=== PATIENT | female | born 1980 | race Caucasian/White ===

== ENCOUNTER 2017-12-22 11:40 | Emergency (ER) | payer MEDICARE, OTHER ==
[~2017-12-22] VITALS: Ht 157.5 cm; Wt 72.6 kg
[2017-12-22] MEDS ORDERED: ASPIRIN 81 MG CHEW (CHILDREN'S ASA) PO ONE (11:45)
[2017-12-22] MEDS ORDERED: NITROGLYCERIN 0.4 MG SL TABS BTL 25'S SL PRN (11:45)
[2017-12-22] MEDS ORDERED: morphine INJ 10 MG/ML 1ML (SYR OR VIAL) IVP STA (11:47)
[2017-12-22 11:52] LABS: BASOPHILS % (AUTO) 0 % (0-10); EOSINOPHILS # (AUTO) 0.1 10^3/uL (0.0-0.3); EOSINOPHILS % (AUTO) 1 % (0-10); HEMATOCRIT 42 % (35-52); HEMOGLOBIN 14.3 G/DL (11.5-16.0); LYMPHOCYTES # (AUTO) 3.5 X 10^3 (1.0-4.0); LYMPHOCYTES % (AUTO) 37 % (12-44); MEAN CORPUSCULAR HEMOGLOBIN 30 PG (25-34); MEAN CORPUSCULAR HGB CONC 34 G/DL (32-36); MEAN CORPUSCULAR VOLUME 87 FL (80-99); MEAN PLATELET VOLUME 11.1 FL (7.4-10.4); MONOCYTES # (AUTO) 0.6 X 10^3 (0.0-1.0); MONOCYTES % (AUTO) 6 % (0-12); NEUTROPHILS # (AUTO) 5.4 X 10^3 (1.8-7.8); NEUTROPHILS % (AUTO) 56 % (42-75); PLATELET COUNT 249 10^3/uL (130-400); RED BLOOD COUNT 4.85 10^6/uL (4.35-5.85); RED CELL DISTRIBUTION WIDTH 14.9 % (10.0-14.5); WHITE BLOOD COUNT 9.6 10^3/uL (4.3-11.0)
[2017-12-22] MEDS ORDERED: LORazepam INJ 2 MG/ML (ATIVAN) VIAL IVP ONE (12:00)
[2017-12-22 12:08] LABS: PROTHROMBIN TIME PATIENT 13.4 SEC (12.2-14.7)
[2017-12-22 12:09] LABS: ALANINE AMINOTRANSFERASE 11 U/L (0-55); ALKALINE PHOSPHATASE 91 U/L (40-136); AMYLASE 18 U/L (25-125); BILIRUBIN,TOTAL 0.9 MG/DL (0.1-1.0); BUN/CREATININE RATIO 11; CALCIUM 9.6 MG/DL (8.5-10.1); CARBON DIOXIDE 24 MMOL/L (21-32); CHLORIDE 104 MMOL/L (98-107); CREATININE SERUM 0.76 MG/DL (0.60-1.30); GFR ESTIMATED > 60; GLUCOSE 86 MG/DL (70-105); LIPASE 8 U/L (8-78); MAGNESIUM 2.1 MG/DL (1.8-2.4); POTASSIUM 3.8 MMOL/L (3.6-5.0); SODIUM 138 MMOL/L (135-145); TOTAL PROTEIN 6.9 GM/DL (6.4-8.2)
--- NOTE | 2017-12-22 12:09 | ED Chest Pain ---
General Stated Complaint: CP/UNRESPONSIVE Source: patient Exam Limitations: clinical condition (REAL RUANO) History of Present Illness Date Seen by Provider: Dec 22, 2017 Time Seen by Provider: 11:42 Initial Comments Patient presents to ED with left sided chest pain that began approximately 30 minutes prior to presentation. Patient describes the pain as sharp and radiates down her left arm and across to her right chest. 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 Patient reports that she experienced lightheadedness, tunnel vision, nausea, shortness of breath, and transient loss of consciousness en route to the ED. Patient reports that she has mild chest pain every morning which is normally relieved with Tylenol. Approximately one week ago patient reports that she had a similar episode of severe chest pain. She reported to [facility] at that time where it was determined that her pain was not cardiac in nature and she was subsequently released. 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 Seen at [facility] previously and told that it might be rib pain after evaluation. Patient and case makermanager cardiovascular that they were told everything else is normal. Apparently today had several episodes of nearly passing out with severe chest pain and she is not sure what is going on. 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 Associated Symptoms: shortness of breath, weakness (CAMILLA GARCIA MD) Allergies and Home Medications Allergies Coded Allergies: No Known Drug Allergies (Unverified , 12/22/17) Patient Home Medication List Home Medication List Reviewed: Yes (REAL RUANO) Home Medication List Reviewed: Yes (CAMILLA GARCIA MD) Review of Systems Constitutional: see HPI, chills, dizziness EENTM: Blurred Vision Respiratory: See HPI, Shortness of Air Cardiovascular: Chest Pain, Lightheadedness Gastrointestinal: Abdominal Pain; Denies Constipated; Diarrhea, Nausea; Denies Vomiting Psychiatric/Neurological: Anxiety, Depressed, Headache (REAL RUANO) Musculoskeletal: see HPI; No joint pain; muscle pain; No muscle stiffness Skin: No change in color, No rash (CAMILLA GARCIA MD) All Other Systems Reviewed Negative Unless Noted: Yes (CAMILLA GARCIA MD) Past Uaynout-Skxfqz-Entqga Hx Past Med/Social Hx: Reviewed Nursing Past Med/Soc Hx (CAMILLA GARCIA MD) Patient Social History Alcohol Use: Denies Use Recreational Drug Use: No Smoking Status: Current Everyday Smoker Type Used: Cigarettes (REAL RUANO) Past Medical History Surgeries: Yes Adenoidectomy, Gallbladder Gastrointestinal: Yes Gall Bladder Disease Anxiety, Depression (REAL RUANO) Family Medical History Reviewed Nursing Family Hx (CAMILLA GARCIA MD) Physical Exam Vital Signs Vital Signs - First Documented 12/22/17 11:40 Temp 96.4 Pulse 86 Resp 26 B/P (MAP) 115/70 (85) Pulse Ox 100 O2 Delivery Room Air (CAMILLA GARCIA MD) Vital Signs Capillary Refill : (REAL RUANO) Height, Weight, BMI Height: '" Weight: lbs. oz. kg; BMI Method: General Appearance: WD/WN, Anxious, Obese, Severe Distress HEENT: PERRL/EOMI, TMs Normal, Normal ENT Inspection, Pharynx Normal Neck: Normal Inspection, Non Tender Respiratory: Lungs Clear, Normal Breath Sounds, No Accessory Muscle Use, No Respiratory Distress Cardiovascular: Regular Rate, Rhythm, No Edema, No Gallop, No JVD, No Murmur, Normal Peripheral Pulses Gastrointestinal: Normal Bowel Sounds, No Organomegaly, No Pulsatile Mass, Non Tender, Soft Extremity: Normal Capillary Refill, Normal Inspection, Normal Range of Motion, Non Tender, No Calf Tenderness Neurologic/Psychiatric: Alert, Oriented x3, No Motor/Sensory Deficits, Normal Mood/Affect Skin: Normal Color, Warm/Dry Lymphatic: No Adenopathy (REAL RUANO) General Appearance: WD/WN, Anxious, Severe Distress Respiratory: Lungs Clear, Normal Breath Sounds Cardiovascular: Regular Rate, Rhythm, No Murmur Gastrointestinal: Non Tender, Soft Extremity: Normal Range of Motion, Non Tender Neurologic/Psychiatric: Alert, Oriented x3 Skin: Normal Color, Warm/Dry (CAMILLA GARCIA MD) Progress/Results/Core Measures Results/Orders Lab Results Laboratory Tests Test 12/22/17 11:40 12/22/17 14:38 Range/Units White Blood Count 9.6 4.3-11.0 10^3/uL Red Blood Count 4.85 4.35-5.85 10^6/uL Hemoglobin 14.3 11.5-16.0 G/DL Hematocrit 42 35-52 % Mean Corpuscular Volume 87 80-99 FL Mean Corpuscular Hemoglobin 30 25-34 PG Mean Corpuscular Hemoglobin Concent 34 32-36 G/DL Red Cell Distribution Width 14.9 H 10.0-14.5 % Platelet Count 249 130-400 10^3/uL Mean Platelet Volume 11.1 H 7.4-10.4 FL Neutrophils (%) (Auto) 56 42-75 % Lymphocytes (%) (Auto) 37 12-44 % Monocytes (%) (Auto) 6 0-12 % Eosinophils (%) (Auto) 1 0-10 % Basophils (%) (Auto) 0 0-10 % Neutrophils # (Auto) 5.4 1.8-7.8 X 10^3 Lymphocytes # (Auto) 3.5 1.0-4.0 X 10^3 Monocytes # (Auto) 0.6 0.0-1.0 X 10^3 Eosinophils # (Auto) 0.1 0.0-0.3 10^3/uL Basophils # (Auto) 0.0 0.0-0.1 10^3/uL Prothrombin Time 13.4 12.2-14.7 SEC INR Comment 1.0 0.8-1.4 Activated Partial Thromboplast Time 26 24-35 SEC D-Dimer <= 0.27 0.00-0.49 UG/ML Sodium Level 138 135-145 MMOL/L Potassium Level 3.8 3.6-5.0 MMOL/L Chloride Level 104 98-107 MMOL/L Carbon Dioxide Level 24 21-32 MMOL/L Anion Gap 10 5-14 MMOL/L Blood Urea Nitrogen 8 7-18 MG/DL Creatinine 0.76 0.60-1.30 MG/DL Estimat Glomerular Filtration Rate > 60 BUN/Creatinine Ratio 11 Glucose Level 86 70-105 MG/DL Calcium Level 9.6 8.5-10.1 MG/DL Corrected Calcium 9.6 8.5-10.1 MG/DL Magnesium Level 2.1 1.8-2.4 MG/DL Total Bilirubin 0.9 0.1-1.0 MG/DL Aspartate Amino Transf (AST/SGOT) 13 5-34 U/L Alanine Aminotransferase (ALT/SGPT) 11 0-55 U/L Alkaline Phosphatase 91 40-136 U/L Myoglobin 35.4 32.1 10.0-92.0 NG/ML Troponin I < 0.30 < 0.30 <0.30 NG/ML Total Protein 6.9 6.4-8.2 GM/DL Albumin 4.0 3.2-4.5 GM/DL Amylase Level 18 L 25-125 U/L Lipase 8 8-78 U/L (CAMILLA GARCIA MD) My Orders Orders - CAMILLA GARCIA MD Cbc With Automated Diff (12/22/17 11:43) Magnesium (12/22/17 11:43) Chest 1 View, Ap/Pa Only (12/22/17 11:43) Ekg Tracing (12/22/17 11:43) Cardiac Profile 1 (12/22/17 11:43) Comprehensive Metabolic Panel (12/22/17 11:43) Myoglobin Serum (12/22/17 11:43) Protime With Inr (12/22/17 11:43) Partial Thromboplastin Time (12/22/17 11:43) O2 (12/22/17 11:43) Monitor-Rhythm Ecg Trace Only (12/22/17 11:43) Lipid Panel (12/23/17 06:00) Aspirin Chewable Tablet (Baby Aspirin Ch (12/22/17 11:45) Nitroglycerin 0.4 Mg Btl 25's (Nitrostat (12/22/17 11:45) Saline Lock/Iv-Start (12/22/17 11:43) Lipase (12/22/17 11:43) Amylase (12/22/17 11:43) Fibrin Degradation Products (12/22/17 11:43) Morphine Injection (Morphine Injection (12/22/17 11:47) Lorazepam Injection (Ativan Injection) (12/22/17 12:00) Ct Angio Chest W (12/22/17 13:12) Saline Lock/Iv-Start (12/22/17 13:12) Ns Iv 1000 Ml (Sodium Chloride 0.9%) (12/22/17 13:12) Iohexol Injection (Omnipaque 350 Mg/Ml 1 (12/22/17 13:15) Ns (Ivpb) (Sodium Chloride 0.9%) (12/22/17 13:15) Troponin I (12/22/17 14:27) Myoglobin Serum (12/22/17 14:27) Ekg Tracing (12/22/17 14:27) (CAMILLA GARCIA MD) Medications Given in ED Current Medications Medications Dose Ordered Sig/Falguni Route Start Time Stop Time Status Last Admin Dose Admin Aspirin 324 mg ONCE ONCE PO 12/22/17 11:45 12/22/17 11:47 DC 12/22/17 11:58 324 MG Iohexol 125 ml ONCE ONCE IV 12/22/17 13:15 12/22/17 13:25 DC 12/22/17 14:05 125 ML Lorazepam 0.5 mg ONCE ONCE IVP 12/22/17 12:00 12/22/17 12:01 DC 12/22/17 12:03 0.5 MG Nitroglycerin 0.4 mg UD PRN SL 12/22/17 11:45 12/22/17 11:53 0.4 MG Sodium Chloride 250 ml ONCE ONCE IV 12/22/17 13:15 12/22/17 13:25 DC 12/22/17 14:06 80 ML Sodium Chloride 1,000 ml @ 0 mls/hr Q0M ONCE IV 12/22/17 13:12 12/22/17 13:13 DC 12/22/17 13:23 1,000 MLS/HR (CAMILLA GARCIA MD) Vital Signs/I&O 12/22/17 12/22/17 12/22/17 11:40 11:40 11:43 Temp 96.4 Pulse 86 Resp 26 B/P (MAP) 115/70 (85) Pulse Ox 100 100 O2 Delivery Room Air Room Air Room Air (CAMILLA GARCIA MD) Progress Progress Note : Time: 12:44 Progress Note Seen and evaluated. Patient reports cessation of pain. Labs, EKG, and chest CXR reviewed. Repeat cardiac enzymes at 1500, CT angiogram of chest, 1L NS. (REAL RUANO MED STUDENT) Progress Note : Progress Note And seen and evaluated the patient and agree with above except as indicated. I have directed the plan of care. Patient is here with near syncopal or syncopal episodes in route and severe chest pain. Described as above. Chest pain persists after arrival. Exam as above. IV, labs, EKG, chest x-ray, ASA 324 mg by mouth, nitroglycerin sublingual, morphine 2 mg IV ordered. Monitor patient. 1400: Repeat labs plan. We will get CT angiogram of the chest due to severity of condition and the near syncopal episodes to rule out PE. 1500: Patient is pain-free. Pending repeat labs. Monitor patient. 1600: CT angiogram negative. Repeat labs also negative. Repeat EKG unchanged. I did discuss the case with Dr. Sparks and he will see the patient in clinic for further evaluation and possible stress test as indicated. Copy of the chart will be sent to Dr. Sparks. All of this was discussed with the patient and family/case maker. Discharged home with return precautions. Patient verbalize understanding instructions and agreement with plan. (CAMILLA GARCIA MD) Initial ECG Impression Date: Dec 22, 2017 Initial ECG Impression Time: 11:44 Initial ECG Rate: 85 Initial ECG Rhythm: Normal Sinus Initial ECG Intervals: Normal Initial ECG Impression: Normal Comment Sinus rhythm with normal axis. No evidence of ST elevation [place]. No previous available for comparison. Interpreted by me. EKG : EKG Time: 14:33 Rate: 81 Rhythm: Normal Sinus ECG Impression: Normal Comment Sinus rhythm with artifact. No evidence of ST elevation [place]. Similar to previous done earlier today. Interpreted by me. (CAMILLA GARCIA MD) Diagnostic Imaging Diagonstic Imaging: Xray Plain Films/CT/US/NM/MRI: chest Comments [facility] [place], [place] NAME: PIERRE DUGAN [facility] REC#: [id number] PT STATUS: REG ER : 1980 PHYSICIAN: CAMILLA GARCIA MD ADMIT DATE: 12/22/17/ER Draft Date of Exam:12/22/17 CHEST 1 VIEW, AP/PA ONLY CLINICAL INDICATION: Patient with chest pain x2 weeks. EXAM: Portable chest x-ray upright view. COMPARISONS: None. FINDINGS: Lungs/pleura: Lungs are clear. There is no pneumothorax. There is no pleural effusion. Mediastinum: Unremarkable. Pulmonary vasculature: Unremarkable. Heart: Unremarkable. Bones/extrathoracic soft tissue: Surgical clips are seen overlying the right upper quadrant which could be related to cholecystectomy changes. Bone show no significant abnormality. IMPRESSION: There is no radiographic evidence of acute cardiopulmonary process. Dictated on workstation # [id number] Dict: 12/22/17 1234 Trans: 12/22/17 1235 [id number] Interpreted by: ELEUTERIO RAYMOND MD Electronically signed by: [employer] Imaging: CT Plain Films/CT/US/NM/MRI: chest Comments PHYSICIAN: CAMILLA GARCIA MD ADMIT DATE: 12/22/17/ER Draft Date of Exam:12/22/17 CT ANGIO CHEST W PROCEDURE: CT angiography of the chest with contrast. TECHNIQUE: Multiple contiguous axial images were obtained through the chest after uneventful bolus administration of intravenous contrast. Reconstructed CTA MIP acquisitions were also performed. INDICATION: Chest pain. COMPARISON: Chest x-ray from the same day. FINDINGS: The pulmonary arteries are diagnostic to the segmental level. No pulmonary embolus is seen. The heart is normal in size. There is no pericardial effusion. The aorta appears normal. No mediastinal adenopathy is seen. There is dependent atelectasis bilaterally. No focal mass is seen. No central endobronchial lesions are identified. There is no pleural effusion or pneumothorax. Calcified right hilar lymph nodes are noted. No acute osseous abnormality is seen. Imaged portions of the upper abdomen demonstrate no acute abnormality. Cholecystectomy clips are noted. There is mildly asymmetric soft tissue density in the left breast relative to the right. Consider nonemergent mammogram for further evaluation. IMPRESSION: 1. No pulmonary embolus. 2. Dependent atelectasis bilaterally. No acute pulmonary abnormality seen. 3. Mildly asymmetric density in the left breast relative to the right. Consider further evaluation with nonemergent mammogram. Dictated on workstation # [id number] Dict: 12/22/17 1423 Trans: 12/22/17 1432 [facility] [id number] Interpreted by: MARITZA DYER MD Electronically signed by: (CAMILLA GARCIA MD) Departure Impression Primary Impression: Chest pain Qualified Codes: R07.9 - Chest pain, unspecified Disposition: 01 HOME, SELF-CARE Condition: Improved Departure-Patient Inst. Decision time for Depature: 16:02 (CAMILLA GARCIA MD) Referrals: ESTHELA SPARKS MD Patient Instructions: Chest Pain (DC) Add. Discharge Instructions: You need to get mammogram for irregularity noted in the left breast compared to the right. Follow-up with Dr. Sparks within one week for recheck and further evaluation. Call his office in the morning. You may start taking Pepcid or the generic famotidine 20 mg once or twice a day as needed for stomach upset. Take this daily at least for the next 2 weeks and then as needed thereafter. Drink plenty of fluids. Eat a light diet. Return for worse pain, fever, vomiting, weakness, breathing problems or other concerns as needed. Copy Copies To 1: ESTHELA SPARKS MD, JOSHUA MED STUDENT Dec 22, 2017 12:09 CAMILLA GARCIA MD Dec 22, 2017 12:50
[2017-12-22 12:15] LABS: MYOGLOBIN SERUM 35.4 NG/ML (10.0-92.0)
--- NOTE | 2017-12-22 12:36 | Diagnostic Imaging Report ---
CLINICAL INDICATION: Patient with chest pain x2 weeks. EXAM: Portable chest x-ray upright view. COMPARISONS: None. FINDINGS: Lungs/pleura: Lungs are clear. There is no pneumothorax. There is no pleural effusion. Mediastinum: Unremarkable. Pulmonary vasculature: Unremarkable. Heart: Unremarkable. Bones/extrathoracic soft tissue: Surgical clips are seen overlying the right upper quadrant which could be related to cholecystectomy changes. Bone show no significant abnormality. IMPRESSION: There is no radiographic evidence of acute cardiopulmonary process. Dictated by: Dictated on workstation # [id number]
[2017-12-22] MEDS ORDERED: NS IV 1000 ML 1,000 ML IV ONE (13:12)
[2017-12-22] MEDS ORDERED: IOHEXOL 350 MG/ML 150 ML (OMNIPAQUE 350) VIAL IV ONE (13:15)
[2017-12-22] MEDS ORDERED: NS 250 ML (IVPB) BAG IV ONE (13:15)
--- NOTE | 2017-12-22 14:33 | Diagnostic Imaging Report ---
PROCEDURE: CT angiography of the chest with contrast. TECHNIQUE: Multiple contiguous axial images were obtained through the chest after uneventful bolus administration of intravenous contrast. Reconstructed CTA MIP acquisitions were also performed. INDICATION: Chest pain. COMPARISON: Chest x-ray from the same day. FINDINGS: The pulmonary arteries are diagnostic to the segmental level. No pulmonary embolus is seen. The heart is normal in size. There is no pericardial effusion. The aorta appears normal. No mediastinal adenopathy is seen. There is dependent atelectasis bilaterally. No focal mass is seen. No central endobronchial lesions are identified. There is no pleural effusion or pneumothorax. Calcified right hilar lymph nodes are noted. No acute osseous abnormality is seen. Imaged portions of the upper abdomen demonstrate no acute abnormality. Cholecystectomy clips are noted. There is mildly asymmetric soft tissue density in the left breast relative to the right. Consider nonemergent mammogram for further evaluation. IMPRESSION: 1. No pulmonary embolus. 2. Dependent atelectasis bilaterally. No acute pulmonary abnormality seen. 3. Mildly asymmetric density in the left breast relative to the right. Consider further evaluation with nonemergent mammogram. Dictated by: Dictated on workstation # [id number]
[2017-12-22 15:18] LABS: MYOGLOBIN SERUM 32.1 NG/ML (10.0-92.0)
[2017-12-22 16:12] VITALS: BP 115/96
== END 2017-12-22 16:12 | disposition home or self-care (01) ==
LOC: ER 11:42
DX: R07.89 Other chest pain (principal); F17.210 Nicotine dependence, cigarettes, uncomplicated; F41.9 Anxiety disorder, unspecified; F32.9 Major depressive disorder, single episode, unspecified; Z90.89 Acquired absence of other organs
CPT/HCPCS: 36415; 71045; 71275; 80053; 82150; 83690; 83735; 83874; 84484; 85025; 85379; 85610; 85730; 93005; 93041

== ENCOUNTER → 2018-01-27 | Outpatient (CLI) | payer MEDICARE ==
[~2018-01-27] MED LIST: ATOR10TA PO; DICL50TA6 PO; FLUO20CA42 PO; MIRT7.5T8 PO; RANI300T4 PO
== END ==
LOC: CARD 12:50
PROVIDERS: ATTEND Internal Medicine Cardiovascular Disease
DX: R07.89 Other chest pain (principal); E66.9 Obesity, unspecified; R55 Syncope and collapse; F32.9 Major depressive disorder, single episode, unspecified; I34.0 Nonrheumatic mitral (valve) insufficiency; Z72.0 Tobacco use
CPT/HCPCS: 93017; 93306

== ENCOUNTER 2018-02-03 08:08 | Day surgery (SDC) | payer MEDICARE ==
[~2018-02-03] VITALS: Ht 157.5 cm; Wt 72.6 kg
[2018-02-03] VITALS (8 sets, daily range): BP systolic 101–112; BP diastolic 55–74
[2018-02-03] MEDS ORDERED: NS IV 1000 ML 1,000 ML IV SCH ×2 (08:16→10:04)
[2018-02-03] MEDS ORDERED: LIDOCAINE 1% INJ 20 ML 20 ML VIAL ONE (08:35)
[2018-02-03] MEDS ORDERED: NS IV 1000 ML 1,000 ML ONE (08:35)
[2018-02-03] MEDS ORDERED: HEParin (CATH LAB) 2,000 ML IV ONE (08:35)
[2018-02-03] MEDS ORDERED: RANI300T4 PO (08:45)
[2018-02-03] MEDS ORDERED: MIRT7.5T8 PO (08:45)
[2018-02-03] MEDS ORDERED: FLUO20CA42 PO (08:45)
[2018-02-03] MEDS ORDERED: DICL50TA6 PO (08:46)
[2018-02-03 08:53] LABS: HEMOGLOBIN 13.8 G/DL (11.5-16.0); MEAN PLATELET VOLUME 11.5 FL (7.4-10.4); RED BLOOD COUNT 4.58 10^6/uL (4.35-5.85); RED CELL DISTRIBUTION WIDTH 15.2 % (10.0-14.5); WHITE BLOOD COUNT 10.1 10^3/uL (4.3-11.0)
--- NOTE | 2018-02-03 09:02 | Diagnostic Imaging Report ---
INDICATION: Coronary artery disease The heart size and configuration normal. The lungs are clear. No edema or pneumonia. No pleural fluid or pneumothorax. No change from previous exams most recently 12/22/2017. IMPRESSION: Stable normal frontal chest. Dictated by: Dictated on workstation # [id number]
[2018-02-03 09:10] LABS: INR 1.1 (0.8-1.4); PROTHROMBIN TIME PATIENT 13.7 SEC (12.2-14.7)
[2018-02-03 09:12] LABS: ALANINE AMINOTRANSFERASE 8 U/L (0-55); ALKALINE PHOSPHATASE 87 U/L (40-136); BILIRUBIN,TOTAL 1.1 MG/DL (0.1-1.0); BUN/CREATININE RATIO 10; CALCIUM 9.7 MG/DL (8.5-10.1); CARBON DIOXIDE 22 MMOL/L (21-32); CHLORIDE 105 MMOL/L (98-107); CHOLESTEROL 221 MG/DL (< 200); CREATININE SERUM 0.72 MG/DL (0.60-1.30); GFR ESTIMATED > 60; GLUCOSE 92 MG/DL (70-105); HDL CHOLESTEROL 31 MG/DL (40-60); POTASSIUM 4.2 MMOL/L (3.6-5.0); SODIUM 136 MMOL/L (135-145); TOTAL PROTEIN 7.2 GM/DL (6.4-8.2); TRIGLYCERIDES 105 MG/DL (<150); VLDL CHOLESTEROL 21 MG/DL (5-40)
[2018-02-03] MEDS ORDERED: MIDAZOLAM 5 MG/5 ML (VERSED) VIAL ONE (09:32)
[2018-02-03] MEDS ORDERED: VERAPAMIL 5 MG/2 ML (CALAN) VIAL IV ONE (09:32)
[2018-02-03] MEDS ORDERED: NITRO DRIP 25000 MCG/D5W 250 ML IV ONE (09:32)
[2018-02-03] MEDS ORDERED: HEParin 1000 UNIT/ML (10ML VIAL) FOR BOLUS ONE (09:32)
[2018-02-03] MEDS ORDERED: fentaNYL INJECTION 100 MCG/2 ML AMP ONE (09:33)
--- NOTE | 2018-02-03 09:35 | Cardiac Procedure Note-CS/ASA ---
Pre-Procedure Note Pre-Op Procedure Note H&P Reviewed The H&P was reviewed, patient examined and no changes noted. Date H&P Reviewed: Feb 03, 2018 Time H&P Reviewed: 09:35 Conscious Sedation Pre-Proced Time 09:35 ASA Score 3 For ASA 3 and 4: Consider anesthesia and medical clearance. Also, for patients with a history of failed moderate sedation consider anesthesia. Airway Lungs Heart ASA score ASA 1: a normal healthy patient ASA 2: a patient with a mild systemic disease (mid diabetes, controlled hypertension, obesity x ASA 3: a patient with a severe systemic disease that limits activity (angina , COPD, prior Myocardial infarction) ASA 4: a patient with an incapacitating disease that is a constant threat to life (CHF, renal failure) ASA 5: a moribund patient not expected to survive 24 hrs. (ruptured aneurysm) ASA 6: a declared brain patient whose organs are being harvested. For emergent operations, add the letter E after the classification Mallampati Classification Grade 3 Sedation Plan Analgesia, Amnesia, Plan communicated to team members, Discussed options with patient/fam, Discussed risks with patient/fam The patient is an appropriate candidate to undergo the planned procedure, sedation, and anesthesia. The patient immediately re-assessed prior to indication. ESTHELA COOK MD Feb 03, 2018 09:35
[2018-02-03] MEDS ORDERED: ATOR10TA PO (10:06)
--- NOTE | 2018-02-03 10:07 | Discharge Inst-Post CATH ---
Discharge Inst-CATH Post Cardiac Cath D/C Inst Follow Up/Plan Appointment with Dr. Sparks's office in 2-4 weeks CARDIAC CATH DISCHARGE INSTRUCTIONS *Hold Metformin for 48 hours post heart cath. ACTIVITY * Go Home directly and rest. * Limit activity of the leg (or wrist if it was used) for 7 days including aerobics, swimming, jogging, bicycling, etc. * Restrict stair-climbing for 7 days if possible, if not, climb up with your non -cath leg, then bring together on the same step. * Avoid lifting, pushing, pulling or excessive movement of the affected extremity for 7 days. * Customary sexual activity may be resumed after 2 days-use caution not to use a position that strains or causes pain to the affected extremity. * No driving for 24 hours. * NO SMOKING. * Avoid straining for bowel movements for 7 days. * Gentle walking on level ground is allowed. * Returning to work will depend on the type of procedure and the results. Your doctor will discuss this with you. CALL YOUR DOCTOR FOR ANY OF THE FOLLOWING: *If bleeding from the puncture site occurs- Apply gentle pressure to site with clean cloth and call your doctor or EMS. * If a knot or lump forms under the skin, increases in size, or causes pain. * If bruising appears to be worsening or moving further down your leg instead of disappearing. * Temperature above 101 F. CARE OF YOUR GROIN INCISION; * Bruising or purple discoloration of the skin near the puncture site is common. * You may shower only, no bathtub bathing for 5 days. Be careful to avoid slipping as your leg may feel stiff. * If a closure device was used on your femoral artery, please see the attached guide regarding care of the device and your leg. * Leave the dressing on, until removed by office staff. CARE OF YOUR WRIST INCISION; * Bruising or purple discoloration of the skin near the puncture site is common. * You may shower. * DO NOT submerge wrist. * Leave dressing on, until removed by office staff.. ESTHELA SPARKS MD Feb 03, 2018 10:07
--- NOTE | 2018-02-03 10:11 | Cardiac Cath Report ---
Cardiac Cath Report Physician (s)/Senior Producer (s) Physician ESTHELA COOK MD Pre-Procedure Diagnosis Pre-Procedure Diagnosis: Coronary artery disease Post-Procedure Note Procedure Start Date: Feb 03, 2018 Name of Procedure: Left heart catheterization Findings/Procedure Note PROCEDURE NOTE: 37 years old lady who has been having recurrent chest pain, she underwent an exercise EKG stress test, during exercise she had severe left-sided chest pain, was unable to walk then felt that she was going to pass out, we placed her on bed, she was having severe chest pain, EKG did not show acute abnormality. Continue to have chest pain for a while. I decided to proceed with cardiac catheterization possible PTCA After explaining the procedure to the patient, all pros and cons were explained , all questions were answered. The patient signed the consent and then she was placed on the cardiac catheterization laboratory. Groin was prepped SL fashion local anesthesia was used. Sheath placed in the right radial artery. Norris catheter was used to evaluate the right and left coronary system, left ventriculogram was done At the end of the procedure the sheath was removed. FINDINGS: Hemodynamics LV 117/27, end-diastolic pressure of 27 Aorta 115/81 mean of 85 ANATOMY: Left Main is free of obstructive disease Left Anterior Descending has mild disease nonobstructive disease Left Circumflex has mild disease nonobstructive disease Right Coronory Artery has mild disease no obstructive disease LV Gram is normal in size with normal contraction. Estimated ejection fraction 60 percent CONCLUSION: 1. Mild coronary artery disease nonobstructive disease 2. Normal left ventricular size and systolic estimated ejection fraction 60 percent. Slight 3. Elevated left ventricular end-diastolic pressure DISCUSSION AND RECOMMENDATION: Medical therapy is recommended no intervention is needed Anesthesia Type: Conscious Sedation Estimated blood loss (mL): 10 ml Contrast Amount: 30 ml Total Radiation Dose: 101 mGy Post-Procedure Diagnosis Post-operative diagnosis: Chest pain nonspecific etiology Coronary artery disease Hyperlipidemia Tobaccoism ESTHELA COOK MD Feb 03, 2018 10:10
== END 2018-02-03 13:05 | disposition home or self-care (01) ==
LOC: CATH 08:08 → 4TH 10:20 → CATH 13:05 → 4TH 13:54
PROVIDERS: ATTEND Internal Medicine Cardiovascular Disease
DX: R07.9 Chest pain, unspecified (principal); I25.10 Atherosclerotic heart disease of native coronary artery without angina pectoris; E78.5 Hyperlipidemia, unspecified; F17.210 Nicotine dependence, cigarettes, uncomplicated; F32.9 Major depressive disorder, single episode, unspecified; E66.9 Obesity, unspecified; Z68.29 Body mass index [BMI] 29.0-29.9, adult; F41.9 Anxiety disorder, unspecified; K21.9 Gastro-esophageal reflux disease without esophagitis; R55 Syncope and collapse
CPT/HCPCS: 36415; 71045; 80053; 80061; 84703; 85027; 85610; 85730; 87081; 93458

== ENCOUNTER → 2018-02-04 | Outpatient (CLI) | payer MEDICARE ==
--- NOTE | 2018-02-04 10:32 | Diagnostic Imaging Report ---
EXAM: Ultrasound of the left breast. INDICATION: Left breast pain. By history, the patient has pain in the left breast. The diagnostic mammogram performed earlier today failed to show any sign of an acute abnormality or of malignancy. On this exam, there is no discrete solid or cystic mass identified. There is no sign of an abscess either. IMPRESSION: 1. There is no abnormality to account for the patient's left breast pain. Clinical followup is recommended. 2. There is no sign of malignancy. ACR BI-RADS Category 1: Negative. Result letter will be mailed to the patient. Note: At least 10% of breast cancer is not imaged by mammography. Dictated by: Dictated on workstation # [id number]
--- NOTE | 2018-02-05 22:47 | Diagnostic Imaging Report ---
The current study was also evaluated with a Computer Aided Detection (CAD) system. 3-D tomosynthesis was also performed and reviewed. INDICATION: Abnormal CT exam This is the patient's baseline study. The CTA chest exam performed on 12/22/2017 noted mild asymmetric density in the left breast relative to the right. On this exam, there are scattered fibroglandular densities in both breasts which could obscure a lesion. There is no primary or secondary sign of malignancy identified, however. I suspect that the asymmetric density involving the left breast was related to fibroglandular tissue alone. Even so, I would recommend ultrasound of the left breast be performed for further study. There is a benign-appearing nodular density deep in the right breast near the chest wall. This is most likely intramammary lymph node. IMPRESSION: There is no evidence of malignancy. Ultrasound of the left breast is pending for further study. ACR BI-RADS Category 0: Incomplete. (Needs additional imaging evaluation). Result letter will be mailed to the patient. Note: At least 10% of breast cancer is not imaged by mammography. Dictated by: Dictated on workstation # [id number]
== END ==
LOC: RAD 08:27
PROVIDERS: ATTEND Internal Medicine Cardiovascular Disease
DX: R92.8 Other abnormal and inconclusive findings on diagnostic imaging of breast (principal)
CPT/HCPCS: 76642; 77066

== ENCOUNTER → 2018-03-29 | Outpatient (CLI) | payer MEDICARE ==
--- NOTE | 2018-03-29 14:16 | Diagnostic Imaging Report ---
PROCEDURE: MRI left upper extremity without contrast. TECHNIQUE: Multiplanar, multisequence non contrast-enhanced MRI of the left upper extremity was accomplished. INDICATION: Left shoulder injury in 1999. Left shoulder pain. COMPARISON: None. FINDINGS: No acute fractures seen in the left shoulder. Alignment appears normal. No joint effusion is seen. There is minimal fraying at the undersurface of the supraspinatus near the footplate. No high-grade partial-thickness or full-thickness tears are seen in the left rotator cuff. There is no muscular atrophy. The long head of the biceps tendon appears normal in course and signal. The glenoid labrum is suboptimally evaluated in the absence of contrast. No large paralabral cysts are seen. The spinoglenoid and suprascapular notches appear clear. The acromion has a flat undersurface without significant downsloping or hooking. The coracoclavicular and coracoacromial ligaments are intact. No soft tissue fluid collections are seen. There is no axillary lymphadenopathy. IMPRESSION: 1. Minimal fraying at the undersurface of the distal left supraspinatus tendon. No high-grade partial-thickness or full-thickness rotator cuff tear seen. Dictated by: Dictated on workstation # [id number]
== END ==
LOC: RAD 11:08
PROVIDERS: ATTEND Orthopaedic Surgery
DX: M75.112 Incomplete rotator cuff tear or rupture of left shoulder, not specified as traumatic (principal)
CPT/HCPCS: 73221

== ENCOUNTER 2018-05-05 09:52 | Outpatient (CLI) | payer MEDICARE ==
[~2018-05-05] VITALS: Ht 157.5 cm; Wt 78.0 kg
[2018-05-05 10:23] VITALS: BP 112/73
[2018-05-05] MEDS ORDERED: ATOR10TA66 PO (14:45)
[2018-05-05] MEDS ORDERED: FLUO10CA19 PO (14:45)
== END 2018-05-05 10:25 | disposition home or self-care (01) ==
LOC: PREOP 09:52
PROVIDERS: ATTEND Orthopaedic Surgery
DX: Z01.818 Encounter for other preprocedural examination (principal)
CPT/HCPCS: 87081

== ENCOUNTER 2018-08-01 13:02 | Emergency (ER) | payer MEDICARE ==
[~2018-08-01] VITALS: Ht 157.5 cm; Wt 72.6 kg
[~2018-08-01 13:02] MED LIST changes: +ATOR10TA66 PO; +FLUO10CA19 PO; +HYDR-3875 PO
[2018-08-01 14:17] LABS: HEMOGLOBIN 13.8 G/DL (11.5-16.0); MEAN PLATELET VOLUME 10.5 FL (7.4-10.4); RED CELL DISTRIBUTION WIDTH 15.3 % (10.0-14.5)
[2018-08-01 14:28] LABS: BUN/CREATININE RATIO 14; CALCIUM 9.3 MG/DL (8.5-10.1); CARBON DIOXIDE 22 MMOL/L (21-32); CHLORIDE 100 MMOL/L (98-107); CREATININE SERUM 0.81 MG/DL (0.60-1.30); GFR ESTIMATED > 60; GLUCOSE 79 MG/DL (70-105); POTASSIUM 5.1 MMOL/L (3.6-5.0); SODIUM 135 MMOL/L (135-145)
--- NOTE | 2018-08-01 14:41 | ED General ---
General Chief Complaint: Cough/Cold/Flu Symptoms Stated Complaint: PT LOST VOICE - SENT FROM Source of Information: Patient, Family History of Present Illness Date Seen by Provider: Aug 01, 2018 Time Seen by Provider: 13:40 Initial Comments 37-year-old female presents with pharyngitis. Patient reports that about 5 days ago she had a sore throat, she is then lost her voice. Still having difficulty getting her voice back. No reports of fevers, chills at this time. No nausea vomiting difficulty swallowing or eating. No reports of cough or any other systemic complaints at this time Allergies and Home Medications Allergies Coded Allergies: No Known Drug Allergies (Unverified , 12/22/17) Home Medications Atorvastatin Calcium 10 Mg Tablet, 10 MG PO HS, (Reported) Diclofenac Sodium 50 Mg Tablet.dr, 50 MG PO BID PRN for CHEST PAIN, (Reported) Fluoxetine HCl 10 Mg Capsule, 10 MG PO DAILY, (Reported) Hydrocodone/Acetaminophen 1 Each Tablet, 1 EACH PO Q4H Prescribed by: EDDIE ALONZO on 05/12/18 0954 Mirtazapine 7.5 Mg Tablet, 7.5 MG PO HS, (Reported) Ranitidine HCl 300 Mg Tablet, 300 MG PO HS, (Reported) Patient Home Medication List Home Medication List Reviewed: Yes Review of Systems Review of Systems Constitutional: No chills, No fever EENTM: see HPI, throat swelling Respiratory: No cough, No short of breath, No stridor, No wheezing Cardiovascular: no symptoms reported Gastrointestinal: no symptoms reported Genitourinary: no symptoms reported Musculoskeletal: no symptoms reported Skin: no symptoms reported Past Gwtzaqi-Zzhxum-Szxshg Hx Past Med/Social Hx: Reviewed Nursing Past Med/Soc Hx Patient Social History Type Used: Cigarettes Recent Foreign Travel: No (N) Contact w/Someone Who Travel: No (N) Recent Hopitalizations: No Immunizations Up To Date Date of Pneumonia Vaccine: Feb 01, 2018 Date of Influenza Vaccine: Feb 01, 2018 Seasonal Allergies Seasonal Allergies: No Past Medical History Surgeries: Yes Gallbladder Respiratory: No Cardiac: No Neurological: Yes Concussion Reproductive Disorders: No Sexually Transmitted Disease: No Genitourinary: No Gastrointestinal: No Gall Bladder Disease Musculoskeletal: Yes Arthritis, Fractures Endocrine: No HEENT: No Cancer: No Psychosocial: Yes Anxiety, Depression Integumentary: No Blood Disorders: No Physical Exam Vital Signs Capillary Refill : Height, Weight, BMI Height: 5'2.00" Weight: 166lbs. 8.0oz. 75.965058lw; 30.5 BMI Method:Stated General Appearance: No Apparent Distress, WD/WN Eyes: Bilateral Eye Normal Inspection HEENT: PERRL/EOMI, Pharynx Normal; No Tonsillar Exudate, No Tonsillar Enlargement Neck: Full Range of Motion, Non Tender, Supple Respiratory: Chest Non Tender, Lungs Clear, Normal Breath Sounds, No Accessory Muscle Use, No Respiratory Distress Cardiovascular: Regular Rate, Rhythm, Normal Peripheral Pulses Gastrointestinal: Non Tender, Soft Back: No CVA Tenderness Extremity: Normal Capillary Refill Neurologic/Psychiatric: Alert, Oriented x3 Skin: Normal Color, Warm/Dry Progress/Results/Core Measures Suspected Sepsis SIRS Temperature: Pulse: Respiratory Rate: Laboratory Tests 08/01/18 13:50: White Blood Count 8.0 Blood Pressure / Mean: Laboratory Tests 08/01/18 13:50: Creatinine 0.81, Platelet Count 234 Results/Orders Lab Results Laboratory Tests Test 08/01/18 13:50 Range/Units White Blood Count 8.0 4.3-11.0 10^3/uL Red Blood Count 4.71 4.35-5.85 10^6/uL Hemoglobin 13.8 11.5-16.0 G/DL Hematocrit 43 35-52 % Mean Corpuscular Volume 91 80-99 FL Mean Corpuscular Hemoglobin 29 25-34 PG Mean Corpuscular Hemoglobin Concent 32 32-36 G/DL Red Cell Distribution Width 15.3 H 10.0-14.5 % Platelet Count 234 130-400 10^3/uL Mean Platelet Volume 10.5 H 7.4-10.4 FL Sodium Level 135 135-145 MMOL/L Potassium Level 5.1 H 3.6-5.0 MMOL/L Chloride Level 100 98-107 MMOL/L Carbon Dioxide Level 22 21-32 MMOL/L Anion Gap 13 5-14 MMOL/L Blood Urea Nitrogen 11 7-18 MG/DL Creatinine 0.81 0.60-1.30 MG/DL Estimat Glomerular Filtration Rate > 60 BUN/Creatinine Ratio 14 Glucose Level 79 70-105 MG/DL Calcium Level 9.3 8.5-10.1 MG/DL Group A Streptococcus Screen NEGATIVE NEGATIVE Micro Results Microbiology 08/01/18 Influenza Types A,B Antigen (CORAL) - Final, Complete My Orders Orders - SAMINA RODRÍGUEZ DO Basic Metabolic Panel (08/01/18 13:43) Cbc No Diff (08/01/18 13:43) Rapid Strep A Screen (08/01/18 13:43) Influenza A And B Antigens (08/01/18 13:43) Lidocaine 2% Viscous 15 Ml (Xylocaine Vi (08/01/18 14:45) Antacid Suspension (Mylanta Suspension (08/01/18 14:45) Vital Signs/I&O Capillary Refill : Progress Note : Progress Note Reviewed and negative workup with patient. Discussed with her at this time, looks like a viral pharyngitis. That if by mid week she has not started to regain her voice she should follow-up with her primary care physician for recheck of symptoms and further workup. Patient will be discharged home in stable condition Departure Impression Primary Impression: Laryngitis, acute Disposition: 01 HOME, SELF-CARE Condition: Stable Departure-Patient Inst. Referrals: SELF,LITO SHAH (PCP/Family) Primary Care Physician Patient Instructions: Laryngitis (DC) Add. Discharge Instructions: If symptoms are not starting to improve or resolve by midweek please follow-up with your primary care physician or ENT for further evaluation. Salt water gargles, lemon drops or similar to help keep mouth moist. All discharge instructions reviewed with patient and/or family. Voiced understanding. SAMINA RODRÍGUEZ DO Aug 01, 2018 14:41
[2018-08-01] MEDS ORDERED: ANTACID SUSP 30 ML UDC (MYLANTA) PO ONE (14:45)
[2018-08-01] MEDS ORDERED: LIDOCAINE 2% VISCOUS 15 ML UDC PO ONE (14:45)
[2018-08-01 14:51] VITALS: BP 110/75
== END 2018-08-01 14:53 | disposition home or self-care (01) ==
LOC: EDUNIT# 13:02 → ER FS 13:04
DX: J04.0 Acute laryngitis (principal); F41.9 Anxiety disorder, unspecified; F32.9 Major depressive disorder, single episode, unspecified; Z98.890 Other specified postprocedural states; Z87.448 Personal history of other diseases of urinary system
CPT/HCPCS: 36415; 80048; 85027; 87430; 87804

== ENCOUNTER 2019-11-05 20:00 | Emergency (ER) | payer MEDICARE ==
[~2019-11-05] VITALS: Ht 157.4 cm; Wt 78.5 kg
[~2019-11-05 20:00] MED LIST changes: -FLUO10CA19 PO; +FLUO10CA30 PO
--- OUTSIDE RECORDS SUMMARY | 2019-11-05 20:08 | XMS REPORT ---
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 Name Role Phone LITO HINES Unavailable PROBLEMS Type Condition ICD9-CM Code BPH45-IE Code Onset Dates Condition S tatus SNOMED Code Problem PTSD (post-traumatic stress disorder) F43.10 Active 72453459 Problem Tobacco abuse Z72.0 Active 897187 05 Problem Mixed hyperlipidemia E78.2 07 Apr, 2018 Active 588093130 Problem GERD (gastroesophageal reflux disease) K21.9 Active 850128759 Problem Hyperlipidemia E78.5 Active 67782 004 Problem Major depression F32.9 Active 370 933425 ALLERGIES No Known Allergies ENCOUNTERS Encounter Location Date Diagnosis [address] [place] [address] Mar, Abscess and cellulitis L03.9 0 [facility] [address] [place] [id number] Dec, Dental caries, unspecified K02.9 [facility] [address] [place] [id number] Dec, Dental examination Z01.20 and Caries K02.9 [facility] [address] [place] [id number] Nov, OUTREACH [facility] [id number] [place] [id number] Oct, Dental examination Z01.20 OUTREACH [facility] [id number] [place] [address] Oct, Dental examination Z01.20 and Caries K02 .9 [address] [place] [address] Oct, PTSD (post-traumatic stress disorder) F43.10 and Major depression F32.[address] [place] [address] Aug, Abscess of right breast N61. [address] [place] [address] Aug, Other injury of unspecified body region, initial encounter T14.8XXA ; Local infection of the skin and subcutaneous tissue, unspecified L08.9 and Abscess L02.[address] [place] [address] Jul, Acute viral tracheitis J04.1 0 [facility] [address] [place] [address] Jul, Laryngitis J04.[address] [place] [address] Jul, Major depression F32.9 ; ALLY D (gastroesophageal reflux disease) K21.9 ; PTSD (post-traumatic stress disorder) F43.10 ; Tobacco abuse Z72.0 and Hyperlipidemia E78.[address] [place] [address] Jul, [facility] [id number] [place] [address] May, [facility] [address] [address] May, [facility] [address] [address] Apr, [facility] [address] [address] Dec, IMMUNIZATIONS No Known Immunizations SOCIAL HISTORY Never Assessed REASON FOR VISIT laryngitis PLAN OF CARE Activity Details Follow Up prn Reason: VITAL SIGNS Height 5'2" in 2018-08-03 Weight 177 lbs 2018-08-03 BMI 32.37 kg/m2 2018-08-03 Blood pressure systolic 130 mmHg 2018-08-03 Blood pressure diastolic 72 mmHg 2018-08-03 MEDICATIONS Medication Instructions Dosage Frequency Start Date End Date Duration S tatus Fluoxetine HCl 20 MG Orally Once a day 1 capsule 24h 30 day(s) Active Mirtazapine 7.5 MG Orally Once a day 1 tablets at bedtime 24h 30 day(s) Active Zantac 300 MG Orally Once a day 1 tablet 24h 30 day( s) Active Lipitor 10 MG Orally Once a day 1 tablet 24h 30 day( s) Active Medrol 4 MG Orally daily as directed 24h Jul, 6 days Active Zithromax Z-Aroldo 250 MG Orally Once a day 2 tablets on the first day, then 1 tablet daily for 4 days 24h Jul, 5 day(s) Acti ve RESULTS No Results PROCEDURES Procedure Date Ordered Result Body Site [facility] VISIT ESTABLISHED PATIENT August 03, 2018 INSTRUCTIONS MEDICATIONS ADMINISTERED No Known Medications MEDICAL (GENERAL) HISTORY Type Description Date Medical History Major depression Medical History GERD (gastroesophageal reflux disease) Medical History PTSD (post-traumatic stress disorder) Medical History Tobacco abuse Medical History Hyperlipidemia Surgical History shoulder arthroscopy Surgical History cholecystectomy Surgical History left shoulder surg 2018
--- OUTSIDE RECORDS SUMMARY | 2019-11-05 20:08 | XMS REPORT | Continuity of Care Document ---
Author Organization Unknown Address Unknown Phone Unavailable Allergies Active Description Code Type Severity Reaction Onset Reported/Identified Relationship to Patient Clinical Status Yes No Known Drug Allergies [id number] Drug Allergy Unknown N/A 12/22/2017 Medications There is no data. Problems Date Dx Coded Attending Type Code Diagnosis Diagnosed By 12/22/2017 Ot F17.210 NI COTINE DEPENDENCE, CIGARETTES, UNCOMPL 12/22/2017 Ot F32.9 SHELBIE R DEPRESSIVE DISORDER, SINGLE EPISOD 12/22/2017 Ot F41.9 ANXI ETY DISORDER, UNSPECIFIED 12/22/2017 Ot R07.89 OTH ER CHEST PAIN 12/22/2017 Ot Z90.89 ACQ UIRED ABSENCE OF OTHER ORGANS 01/25/2018 ESTHELA COOK MD Ot R07. 89 OTHER CHEST PAIN 01/28/2018 ESTHELA COOK MD Ot R92. 8 OTH ABN AND INCONCLUSIVE FINDINGS ON DX 02/01/2018 ESTHELA COOK MD Ot E66. 9 OBESITY, UNSPECIFIED 02/01/2018 ESTHELA COOK MD Ot F32. 9 MAJOR DEPRESSIVE DISORDER, SINGLE EPISOD 02/01/2018 ESTHELA COOK MD Ot I34. 0 NONRHEUMATIC MITRAL (VALVE) INSUFFICIENC 02/01/2018 ESTHELA COOK MD Ot R07. 89 OTHER CHEST PAIN 02/01/2018 ESTHELA COOK MD Ot R55 SYNCOPE AND COLLAPSE 02/01/2018 ESTHELA COOK MD Ot Z72. 0 TOBACCO USE 02/03/2018 ESTHELA COOK MD Ot E66. 9 OBESITY, UNSPECIFIED 02/03/2018 ESTHELA COOK MD Ot E78. 5 HYPERLIPIDEMIA, UNSPECIFIED 02/03/2018 ESTHELA COOK MD Ot F17.210 NICOTINE DEPENDENCE, CIGARETTES, UNCOMPL 02/03/2018 ESTHELA COOK MD Ot F32. 9 MAJOR DEPRESSIVE DISORDER, SINGLE EPISOD 02/03/2018 ESTHELA COOK MD Ot F41. 9 ANXIETY DISORDER, UNSPECIFIED 02/03/2018 ESTHELA COOK MD Ot I25. 10 ATHSCL HEART DISEASE OF [place] CORONARY 02/03/2018 ESTHELA COOK MD Ot K21. 9 GASTRO-ESOPHAGEAL REFLUX DISEASE WITHOUT 02/03/2018 ESTHELA COOK MD Ot R07. 9 CHEST PAIN, UNSPECIFIED 02/03/2018 ESTHELA COOK MD Ot R55 SYNCOPE AND COLLAPSE 02/03/2018 ESTHELA COOK MD Ot Z68. 29 BODY MASS INDEX (BMI) 29.0-29.9, ADULT 02/05/2018 ESTHELA COOK MD Ot E66. 9 OBESITY, UNSPECIFIED 02/05/2018 ESTHELA COOK MD Ot E78. 5 HYPERLIPIDEMIA, UNSPECIFIED 02/05/2018 ESTHELA COOK MD Ot F17.210 NICOTINE DEPENDENCE, CIGARETTES, UNCOMPL 02/05/2018 ESTHELA COOK MD Ot F32. 9 MAJOR DEPRESSIVE DISORDER, SINGLE EPISOD 02/05/2018 ESTHELA COOK MD Ot F41. 9 ANXIETY DISORDER, UNSPECIFIED 02/05/2018 ESTHELA COOK MD Ot I25. 10 ATHSCL HEART DISEASE OF [place] CORONARY 02/05/2018 ESTHELA COOK MD Ot K21. 9 GASTRO-ESOPHAGEAL REFLUX DISEASE WITHOUT 02/05/2018 ESTHELA COOK MD Ot R07. 9 CHEST PAIN, UNSPECIFIED 02/05/2018 ESTHELA COOK MD Ot R55 SYNCOPE AND COLLAPSE 02/05/2018 ESTHELA COOK MD Ot Z68. 29 BODY MASS INDEX (BMI) 29.0-29.9, ADULT 02/06/2018 ESTHELA COOK MD Ot R92. 8 OTH ABN AND INCONCLUSIVE FINDINGS ON DX 02/09/2018 ESTHELA COOK MD Ot E66. 9 OBESITY, UNSPECIFIED 02/09/2018 ESTHELA COOK MD Ot E78. 5 HYPERLIPIDEMIA, UNSPECIFIED 02/09/2018 ESTHELA COOK MD Ot F17.210 NICOTINE DEPENDENCE, CIGARETTES, UNCOMPL 02/09/2018 ESTHELA COOK MD Ot F32. 9 MAJOR DEPRESSIVE DISORDER, SINGLE EPISOD 02/09/2018 ESTHELA COOK MD Ot F41. 9 ANXIETY DISORDER, UNSPECIFIED 02/09/2018 ESTHELA COOK MD Ot I25. 10 ATHSCL HEART DISEASE OF [place] CORONARY 02/09/2018 ESTHELA COOK MD Ot K21. 9 GASTRO-ESOPHAGEAL REFLUX DISEASE WITHOUT 02/09/2018 ESTHELA COOK MD Ot R07. 9 CHEST PAIN, UNSPECIFIED 02/09/2018 ESTHELA COOK MD Ot R55 SYNCOPE AND COLLAPSE 02/09/2018 ESTHELA COOK MD Ot Z68. 29 BODY MASS INDEX (BMI) 29.0-29.9, ADULT 02/10/2018 ESTHELA COOK MD Ot R92. 8 OTH ABN AND INCONCLUSIVE FINDINGS ON DX 02/17/2018 ESTHELA COOK MD Ot E66. 9 OBESITY, UNSPECIFIED 02/17/2018 ESTHELA COOK MD Ot F32. 9 MAJOR DEPRESSIVE DISORDER, SINGLE EPISOD 02/17/2018 ESTHELA COOK MD Ot I34. 0 NONRHEUMATIC MITRAL (VALVE) INSUFFICIENC 02/17/2018 ESTHELA COOK MD Ot R07. 89 OTHER CHEST PAIN 02/17/2018 ESTHELA COOK MD Ot R55 SYNCOPE AND COLLAPSE 02/17/2018 ESTHELA COOK MD Ot Z72. 0 TOBACCO USE 02/24/2018 ESTHELA COOK MD Ot R92. 8 OTH ABN AND INCONCLUSIVE FINDINGS ON DX 03/26/2018 ESTHELA COOK MD Ot E66. 9 OBESITY, UNSPECIFIED 03/26/2018 ESTHELA COOK MD Ot F32. 9 MAJOR DEPRESSIVE DISORDER, SINGLE EPISOD 03/26/2018 ESTHELA COOK MD Ot I34. 0 NONRHEUMATIC MITRAL (VALVE) INSUFFICIENC 03/26/2018 ESTHELA COOK MD Ot R07. 89 OTHER CHEST PAIN 03/26/2018 ESTHELA COOK MD Ot R55 SYNCOPE AND COLLAPSE 03/26/2018 ESTHELA COOK MD Ot Z72. 0 TOBACCO USE 03/26/2018 ESTHELA COOK MD Ot R92. 8 OTH ABN AND INCONCLUSIVE FINDINGS ON DX 03/30/2018 SUMANTH NICHOLSON MD Ot M75.112 INCOMPLETE ROTATR-CUFF TEAR/RUPTR OF L S 04/22/2018 SUMANTH NICHOLSON MD Ot M75.112 INCOMPLETE ROTATR-CUFF TEAR/RUPTR OF L S 05/05/2018 ESTHELA COOK MD Ot E66. 9 OBESITY, UNSPECIFIED 05/05/2018 ESTHELA COOK MD Ot F32. 9 MAJOR DEPRESSIVE DISORDER, SINGLE EPISOD 05/05/2018 ESTHELA COOK MD Ot I34. 0 NONRHEUMATIC MITRAL (VALVE) INSUFFICIENC 05/05/2018 ESTHELA COOK MD Ot R07. 89 OTHER CHEST PAIN 05/05/2018 ESTHELA COOK MD Ot R55 SYNCOPE AND COLLAPSE 05/05/2018 ESTHELA COOK MD Ot Z72. 0 TOBACCO USE 05/05/2018 ESTHELA COOK MD Ot R92. 8 OTH ABN AND INCONCLUSIVE FINDINGS ON DX 05/05/2018 SUMANTH NICHOLSON MD, Ot M75.112 INCOMPLETE ROTATR-CUFF TEAR/RUPTR OF L S 05/05/2018 SUMANTH NICHOLSON MD Ot Z01.818 ENCOUNTER FOR OTHER PREPROCEDURAL EXAMIN 05/06/2018 SUMANTH NICHOLSON MD, Ot Z01.818 ENCOUNTER FOR OTHER PREPROCEDURAL EXAMIN 05/12/2018 SUMANTH NICHOLSON MD, Ot E78.5 HYPERLIPIDEMIA, UNSPECIFIED 05/12/2018 SUMANTH NICHOLSON MD, Ot F17.210 NICOTINE DEPENDENCE, CIGARETTES, UNCOMPL 05/12/2018 SUMANTH NICHOLSON MD, Ot F32.9 MAJOR DEPRESSIVE DISORDER, SINGLE EPISOD 05/12/2018 SUMANTH NICHOLSON MD, Ot F41.9 ANXIETY DISORDER, UNSPECIFIED 05/12/2018 SUMANTH NICHOLSON MD Ot I25.10 ATHSCL HEART DISEASE OF [place] CORONARY 05/12/2018 SUMATNH NICHOLSON MD Ot K21.9 GASTRO-ESOPHAGEAL REFLUX DISEASE WITHOUT 05/12/2018 SUMANTH NICHOLSON MD, Ot S43.432A SUPERIOR GLENOID LABRUM LESION OF LEFT S 05/12/2018 SUMANTH NICHOLSON MD, Ot 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 05/17/2018 SUMANTH NICHOLSON MD, Ot E78.5 HYPERLIPIDEMIA, UNSPECIFIED 05/17/2018 SUMANTH NICHOLSON MD Ot F17.210 NICOTINE DEPENDENCE, CIGARETTES, UNCOMPL 05/17/2018 ZAFUTA MD, SUMANTH P Ot F32.9 MAJOR DEPRESSIVE DISORDER, SINGLE EPISOD 05/17/2018 SUMANTH NICHOLSON MD, Ot F41.9 ANXIETY DISORDER, UNSPECIFIED 05/17/2018 SUMANTH NICHOLSON MD, Ot I25.10 ATHSCL HEART DISEASE OF [place] CORONARY 05/17/2018 SUMANTH NICHOLSON MD, Ot K21.9 GASTRO-ESOPHAGEAL REFLUX DISEASE WITHOUT 05/17/2018 SUMANTH NICHOLSON MD Ot S43.432A SUPERIOR GLENOID LABRUM LESION OF LEFT S 05/17/2018 SUMANTH NICHOLSON MD Ot 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 9 OBESITY, UNSPECIFIED 08/01/2018 ESTHELA COOK MD Ot F32. 9 MAJOR DEPRESSIVE DISORDER, SINGLE EPISOD 08/01/2018 ESTHELA COOK MD Ot I34. 0 NONRHEUMATIC MITRAL (VALVE) INSUFFICIENC 08/01/2018 ESTHELA COOK MD Ot R07. 89 OTHER CHEST PAIN 08/01/2018 ESTHELA COOK MD Ot R55 SYNCOPE AND COLLAPSE 08/01/2018 ESTHELA COOK MD Ot Z72. 0 TOBACCO USE 08/01/2018 ESTHELA COOK MD Ot R92. 8 OTH ABN AND INCONCLUSIVE FINDINGS ON DX 08/01/2018 SUMANTH NICHOLSON MD Ot M75.112 INCOMPLETE ROTATR-CUFF TEAR/RUPTR OF L S 08/03/2018 RODRÍGUEZ DO, SAMINA L Ot F32.9 MAJOR DEPRESSIVE DISORDER, SINGLE EPISOD 08/03/2018 RODRÍGUEZ DO, SAMINA L Ot F41.9 ANXIETY DISORDER, UNSPECIFIED 08/03/2018 SAMINA RODRÍGUEZ DO Ot J02.9 ACUTE PHARYNGITIS, UNSPECIFIED 08/03/2018 SAMINA RODRÍGUEZ DO Ot J04.0 ACUTE LARYNGITIS 08/03/2018 SAMINA RODRÍGUEZ DO Ot Z87.4 48 PERSONAL HISTORY OF OTHER DISEASES OF UR 08/03/2018 SAMINA RODRÍGUEZ DO Ot Z98.8 90 OTHER SPECIFIED POSTPROCEDURAL STATES Procedures There is no data. Results Test Result Range Urine beta human chorionic gonadotropin (hCG) measurement - 02/03/18 08:27 Urine beta human chorionic gonadotropin (hCG) measurem ent NEGATIVE NEGATIVE Automated blood complete blood count (he mogram) panel - 02/03/18 08:30 Blood leukocytes automated count (number/volume) 10.1 10*3/uL 4.3-11.0 Blood erythrocytes automated count (number/volume) 4.58 10*6/uL 4.35-5.85 Venous blood hemoglobin measurement (mass/volume) 13.8 g/dL 11.5-16.0 Blood hematocrit (volume fraction) 40 % 35-52 Automated erythrocyte mean corpuscular volume 87 [ foz_us] 80-99 Automated erythrocyte mean corpuscular h emoglobin (mass per erythrocyte) 30 pg 25-34 Automated erythrocyte mean corpuscular h emoglobin concentration measurement (mass/volume) 35 g/dL 32-36 Automated erythrocyte distribution width ratio 15. 2 % 10.0- 14.5 Automated blood platelet count (count/volume) 231 10*3/uL 130-400 Automated blood platelet mean volume measurement 11.5 [foz_us] 7.4-10.4 PT panel in platelet poor plasma by coag ulation assay - 02/03/18 08:30 Prothrombin time (PT) in platelet poor plasma by coagu lation assay 13.7 s 12.2-14.7 INR in platelet poor plasma or blood by coagulation as say 1.1 0.8-1.4 Activated partial thromboplastin time (a PTT) in platelet poor plasma bycoagulation assay - 02/03/18 08:30 Activated partial thromboplastin time (a PTT) in platelet poor plasma bycoagulation assay 28 s 24-35 Comprehensive metabolic panel - 02/03/18 08:30 Serum or plasma sodium measurement (moles/volume) 136 mmol/L 135-145 Serum or plasma potassium measurement (moles/volume) 4.2 mmol/L 3.6-5.0 Serum or plasma chloride measurement (moles/volume) 105 mmol/L 98-107 Carbon dioxide 22 mmol/L 21-32 Serum or plasma anion gap determination (moles/volume) 9 mmol/L 5-14 Serum or plasma urea nitrogen measurement (mass/volume ) 7 mg/dL 7-18 Serum or plasma creatinine measurement (mass/volume) 0.72 mg/dL 0.60-1.30 Serum or plasma urea nitrogen/creatinine mass ratio 10 NRG Serum or plasma creatinine measurement w ith calculation of estimated glomerular filtration rate > NRG Serum or plasma glucose measurement (mass/volume) 92 mg/dL 70-105 Serum or plasma calcium measurement (mass/volume) 9.7 mg/dL 8.5-10.1 Serum or plasma total bilirubin measurement (mass/volu me) 1.1 mg/dL 0.1-1.0 Serum or plasma alkaline phosphatase kayla surement (enzymatic activity/volume) 87 U/L 40-136 Serum or plasma aspartate aminotransfera se measurement (enzymatic activity/volume) 13 U/L 5-34 Serum or plasma alanine aminotransferase measurement (enzymatic activity/volume) 8 U/L 0-55 Serum or plasma protein measurement (mass/volume) 7.2 g/dL 6.4-8.2 Serum or plasma albumin measurement (mass/volume) 4.0 g/dL 3.2-4.5 CALCIUM CORRECTED 9.7 mg/dL 8.5-10.1 Lipid 1996 panel - 02/03/18 08:30 Serum or plasma triglyceride measurement (mass/volume) 105 mg/dL <150 Serum or plasma cholesterol measurement (mass/volume) 221 mg/dL < 200 Serum or plasma cholesterol in HDL measurement (mass/v olume) 31 mg/dL 40-60 Cholesterol in LDL [mass/volume] in serum or plasma by direct assay 185 mg/dL 1-129 Serum or plasma cholesterol in VLDL measurement (mass/ volume) 21 mg/dL 5-40 Methicillin resistant Staphylococcus aur eus (MRSA) screening culture - 02/03/18 08:30 Methicillin resistant Staphylococcus aureus (MRSA) scr eening culture NEG NRG Methicillin resistant Staphylococcus aur eus (MRSA) screening culture - 05/05/18 10:18 Methicillin resistant Staphylococcus aureus (MRSA) scr eening culture NEG NRG Urine beta human chorionic gonadotropin (hCG) measurement - 05/12/18 06:15 Urine beta human chorionic gonadotropin (hCG) measurem ent NEGATIVE NEGATIVE Automated blood complete blood count (he mogram) panel - 08/01/18 13:50 Blood leukocytes automated count (number/volume) 8.0 10*3/uL 4.3-11.0 Blood erythrocytes automated count (number/volume) 4.71 10*6/uL 4.35-5.85 Venous blood hemoglobin measurement (mass/volume) 13.8 g/dL 11.5-16.0 Blood hematocrit (volume fraction) 43 % 35-52 Automated erythrocyte mean corpuscular volume 91 [ foz_us] 80-99 Automated erythrocyte mean corpuscular h emoglobin (mass per erythrocyte) 29 pg 25-34 Automated erythrocyte mean corpuscular h emoglobin concentration measurement (mass/volume) 32 g/dL 32-36 Automated erythrocyte distribution width ratio 15. 3 % 10.0- 14.5 Automated blood platelet count (count/volume) 234 10*3/uL 130-400 Automated blood platelet mean volume measurement 10.5 [foz_us] 7.4-10.4 Streptococcus pyogenes antigen detection - 08/01/18 13:50 Streptococcus pyogenes antigen detection NEGATIVE NEGATIVE Influenza virus A and B antigen detectio n - 08/01/18 13:50 FLU RESULT NEGATIVE FOR INFLUENZA A AND B ANTIGENS BY IA [facility] Whole blood basic metabolic panel - 07/10 08/27 13:50 Serum or plasma sodium measurement (moles/volume) 135 mmol/L 135-145 Serum or plasma potassium measurement (moles/volume) 5.1 mmol/L 3.6-5.0 Serum or plasma chloride measurement (moles/volume) 100 mmol/L 98-107 Carbon dioxide 22 mmol/L 21-32 Serum or plasma anion gap determination (moles/volume) 13 mmol/L 5-14 Serum or plasma urea nitrogen measurement (mass/volume ) 11 mg/dL 7-18 Serum or plasma creatinine measurement (mass/volume) 0.81 mg/dL 0.60-1.30 Serum or plasma urea nitrogen/creatinine mass ratio 14 NRG Serum or plasma creatinine measurement w ith calculation of estimated glomerular filtration rate > NRG Serum or plasma glucose measurement (mass/volume) 79 mg/dL 70-105 Serum or plasma calcium measurement (mass/volume) 9.3 mg/dL 8.5-10.1 Bacterial throat culture - 08/01/18 13:5 0 Bacterial throat culture NBS NRG CULTURE, ANAEROBIC AND AEROBIC - 9 00:00 CULTURE, ANAEROBIC BACTERIA W/GRAM STAIN SEE NOTE NRG CULTURE, AEROBIC BACTERIA SEE NOTE NRG LIPID PANEL - 07/07/19 10:12 CHOLESTEROL, TOTAL 203 mg/dL <200 HDL CHOLESTEROL 33 mg/dL > OR = 50 TRIGLYCERIDES 118 mg/dL <150 LDL-CHOLESTEROL 146 mg/dL (calc) NRG CHOL/HDLC RATIO 6.2 (calc) <5.0 NON HDL CHOLESTEROL 170 mg/dL (calc) <13 0 CMP - 07/07/19 10:12 GLUCOSE 82 mg/dL 65-99 UREA NITROGEN (BUN) 10 mg/dL 7-25 CREATININE 0.73 mg/dL 0.50-1.10 eGFR NON-AFR. [place] 103 mL/min/1.73m2 > OR = 60 eGFR 119 mL/min/1.73m2 > OR = 60 BUN/CREATININE RATIO NOT APPLICABLE (calc) 6-22 SODIUM 137 mmol/L 135-146 POTASSIUM 4.5 mmol/L 3.5-5.3 CHLORIDE 103 mmol/L 98-110 CARBON DIOXIDE 21 mmol/L 20-32 CALCIUM 9.3 mg/dL 8.6-10.2 PROTEIN, TOTAL 6.9 g/dL 6.1-8.1 ALBUMIN 4.1 g/dL 3.6-5.1 GLOBULIN 2.8 g/dL (calc) 1.9-3.7 ALBUMIN/GLOBULIN RATIO 1.5 (calc) 1.0-2. 5 BILIRUBIN, TOTAL 0.7 mg/dL 0.2-1.2 ALKALINE PHOSPHATASE 101 U/L 31-125 AST 13 U/L 10-30 ALT 10 U/L 6-29 SPECIMEN INTEGRITY COMPROMISED - 0 10:12 SPECIMEN INTEGRITY COMPROMISED NRG Encounters ACCT No. Visit Date/Time Discharge Status Pt. Type Provider Facility Loc./Unit Complaint [id number] 12/29/2018 08:00:00 12/29/2018 23:59: 59 CLS Outpatient [facility] [address] [id number] 07/07/2019 09:15:00 Document Registration [id number] 03/17/2019 11:40:00 Document Registration [id number] 08/01/2018 13:04:00 14:53:00 DIS Emergency SAMINA RODRÍGUEZ DO [facility] ER FS PT LOST VOICE - SENT FR OM UC [id number] 05/12/2018 06:02:00 019 11:55:00 DIS Outpatient SUMANTH NICHOLSON MD [facility] SDC LEFT SHOULDER LABRAL T EAR [id number] 05/05/2018 09:52:00 018 10:25:00 DIS Outpatient SUMANTH NICHOLSON MD [facility] PREOP LEFT SHOULDER LABRAL T EAR [id number] 03/25/2018 09:57:00 018 23:59:59 CLS Outpatient SUMANTH NICHOLSON MD [facility] RAD ROTATOR CUFF TEAR PTL LT [id number] 02/04/2018 08:27:00 018 23:59:59 CLS Outpatient ESTHELA COOK MD [facility] RAD DX MAMMO [id number] 02/03/2018 08:08:00 018 13:05:00 DIS Outpatient ESTHELA COOK MD [facility] CATH ABN STRESS TEST [id number] 01/27/2018 12:50:00 23:59:59 CLS Outpatient ESTHELA COOK MD [facility] CARD ANTERIOR CHEST WALL NITIN N,SYNCOPE [id number] 01/05/2018 15:37:00 018 23:59:59 CLS Preadmit ESTHELA COOK MD [facility] RAD ABNORMAL CT SCAN [id number] 01/05/2018 15:05:00 018 23:59:59 CLS Preadmit ESTHELA COOK MD [facility] CARD ANTERIOR CHEST WALL NITIN N,SYNCOPE [id number] 11/05/2019 20:04:[address] Emergency SKY KIM DO [facility] ER FS NUSEA/VOMITTING [id number] 12/22/2017 11:42:00 Document Registration
--- OUTSIDE RECORDS SUMMARY | 2019-11-05 20:08 | XMS REPORT ---
Author Author Evelin BAZAN [facility] Address [address] [place] [address] Care Team Providers Care Window Repairer Name Role Phone MARY BAZAN Unavailable PROBLEMS Type Condition ICD9-CM Code NIP44-MR Code Onset Dates Condition S tatus SNOMED Code Problem PTSD (post-traumatic stress disorder) F43.10 Active 22003202 Problem Tobacco abuse Z72.0 Active 047279 05 Problem Mixed hyperlipidemia E78.2 Apr, Active 317270571 Problem GERD (gastroesophageal reflux disease) K21.9 Active 720179468 Problem Hyperlipidemia E78.5 Active 56011 004 Problem Major depression F32.9 Active [id number] ALLERGIES No Known Allergies ENCOUNTERS Encounter Location Date Diagnosis [facility] [address] [place] [phone] Dec, 19 Dental caries, unspecified K02.9 [facility] [address] [place] [phone] Dec, 19 Dental examination Z01.20 and Caries K02.9 [facility] [address] [place] [phone] Nov, 19 OUTREACH [facility] [id number] [place], [place] [id number] Oct, Dental examination Z01.20 OUTREACH [facility] [address] [id number] [place] [address] Oct, Dental examination Z01.20 and Caries K02 .[address] [address] Oct, PTSD (post-traumatic stress disorder) F4 3.10 and Major depression F32.[address] [address] Aug, [facility] [address] [address] Aug, Abscess of right breast N61.[address] [address] Aug, Other injury of unspecified body region, initial encounter T14.8XXA ; Local infection of the skin and subcutaneous tissue, unspecified L08.9 and Abscess L02.[address] [address] Jul, Acute viral tracheitis J04.10 [facility] [address] [facility] [place] [address] Jul, Laryngitis J04.[address] [address] Jul, Major depression F32.9 ; GERD (gastroeso phageal reflux disease) K21.9 ; PTSD (post-traumatic stress disorder) F43.10 ; Tobacco abuse Z72.0 and Hyperlipidemia E78.[address] [address] Jul, [facility] [address] [facility] [id number] [address] [place] [phone] May, [facility] [address] [facility] [id number] [address] [place] [phone] May, [facility] [address] [facility] [id number] [address] [place] [phone] Apr, [facility] [address] [facility] [id number] [address] [place] [phone] Dec, IMMUNIZATIONS No Known Immunizations SOCIAL HISTORY Never Assessed REASON FOR VISIT fever, sore throat, lost voice, Pt presents with cough x2 days loss of voice/ pt stated she had fever but did not state how high/ pt is refusing to talk stating she cant/ sore throat x1 day PLAN OF CARE Activity Details Follow Up if not improving or with pcp for regular fu Reason: VITAL SIGNS Height 5'2" in 2018-07-30 Weight 177 lbs 2018-07-30 Temperature 98.0 degrees Fahrenheit 2018-07-30 Heart Rate 94 bpm 2018-07-30 Oximetry 98 % 2018-07-30 BMI 32.37 kg/m2 2018-07-30 Blood pressure systolic 138 mmHg 2018-07-30 Blood pressure diastolic 76 mmHg 2018-07-30 MEDICATIONS Medication Instructions Dosage Frequency Start Date [...] 1 tablet 24h 30 day( s) Active RESULTS No Results PROCEDURES Procedure Date Ordered Result Body Site [facility] VISIT ESTABLISHED PATIENT July 30, 2018 INSTRUCTIONS MEDICATIONS ADMINISTERED No Known Medications MEDICAL (GENERAL) HISTORY Type Description Date Medical History Major depression Medical History GERD (gastroesophageal reflux disease) Medical History PTSD (post-traumatic stress disorder) Medical History Tobacco abuse Medical History Hyperlipidemia Surgical History shoulder arthroscopy Surgical History cholecystectomy Surgical History left shoulder surg 2018
[2019-11-05 20:40] LABS: BACTERIA,URINE FEW /HPF; BILIRUBIN,URINE NEGATIVE (NEGATIVE); CLARITY,URINE CLOUDY; COLOR,URINE YELLOW; GLUCOSE, URINE (UA) NEGATIVE (NEGATIVE); KETONES,URINE NEGATIVE (NEGATIVE); LEUKOCYTE ESTERASE ,URINE NEGATIVE (NEGATIVE); NITRITE,URINE NEGATIVE (NEGATIVE); PROTEIN,URINE NEGATIVE (NEGATIVE); SQUAMOUS EPITHELIAL CELL,UR 25-50 /HPF
--- NOTE | 2019-11-05 20:40 | ED Abdominal Pain ---
General Chief Complaint: Abdominal/GI Problems Stated Complaint: NUSEA/VOMITTING Source of Information: Patient Exam Limitations: No Limitations History of Present Illness Date Seen by Provider: Nov 05, 2019 Time Seen by Provider: 20:20 Initial Comments The patient is a pleasant 38-year-old female who presents for evaluation of a cough, posttussive emesis, subjective fevers and chills, and general malaise of the last 1-2 days. No one at home is having similar symptoms. She is alert and oriented 4, calm, and appears to be in no distress. She does cough frequently during the exam. She denies any known sick contacts. Of note she was registered as abdominal pain complaint however she is denying any abdominal pain. Timing/Duration: 1-2 Days Severity/Quality: Moderate Radiation: No Radiation Associated Symptoms: Denies Symptoms Allergies and Home Medications Allergies Coded Allergies: No Known Drug Allergies (Unverified , 12/22/17) Home Medications Atorvastatin Calcium 10 Mg Tablet, 10 MG PO HS, (Reported) Diclofenac Sodium 50 Mg Tablet.dr, 50 MG PO BID PRN for CHEST PAIN, (Reported) Fluoxetine HCl 10 Mg Capsule, 10 MG PO DAILY, (Reported) Hydrocodone/Acetaminophen 1 Each Tablet, 1 EACH PO Q4H Prescribed by: EDDIE ALONZO on 05/12/18 0954 Mirtazapine 7.5 Mg Tablet, 7.5 MG PO HS, (Reported) Ranitidine HCl 300 Mg Tablet, 300 MG PO HS, (Reported) Patient Home Medication List Home Medication List Reviewed: Yes Review of Systems Review of Systems Constitutional: chills, fever EENTM: No Symptoms Reported Respiratory: Cough Gastrointestinal: Nausea, Vomiting Genitourinary: No Symptoms Reported Musculoskeletal: no symptoms reported Skin: no symptoms reported Psychiatric/Neurological: No Symptoms Reported Endocrine: No Symptoms Reported Hematologic/Lymphatic: No Symptoms Reported All Other Systems Reviewed Negative Unless Noted: Yes Past Bvdabst-Tmrhbp-Txxzpi Hx Past Med/Social Hx: Reviewed Nursing Past Med/Soc Hx Patient Social History Type Used: Cigarettes 2nd Hand Smoke Exposure: No Recent Foreign Travel: No Contact w/Someone Who Travel: No Recent Hopitalizations: No Physical Abuse: No Sexual Abuse: No Mistreated: No Fear: No Immunizations Up To Date Date of Pneumonia Vaccine: Feb 01, 2018 Date of Influenza Vaccine: Feb 01, 2018 Seasonal Allergies Seasonal Allergies: No Past Medical History Surgeries: Yes Gallbladder Respiratory: No Cardiac: No Neurological: Yes Concussion Reproductive Disorders: No Sexually Transmitted Disease: No Genitourinary: No Gastrointestinal: No Gall Bladder Disease Musculoskeletal: Yes Arthritis, Fractures Endocrine: No HEENT: No Cancer: No Psychosocial: Yes Anxiety, Depression Integumentary: No Blood Disorders: No Physical Exam Vital Signs Vital Signs - First Documented 11/05/19 20:18 Temp 37.5 Pulse 103 Resp 18 B/P (MAP) 126/79 (95) Pulse Ox 96 O2 Delivery Room Air Capillary Refill : Height/Weight/BMI Height: 5'2.00" Weight: 160lbs. 8.0oz. 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 tested, no motor/sensory deficits, alert, normal mood/affect, oriented x 3 Skin: normal color, warm/dry Progress/Results/Core Measures Results/Orders Lab Results Laboratory Tests Test 11/05/19 20:16 11/05/19 20:26 Range/Units Urine Color YELLOW Urine Clarity CLOUDY Urine pH 7.0 5-9 Urine Specific Roll[place] 1.010 L 1.016-1.022 Urine Protein NEGATIVE NEGATIVE Urine Glucose (UA) NEGATIVE NEGATIVE Urine Ketones NEGATIVE NEGATIVE Urine Nitrite NEGATIVE NEGATIVE Urine Bilirubin NEGATIVE NEGATIVE Urine Urobilinogen 4.0 < = 1.0 MG/DL Urine Leukocyte Esterase NEGATIVE NEGATIVE Urine RBC (Auto) 1+ H NEGATIVE Urine RBC 2-5 H /HPF Urine WBC 5-10 H /HPF Urine Squamous Epithelial Cells 25-50 H /HPF Urine Crystals NONE /LPF Urine Bacteria FEW H /HPF Urine Casts NONE /LPF Urine Mucus NEGATIVE /LPF Urine Culture Indicated YES White Blood Count 12.6 H 4.3-11.0 10^3/uL Red Blood Count 4.96 4.35-5.85 10^6/uL Hemoglobin 14.5 11.5-16.0 G/DL Hematocrit 44 35-52 % Mean Corpuscular Volume 88 80-99 FL Mean Corpuscular Hemoglobin 29 25-34 PG Mean Corpuscular Hemoglobin Concent 33 32-36 G/DL Red Cell Distribution Width 14.6 H 10.0-14.5 % Platelet Count 246 130-400 10^3/uL Mean Platelet Volume 10.9 H 7.4-10.4 FL Neutrophils (%) (Auto) 74 42-75 % Lymphocytes (%) (Auto) 18 12-44 % Monocytes (%) (Auto) 6 0-12 % Eosinophils (%) (Auto) 1 0-10 % Basophils (%) (Auto) 1 0-10 % Neutrophils # (Auto) 9.3 H 1.8-7.8 X 10^3 Lymphocytes # (Auto) 2.3 1.0-4.0 X 10^3 Monocytes # (Auto) 0.8 0.0-1.0 X 10^3 Eosinophils # (Auto) 0.1 0.0-0.3 10^3/uL Basophils # (Auto) 0.1 0.0-0.1 10^3/uL Sodium Level 136 135-145 MMOL/L Potassium Level 4.0 3.6-5.0 MMOL/L Chloride Level 99 98-107 MMOL/L Carbon Dioxide Level 22 21-32 MMOL/L Anion Gap 15 H 5-14 MMOL/L Blood Urea Nitrogen 8 7-18 MG/DL Creatinine 0.75 0.60-1.30 MG/DL Estimat Glomerular Filtration Rate > 60 BUN/Creatinine Ratio 11 Glucose Level 99 70-105 MG/DL Calcium Level 9.6 8.5-10.1 MG/DL Corrected Calcium 9.6 8.5-10.1 MG/DL Total Bilirubin 1.0 0.1-1.0 MG/DL Aspartate Amino Transf (AST/SGOT) 16 5-34 U/L Alanine Aminotransferase (ALT/SGPT) 10 0-55 U/L Alkaline Phosphatase 117 40-136 U/L Total Protein 7.2 6.4-8.2 GM/DL Albumin 4.0 3.2-4.5 GM/DL Amylase Level 12 L 25-125 U/L Lipase 12 8-78 U/L My Orders Orders - JULIO SWANSON DO Comprehensive Metabolic Panel (11/05/19 20:07) Lipase (11/05/19 20:07) Amylase (11/05/19 20:07) Ua Culture If Indicated (11/05/19 20:07) Ed Iv/Invasive Line Start (11/05/19 20:07) Cbc With Automated Diff (11/05/19 20:07) Urine Bedside (11/05/19 20:07) Chest 1 View Ap/Pa Only (11/05/19 20:32) Coronavirus Sars-Cov-2 So 2018 (11/05/19 20:32) Blood Culture (11/05/19 20:33) Urine Culture (11/05/19 20:16) Vital Signs/I&O 11/05/19 20:18 Temp 37.5 Pulse 103 Resp 18 B/P (MAP) 126/79 (95) Pulse Ox 96 O2 Delivery Room Air Progress Progress Note : Progress Note @2100 - patient updated on lab and imaging results which are acutely unremarkable. The patient has been tested for the coronavirus and understands that she needs to stay home and away from others until she is no longer having any symptoms and also has a results of her tests. Advised the patient to return to the emergency Department immediately for new or worsening symptoms. Departure Impression Primary Impression: Post-tussive emesis Additional Impressions: Acute upper respiratory infection Tobacco abuse Disposition: 01 HOME, SELF-CARE Condition: Stable Departure-Patient Inst. Decision time for Depature: 21:02 Referrals: LITO HINES MD (PCP/Family) Primary Care Physician Patient Instructions: Cough, Runny Nose, and the Common Cold (DC), Viral Syndrome (DC), Quitting Smoking Add. Discharge Instructions: Take the prescribed medicine as directed. He was tested for the coronavirus today and it may take a few days free results to come back. Please stay home and away from other people until you're no longer having symptoms and they know the results of your tests. Return to the emergency department for difficulty breathing, new or worsening symptoms. Scripts Albuterol Sulfate (VENTOLIN HFA) 1 Puff Puff 1 PUFF INH Q4H PRN for DYSPNEA for 7 Days, #1 INHALER 1 PUFF = 90 MCG Prov: JULIO SWANSON DO 11/05/19 Prednisone (Prednisone) 20 Mg Tab 40 MG PO DAILY for 4 Days, #8 TAB 0 Refills Prov: JULIO SWANSON DO 11/05/19 Azithromycin (Azithromycin) 250 Mg Tablet 250 MG PO UD, #6 TAB TAKE 2 TABLETS ON DAY ONE THEN TAKE 1 TABLET DAILY FOR FOUR MORE DAYS Prov: JULIO SWANSON DO 11/05/19 JULIO SWANSON DO Nov 05, 2019 20:40
[2019-11-05 20:42] LABS: BASOPHILS # (AUTO) 0.1 10^3/uL (0.0-0.1); BASOPHILS % (AUTO) 1 % (0-10); EOSINOPHILS # (AUTO) 0.1 10^3/uL (0.0-0.3); EOSINOPHILS % (AUTO) 1 % (0-10); HEMATOCRIT 44 % (35-52); HEMOGLOBIN 14.5 G/DL (11.5-16.0); LYMPHOCYTES # (AUTO) 2.3 X 10^3 (1.0-4.0); LYMPHOCYTES % (AUTO) 18 % (12-44); MEAN CORPUSCULAR HEMOGLOBIN 29 PG (25-34); MEAN CORPUSCULAR HGB CONC 33 G/DL (32-36); MEAN CORPUSCULAR VOLUME 88 FL (80-99); MEAN PLATELET VOLUME 10.9 FL (7.4-10.4); MONOCYTES # (AUTO) 0.8 X 10^3 (0.0-1.0); MONOCYTES % (AUTO) 6 % (0-12); NEUTROPHILS # (AUTO) 9.3 X 10^3 (1.8-7.8); NEUTROPHILS % (AUTO) 74 % (42-75); PLATELET COUNT 246 10^3/uL (130-400); RED CELL DISTRIBUTION WIDTH 14.6 % (10.0-14.5); WHITE BLOOD COUNT 12.6 10^3/uL (4.3-11.0)
[2019-11-05 20:54] LABS: CARBON DIOXIDE 22 MMOL/L (21-32); CHLORIDE 99 MMOL/L (98-107); SODIUM 136 MMOL/L (135-145)
[2019-11-05 20:55] LABS: ALANINE AMINOTRANSFERASE 10 U/L (0-55); ALKALINE PHOSPHATASE 117 U/L (40-136); AMYLASE 12 U/L (25-125); BUN/CREATININE RATIO 11; CALCIUM 9.6 MG/DL (8.5-10.1); CREATININE SERUM 0.75 MG/DL (0.60-1.30); GFR ESTIMATED > 60; GLUCOSE 99 MG/DL (70-105); LIPASE 12 U/L (8-78); TOTAL PROTEIN 7.2 GM/DL (6.4-8.2)
--- NOTE | 2019-11-05 20:57 | Diagnostic Imaging Report ---
INDICATION: Nausea and vomiting starting earlier today. Cough starting yesterday.. TECHNIQUE: Single view chest 8:42 PM. CORRELATION STUDY: 02/03/2018 FINDINGS: The heart size, mediastinal configuration and pulmonary vascularity are within normal limits. The lungs are clear with no consolidating infiltrate. There is no significant effusion or pneumothorax. Slight asymmetrically elevated right diaphragm. IMPRESSION: 1. Generally stable, negative appearing portable chest. Dictated by: Dictated on workstation # [id number]
[2019-11-05] MEDS ORDERED: PRD20T PO (21:05)
[2019-11-05] MEDS ORDERED: RT-ALBUINH INH (21:05)
[2019-11-05] MEDS ORDERED: AZIT250T12 PO (21:05)
[2019-11-05 21:15] VITALS: BP 126/79
== END 2019-11-05 21:15 | disposition home or self-care (01) ==
LOC: EDUNIT# 20:00 → ER FS 20:04
DX: R11.10 Vomiting, unspecified (principal); J06.9 Acute upper respiratory infection, unspecified; F41.9 Anxiety disorder, unspecified; F32.9 Major depressive disorder, single episode, unspecified; F17.210 Nicotine dependence, cigarettes, uncomplicated; Z87.820 Personal history of traumatic brain injury; Z20.828 Contact with and (suspected) exposure to other viral communicable diseases
CPT/HCPCS: 36415; 71045; 80053; 81000; 82150; 83690; 84703; 85025; 87040; 87088; 99284; U0002; 87635

== ENCOUNTER 2020-02-22 18:28 | Emergency (ER) | payer MEDICARE ==
[~2020-02-22] VITALS: Ht 157.5 cm; Wt 72.5 kg
[~2020-02-22 18:28] MED LIST changes: +AZIT250T12 PO; +PRD20T PO; +RT-ALBUINH INH
--- NOTE | 2020-02-22 18:32 | ED Chest Pain ---
General Chief Complaint: Chest Pain Stated Complaint: CHEST PAIN History of Present Illness Date Seen by Provider: Feb 22, 2020 Time Seen by Provider: 18:31 Initial Comments 39-year-old female presents with left-sided chest pain. She reports she has pain in her left chest wall and in her left shoulder with some tingling. Patient reports that it started while she was helping a friend move. The pain gets worse with palpation of her last chest wall or with movement and resistance of her left arm. Patient is had a prior heart catheterization on February 03, 2018 that showed no occlusive disease. patient reports she had one episode of vomiting. No diaphoresis. Patient still has tenderness especially to her chest wall. She has no shortness of breath. No reports of cough, fever, chills, radiation of pain to her back or into her neck. Pts family or friends are reporting that she supposedly syncoped and " coded 4 times" no other information available at this time. Allergies and Home Medications Allergies Coded Allergies: No Known Drug Allergies (Unverified , 12/22/17) Home Medications Albuterol Sulfate 1 Puff Puff, 1 PUFF INH Q4H PRN for DYSPNEA 1 PUFF = 90 MCG Prescribed by: JULIO SWANSON on 11/05/192104 Atorvastatin Calcium 10 Mg Tablet, 10 MG PO HS, (Reported) Azithromycin 250 Mg Tablet, 250 MG PO UD TAKE 2 TABLETS ON DAY ONE THEN TAKE 1 TABLET DAILY FOR FOUR MORE DAYS Prescribed by: JULIO SWANSON on 11/05/192104 Diclofenac Sodium 50 Mg Tablet.dr, 50 MG PO BID PRN for CHEST PAIN, (Reported) Fluoxetine HCl 10 Mg Capsule, 10 MG PO DAILY, (Reported) Hydrocodone/Acetaminophen 1 Each Tablet, 1 EACH PO Q4H Prescribed by: EDDIE ALONZO on 05/12/18 0954 Mirtazapine 7.5 Mg Tablet, 7.5 MG PO HS, (Reported) Prednisone 20 Mg Tab, 40 MG PO DAILY Prescribed by: JULIO SWANSON on 11/05/192104 Ranitidine HCl 300 Mg Tablet, 300 MG PO HS, (Reported) Patient Home Medication List Home Medication List Reviewed: Yes Review of Systems Review of Systems Constitutional: No chills, No fever Respiratory: Denies Cough, Denies Shortness of Air Cardiovascular: Chest Pain; Denies Irregular Heart Rate, Denies Lightheadedness, Denies Palpitations, Denies Syncope Gastrointestinal: Denies Abdominal Pain, Denies Nausea, Denies Vomiting Musculoskeletal: no symptoms reported Skin: no symptoms reported Psychiatric/Neurological: No Symptoms Reported Past Pvsywtb-Otpeqq-Mdmgdp Hx Past Med/Social Hx: Reviewed Nursing Past Med/Soc Hx Patient Social History Type Used: Cigarettes 2nd Hand Smoke Exposure: No Recent Hopitalizations: No Immunizations Up To Date Date of Pneumonia Vaccine: Feb 01, 2018 Date of Influenza Vaccine: Feb 01, 2018 Seasonal Allergies Seasonal Allergies: No Past Medical History Surgeries: Yes Gallbladder Respiratory: No Cardiac: No Neurological: Yes Concussion Reproductive Disorders: No Sexually Transmitted Disease: No Genitourinary: No Gastrointestinal: No Gall Bladder Disease Musculoskeletal: Yes Arthritis, Fractures Endocrine: No HEENT: No Cancer: No Psychosocial: Yes Anxiety, Depression Integumentary: No Blood Disorders: No Physical Exam Vital Signs Vital Signs - First Documented 02/22/20 18:31 Temp 36.9 Pulse 81 Resp 20 Pulse Ox 99 O2 Delivery Room Air Capillary Refill : Height, Weight, BMI Height: 5'2.00" Weight: 160lbs. 8.0oz. 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 Norm as Tested Skin: Normal Color, Warm/Dry Progress/Results/Core Measures Results/Orders Lab Results Laboratory Tests Test 02/22/20 18:33 02/22/20 20:30 02/22/20 20:35 Range/Units White Blood Count 11.5 H 4.3-11.0 10^3/uL Red Blood Count 4.66 4.35-5.85 10^6/uL Hemoglobin 13.7 11.5-16.0 G/DL Hematocrit 40 35-52 % Mean Corpuscular Volume 86 80-99 FL Mean Corpuscular Hemoglobin 29 25-34 PG Mean Corpuscular Hemoglobin Concent 34 32-36 G/DL Red Cell Distribution Width 14.7 H 10.0-14.5 % Platelet Count 257 130-400 10^3/uL Mean Platelet Volume 10.6 H 7.4-10.4 FL Immature Granulocyte % (Auto) 0 % Neutrophils (%) (Auto) 62 42-75 % Lymphocytes (%) (Auto) 31 12-44 % Monocytes (%) (Auto) 6 0-12 % Eosinophils (%) (Auto) 1 0-10 % Basophils (%) (Auto) 0 0-10 % Neutrophils # (Auto) 7.1 1.8-7.8 X 10^3 Lymphocytes # (Auto) 3.6 1.0-4.0 X 10^3 Monocytes # (Auto) 0.7 0.0-1.0 X 10^3 Eosinophils # (Auto) 0.1 0.0-0.3 10^3/uL Basophils # (Auto) 0.0 0.0-0.1 10^3/uL Immature Granulocyte # (Auto) 0.0 0.0-0.1 10^3/uL Prothrombin Time 13.1 12.2-14.7 SEC INR Comment 1.0 0.8-1.4 Activated Partial Thromboplast Time 27 24-35 SEC D-Dimer 0.32 0.00-0.49 UG/ML Sodium Level 136 135-145 MMOL/L Potassium Level 3.7 3.6-5.0 MMOL/L Chloride Level 104 98-107 MMOL/L Carbon Dioxide Level 21 21-32 MMOL/L Anion Gap 11 5-14 MMOL/L Blood Urea Nitrogen 10 7-18 MG/DL Creatinine 0.64 0.60-1.30 MG/DL Estimat Glomerular Filtration Rate > 60 BUN/Creatinine Ratio 16 Glucose Level 97 70-105 MG/DL Calcium Level 9.6 8.5-10.1 MG/DL Corrected Calcium 9.6 8.5-10.1 MG/DL Magnesium Level 1.9 1.6-2.4 MG/DL Total Bilirubin 0.5 0.1-1.0 MG/DL Aspartate Amino Transf (AST/SGOT) 17 5-34 U/L Alanine Aminotransferase (ALT/SGPT) 11 0-55 U/L Alkaline Phosphatase 90 40-136 U/L Myoglobin 34.0 10.0-92.0 NG/ML Troponin I < 0.30 < 0.30 <0.30 NG/ML Pro-B-Type Natriuretic Peptide 30.7 <75.0 PG/ML Total Protein 7.0 6.4-8.2 GM/DL Albumin 4.0 3.2-4.5 GM/DL Urine Color RED H Urine Clarity TURBID Urine pH 5.0 5-9 Urine Specific Parker <=1.030 1.016-1.022 Urine Protein 3+ H NEGATIVE Urine Glucose (UA) NEGATIVE NEGATIVE Urine Ketones 1+ H NEGATIVE Urine Nitrite POSITIVE H NEGATIVE Urine Bilirubin NEGATIVE NEGATIVE Urine Urobilinogen 2.0 < = 1.0 MG/DL Urine Leukocyte Esterase 2+ H NEGATIVE Urine RBC (Auto) 3+ H NEGATIVE Urine RBC TNTC H /HPF Urine WBC 5-10 H /HPF Urine Squamous Epithelial Cells 0-2 /HPF Urine Crystals NONE /LPF Urine Bacteria TRACE /HPF Urine Casts NONE /LPF Urine Mucus NEGATIVE /LPF Urine Culture Indicated YES Urine Opiates Screen POSITIVE H NEGATIVE Urine Oxycodone Screen NEGATIVE NEGATIVE Urine Methadone Screen NEGATIVE NEGATIVE Urine Propoxyphene Screen NEGATIVE NEGATIVE Urine Barbiturates Screen NEGATIVE NEGATIVE Ur Tricyclic Antidepressants Screen NEGATIVE NEGATIVE Urine Phencyclidine Screen NEGATIVE NEGATIVE Urine Amphetamines Screen NEGATIVE NEGATIVE Urine Methamphetamines Screen NEGATIVE NEGATIVE Urine Benzodiazepines Screen NEGATIVE NEGATIVE Urine Cocaine Screen NEGATIVE NEGATIVE Urine Cannabinoids Screen NEGATIVE NEGATIVE My Orders Orders - RODRÍGUEZ,SAMINA L DO Cbc With Automated Diff (02/22/20 18:32) Magnesium (02/22/20 18:32) Chest 1 View Ap/Pa Only (02/22/20 18:32) Ekg Tracing (02/22/20 18:32) Comprehensive Metabolic Panel (02/22/20 18:32) Myoglobin Serum (02/22/20 18:32) Protime With Inr (02/22/20 18:32) Partial Thromboplastin Time (02/22/20 18:32) Monitor-Rhythm Ecg Trace Only (02/22/20 18:32) Lipid Panel (02/23/20 06:00) Fibrin Degradation Products (02/22/20 18:32) Troponin I Fs (02/22/20 18:32) Probnp Fs (02/22/20 18:32) Ketorolac Injection (Toradol Injection) (02/22/20 18:39) Drug Screen Stat (Urine) (02/22/20 20:07) Ua Culture If Indicated (02/22/20 20:07) Lactated Ringers (Lr 1000 Ml Iv Solution (02/22/20 20:22) Troponin I Fs (02/22/20 20:22) Ekg Tracing (02/22/20 20:22) Urine Culture (02/22/20 20:35) Vital Signs/I&O 02/22/20 02/22/20 18:31 18:39 Temp 36.9 Pulse 81 Resp 20 B/P (MAP) Pulse Ox 99 O2 Delivery Room Air Room Air Progress Progress Note : Time: 21:22 Progress Note Patient had no further symptoms while here in the ER. Patient with negative EKG 2, negative troponin 2. Normal d-dimer, normal chest x-ray, normal labs outside of a very minimal elevation in WBC., no findings on physical exam. Her pain in her chest wall improved following the Toradol I suspect patient may have a viral illness. She also has a chest wall strain. Patient was offered admission for observation and further evaluation and declined. Patient was offered a COVID swab and declined. Patient is stable will be discharged home Initial ECG Impression Date: Feb 22, 2020 Initial ECG Impression Time: 18:29 Initial ECG Rate: 78 Initial ECG Rhythm: Normal Sinus Initial ECG Intervals: Normal Comment nsr, no acute changes, questionable left atrial enlargement Departure Impression Primary Impression: Viral syndrome Additional Impressions: Syncope Qualified Codes: R55 - Syncope and collapse Muscle strain of anterior chest wall Disposition: 01 HOME, SELF-CARE Condition: Stable Departure-Patient Inst. Referrals: SELF,LITO SHAH (PCP/Family) Primary Care Physician Patient Instructions: Syncope (Fainting) (DC), Viral Syndrome (DC), Muscle Strain (DC) Add. Discharge Instructions: Tylenol ibuprofen as needed Drink plenty of fluids, get plenty of rest Follow-up with your primary care provider in the next 2-4 days for continuation of care and recheck of today symptoms Return to the ER as needed All discharge instructions reviewed with patient and/or family. Voiced unders tanding. SAMINA RODRÍGUEZ DO Feb 22, 2020 18:31
[2020-02-22] MEDS ORDERED: KETOROLAC 30 MG/ML VIAL IVP STA (18:39)
[2020-02-22 18:42] LABS: BASOPHILS % (AUTO) 0 % (0-10); EOSINOPHILS % (AUTO) 1 % (0-10); HEMATOCRIT 40 % (35-52); HEMOGLOBIN 13.7 G/DL (11.5-16.0); LYMPHOCYTES % (AUTO) 31 % (12-44); MEAN CORPUSCULAR HEMOGLOBIN 29 PG (25-34); MEAN CORPUSCULAR HGB CONC 34 G/DL (32-36); MEAN CORPUSCULAR VOLUME 86 FL (80-99); MEAN PLATELET VOLUME 10.6 FL (7.4-10.4); MONOCYTES % (AUTO) 6 % (0-12); NEUTROPHILS % (AUTO) 62 % (42-75); PLATELET COUNT 257 10^3/uL (130-400); WHITE BLOOD COUNT 11.5 10^3/uL (4.3-11.0)
[2020-02-22 18:43] LABS: EOSINOPHILS # (AUTO) 0.1 10^3/uL (0.0-0.3); LYMPHOCYTES # (AUTO) 3.6 X 10^3 (1.0-4.0); MONOCYTES # (AUTO) 0.7 X 10^3 (0.0-1.0); NEUTROPHILS # (AUTO) 7.1 X 10^3 (1.8-7.8)
[2020-02-22 18:57] LABS: PROTHROMBIN TIME PATIENT 13.1 SEC (12.2-14.7)
[2020-02-22 19:05] LABS: POTASSIUM 3.7 MMOL/L (3.6-5.0); SODIUM 136 MMOL/L (135-145)
[2020-02-22 19:06] LABS: ALANINE AMINOTRANSFERASE 11 U/L (0-55); ALKALINE PHOSPHATASE 90 U/L (40-136); BILIRUBIN,TOTAL 0.5 MG/DL (0.1-1.0); BUN/CREATININE RATIO 16; CALCIUM 9.6 MG/DL (8.5-10.1); CARBON DIOXIDE 21 MMOL/L (21-32); CHLORIDE 104 MMOL/L (98-107); CREATININE SERUM 0.64 MG/DL (0.60-1.30); GFR ESTIMATED > 60; GLUCOSE 97 MG/DL (70-105); MAGNESIUM 1.9 MG/DL (1.6-2.4)
[2020-02-22] MEDS ORDERED: LACTATED RINGERS 1,000 ML IV STA (20:22)
--- NOTE | 2020-02-22 20:50 | Diagnostic Imaging Report ---
Indication: Chest pain. COMPARISON: 11/05/2019 FINDINGS: Single view the chest demonstrates clear lungs bilaterally. The heart is normal. There is no pneumothorax. Osseous structures are normal. IMPRESSION: Negative chest. Dictated by: Dictated on workstation # [id number]
[2020-02-22 21:03] LABS: AMPHETAMINE SCREEN, URINE NEGATIVE (NEGATIVE); BARBITURATE SCREEN URINE NEGATIVE (NEGATIVE); BENZODIAZEPINES SCREEN URINE NEGATIVE (NEGATIVE); CANNABINOID SCREEN, URINE NEGATIVE (NEGATIVE); COCAINE SCREEN URINE NEGATIVE (NEGATIVE); METHADONE STAT NEGATIVE (NEGATIVE); METHAMPHETAMINE SCREEN URINE S NEGATIVE (NEGATIVE); OPIATE SCREEN URINE POSITIVE (NEGATIVE); OXYCODONE STAT NEGATIVE (NEGATIVE); PROPOXYPHENE STAT NEGATIVE (NEGATIVE); TRICYCLIC ANTIDEPRESSANTS SCRE NEGATIVE (NEGATIVE)
[2020-02-22 21:04] LABS: BILIRUBIN,URINE NEGATIVE (NEGATIVE); CLARITY,URINE TURBID; COLOR,URINE RED; GLUCOSE, URINE (UA) NEGATIVE (NEGATIVE); KETONES,URINE 1+ (NEGATIVE); LEUKOCYTE ESTERASE ,URINE 2+ (NEGATIVE); NITRITE,URINE POSITIVE (NEGATIVE); PROTEIN,URINE 3+ (NEGATIVE)
[2020-02-22 21:05] LABS: BACTERIA,URINE TRACE /HPF; RBC,URINE TNTC /HPF; SQUAMOUS EPITHELIAL CELL,UR 0-2 /HPF
[2020-02-22 22:07] VITALS: BP 111/63
== END 2020-02-22 22:07 | disposition home or self-care (01) ==
LOC: EDUNIT# 18:28 → ER FS 18:30
DX: S29.011A Strain of muscle and tendon of front wall of thorax, initial encounter (principal); B34.9 Viral infection, unspecified; R55 Syncope and collapse; F41.9 Anxiety disorder, unspecified; F32.9 Major depressive disorder, single episode, unspecified; Z87.820 Personal history of traumatic brain injury; Z79.52 Long term (current) use of systemic steroids; X58.XXXA Exposure to other specified factors, initial encounter
CPT/HCPCS: 36415; 71045; 80053; 80306; 81000; 83735; 83874; 83880; 84484; 85025; 85379; 85610; 85730; 87088; 93005; 93041

== ENCOUNTER 2020-02-27 15:59 | Emergency (ER) | payer MEDICARE ==
--- NOTE | 2020-02-27 16:09 | ED General ---
General Stated Complaint: CHEST PAIN Source of Information: Patient, EMS, EMS Notes Reviewed, Old Records, RN/MD, RN Notes Reviewed History of Present Illness Date Seen by Provider: Feb 27, 2020 Time Seen by Provider: 16:00 Initial Comments Patient is a 39-year-old female presents to the emerge department for reported COMPLICATIONS patient has nonspecific complaints. Patient states that she was sitting on the couch her heart started palpitating. Called EMS. On patient does not appear to acute findings. We'll do medical screening exam treatment is needed. Timing/Duration: 1/2 Hour Associated Systoms: Denies Symptoms Allergies and Home Medications Allergies Coded Allergies: No Known Drug Allergies (Unverified , 12/22/17) Home Medications Albuterol Sulfate 1 Puff Puff, 1 PUFF INH Q4H PRN for DYSPNEA 1 PUFF = 90 MCG Prescribed by: JULIO SWANSON on 11/05/192104 Atorvastatin Calcium 10 Mg Tablet, 10 MG PO HS, (Reported) Azithromycin 250 Mg Tablet, 250 MG PO UD TAKE 2 TABLETS ON DAY ONE THEN TAKE 1 TABLET DAILY FOR FOUR MORE DAYS Prescribed by: JULIO SWANSON on 11/05/192104 Diclofenac Sodium 50 Mg Tablet.dr, 50 MG PO BID PRN for CHEST PAIN, (Reported) Fluoxetine HCl 10 Mg Capsule, 10 MG PO DAILY, (Reported) Hydrocodone/Acetaminophen 1 Each Tablet, 1 EACH PO Q4H Prescribed by: EDDIE ALONZO on 05/12/18 09 Mirtazapine 7.5 Mg Tablet, 7.5 MG PO HS, (Reported) Prednisone 20 Mg Tab, 40 MG PO DAILY Prescribed by: JULIO SWANSON on 11/05/192104 Ranitidine HCl 300 Mg Tablet, 300 MG PO HS, (Reported) Patient Home Medication List Home Medication List Reviewed: Yes Review of Systems Review of Systems Constitutional: No no symptoms reported, No see HPI, No chills, No diaphoresis, No dizziness, No fever, No malaise, No weakness, No weight gain, No weight loss, No other EENTM: No see HPI, No no symptoms reported, No ear discharge, No hearing loss, No ear pain, No blurred vision, No double vision, No eye pain, No tearing, No vision loss, No dental problems, No hoarseness, No mouth pain, No mouth swelling, No epistaxis, No nose congestion, No nose pain, No throat pain, No throat swelling, No other Respiratory: No no symptoms reported, No see HPI, No cough, No dyspnea on exertion, No hemoptysis, No orthopnea, No phlegm, No short of breath, No stridor, No wheezing, No other Cardiovascular: No no symptoms reported; see HPI; No chest pain, No edema, No Hx of Intervention; palpitations; No syncope, No vascular heart diseas, No other Gastrointestinal: No RUQ, No LUQ, No RLQ, No LLQ, No no symptoms reported, No see HPI, No abdominal pain, No constipation, No diarrhea, No dysphagia, No hematemesis, No heartburn, No jaundice, No loss of appetite, No melena, No nausea, No vomiting, No other Genitourinary: No no symptoms reported, No see HPI, No decreased output, No discharge, No dysuria, No frequency, No hematuria, No hesitancy, No incontinence, No nocturia, No pain, No other Musculoskeletal: No no symptoms reported, No see HPI, No back pain, No gout, No joint pain, No joint swelling, No muscle pain, No muscle stiffness, No muscle cramps, No muscle twitching, No muscle weakness, No neck pain, No other Skin: No no symptoms reported, No see HPI, No change in color, No change in hair/nails, No dryness, No hx of skin cancer, No lesions, No lumps, No pruritus, No rash, No other Psychiatric/Neurological: Denies No Symptoms Reported, Denies See HPI, Denies Anxiety, Denies Depressed, Denies Emotional Problems, Denies Headache, Denies Numbness, Denies Paresthesia, Denies Pre-Existing Deficit, Denies Seizure, Denies Tingling, Denies Tremors, Denies Weakness, Denies Other All Other Systems Reviewed Negative Unless Noted: Yes Past Tfqvcqd-Lhniat-Wyusqh Hx Patient Social History Type Used: Cigarettes 2nd Hand Smoke Exposure: No Recent Foreign Travel: No Contact w/Someone Who Travel: No Recent Hopitalizations: No Immunizations Up To Date Date of Pneumonia Vaccine: Feb 01, 2018 Date of Influenza Vaccine: Feb 01, 2018 Seasonal Allergies Seasonal Allergies: No Past Medical History Surgeries: Yes Gallbladder Respiratory: No Cardiac: Yes (heart cath) Neurological: Yes Concussion Reproductive Disorders: No Sexually Transmitted Disease: No Genitourinary: No Gastrointestinal: No Gall Bladder Disease Musculoskeletal: Yes Arthritis, Fractures Endocrine: No HEENT: No Cancer: No Psychosocial: Yes Anxiety, Depression Integumentary: No Blood Disorders: No Physical Exam Vital Signs Vital Signs - First Documented 02/27/20 16:02 Temp 36.3 Pulse 79 Resp 20 B/P (MAP) 122/73 (89) Pulse Ox 98 O2 Delivery Room Air Capillary Refill : Height, Weight, BMI Height: 5'2.00" Weight: 160lbs. 8.0oz. 72.255714kb; 29.00 BMI Method:Stated General Appearance: No Apparent Distress, WD/WN Respiratory: Chest Non Tender, Lungs Clear, Normal Breath Sounds, No Accessory Muscle Use, No Respiratory Distress Cardiovascular: Regular Rate, Rhythm, No Edema, No Gallop, No JVD, No Murmur, Normal Peripheral Pulses Gastrointestinal: Normal Bowel Sounds, No Organomegaly, No Pulsatile Mass, Non Tender, Soft Extremity: Normal Capillary Refill, Normal Inspection, Normal Range of Motion, Non Tender, No Calf Tenderness, No Pedal Edema Neurologic/Psychiatric: Alert, Oriented x3, No Motor/Sensory Deficits, Normal Mood/Affect Skin: Normal Color, Warm/Dry Progress/Results/Core Measures Suspected Sepsis SIRS Temperature: Pulse: Respiratory Rate: Laboratory Tests 02/27/20 16:10: White Blood Count 12.9H Blood Pressure / Mean: Laboratory Tests 02/27/20 16:10: Creatinine 0.88, INR Comment 1.0, Platelet Count 257, Total Bilirubin 0.3 Results/Orders Lab Results Laboratory Tests Test 02/27/20 16:10 02/27/20 16:20 Range/Units White Blood Count 12.9 H 4.3-11.0 10^3/uL Red Blood Count 4.90 4.35-5.85 10^6/uL Hemoglobin 14.2 11.5-16.0 G/DL Hematocrit 43 35-52 % Mean Corpuscular Volume 88 80-99 FL Mean Corpuscular Hemoglobin 29 25-34 PG Mean Corpuscular Hemoglobin Concent 33 32-36 G/DL Red Cell Distribution Width 14.6 H 10.0-14.5 % Platelet Count 257 130-400 10^3/uL Mean Platelet Volume 11.0 H 7.4-10.4 FL Immature Granulocyte % (Auto) 1 % Neutrophils (%) (Auto) 62 42-75 % Lymphocytes (%) (Auto) 32 12-44 % Monocytes (%) (Auto) 5 0-12 % Eosinophils (%) (Auto) 1 0-10 % Basophils (%) (Auto) 0 0-10 % Neutrophils # (Auto) 7.9 H 1.8-7.8 X 10^3 Lymphocytes # (Auto) 4.1 H 1.0-4.0 X 10^3 Monocytes # (Auto) 0.7 0.0-1.0 X 10^3 Eosinophils # (Auto) 0.1 0.0-0.3 10^3/uL Basophils # (Auto) 0.1 0.0-0.1 10^3/uL Immature Granulocyte # (Auto) 0.1 0.0-0.1 10^3/uL Prothrombin Time 13.0 12.2-14.7 SEC INR Comment 1.0 0.8-1.4 Sodium Level 139 135-145 MMOL/L Potassium Level 3.9 3.6-5.0 MMOL/L Chloride Level 104 98-107 MMOL/L Carbon Dioxide Level 22 21-32 MMOL/L Anion Gap 13 5-14 MMOL/L Blood Urea Nitrogen 17 7-18 MG/DL Creatinine 0.88 0.60-1.30 MG/DL Estimat Glomerular Filtration Rate > 60 BUN/Creatinine Ratio 19 Glucose Level 131 H 70-105 MG/DL Calcium Level 9.3 8.5-10.1 MG/DL Corrected Calcium 9.3 8.5-10.1 MG/DL Total Bilirubin 0.3 0.1-1.0 MG/DL Aspartate Amino Transf (AST/SGOT) 15 5-34 U/L Alkaline Phosphatase 85 40-136 U/L Troponin I < 0.30 <0.30 NG/ML Total Protein 6.9 6.4-8.2 GM/DL Albumin 4.0 3.2-4.5 GM/DL Urine Color YELLOW Urine Clarity CLEAR Urine pH 6.5 5-9 Urine Specific [place] <=1.005 1.016-1.022 Urine Protein NEGATIVE NEGATIVE Urine Glucose (UA) NEGATIVE NEGATIVE Urine Ketones NEGATIVE NEGATIVE Urine Nitrite NEGATIVE NEGATIVE Urine Bilirubin NEGATIVE NEGATIVE Urine Urobilinogen 0.2 < = 1.0 MG/DL Urine Leukocyte Esterase NEGATIVE NEGATIVE Urine RBC (Auto) TRACE-I NEGATIVE Urine RBC NONE /HPF Urine WBC NONE /HPF Urine Squamous Epithelial Cells 2-5 /HPF Urine Crystals NONE /LPF Urine Bacteria NEGATIVE /HPF Urine Casts NONE /LPF Urine Mucus NEGATIVE /LPF Urine Culture Indicated NO Urine Opiates Screen NEGATIVE NEGATIVE Urine Oxycodone Screen NEGATIVE NEGATIVE Urine Methadone Screen NEGATIVE NEGATIVE Urine Propoxyphene Screen NEGATIVE NEGATIVE Urine Barbiturates Screen NEGATIVE NEGATIVE Ur Tricyclic Antidepressants Screen NEGATIVE NEGATIVE Urine Phencyclidine Screen NEGATIVE NEGATIVE Urine Amphetamines Screen NEGATIVE NEGATIVE Urine Methamphetamines Screen NEGATIVE NEGATIVE Urine Benzodiazepines Screen NEGATIVE NEGATIVE Urine Cocaine Screen NEGATIVE NEGATIVE Urine Cannabinoids Screen NEGATIVE NEGATIVE My Orders Orders - CHRISTA HERNANDEZ MD Ekg Tracing (02/27/20 16:05) Chest 1 View Ap/Pa Only (02/27/20 16:05) Cbc With Automated Diff (02/27/20 16:05) Comprehensive Metabolic Panel (02/27/20 16:05) Drug Screen Stat (Urine) (02/27/20 16:05) Urinalysis (02/27/20 16:05) Troponin I Fs (02/27/20 16:05) Probnp Fs (02/27/20 16:05) Protime With Inr (02/27/20 16:05) Ed Iv/Invasive Line Start (02/27/20 16:16) Vital Signs/I&O 02/27/20 16:02 Temp 36.3 Pulse 79 Resp 20 B/P (MAP) 122/73 (89) Pulse Ox 98 O2 Delivery Room Air Capillary Refill : Progress Note : Time: 16:55 Progress Note Negative evaluation in the emergency department. Patient is to continue all home medications follow-up with PCP in 2-3 days patient has had 0 symptoms in the emergency department. ECG Initial ECG Impression Date: Feb 27, 2020 Initial ECG Impression Time: 16:04 Initial ECG Rate: 76 Initial ECG Rhythm: Normal Sinus Initial ECG Impression: Normal Departure Impression Primary Impression: Palpitations Additional Impression: Encounter for medical screening examination Disposition: 01 HOME, SELF-CARE Condition: Stable Departure-Patient Inst. Decision time for Depature: 16:56 Referrals: SELFLITO MD (PCP/Family) Primary Care Physician Patient Instructions: Palpitations (DC) CHRISTA HERNANDEZ MD Feb 27, 2020 16:09
[2020-02-27 16:27] LABS: HEMATOCRIT 43 % (35-52); HEMOGLOBIN 14.2 G/DL (11.5-16.0); LYMPHOCYTES % (AUTO) 32 % (12-44); MEAN CORPUSCULAR HEMOGLOBIN 29 PG (25-34); MEAN CORPUSCULAR HGB CONC 33 G/DL (32-36); MEAN CORPUSCULAR VOLUME 88 FL (80-99); NEUTROPHILS % (AUTO) 62 % (42-75); PLATELET COUNT 257 10^3/uL (130-400); WHITE BLOOD COUNT 12.9 10^3/uL (4.3-11.0)
[2020-02-27 16:28] LABS: BASOPHILS # (AUTO) 0.1 10^3/uL (0.0-0.1); BASOPHILS % (AUTO) 0 % (0-10); EOSINOPHILS # (AUTO) 0.1 10^3/uL (0.0-0.3); EOSINOPHILS % (AUTO) 1 % (0-10); LYMPHOCYTES # (AUTO) 4.1 X 10^3 (1.0-4.0); MONOCYTES # (AUTO) 0.7 X 10^3 (0.0-1.0); MONOCYTES % (AUTO) 5 % (0-12); NEUTROPHILS # (AUTO) 7.9 X 10^3 (1.8-7.8)
[2020-02-27 16:32] LABS: BACTERIA,URINE NEGATIVE /HPF; BILIRUBIN,URINE NEGATIVE (NEGATIVE); CLARITY,URINE CLEAR; COLOR,URINE YELLOW; GLUCOSE, URINE (UA) NEGATIVE (NEGATIVE); KETONES,URINE NEGATIVE (NEGATIVE); LEUKOCYTE ESTERASE ,URINE NEGATIVE (NEGATIVE); NITRITE,URINE NEGATIVE (NEGATIVE); PH,URINE 6.5 (5-9); PROTEIN,URINE NEGATIVE (NEGATIVE)
[2020-02-27 16:36] LABS: AMPHETAMINE SCREEN, URINE NEGATIVE (NEGATIVE); BARBITURATE SCREEN URINE NEGATIVE (NEGATIVE); BENZODIAZEPINES SCREEN URINE NEGATIVE (NEGATIVE); CANNABINOID SCREEN, URINE NEGATIVE (NEGATIVE); COCAINE SCREEN URINE NEGATIVE (NEGATIVE); METHADONE STAT NEGATIVE (NEGATIVE); METHAMPHETAMINE SCREEN URINE S NEGATIVE (NEGATIVE); OPIATE SCREEN URINE NEGATIVE (NEGATIVE); OXYCODONE STAT NEGATIVE (NEGATIVE); PROPOXYPHENE STAT NEGATIVE (NEGATIVE); TRICYCLIC ANTIDEPRESSANTS SCRE NEGATIVE (NEGATIVE)
--- NOTE | 2020-02-27 16:39 | Diagnostic Imaging Report ---
INDICATION: Heart palpitations. COMPARISON: Comparison made with prior examination from 02/22/2020. FINDINGS: The heart size, mediastinal configuration, and pulmonary vascularity are within normal limits. There is no pleural effusion, pneumothorax, or pneumonia. The osseous structures are unremarkable. IMPRESSION: No acute cardiopulmonary abnormality. Dictated by: Dictated on workstation # [id number]
[2020-02-27 16:51] LABS: BUN/CREATININE RATIO 19; CARBON DIOXIDE 22 MMOL/L (21-32); CHLORIDE 104 MMOL/L (98-107); CREATININE SERUM 0.88 MG/DL (0.60-1.30); GFR ESTIMATED > 60; POTASSIUM 3.9 MMOL/L (3.6-5.0); SODIUM 139 MMOL/L (135-145)
[2020-02-27 16:52] LABS: ALKALINE PHOSPHATASE 85 U/L (40-136); BILIRUBIN,TOTAL 0.3 MG/DL (0.1-1.0); CALCIUM 9.3 MG/DL (8.5-10.1); GLUCOSE 131 MG/DL (70-105); TOTAL PROTEIN 6.9 GM/DL (6.4-8.2)
[2020-02-27 16:58] VITALS: BP 121/70
[2020-02-27 17:00] LABS: ALANINE AMINOTRANSFERASE 10 U/L (0-55)
[2020-02-28] MEDS ORDERED: FLUO20CA42 PO (09:22)
[2020-02-28] MEDS ORDERED: TRAM50TA3 PO (09:22)
[2020-02-28] MEDS ORDERED: ACET-2267 PO (09:22)
[2020-02-28] MEDS ORDERED: ROSU20TA32 PO (09:22)
[2020-02-28] MEDS ORDERED: FLUO10CA29 PO (09:22)
[2020-02-28] MEDS ORDERED: PRAZ2CAP2 PO (09:22)
== END 2020-02-27 17:02 | disposition home or self-care (01) ==
LOC: EDUNIT# 15:59 → ER FS 16:00
DX: R00.2 Palpitations (principal); F32.9 Major depressive disorder, single episode, unspecified; Z87.820 Personal history of traumatic brain injury; Z95.9 Presence of cardiac and vascular implant and graft, unspecified; Z79.52 Long term (current) use of systemic steroids
CPT/HCPCS: 36415; 71045; 80053; 80306; 81000; 83880; 84484; 85025; 85610; 93005

== ENCOUNTER 2020-02-27 18:23 | Observation (INO) | payer MEDICARE ==
[~2020-02-27] VITALS: Ht 157 cm; Wt 78.5 kg
[~2020-02-27 18:23] MED LIST changes: -FLUO10CA30 PO; +FLUO10CA31 PO
[2020-02-27] MEDS ORDERED: RT-ALBUTEROL/IPRATROPIUM 3 ML (DUONEB) VIAL INH ONE (18:30)
[2020-02-27] MEDS ORDERED: LORazepam INJ 2 MG/ML (ATIVAN) VIAL IVP PRN ×2 (18:30→22:15)
[2020-02-27] MEDS ORDERED: ASPIRIN 81 MG CHEW (CHILDREN'S ASA) PO ONE (18:30)
[2020-02-27] MEDS ORDERED: KETOROLAC 30 MG/ML VIAL IVP ONE (18:30)
--- NOTE | 2020-02-27 18:41 | ED Chest Pain ---
General Stated Complaint: DIZZINESS,SYNCOPE Source: patient Exam Limitations: no limitations History of Present Illness Date Seen by Provider: Feb 27, 2020 Time Seen by Provider: 18:37 Initial Comments To ER with dizziness and sharp left-sided chest pain worse with deep breathing and movement. No cough. She did develop shortness of breath on the way here. No fevers no chills no cough. She was seen in the emergency room in [place] on Thursday of last week with reports that she passed out and "my family had to bring the back 4 times". She was subsequently evaluated in the emergency room for Ernesto. She states she also has followed up with her family doctor who "only gave me a shot in my butt". Timing/Duration: 1-2 days Severity/Quality: moderate Activities at Onset: none ASA po MIXING TANK OPERATOR: No NTG SL MIXING TANK OPERATOR: No Allergies and Home Medications Allergies Coded Allergies: No Known Drug Allergies (Unverified , 12/22/17) Home Medications Albuterol Sulfate 1 Puff Puff, 1 PUFF INH Q4H PRN for DYSPNEA 1 PUFF = 90 MCG Prescribed by: JULIO SWANSON on 11/05/192104 Atorvastatin Calcium 10 Mg Tablet, 10 MG PO HS, (Reported) Azithromycin 250 Mg Tablet, 250 MG PO UD TAKE 2 TABLETS ON DAY ONE THEN TAKE 1 TABLET DAILY FOR FOUR MORE DAYS Prescribed by: JULIO SWANSON on 11/05/192104 Diclofenac Sodium 50 Mg Tablet.dr, 50 MG PO BID PRN for CHEST PAIN, (Reported) Fluoxetine HCl 10 Mg Capsule, 10 MG PO DAILY, (Reported) Hydrocodone/Acetaminophen 1 Each Tablet, 1 EACH PO Q4H Prescribed by: EDDIE ALONZO on 05/12/18 0954 Mirtazapine 7.5 Mg Tablet, 7.5 MG PO HS, (Reported) Prednisone 20 Mg Tab, 40 MG PO DAILY Prescribed by: JULIO SWANSON on 11/05/192104 Ranitidine HCl 300 Mg Tablet, 300 MG PO HS, (Reported) Patient Home Medication List Home Medication List Reviewed: Yes Review of Systems Review of Systems Constitutional: see HPI EENTM: No Symptoms Reported Respiratory: See HPI Cardiovascular: See HPI, Chest Pain Gastrointestinal: See HPI Genitourinary: No Symptoms Reported Musculoskeletal: no symptoms reported Skin: no symptoms reported Psychiatric/Neurological: No Symptoms Reported Endocrine: No Symptoms Reported Hematologic/Lymphatic: No Symptoms Reported Past Gvmmubk-Lbjvyf-Lxflkp Hx Patient Social History Type Used: Cigarettes 2nd Hand Smoke Exposure: No Recent Foreign Travel: No Contact w/Someone Who Travel: No Recent Hopitalizations: No Immunizations Up To Date Date of Pneumonia Vaccine: Feb 01, 2018 Date of Influenza Vaccine: Feb 01, 2018 Seasonal Allergies Seasonal Allergies: No Past Medical History Surgeries: Yes Gallbladder Respiratory: No Cardiac: Yes (heart cath) Neurological: Yes Concussion Reproductive Disorders: No Sexually Transmitted Disease: No Genitourinary: No Gastrointestinal: No Gall Bladder Disease Musculoskeletal: Yes Arthritis, Fractures Endocrine: No HEENT: No Cancer: No Psychosocial: Yes Anxiety, Depression Integumentary: No Blood Disorders: No Physical Exam Vital Signs Vital Signs - First Documented 02/27/20 18:30 Temp 36.6 Pulse 80 Resp 20 B/P (MAP) 130/85 (100) Pulse Ox 100 O2 Delivery Room Air Capillary Refill : Height, Weight, BMI Height: 5'2.00" Weight: 160lbs. 8.0oz. 72.016729id; 29.00 BMI Method:Stated General Appearance: No Apparent Distress, WD/WN, Other (ambulates very slowly into room 5, speaks very softly, she does have some expiratory wheezing on the left side. She does smoke about 15 cigarettes per day.) Neck: Full Range of Motion, Normal Inspection Respiratory: No Accessory Muscle Use, No Respiratory Distress Cardiovascular: Regular Rate, Rhythm, Normal Peripheral Pulses, Other (sinus rhythm normal intervals rate of 79 without ectopy) Gastrointestinal: Non Tender, Soft Neurologic/Psychiatric: Alert, Oriented x3 Skin: Normal Color, Warm/Dry Progress/Results/Core Measures Results/Orders Lab Results Laboratory Tests Test 02/27/20 18:36 Range/Units White Blood Count 12.8 H 4.3-11.0 10^3/uL Red Blood Count 5.06 3.80-5.11 10^6/uL Hemoglobin 14.7 11.5-16.0 g/dL Hematocrit 45 35-52 % Mean Corpuscular Volume 89 80-99 fL Mean Corpuscular Hemoglobin 29 25-34 pg Mean Corpuscular Hemoglobin Concent 33 32-36 g/dL Red Cell Distribution Width 14.6 H 10.0-14.5 % Platelet Count 267 130-400 10^3/uL Mean Platelet Volume 10.8 9.0-12.2 fL Immature Granulocyte % (Auto) 0 % Neutrophils (%) (Auto) 63 42-75 % Lymphocytes (%) (Auto) 30 12-44 % Monocytes (%) (Auto) 6 0-12 % Eosinophils (%) (Auto) 1 0-10 % Basophils (%) (Auto) 0 0-10 % Neutrophils # (Auto) 8.0 H 1.8-7.8 10^3/uL Lymphocytes # (Auto) 3.9 1.0-4.0 10^3/uL Monocytes # (Auto) 0.7 0.0-1.0 10^3/uL Eosinophils # (Auto) 0.1 0.0-0.3 10^3/uL Basophils # (Auto) 0.0 0.0-0.1 10^3/uL Immature Granulocyte # (Auto) 0.0 0.0-0.1 10^3/uL Prothrombin Time 13.3 12.2-14.7 SEC INR Comment 1.0 0.8-1.4 Activated Partial Thromboplast Time 29 24-35 SEC D-Dimer < 0.27 0.00-0.49 UG/ML Sodium Level 137 135-145 MMOL/L Potassium Level 4.0 3.6-5.0 MMOL/L Chloride Level 103 98-107 MMOL/L Carbon Dioxide Level 24 21-32 MMOL/L Anion Gap 10 5-14 MMOL/L Blood Urea Nitrogen 16 7-18 MG/DL Creatinine 0.82 0.60-1.30 MG/DL Estimat Glomerular Filtration Rate > 60 BUN/Creatinine Ratio 20 Glucose Level 98 70-105 MG/DL Calcium Level 9.2 8.5-10.1 MG/DL Corrected Calcium 9.0 8.5-10.1 MG/DL Magnesium Level 2.0 1.6-2.4 MG/DL Total Bilirubin 0.5 0.1-1.0 MG/DL Aspartate Amino Transf (AST/SGOT) 12 5-34 U/L Alanine Aminotransferase (ALT/SGPT) 11 0-55 U/L Alkaline Phosphatase 86 40-136 U/L Myoglobin 18.2 10.0-92.0 NG/ML Troponin I < 0.028 <0.028 NG/ML B-Type Natriuretic Peptide < 10.0 <100.0 PG/ML Total Protein 7.4 6.4-8.2 GM/DL Albumin 4.3 3.2-4.5 GM/DL Serum Test, Qualitative NEGATIVE NEGATIVE My Orders Orders - FEMI ELLIS APRN Cbc With Automated Diff (02/27/20 18:30) Magnesium (02/27/20 18:30) Chest 1 View, Ap/Pa Only (02/27/20 18:30) Ekg Tracing (02/27/20 18:30) Comprehensive Metabolic Panel (02/27/20 18:30) Myoglobin Serum (02/27/20 18:30) Protime With Inr (02/27/20 18:30) Partial Thromboplastin Time (02/27/20 18:30) O2 (02/27/20 18:30) Monitor-Rhythm Ecg Trace Only (02/27/20 18:30) Lipid Panel (02/28/20 06:00) Ed Iv/Invasive Line Start (02/27/20 18:30) BNP (02/27/20 18:30) Troponin I (02/27/20 18:30) Aspirin Chewable Tablet (Baby Aspirin Ch (02/27/20 18:30) Albuterol/Ipra Inhalation Soln (Duoneb I (02/27/20 18:30) Ketorolac Injection (Toradol Injection) (02/27/20 18:30) Svn Small Volume Nebulizer (02/27/20 18:30) Lorazepam Injection (Ativan Injection) (02/27/20 18:30) Fibrin Degradation Products (02/27/20 18:41) Albuterol Inhaler (Ventolin Hfa) (02/27/20 22:00) Albuterol Inhaler (Ventolin Hfa) (02/27/20 18:44) Hcg,Qualitative Serum (02/27/20 18:55) Ct Head Wo (02/27/20 19:17) Medications Given in ED Current Medications Medications Dose Ordered Sig/Falguni Route Start Time Stop Time Status Last Admin Dose Admin Aspirin 324 mg ONCE ONCE PO 02/27/20 18:30 02/27/20 18:36 DC 02/27/20 18:47 324 MG Ketorolac Tromethamine 15 mg ONCE ONCE IVP 02/27/20 18:30 02/27/20 18:36 DC 02/27/20 18:46 15 MG Lorazepam 0.5 mg ONCE PRN IVP 02/27/20 18:30 02/27/20 18:46 0.5 MG Vital Signs/I&O 02/27/20 18:30 Temp 36.6 Pulse 80 Resp 20 B/P (MAP) 130/85 (100) Pulse Ox 100 O2 Delivery Room Air Departure Communication (Admissions) In reviewing her records she did have a cardiac catheterization here 2 years ago showing mild coronary artery disease non-obstructive in nature and normal ejection fraction. 2006-spoke with Dr. Tony, he would recommend admission observation, plan for implantable loop recorder tomorrow Impression Primary Impression: Palpitations Additional Impressions: Pleuritic chest pain Syncope Disposition: HOME, SELF-CARE Condition: Stable Departure-Patient Inst. Decision time for Depature: 19:28 Referrals: TRAY TONY MD FACP FAC CCDS ESTHELA COOK MD SELFLITO MD (PCP/Family) Primary Care Physician Patient Instructions: Palpitations (DC), Syncope (Fainting) (DC), Tilt Table Test Add. Discharge Instructions: 1. Call a railroad firer/fireman of your choosing either Dr. Tony or Dr. Sharp tomorrow to make an appointment to be seen as soon as they can see you, preferably this week. Return to ER for any concerns. FEMI ELLIS STREETCAR OPERATOR Feb 27, 2020 18:40
[2020-02-27] MEDS ORDERED: RT-ALBUTEROL INHALER HFA (VENTOLIN HFA) 18 GM IH ONE (18:44)
[2020-02-27 18:46] LABS: BASOPHILS % (AUTO) 0 % (0-10); EOSINOPHILS # (AUTO) 0.1 10^3/uL (0.0-0.3); EOSINOPHILS % (AUTO) 1 % (0-10); HEMATOCRIT 45 % (35-52); HEMOGLOBIN 14.7 g/dL (11.5-16.0); LYMPHOCYTES # (AUTO) 3.9 10^3/uL (1.0-4.0); LYMPHOCYTES % (AUTO) 30 % (12-44); MEAN CORPUSCULAR HEMOGLOBIN 29 pg (25-34); MEAN CORPUSCULAR HGB CONC 33 g/dL (32-36); MEAN CORPUSCULAR VOLUME 89 fL (80-99); MEAN PLATELET VOLUME 10.8 fL (9.0-12.2); MONOCYTES # (AUTO) 0.7 10^3/uL (0.0-1.0); MONOCYTES % (AUTO) 6 % (0-12); NEUTROPHILS % (AUTO) 63 % (42-75); PLATELET COUNT 267 10^3/uL (130-400); WHITE BLOOD COUNT 12.8 10^3/uL (4.3-11.0)
[2020-02-27 19:01] LABS: ALBUMIN 4.3 GM/DL (3.2-4.5); CHLORIDE 103 MMOL/L (98-107); SODIUM 137 MMOL/L (135-145)
[2020-02-27 19:02] LABS: CALCIUM 9.2 MG/DL (8.5-10.1); PROTHROMBIN TIME PATIENT 13.3 SEC (12.2-14.7)
[2020-02-27 19:03] LABS: GLUCOSE 98 MG/DL (70-105); TOTAL PROTEIN 7.4 GM/DL (6.4-8.2)
[2020-02-27 19:04] LABS: CARBON DIOXIDE 24 MMOL/L (21-32)
[2020-02-27 19:05] LABS: BILIRUBIN,TOTAL 0.5 MG/DL (0.1-1.0)
[2020-02-27 19:07] LABS: ALKALINE PHOSPHATASE 86 U/L (40-136); CREATININE SERUM 0.82 MG/DL (0.60-1.30); GFR ESTIMATED > 60
[2020-02-27 19:08] LABS: BUN/CREATININE RATIO 20
[2020-02-27 19:10] LABS: ALANINE AMINOTRANSFERASE 11 U/L (0-55)
--- NOTE | 2020-02-27 19:23 | Diagnostic Imaging Report ---
INDICATION: Chest pain Portable chest 7:05 PM Heart size and pulmonary vascularity are normal. Lungs are clear. There are no effusions or pneumothoraces. IMPRESSION: Negative chest Dictated by: Dictated on workstation # [id number]
--- NOTE | 2020-02-27 19:44 | Diagnostic Imaging Report ---
PROCEDURE: CT head without contrast. TECHNIQUE: Multiple contiguous axial images were obtained through the brain without the use of intravenous contrast. Auto Exposure Controls were utilized during the CT exam to meet ALARA standards for radiation dose reduction. INDICATION: Syncope The ventricles are normal in size, shape and position. There are no masses or hemorrhages. There are no extra-axial fluid collections. IMPRESSION: Negative CT head Dictated by: Dictated on workstation # [id number]
--- NOTE | 2020-02-27 21:05 | NUR ---
PIERRE DUGAN admitted to room 410-1, with an admitting diagnosis of syncope, and palpatations on 02/27/20 from [facility] ER via wheelchair, accompanied by staff.PIERRE DUGAN introduced to surroundings, call light, bed controls, phone, TV, temperature control, lights, meal times, smoking policy, visitor policy, side rail policy, bathrooms and showers. Patient Rights given to patient in the handbook. PIERRE DUGAN verbalizes understanding that [facility] is not responsible for the loss or damage to any personal effects or valuables that are kept in the patients posession during their hospitalization. PIERRE DUGAN verbalizes understanding of Interdisciplinary Patient Education.
[2020-02-27] MEDS ORDERED: RT-ALBUTEROL INHALER HFA (VENTOLIN HFA) 18 GM IH SCH (22:00)
[2020-02-27] MEDS ORDERED: KETOROLAC 15 MG/ML VIAL IVP PRN (22:15)
[2020-02-27] MEDS ORDERED: CATHETER FLUSH 10 ML SYR IV PRN (22:15)
[2020-02-27] MEDS ORDERED: ONDANSETRON 4 MG/2 ML (SDV) Z0FRAN IVP PRN (22:15)
[2020-02-28] VITALS: BP 103/67
[2020-02-28 03:25] VITALS: BP 101/55
[2020-02-28 05:09] LABS: BASOPHILS % (AUTO) 0 % (0-10); EOSINOPHILS # (AUTO) 0.1 10^3/uL (0.0-0.3); EOSINOPHILS % (AUTO) 1 % (0-10); HEMATOCRIT 41 % (35-52); HEMOGLOBIN 13.3 g/dL (11.5-16.0); LYMPHOCYTES % (AUTO) 34 % (12-44); MEAN CORPUSCULAR HEMOGLOBIN 29 pg (25-34); MEAN CORPUSCULAR HGB CONC 33 g/dL (32-36); MEAN CORPUSCULAR VOLUME 89 fL (80-99); MONOCYTES # (AUTO) 0.8 10^3/uL (0.0-1.0); MONOCYTES % (AUTO) 7 % (0-12); NEUTROPHILS # (AUTO) 6.6 10^3/uL (1.8-7.8); NEUTROPHILS % (AUTO) 57 % (42-75); PLATELET COUNT 248 10^3/uL (130-400); WHITE BLOOD COUNT 11.6 10^3/uL (4.3-11.0)
[2020-02-28 05:25] LABS: CHLORIDE 107 MMOL/L (98-107); POTASSIUM 3.9 MMOL/L (3.6-5.0); SODIUM 139 MMOL/L (135-145)
[2020-02-28 05:26] LABS: ALBUMIN 3.6 GM/DL (3.2-4.5)
[2020-02-28 05:27] LABS: CALCIUM 9.3 MG/DL (8.5-10.1); TRIGLYCERIDES 134 MG/DL (<150); VLDL CHOLESTEROL 27 MG/DL (5-40)
[2020-02-28 05:28] LABS: GLUCOSE 100 MG/DL (70-105); TOTAL PROTEIN 6.1 GM/DL (6.4-8.2)
[2020-02-28 05:29] LABS: CARBON DIOXIDE 22 MMOL/L (21-32)
[2020-02-28 05:30] LABS: BILIRUBIN,TOTAL 0.5 MG/DL (0.1-1.0)
[2020-02-28 05:32] LABS: ALKALINE PHOSPHATASE 75 U/L (40-136); CREATININE SERUM 0.71 MG/DL (0.60-1.30); GFR ESTIMATED > 60
[2020-02-28 05:33] LABS: BUN/CREATININE RATIO 25; CHOLESTEROL 133 MG/DL (< 200)
[2020-02-28 05:34] LABS: HDL CHOLESTEROL 28 MG/DL (40-60)
[2020-02-28 05:35] LABS: ALANINE AMINOTRANSFERASE 10 U/L (0-55)
[2020-02-28] MEDS ORDERED: CATHETER FLUSH 10 ML SYR IV SCH (06:00)
[2020-02-28 08:00] VITALS: BP 104/68
--- NOTE | 2020-02-28 08:03 | Consultation-Cardiology ---
HPI-Cardiology Cardiology Consultation: Date of Consultation 02/28/20 Date of Admission 02-27-2020 Attending Physician Janet Wright DO Admitting Physician Brandon Osorio MD Consulting Physician Primary Telephone Station Repairer: Jan Batres MD HPI: Chief Complaint: Syncope Ms. Dugan is a 39 year old female admitted to 410 from the ED with syncopal episode. She reports she was sitting on the couch at her mothers house yesterday when she began to feel her heart racing. She reports a feeling of a sharp, stabbing pain to her left side. She states her vision began to go black and she passed out. She does not know how long she was out for. No reported loss of bowel or bladder control. She states she came to and her significant other was giving her mouth to mouth breathing. She states she had a similiar episode the week prior while helping a friend. She denies any n/v/d. She denies any fever or chills. She denies any LE swelling. She does report left sided chest pain with deep breathing and reproducible with palpation at the time of this exam, Reporting it is a sharp, stabbing pain. Review of Systems-Cardiology Review of Systems Constitutional: No chills, No fever Eyes: As described under HPI Ears/Nose/Throat: No epistaxis, No recent hearing loss Respiratory: As described under HPI Gastrointestinal: No constipation, No diarrhea, No nausea, No vomiting Genitourinary: No dysuria, No hematuria Musculoskeletal: As describe under HPI Skin: No rash on exposed areas, No ulcerations on exposed areas Psychiatric/Neurological: As described under HPI, anxiety, depression; No focal weakness Hematologic: No bleeding abnormalities QDO-Qpqbac-Reptjd Hx Patient Social History Alcohol Use: Denies Use Recreational Drug Use: No Smoking Status: Current Everyday Smoker Type Used: Cigarettes 2nd Hand Smoke Exposure: No Recent Foreign Travel: No Recent Infectious Disease Expo: No Hospitalization with Isolation: Denies Immunizations Up To Date Tetanus Booster (TDap): Unknown Date of Pneumonia Vaccine: Feb 01, 2018 Date of Influenza Vaccine: Feb 26, 2019 Past Medical History PMH As described under Assessment. Family Medical History Family Medical History: She reports her father has CAD with h/o first heart attack in his 50's. Allergies and Home Medications Allergies Coded Allergies: No Known Drug Allergies (Unverified , 12/22/17) Home Medications Acetaminophen 500 Mg Tablet, 1,000 MG PO Q6H PRN for PAIN-MILD (1-4), (Reported) Fluoxetine HCl 10 Mg Capsule, 10 MG PO DAILY, (Reported) TAKES 10MG + 20MG TO EQUAL 30MG DAILY Fluoxetine HCl 20 Mg Capsule, 20 MG PO DAILY, (Reported) TAKES 10MG + 20MG TO EQUAL 30MG DAILY Prazosin HCl 2 Mg Capsule, 2 MG PO HS, (Reported) Rosuvastatin Calcium 20 Mg Tablet, 20 MG PO HS, (Reported) Tramadol HCl 50 Mg Tablet, 50 MG PO Q8H PRN for PAIN-MODERATE (5-7), (Reported) Physical Exam-Cardiology Physical Exam Vital Signs/I&O 02/28/20 02/28/20 02/28/20 02/28/20 01:00 03:25 06:36 08:00 Temp 36.4 Pulse 66 55 73 Resp 20 B/P (MAP) 101/55 (70) Pulse Ox 96 95 O2 Delivery Room Air Room Air 02/28/20 02/28/20 02/28/20 08:00 12:13 12:26 Temp 36.4 36.6 Pulse 68 67 65 Resp 20 20 B/P (MAP) 104/68 (80) 112/73 (86) Pulse Ox 95 97 O2 Delivery Room Air Room Air Capillary Refill : Less Than 3 Seconds Constitutional: AAO x 3, well-developed, well-nourished HEENT: PERRL, hearing is well preserved Neck: No carotid bruit; carotid pulses are 2 + bilaterally Respiratory: No accessory muscle use, No respiratory distress; chest expansion is symmetric, chest is bilaterally symmetric, lungs clear to auscultation, other (prolonged expiratory phase) Cardiovascular: regular rate-rhythm; No JVD, No S1 and S2 Gastrointestinal: No tender; soft, round, audible bowel sounds Extremities: no lower extremity edema bilateral Neurologic/Psychiatric: grossly intact (moves all extremities) Skin: No rash on exposed areas, No ulcerations on exposed areas Data Review Labs Laboratory Tests 02/27/20 18:36: White Blood Count 12.8H, Red Blood Count 5.06, Hemoglobin 14.7, Hematocrit 45, Mean Corpuscular Volume 89, Mean Corpuscular Hemoglobin 29, Mean Corpuscular Hemoglobin Concent 33, Red Cell Distribution Width 14.6H, Platelet Count 267, Mean Platelet Volume 10.8, Immature Granulocyte % (Auto) 0, Neutrophils (%) (Auto) 63, Lymphocytes (%) (Auto) 30, Monocytes (%) (Auto) 6, Eosinophils (%) (Auto) 1, Basophils (%) (Auto) 0, Neutrophils # (Auto) 8.0H, Lymphocytes # (Auto) 3.9, Monocytes # (Auto) 0.7, Eosinophils # (Auto) 0.1, Basophils # (Auto) 0.0, Immature Granulocyte # (Auto) 0.0, Prothrombin Time 13.3, INR Comment 1.0, Activated Partial Thromboplast Time 29, D-Dimer < 0.27, Sodium Level 137, Potassium Level 4.0, Chloride Level 103, Carbon Dioxide Level 24, Anion Gap 10, Blood Urea Nitrogen 16, Creatinine 0.82, Estimat Glomerular Filtration Rate > 60, BUN/Creatinine Ratio 20, Glucose Level 98, Calcium Level 9.2, Corrected Calcium 9.0, Magnesium Level 2.0, Total Bilirubin 0.5, Aspartate Amino Transf (AST/SGOT) 12, Alanine Aminotransferase (ALT/SGPT) 11, Alkaline Phosphatase 86, Myoglobin 18.2, Troponin I < 0.028, B-Type Natriuretic Peptide < 10.0, Total Protein 7.4, Albumin 4.3, Serum Test, Qualitative NEGATIVE 02/28/20 04:30: White Blood Count 11.6H, Red Blood Count 4.56, Hemoglobin 13.3, Hematocrit 41, Mean Corpuscular Volume 89, Mean Corpuscular Hemoglobin 29, Mean Corpuscular Hemoglobin Concent 33, Red Cell Distribution Width 14.7H, Platelet Count 248, Mean Platelet Volume 11.0, Immature Granulocyte % (Auto) 0, Neutrophils (%) (Auto) 57, Lymphocytes (%) (Auto) 34, Monocytes (%) (Auto) 7, Eosinophils (%) (Auto) 1, Basophils (%) (Auto) 0, Neutrophils # (Auto) 6.6, Lymphocytes # (Auto) 4.0, Monocytes # (Auto) 0.8, Eosinophils # (Auto) 0.1, Basophils # (Auto) 0.0, Immature Granulocyte # (Auto) 0.0, Sodium Level 139, Potassium Level 3.9, Chloride Level 107, Carbon Dioxide Level 22, Anion Gap 10, Blood Urea Nitrogen 18, Creatinine 0.71, Estimat Glomerular Filtration Rate > 60, BUN/Creatinine Ratio 25, Glucose Level 100, Calcium Level 9.3, Corrected Calcium 9.6, Total Bilirubin 0.5, Aspartate Amino Transf (AST/SGOT) 12, Alanine Aminotransferase (ALT/SGPT) 10, Alkaline Phosphatase 75, Total Protein 6.1L, Albumin 3.6, Triglycerides Level 134, Cholesterol Level 133, LDL Cholesterol Direct 96, VLDL Cholesterol 27, HDL Cholesterol 28L [id number] PT STATUS: ADM Portia : 1980 PHYSICIAN: FEMI ELLIS APRN ADMIT DATE: 02/27/20/4TH Signed Date of Exam:02/27/20 CT HEAD WO PROCEDURE: CT head without contrast. TECHNIQUE: Multiple contiguous axial images were obtained through the brain without the use of intravenous contrast. Auto Exposure Controls were utilized during the CT exam to meet ALARA standards for radiation dose reduction. INDICATION: Syncope The ventricles are normal in size, shape and position. There are no masses or hemorrhages. There are no extra-axial fluid collections. IMPRESSION: Negative CT head Dictated by: Dictated on workstation # [id number] Dict: 02/27/201941 Trans: 02/27/202042 KIMBERLY [id number] Interpreted by: CAMILLA MENDOZA MD Electronically signed by: CAMILLA MENDOZA MD 02/27/202042 NAME: PIERRE DUGAN [facility] REC#: [id number] PT STATUS: REG ER : 1980 PHYSICIAN: FEMI ELLIS APRN ADMIT DATE: 02/27/20/ER Signed Date of Exam:02/27/20 CHEST 1 VIEW, AP/PA ONLY INDICATION: Chest pain Portable chest 7:05 PM Heart size and pulmonary vascularity are normal. Lungs are clear. There are no effusions or pneumothoraces. IMPRESSION: Negative chest Dictated by: Dictated on workstation # [id number] Dict: 02/27/201913 Trans: 02/27/201929 KIMBERLY [id number] Interpreted by: CAMILLA MENDOZA MD Electronically signed by: CAMILLA MENDOZA MD 02/27/201929 A/P-Cardiology Assessment/Admission Diagnosis Syncope or undetermined etiology Chest pain of undetermined etiology - reproducible with palpation and deep breathing Cardiac catheterization done on February 03, [address] Sparks showing mild coronary artery disease nonobstructive disease H/O syncope with pain has been managed by Dr. Sparks History of injury to the left shoulder with h/o surgery History of depression, anxiety. Managed by primary care physician Tobaccoism, discussed smoking cessation. Gastroesophageal reflux disease History of cholecystectomy and appendectomy Discussion and Recomendations Syncope of undetermined etiology - advise ILR implant to eval for b radyarrhythmia - discussed procedure, risks, benefits. She is agreeable Chest discomfort by description and previous cardiac w/u appears to be musculoskeletal in nature Continue home medications Advise smoking cessation We would like to thank medical services for this consult Further recs will be based on her hospital course Clinical Quality Measures AMI/AHF: ASA po Prior to arrival: No DVT/VTE Risk/Contraindication: Risk Factor Score Per Nursin RFS Level Per Nursing on Admit: 4+=Very High JEANNIE FRANCO Feb 28, 2020 08:03
[2020-02-28] MEDS ORDERED: PRAZ2CAP2 PO (09:22)
[2020-02-28] MEDS ORDERED: FLUO20CA42 PO (09:22)
[2020-02-28] MEDS ORDERED: TRAM50TA3 PO (09:22)
[2020-02-28] MEDS ORDERED: ROSU20TA32 PO (09:22)
[2020-02-28] MEDS ORDERED: ACET-2267 PO (09:22)
[2020-02-28] MEDS ORDERED: FLUO10CA29 PO (09:22)
[2020-02-28] MEDS ORDERED: LIDOCAINE 1% INJ 20 ML 20 ML VIAL ONE (09:24)
--- NOTE | 2020-02-28 09:36 | NUR ---
SPOKE WITH THE PT AND WENT THRU THE EXT MED HISTORY TO COMPLETE THE MED REC AFTER I NAMED THE MEDICATIONS USING THE EXT MED HISTORY THE PT WAS ABLE TO TELL ME WHEN/HOW SHE TAKES EACH MEDICATION ON 02-24-2020 PT PICKED UP DICLOFENAC GEL HOWEVER PT WAS NOT USING PRIOR TO HER BEING ADMITTED ACCORDING TO THE PT SHE TAKES FLUOXETINE 10MG AND 20MG (TO EQUAL 30MG) AT THE SAME TIME ONCE DAILY OTC MEDS: TYLENOL
--- NOTE | 2020-02-28 11:45 | History & Physical-Hospitalist ---
ZIGGY TIWARI MED STUDENT 02/28/20 1145: History of Present Illness HPI/Chief Complaint CC: syncope, chest pain HPI: Evelin Rea is a 39 YO female smoker who presented to the [facility] ER yesterday for sharp left CP, dizziness, and SOB after a syncopal episode. Pt was talking to her [id number] when suddenly her vision went out and she passed out. She is unsure how long she was unconscious. Workup in the ER was unremarkable, including negative troponin, normal BNP, negative CT head, and negative CXR. Pt was admitted to observation for loop recorder placement by cardiology. Pt has had episodes like this in the past and went to [place] ER last week for syncopal episode but was discharged home. Prior records show that pt was seen by Dr. Sparks for chest pain and syncope in January 2018 and heart cath then showed mild nonobstructive CAD. Today, pt complains of the same left- sided chest pain as yesterday with some radiation to LUE, but notes some improvement. Pain worsens with deep inspiration. Only concern is that she wants something to eat, but pt is NPO until after loop recorder placement. Source: patient, RN/MD, old records Exam Limitations: no limitations Date Seen 02/28/20 Time Seen by a Provider: 07:50 Attending Physician Janet Dodge DO PCP Devon,Brandon SHAH Referring Physician Date of Admission Feb 27, 2020 at 20:05 Home Medications & Allergies Home Medications Reviewed patient Home Medication Reconciliation performed by pharmacy medication reconciliations research laboratory technician and/or nursing. Patients Allergies have been reviewed. Allergies Allergies Coded Allergies No Known Drug Allergies (Unverified12/22/17) Past Egoibub-Qsxeji-Pwkmit Hx Patient Social History Alcohol Use: Denies Use Recreational Drug Use: No Smoking Status: Current Everyday Smoker (3/4 ppd) Type Used: Cigarettes 2nd Hand Smoke Exposure: No Recent Foreign Travel: No Contact w/other who traveled: No Recent Hopitalizations: No Recent Infectious Disease Expo: No Immunizations Up To Date Tetanus Booster (TDap): Unknown Date of Pneumonia Vaccine: Feb 01, 2018 Date of Influenza Vaccine: Feb 26, 2019 Seasonal Allergies Seasonal Allergies: No Past Medical History Surgeries: Gallbladder Neurological: Concussion : No Reproductive: No Sexually Transmitted Disease: No Gastrointestinal: Gall Bladder Disease Musculoskeletal: Arthritis, Fractures Psychosocial: Anxiety, Depression History of Blood Disorders: No Review of Systems Constitutional: No chills, No fever EENTM: No hearing loss, No ear pain Respiratory: No cough; short of breath Cardiovascular: chest pain; No edema Gastrointestinal: No abdominal pain, No vomiting Genitourinary: No frequency, No hematuria Musculoskeletal: No back pain; other (LUE pain) Skin: No change in color, No change in hair/nails Psychiatric/Neurological: Denies Anxiety, Denies Depressed All Other Systems Reviewed Negative Unless Noted: Yes Physical Exam Physical Exam Vital Signs Vital Signs - First Documented 02/27/20 18:30 Temp 36.6 Pulse 80 Resp 20 B/P (MAP) 130/85 (100) Pulse Ox 100 O2 Delivery Room Air Capillary Refill : Less Than 3 Seconds Height, Weight, BMI Height: 5'2.00" Weight: 160lbs. 8.0oz. [id number]; 31.84 BMI Method:Stated General Appearance: No Apparent Distress, WD/WN Eyes: Bilateral Eye Normal Inspection, Bilateral Eye EOMI HEENT: PERRL/EOMI, Normal ENT Inspection Neck: Normal Inspection, Supple Respiratory: Chest Non Tender, Lungs Clear, Normal Breath Sounds, No Accessory Muscle Use, No Respiratory Distress Cardiovascular: Regular Rate, Rhythm, No Edema Gastrointestinal: Non Tender, Soft Back: Normal Inspection Extremity: Normal Inspection, Normal Range of Motion, No Pedal Edema Neurologic/Psychiatric: Alert, No Motor/Sensory Deficits, Normal Mood/Affect Skin: Normal Color, Warm/Dry Lymphatic: No Adenopathy Results Results/Procedures Labs Laboratory Tests 02/27/20 18:36 02/28/20 04:30 Patient resulted labs reviewed. Imaging: Reviewed Imaging Report Assessment/Plan Admission Diagnosis syncope, chest pain Admission Status: Observation Assessment and Plan Assessment: syncope chest pain hx GERD 3/4 ppd smoker non-obstructive CAD per heart cath in 2018 Plan: Consult Dr. Tony NPO until loop recorder placement Toradol for pain control Monitor labs Lovenox for DVT prophylaxis Clinical Quality Measures AMI/AHF: ASA po Prior to arrival: No DVT/VTE Risk/Contraindication: Risk Factor Score Per Nursin RFS Level Per Nursing on Admit: 4+=Very High JANET DODGE DO 02/28/20 1236: History of Present Illness HPI/Chief Complaint CC: Syncope HPI: This is a 39yoWF with a history of recent recurrent syncope suspicious for some sort of arrhythmia. Labs were normal, UDS negative, no evidence of source of syncope so she will have a loop recorder and cardiology consultation today. Pt may very well require a pacemaker. Source: patient, RN/MD Exam Limitations: no limitations Date Seen 02/28/20 Time Seen by a Provider: 09:00 Past Hlolziv-Miqehx-Yekzxl Hx Past Med/Social Hx: Reviewed Nursing Past Med/Soc Hx, Reviewed and Corrections made Patient Social History Marrital Status: single Employed/Student: unemployed, retired Alcohol Use: Denies Use Smoking Status: Never a Smoker (3/4 ppd) Review of Systems Constitutional: malaise, weakness Physical Exam Physical Exam General Appearance: No Apparent Distress Eyes: Right Eye Normal Inspection, Right Eye PERRL HEENT: PERRL/EOMI, TMs Normal, Normal ENT Inspection, Pharynx Normal, Moist Mucous Membranes Neck: Full Range of Motion, Normal Inspection, Non Tender Respiratory: Chest Non Tender, Lungs Clear, Normal Breath Sounds, No Accessory Muscle Use, No Respiratory Distress Cardiovascular: Regular Rate, Rhythm, No Edema, No Gallop, No JVD, No Murmur, Normal Peripheral Pulses Gastrointestinal: Normal Bowel Sounds, No Organomegaly, No Pulsatile Mass, Non Tender, Soft Back: Normal Inspection, No CVA Tenderness, No Vertebral Tenderness Extremity: Normal Capillary Refill, Normal Inspection, Normal Range of Motion, Non Tender, No Calf Tenderness, No Pedal Edema Neurologic/Psychiatric: Alert, Oriented x3, No Motor/Sensory Deficits, Normal Mood/Affect Skin: Normal Color, Warm/Dry Lymphatic: No Adenopathy Assessment/Plan Admission Diagnosis Assessment: Syncope Smoker Plan: Cardiology consult Admission Status: Observation Supervisory-Addendum Brief Verification & Attestation Participated in pt care: history, MDM, physical Personally performed: exam, history, MDM, supervision of care Care discussed with: Medical Student Procedures: n/a Results interpretation: Verified all documentation Verification and Attestation of Medical Student E/M Service A medical student performed and documented this service in my presence. I reviewed and verified all information documented by the medical student and made modifications to such information, when appropriate. I personally performed the physical exam and medical decision making. Janet Dodge, Feb 29, 2020,06:13 ZIGGY TIWARI MED STUDENT Feb 28, 2020 11:45 JANET DODGE DO Feb 28, 2020 12:36
[2020-02-28 12:13] VITALS: BP 112/73
--- NOTE | 2020-02-28 12:40 | Consultation-Cardiology ---
HPI-Cardiology Cardiology Consultation: Date of Consultation 02/28/20 Time Seen by a Provider: 11:30 Date of Admission Attending Physician Janet Wright DO Admitting Physician Brandon Osorio MD Consulting Physician TRAY WORLEY MD, MA, FACP, FACC, FSCAI, CCDS HPI: Chief Complaint: CC: Passing out HPI Ms. Rea is a 39 year old female admitted to [facility] from the ED with syncopal episode. She reports she was sitting on the couch at her mothers house yesterday when she began to feel her heart racing. She reports a feeling of a sharp, stabbing pain to her left side. She states her vision began to go black and she passed out. She does not know how long she was out for. No reported loss of bowel or bladder control. She states she came to and her significant other was giving her mouth to mouth breathing. She states she had a similar episode the week prior while helping a friend. She states she went to the [facility] ER at that time. Nothing was found and she was sent home. She denies any n/v/d. She denies any fever or chills. She denies any LE swelling. She does report left-sided chest pain with deep breathing and reproducible with palpation at the time of this exa. Reporting it is a sharp, stabbing pain. Review of Systems-Cardiology Review of Systems Constitutional: No chills, No fever Eyes: As described under HPI Ears/Nose/Throat: No epistaxis, No recent hearing loss Respiratory: As described under HPI Gastrointestinal: No constipation, No diarrhea, No nausea, No vomiting Genitourinary: No dysuria, No hematuria Musculoskeletal: As describe under HPI Skin: No rash on exposed areas, No ulcerations on exposed areas Psychiatric/Neurological: As described under HPI, anxiety, depression; No focal weakness Hematologic: No bleeding abnormalities All Other Systems Reviewed Negative Unless Noted: Yes JAP-[id number] Hx Patient Social History Alcohol Use: Denies Use Recreational Drug Use: No Smoking Status: Current Everyday Smoker (3/4 ppd) Type Used: Cigarettes 2nd Hand Smoke Exposure: No Recent Foreign Travel: No Recent Infectious Disease Expo: No Hospitalization with Isolation: Denies Immunizations Up To Date Tetanus Booster (TDap): Unknown Date of Pneumonia Vaccine: Feb 01, 2018 Date of Influenza Vaccine: Feb 26, 2019 Past Medical History PMH As described under Assessment. Family Medical History Family Medical History: She reports her father has CAD with h/o first heart attack in his 50's. Allergies and Home Medications Allergies Coded Allergies: No Known Drug Allergies (Unverified , 12/22/17) Home Medications Acetaminophen 500 Mg Tablet, 1,000 MG PO Q6H PRN for PAIN-MILD (1-4), (Reported) Fluoxetine HCl 10 Mg Capsule, 10 MG PO DAILY, (Reported) TAKES 10MG + 20MG TO EQUAL 30MG DAILY Fluoxetine HCl 20 Mg Capsule, 20 MG PO DAILY, (Reported) TAKES 10MG + 20MG TO EQUAL 30MG DAILY Prazosin HCl 2 Mg Capsule, 2 MG PO HS, (Reported) Rosuvastatin Calcium 20 Mg Tablet, 20 MG PO HS, (Reported) Tramadol HCl 50 Mg Tablet, 50 MG PO Q8H PRN for PAIN-MODERATE (5-7), (Reported) Patient Home Medication List Home Medication List Reviewed: Yes Physical Exam-Cardiology Physical Exam Vital Signs/I&O 02/28/20 02/28/20 02/28/20 02/28/20 01:00 03:25 06:36 08:00 Temp 36.4 Pulse 66 55 73 Resp 20 B/P (MAP) 101/55 (70) Pulse Ox 96 95 O2 Delivery Room Air Room Air 02/28/20 02/28/20 02/28/20 08:00 12:13 12:26 Temp 36.4 36.6 Pulse 68 67 65 Resp 20 20 B/P (MAP) 104/68 (80) 112/73 (86) Pulse Ox 95 97 O2 Delivery Room Air Room Air Capillary Refill : Less Than 3 Seconds Constitutional: AAO x 3, well-developed, well-nourished HEENT: PERRL, hearing is well preserved Neck: No carotid bruit; carotid pulses are 2 + bilaterally Respiratory: No accessory muscle use, No respiratory distress; chest expansion is symmetric, chest is bilaterally symmetric, lungs clear to auscultation, other (prolonged expiratory phase) Cardiovascular: regular rate-rhythm; No JVD, No S1 and S2 Gastrointestinal: No tender; soft, round, audible bowel sounds Extremities: no lower extremity edema bilateral Neurologic/Psychiatric: grossly intact (moves all extremities) Skin: No rash on exposed areas, No ulcerations on exposed areas Data Review Labs Laboratory Tests 02/27/20 18:36: White Blood Count 12.8H, Red Blood Count 5.06, Hemoglobin 14.7, Hematocrit 45, Mean Corpuscular Volume 89, Mean Corpuscular Hemoglobin 29, Mean Corpuscular Hemoglobin Concent 33, Red Cell Distribution Width 14.6H, Platelet Count 267, Mean Platelet Volume 10.8, Immature Granulocyte % (Auto) 0, Neutrophils (%) (Auto) 63, Lymphocytes (%) (Auto) 30, Monocytes (%) (Auto) 6, Eosinophils (%) (Auto) 1, Basophils (%) (Auto) 0, Neutrophils # (Auto) 8.0H, Lymphocytes # (Auto) 3.9, Monocytes # (Auto) 0.7, Eosinophils # (Auto) 0.1, Basophils # (Auto) 0.0, Immature Granulocyte # (Auto) 0.0, Prothrombin Time 13.3, INR Comment 1.0, Activated Partial Thromboplast Time 29, D-Dimer < 0.27, Sodium Level 137, Potassium Level 4.0, Chloride Level 103, Carbon Dioxide Level 24, Anion Gap 10, Blood Urea Nitrogen 16, Creatinine 0.82, Estimat Glomerular Filtration Rate > 60, BUN/Creatinine Ratio 20, Glucose Level 98, Calcium Level 9.2, Corrected Calcium 9.0, Magnesium Level 2.0, Total Bilirubin 0.5, Aspartate Amino Transf (AST/SGOT) 12, Alanine Aminotransferase (ALT/SGPT) 11, Alkaline Phosphatase 86, Myoglobin 18.2, Troponin I < 0.028, B-Type Natriuretic Peptide < 10.0, Total Protein 7.4, Albumin 4.3, Serum Test, Qualitative NEGATIVE 02/28/20 04:30: White Blood Count 11.6H, Red Blood Count 4.56, Hemoglobin 13.3, Hematocrit 41, Mean Corpuscular Volume 89, Mean Corpuscular Hemoglobin 29, Mean Corpuscular Hemoglobin Concent 33, Red Cell Distribution Width 14.7H, Platelet Count 248, Mean Platelet Volume 11.0, Immature Granulocyte % (Auto) 0, Neutrophils (%) (Auto) 57, Lymphocytes (%) (Auto) 34, Monocytes (%) (Auto) 7, Eosinophils (%) (Auto) 1, Basophils (%) (Auto) 0, Neutrophils # (Auto) 6.6, Lymphocytes # (Auto) 4.0, Monocytes # (Auto) 0.8, Eosinophils # (Auto) 0.1, Basophils # (Auto) 0.0, Immature Granulocyte # (Auto) 0.0, Sodium Level 139, Potassium Level 3.9, Chloride Level 107, Carbon Dioxide Level 22, Anion Gap 10, Blood Urea Nitrogen 18, Creatinine 0.71, Estimat Glomerular Filtration Rate > 60, BUN/Creatinine Ratio 25, Glucose Level 100, Calcium Level 9.3, Corrected Calcium 9.6, Total Bilirubin 0.5, Aspartate Amino Transf (AST/SGOT) 12, Alanine Aminotransferase (ALT/SGPT) 10, Alkaline Phosphatase 75, Total Protein 6.1L, Albumin 3.6, Triglycerides Level 134, Cholesterol Level 133, LDL Cholesterol Direct 96, VLDL Cholesterol 27, HDL Cholesterol 28L Laboratory Tests 02/27/20 18:36 02/28/20 04:30 A/P-Cardiology Assessment/Admission Diagnosis Syncope of undetermined etiology Chest pain of undetermined etiology - probably musculoskeletal (reproducible with palpation). No evidence of acute coronary syndrome Cardiac catheterization done on February 03, [address] Sparks showing mild coronary artery disease nonobstructive disease H/o syncope with pain has been managed by Dr. Sparks History of injury to the left shoulder with h/o surgery History of depression, anxiety. Managed by primary care physician Tobaccosuzi, discussed smoking cessation. Gastroesophageal reflux disease History of cholecystectomy and appendectomy Discussion and Recomendations We advise ILR implant to eval for arrhythmia - discussed procedure, risks, benefits. She provides informed consent We advised her not to drive or operate machinery or put herself in any situation where syncope may cause injury to self or others. 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
--- NOTE | 2020-02-28 12:48 | NUR ---
patient off floor at this time for cardiac procedure
--- NOTE | 2020-02-28 14:13 | NUR ---
attempted to called Dr Sparks clinic X4 times to schedule follow up for Thursday per Dr Tony. no answer at this time. patient was instructed to contact heart clinic on her way home or tomorrow morning to schedule and appointment for Thursday
--- NOTE | 2020-02-28 14:36 | OPERATIVE REPORT ---
DATE OF SERVICE: 02/28/2020 PREOPERATIVE DIAGNOSIS: Syncope. POSTOPERATIVE DIAGNOSIS: Syncope. PROCEDURE: Implantable loop recorder implantation. INDICATIONS: The patient is a 39-year-old lady who has had episodes of passing out. Implantable loop recorder implantation was carried out after having been obtained an informed consent. DESCRIPTION OF PROCEDURE: [facility] The left prepectoral area was prepared and draped in the usual sterile fashion. Lidocaine 1% was used for local anesthesia. The tools provided with Medtronic LINQ device were used to make a pocket anterior to the fourth intercostal space into which the Medtronic Reveal LINQ device was placed and the skin edges were closed with Dermabond and Steri-Strips. She tolerated the procedure well. The serial number of the device is [id number]. Job ID: [id number] DocumentID: [id number] Dictated Date: 02/28/2020 12:58:25 Rug Frame Mounter Date: 02/28/2020 14:35:39 Dictated By: TRAY WORLEY MD, MA, FACP, FACC,
[2020-02-28 14:37] VITALS: BP 112/73
[2020-02-28] MEDS ORDERED: ENOXAPARIN 40 MG/0.4 ML (LOVENOX) SYR SC SCH (22:30)
--- NOTE | 2020-02-29 06:18 | Discharge Summary ---
Diagnosis/Chief Complaint Date of Admission Feb 27, 2020 at 20:05 Date of Discharge Feb 28, 2020 at 14:37 Discharge Diagnosis Syncope Discharge Summary Discharge Physical Examination Allergies: Coded Allergies: No Known Drug Allergies (Unverified , 12/22/17) Vitals & I&Os Vital Signs Date Time Temp Pulse Resp B/P (MAP) Pulse Ox O2 Delivery O2 Flow Rate FiO2 02/28/20 14:37 36.6 65 20 112/73 97 Room Air General Appearance: Alert, Oriented X3, Cooperative Respiratory: Clear to Auscultation Cardiovascular: Regular Rate Hospital Course Was the Problem List Reviewed?: Yes See H&P and Cardiology consultation for details. Loop recorder placed and patient was DC. Labs (last 24 hrs) Laboratory Tests 02/27/20 18:36: White Blood Count 12.8H, Red Blood Count 5.06, Hemoglobin 14.7, Hematocrit 45, Mean Corpuscular Volume 89, Mean Corpuscular Hemoglobin 29, Mean Corpuscular Hemoglobin Concent 33, Red Cell Distribution Width 14.6H, Platelet Count 267, Mean Platelet Volume 10.8, Immature Granulocyte % (Auto) 0, Neutrophils (%) (Auto) 63, Lymphocytes (%) (Auto) 30, Monocytes (%) (Auto) 6, Eosinophils (%) (Auto) 1, Basophils (%) (Auto) 0, Neutrophils # (Auto) 8.0H, Lymphocytes # (Auto) 3.9, Monocytes # (Auto) 0.7, Eosinophils # (Auto) 0.1, Basophils # (Auto) 0.0, Immature Granulocyte # (Auto) 0.0, Prothrombin Time 13.3, INR Comment 1.0, Activated Partial Thromboplast Time 29, D-Dimer < 0.27, Sodium Level 137, Potassium Level 4.0, Chloride Level 103, Carbon Dioxide Level 24, Anion Gap 10, Blood Urea Nitrogen 16, Creatinine 0.82, Estimat Glomerular Filtration Rate > 60, BUN/Creatinine Ratio 20, Glucose Level 98, Calcium Level 9.2, Corrected Calcium 9.0, Magnesium Level 2.0, Total Bilirubin 0.5, Aspartate Amino Transf (AST/SGOT) 12, Alanine Aminotransferase (ALT/SGPT) 11, Alkaline Phosphatase 86, Myoglobin 18.2, Troponin I < 0.028, B-Type Natriuretic Peptide < 10.0, Total Protein 7.4, Albumin 4.3, Serum Test, Qualitative NEGATIVE 02/28/20 04:30: White Blood Count 11.6H, Red Blood Count 4.56, Hemoglobin 13.3, Hematocrit 41, Mean Corpuscular Volume 89, Mean Corpuscular Hemoglobin 29, Mean Corpuscular Hemoglobin Concent 33, Red Cell Distribution Width 14.7H, Platelet Count 248, Mean Platelet Volume 11.0, Immature Granulocyte % (Auto) 0, Neutrophils (%) (Auto) 57, Lymphocytes (%) (Auto) 34, Monocytes (%) (Auto) 7, Eosinophils (%) (Auto) 1, Basophils (%) (Auto) 0, Neutrophils # (Auto) 6.6, Lymphocytes # (Auto) 4.0, Monocytes # (Auto) 0.8, Eosinophils # (Auto) 0.1, Basophils # (Auto) 0.0, Immature Granulocyte # (Auto) 0.0, Sodium Level 139, Potassium Level 3.9, Chloride Level 107, Carbon Dioxide Level 22, Anion Gap 10, Blood Urea Nitrogen 18, Creatinine 0.71, Estimat Glomerular Filtration Rate > 60, BUN/Creatinine Ratio 25, Glucose Level 100, Calcium Level 9.3, Corrected Calcium 9.6, Total Bilirubin 0.5, Aspartate Amino Transf (AST/SGOT) 12, Alanine Aminotransferase (ALT/SGPT) 10, Alkaline Phosphatase 75, Total Protein 6.1L, Albumin 3.6, Triglycerides Level 134, Cholesterol Level 133, LDL Cholesterol Direct 96, VLDL Cholesterol 27, HDL Cholesterol 28L Pending Labs Laboratory Tests 02/27/20 18:36: White Blood Count 12.8, Red Blood Count 5.06, Hemoglobin 14.7, Hematocrit 45, Mean Corpuscular Volume 89, Mean Corpuscular Hemoglobin 29, Mean Corpuscular Hemoglobin Concent 33, Red Cell Distribution Width 14.6, Platelet Count 267, Mean Platelet Volume 10.8, Immature Granulocyte % (Auto) 0, Neutrophils (%) (Auto) 63, Lymphocytes (%) (Auto) 30, Monocytes (%) (Auto) 6, Eosinophils (%) (Auto) 1, Basophils (%) (Auto) 0, Neutrophils # (Auto) 8.0, Lymphocytes # (Auto) 3.9, Monocytes # (Auto) 0.7, Eosinophils # (Auto) 0.1, Basophils # (Auto) 0.0, Immature Granulocyte # (Auto) 0.0, Prothrombin Time 13.3, INR Comment 1.0, Acti vated Partial Thromboplast Time 29, D-Dimer < 0.27, Sodium Level 137, Potassium Level 4.0, Chloride Level 103, Carbon Dioxide Level 24, Anion Gap 10, Blood Urea Nitrogen 16, Creatinine 0.82, Estimat Glomerular Filtration Rate > 60, BUN/Creatinine Ratio 20, Glucose Level 98, Calcium Level 9.2, Corrected Calcium 9.0, Magnesium Level 2.0, Total Bilirubin 0.5, Aspartate Amino Transf (AST/SGOT) 12, Alanine Aminotransferase (ALT/SGPT) 11, Alkaline Phosphatase 86, Myoglobin 18.2, Troponin I < 0.028, B-Type Natriuretic Peptide < 10.0, Total Protein 7.4, Albumin 4.3, Serum Test, Qualitative NEGATIVE 02/28/20 04:30: White Blood Count 11.6, Red Blood Count 4.56, Hemoglobin 13.3, Hematocrit 41, Mean Corpuscular Volume 89, Mean Corpuscular Hemoglobin 29, Mean Corpuscular Hemoglobin Concent 33, Red Cell Distribution Width 14.7, Platelet Count 248, Mean Platelet Volume 11.0, Immature Granulocyte % (Auto) 0, Neutrophils (%) (Auto) 57, Lymphocytes (%) (Auto) 34, Monocytes (%) (Auto) 7, Eosinophils (%) (Auto) 1, Basophils (%) (Auto) 0, Neutrophils # (Auto) 6.6, Lymphocytes # (Auto) 4.0, Monocytes # (Auto) 0.8, Eosinophils # (Auto) 0.1, Basophils # (Auto) 0.0, Immature Granulocyte # (Auto) 0.0, Sodium Level 139, Potassium Level 3.9, Chloride Level 107, Carbon Dioxide Level 22, Anion Gap 10, Blood Urea Nitrogen 18, Creatinine 0.71, Estimat Glomerular Filtration Rate > 60, BUN/Creatinine Ratio 25, Glucose Level 100, Calcium Level 9.3, Corrected Calcium 9.6, Total Bilirubin 0.5, Aspartate Amino Transf (AST/SGOT) 12, Alanine Aminotransferase (ALT/SGPT) 10, Alkaline Phosphatase 75, Total Protein 6.1, Albumin 3.6, Triglycerides Level 134, Cholesterol Level 133, LDL Cholesterol Direct 96, VLDL Cholesterol 27, HDL Cholesterol 28 Discharge Home Medications: Active Scripts Active Reported Tylenol Extra Strength (Acetaminophen) 500 Mg Tablet 1,000 Mg PO Q6H PRN Rosuvastatin Calcium 20 Mg Tablet 20 Mg PO HS Prozac (Fluoxetine HCl) 20 Mg Capsule 20 Mg PO DAILY TAKES 10MG + 20MG TO EQUAL 30MG DAILY Prozac (Fluoxetine HCl) 10 Mg Capsule 10 Mg PO DAILY TAKES 10MG + 20MG TO EQUAL 30MG DAILY Prazosin HCl 2 Mg Capsule 2 Mg PO HS Tramadol HCl 50 Mg Tablet 50 Mg PO Q8H PRN Instructions to patient/family Please see electronic discharge instructions given to patient. Clinical Quality Measures AMI/AHF: ASA po Prior to arrival: No DVT/VTE Risk/Contraindication: Risk Factor Score Per Nursin RFS Level Per Nursing on Admit: 4+=Very High YULI DODGE DO Feb 29, 2020 06:18
== END 2020-02-28 14:09 | disposition home or self-care (01) ==
LOC: EDUNIT# 18:23 → ER 18:26 → UNDOADMOB 20:05 → 4TH 20:05 → UNDODISOB 02-28 14:37
PROVIDERS: ADMIT Internal Medicine; ATTEND Internal Medicine
DX: R55 Syncope and collapse (principal); F41.9 Anxiety disorder, unspecified; F32.9 Major depressive disorder, single episode, unspecified; M19.90 Unspecified osteoarthritis, unspecified site; K21.9 Gastro-esophageal reflux disease without esophagitis; I25.10 Atherosclerotic heart disease of native coronary artery without angina pectoris; R07.81 Pleurodynia; R00.2 Palpitations; R06.02 Shortness of breath; F17.210 Nicotine dependence, cigarettes, uncomplicated; Z90.49 Acquired absence of other specified parts of digestive tract; Z79.51 Long term (current) use of inhaled steroids
CPT/HCPCS: 33285; 36415; 70450; 71045 ×2; 80053 ×2; 80061; 80306; 81000; 83735; 83874; 83880 ×2; 84484 ×2; 84703 ×2; 85025 ×2; 85379; 85610; 85730; 87081; 93005; 93041; 93306; 96374; 96375; 99284 ×2; C1764; G0378

== ENCOUNTER → 2020-03-07 | Outpatient (CLI) | payer MEDICARE ==
[2020-03-07] VITALS (33 sets, daily range): BP systolic 90–137; BP diastolic 59–100
[~2020-03-07] VITALS: Ht 157 cm; Wt 78.0 kg
[~2020-03-07] MED LIST changes: +ACET-2267 PO; +ATROPINE INJECTION 1 MG/10 ML SYR (ABBOTT) INJ PRN; +ATROPINE INJECTION 1 MG/10 ML SYR (ABBOTT) ONE; +FLUO10CA29 PO; +NS IV 1000 ML 1,000 ML IV ONE; +NS IV 1000 ML 1,000 ML ONE; +PRAZ2CAP2 PO; +ROSU20TA32 PO; +TRAM50TA3 PO
--- NOTE | 2020-03-07 15:04 | Cardiology Tilt Table Test ---
Cardiology-Tilt Table Test Tilt Table Test Date 03/07/20 Baseline Vitals Vital Signs Date Time Temp Pulse Resp B/P (MAP) Pulse Ox O2 Delivery O2 Flow Rate FiO2 03/07/20 13:31 36.4 75 18 93/78 (83) 98 Room Air Vital Signs VS - Last 72 Hours, by Label 03/07/20 03/07/20 03/07/20 03/07/20 13:31 13:38 13:39 13:40 Temp 36.4 Pulse 75 90 87 92 Resp 18 18 18 18 B/P (MAP) 93/78 (83) 116/80 (92) 102/78 (86) 107/83 (91) Pulse Ox 98 98 98 98 O2 Delivery Room Air Room Air Room Air Room Air 03/07/20 03/07/20 03/07/20 03/07/20 13:41 13:42 13:43 13:44 Pulse 94 90 89 93 Resp 18 18 18 18 B/P (MAP) 112/80 (91) 99/78 (85) 117/83 (94) 117/84 (95) Pulse Ox 98 98 98 98 O2 Delivery Room Air Room Air Room Air Room Air 03/07/20 03/07/20 03/07/20 03/07/20 13:45 13:46 13:47 13:48 Pulse 107 97 100 92 Resp 18 18 18 18 B/P (MAP) 137/84 (101) 137/93 (108) 137/93 (108) 125/93 (104) Pulse Ox 98 98 98 98 O2 Delivery Room Air Room Air Room Air Room Air 03/07/20 03/07/20 03/07/20 03/07/20 13:49 13:50 13:51 13:52 Pulse 85 94 90 92 Resp 18 18 18 18 B/P (MAP) 125/93 (104) 120/85 (97) 116/80 (92) 118/85 (96) Pulse Ox 98 98 98 98 O2 Delivery Room Air Room Air Room Air Room Air 03/07/20 03/07/20 03/07/20 03/07/20 13:53 13:54 13:55 13:56 Pulse 113 128 120 122 Resp 18 18 18 18 B/P (MAP) 108/79 (89) 115/100 (105) 114/78 (90) 112/74 (87) Pulse Ox 98 98 98 98 O2 Delivery Room Air Room Air Room Air Room Air 03/07/20 03/07/20 03/07/20 03/07/20 13:57 13:58 13:59 14:00 Pulse 117 114 106 112 Resp 18 18 18 18 B/P (MAP) 112/74 (87) 99/74 (82) 102/79 (87) 99/80 (86) Pulse Ox 98 98 98 98 O2 Delivery Room Air Room Air Room Air Room Air 03/07/20 03/07/20 03/07/20 03/07/20 14:01 14:02 14:03 14:04 Pulse 108 112 105 86 Resp 18 18 18 18 B/P (MAP) 99/80 (86) 102/76 (85) 90/74 (79) 103/85 (91) Pulse Ox 98 98 98 98 O2 Delivery Room Air Room Air Room Air Room Air 03/07/20 03/07/20 03/07/20 03/07/20 14:05 14:06 14:07 14:09 Pulse 107 110 101 74 Resp 18 18 18 18 B/P (MAP) 92/59 (70) 92/59 (70) 98/75 (83) 119/77 (91) Pulse Ox 98 98 98 98 O2 Delivery Room Air Room Air Room Air Room Air 03/07/20 14:13 Pulse 76 Resp 18 B/P (MAP) 115/68 (84) Pulse Ox 98 O2 Delivery Room Air Patient was tilted to 75 degrees for [10] minutes, then returned to supine position, given [1] sublingual nitroglycerin tablets, then tilted again to 75 degrees for [15] minutes. During test, patient was: symptomatic (with dizziness and lightheadedness persisting throughout the test.) In Conclusion;: Negative Tilt Table Test Patient did not have a syncopal event, but was noted to be hypotensive with SBP 90 with dizziness and lightheadedness. Patient was instructed to continue to stay well hydrated. Recommended YOEL [place]. She is s/p loop implantation last week and will continue to monitor. KILEY CARTER Mar 07, 2020 15:04
== END ==
LOC: CARD 13:00
PROVIDERS: ATTEND Internal Medicine Cardiovascular Disease
DX: R55 Syncope and collapse (principal); R07.89 Other chest pain; Z72.0 Tobacco use
CPT/HCPCS: 93660

== ENCOUNTER 2020-10-08 18:11 | Emergency (ER) | payer MEDICARE ==
[~2020-10-08] VITALS: Ht 157.4 cm; Wt 78.0 kg
[~2020-10-08 18:11] MED LIST changes: -ATROPINE INJECTION 1 MG/10 ML SYR (ABBOTT) INJ PRN; -ATROPINE INJECTION 1 MG/10 ML SYR (ABBOTT) ONE; -NS IV 1000 ML 1,000 ML IV ONE; -NS IV 1000 ML 1,000 ML ONE
--- NOTE | 2020-10-08 19:01 | Diagnostic Imaging Report ---
PROCEDURE: CT maxillofacial without contrast. TECHNIQUE: Multiple contiguous axial images were obtained through the facial bones without the use of intravenous contrast. Auto Exposure Controls were utilized during the CT exam to meet ALARA standards for radiation dose reduction. INDICATION: Trauma to nose with pain. FINDINGS: There is a minimally displaced nasal bone fracture. This is displaced to the right. The frontal, ethmoid and sphenoid sinuses are clear. There is moderate opacification of the right maxillary sinus. There is a mucous retention cyst or polyp in the left maxillary sinus. The zygomatic arches are intact. The mandibular condyles are well-aligned. The lamina papyracea and orbital floors are intact. IMPRESSION: Mildly comminuted minimally displaced fracture of the nasal bone to the right. Moderate mucosal thickening of the right maxillary sinus as well as a mucous retention cyst and/or polyp in the left maxillary sinus. No other displaced facial fractures. Dictated by: Dictated on workstation # [id number]
[2020-10-08] MEDS ORDERED: RX-ONDANSETRON 4 MG ODT (ZOFRAN) PPK #4 PO PRN (19:30)
[2020-10-08] MEDS ORDERED: ACHD5005 PO (19:32)
--- NOTE | 2020-10-08 19:34 | ED EENT ---
History of Present Illness General Chief Complaint: Nasal Problems Stated Complaint: NOSE INJ Nursing Triage Note: Patient presents to the ED with c/o of nasal swelling, bleeding, and pain. She states she was letting her dog out of the crate when it headbutted her in her nose. Since then she has had epistaxis, pain, and swelling to her nose. Source: patient History of Present Illness Date Seen by Provider: October 08, 2020 Time Seen by Provider: 18:21 Initial Comments 39-year-old female presenting with facial pain and bloody nose. 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 She had immediate pain and swelling as well as bloody nose. She denied any loss of consciousness. They came immediately to the emergency department and she has not taken anything for pain. She has increased pain with palpation and movement of her nose and face. She has had prior fracture to her nose. Timing/Duration: abrupt Severity: severe Location: nose Prearrival Treatment: no prearrival treatment Modifying Factors: Worse With Activity Associated Symptoms: No change in hearing, No cough, No drooling, No ear drainage; facial pain/swelling; No fever, No malaise; nasal congestion/drainage; No poor fluid intake, No poor solids intake, No sinus infection, No sore throat, No tooth pain, No voice change Allergies and Home Medications Allergies Coded Allergies: No Known Drug Allergies (Unverified , 12/22/17) Home Medications Acetaminophen 500 Mg Tablet, 1,000 MG PO Q6H PRN for PAIN-MILD (1-4), (Reported) Fluoxetine HCl 10 Mg Capsule, 10 MG PO DAILY, (Reported) TAKES 10MG + 20MG TO EQUAL 30MG DAILY Fluoxetine HCl 20 Mg Capsule, 20 MG PO DAILY, (Reported) TAKES 10MG + 20MG TO EQUAL 30MG DAILY Hydrocodone/Acetaminophen 1 Each Tablet, 1 TAB PO Q6H PRN for PAIN-SEVERE (8-10) Prescribed by: ALISHA CORDOVA on 10/08/201932 Prazosin HCl 2 Mg Capsule, 2 MG PO HS, (Reported) Rosuvastatin Calcium 20 Mg Tablet, 20 MG PO HS, (Reported) Tramadol HCl 50 Mg Tablet, 50 MG PO Q8H PRN for PAIN-MODERATE (5-7), (Reported) Patient Home Medication List Home Medication List Reviewed: Yes Review of Systems Review of Systems Constitutional: No chills, No fever Eyes: No Symptoms Reported Ears: No Symptoms Reported Nose: see HPI, congestion, epistaxis, pain, bloody discharge, previous injury Mouth: no symptoms reported Throat: no symptoms reported Respiratory: no symptoms reported Cardiovascular: no symptoms reported Gastrointestinal: no symptoms reported Skin: other (swelling and tenderness to nose) Neurological: No Symptoms Reported Past Whntbii-Hlmuwj-Mtkpav Hx Past Med/Social Hx: Reviewed Nursing Past Med/Soc Hx Patient Social History Alcohol Use: Denies Use Smoking Status: Current Everyday Smoker Type Used: Cigarettes 2nd Hand Smoke Exposure: No Recent Infectious Disease Expo: No Recent Hopitalizations: No Immunizations Up To Date Tetanus Booster (TDap): Unknown Date of Pneumonia Vaccine: Feb 01, 2018 Date of Influenza Vaccine: Feb 26, 2019 Seasonal Allergies Seasonal Allergies: No Past Medical History Surgeries: Yes Gallbladder Respiratory: No Cardiac: Yes (heart cath) Neurological: Yes Concussion Reproductive Disorders: No Sexually Transmitted Disease: No Genitourinary: No Gastrointestinal: No Gall Bladder Disease Musculoskeletal: Yes Arthritis, Fractures Endocrine: No HEENT: No Cancer: No Psychosocial: Yes Anxiety, Depression Integumentary: No Blood Disorders: No Physical Exam Vital Signs Vital Signs - First Documented 10/08/20 18:15 Temp 36.1 Pulse 88 Resp 18 B/P (MAP) 135/83 (100) Pulse Ox 96 O2 Delivery Room Air Height, Weight, BMI Height: 5'2.00" Weight: 160lbs. 8.0oz. 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, no motor/sensory deficits, alert, oriented x 3 Skin: warm/dry Progress/Results/Core Measures Results/Orders My Orders Orders - ALISHA CORDOVA MD Ice: Apply To Affected Area (10/08/20 18:36) Ct Maxillofacial Wo (10/08/20 18:36) Rx-Hydrocodone/Apap 5-325 Mg (Rx-Vicodin (10/08/20 19:30) Rx-Ondansetron Po (Rx-Zofran Po) (10/08/20 19:30) Vital Signs/I&O 10/08/20 10/08/20 18:15 19:41 Temp 36.1 36.1 Pulse 88 88 Resp 18 18 B/P (MAP) 135/83 (100) 135/83 (100) Pulse Ox 96 96 O2 Delivery Room Air Blood Pressure Mean: 100 Progress Progress Note : Progress Note CT scan of the maxillofacial area was ordered while patient was waiting to be seen. The CT scan does demonstrate displaced fracture of the nasal bones. Patient reports previous fracture in this area. Counseled on treatment, follow- up and return precautions. Diagnostic Imaging Diagonstic Imaging: CT Plain Films/CT/US/NM/MRI: facial bones Comments [facility], [place] NAME: PIERRE DUGAN [facility] REC#: [id number] PT STATUS: REG ER : 1980 PHYSICIAN: ALISHA CORDOVA MD ADMIT DATE: 10/08/20/ER FS Signed Date of Exam:10/08/20 CT MAXILLOFACIAL WO PROCEDURE: CT maxillofacial without contrast. TECHNIQUE: Multiple contiguous axial images were obtained through the facial bones without the use of intravenous contrast. Auto Exposure Controls were utilized during the CT exam to meet ALARA standards for radiation dose reduction. INDICATION: Trauma to nose with pain. FINDINGS: There is a minimally displaced nasal bone fracture. This is displaced to the right. The frontal, ethmoid and sphenoid sinuses are clear. There is moderate opacification of the right maxillary sinus. There is a mucous retention cyst or polyp in the left maxillary sinus. The zygomatic arches are intact. The mandibular condyles are well-aligned. The lamina papyracea and orbital floors are intact. IMPRESSION: Mildly comminuted minimally displaced fracture of the nasal bone to the right. Moderate mucosal thickening of the right maxillary sinus as well as a mucous retention cyst and/or polyp in the left maxillary sinus. No other displaced facial fractures. Dictated by: Dictated on workstation # [id number] Dict: 10/08/20 1855 Trans: 10/08/20 [address] [facility] [id number] Interpreted by: YONATHAN LEVY MD Electronically signed by: YONATHAN LEVY MD 10/08/201934 Reviewed: Reviewed by Me Departure Impression Primary Impression: Closed fracture nasal bone Qualified Codes: S02.2XXA - Fracture of nasal bones, initial encounter for closed fracture Additional Impression: Contusion of nose, initial encounter Disposition: HOME, SELF-CARE Condition: Stable Departure-Patient Inst. Decision time for Depature: 19:33 Referrals: SUMANTH BUNN MD, ANNA K APRN (PCP) Primary Care Physician Patient Instructions: Minor Contusion ED, Facial Fracture (DC), Nose Fracture (DC) Add. Discharge Instructions: Keep your head elevated 30-45 degrees at all times for the next few days to help limit swelling and bleeding. Ice 20-30 minutes every few hours to help with pain and swelling. Use the pain medicine for severe pain and check with clinic for continued pain medicine if needed. Consider taking a laxative such as Miralax if you have to take the narcotic pain medicine regularly as it can cause constipation Follow up with clinic or see ENT specialist Dr. Bunn once swelling has gone down if you continue to have pain or want to discuss surgery options for slight shift of the nasal bone fractures All discharge instructions reviewed with patient and/or family. Voiced understanding. Scripts Hydrocodone/Acetaminophen (Hydrocodone-Acetamin 5-325 mg) 1 Each Tablet 1 TAB PO Q6H PRN for PAIN-SEVERE (8-10) for 3 Days, #12 TAB 0 Refills Prov: ALISHA CORDOVA MD 10/08/20 ALISHA CORDOVA MD October 08, 2020 19:34
[2020-10-08 19:41] VITALS: BP 135/83
== END 2020-10-08 19:42 | disposition home or self-care (01) ==
LOC: EDUNIT# 18:11 → ER FS 18:12
DX: S02.2XXA Fracture of nasal bones, initial encounter for closed fracture (principal); F41.9 Anxiety disorder, unspecified; F32.9 Major depressive disorder, single episode, unspecified; F17.210 Nicotine dependence, cigarettes, uncomplicated; Z79.899 Other long term (current) drug therapy; W54.1XXA Struck by dog, initial encounter
CPT/HCPCS: 70486

== ENCOUNTER 2020-10-18 09:10 | Outpatient (CLI) | payer MEDICARE ==
[~2020-10-18] VITALS: Ht 157.5 cm; Wt 72.7 kg
[~2020-10-18 09:10] MED LIST changes: +ACHD5005 PO
[2020-10-19] MEDS ORDERED: ACHD5005 PO ×2 (11:43)
== END 2020-10-18 10:21 | disposition home or self-care (01) ==
LOC: PREOP 09:10
PROVIDERS: ATTEND Otolaryngology Otolaryngology/Facial Plastic Surgery
DX: Z01.818 Encounter for other preprocedural examination (principal)

== ENCOUNTER 2020-10-19 07:09 | Day surgery (SDC) | payer MEDICARE ==
[~2020-10-19] VITALS: Ht 157.5 cm; Wt 72.7 kg
[2020-10-19] VITALS (10 sets, daily range): BP systolic 90–118; BP diastolic 52–83
[2020-10-19] MEDS ORDERED: LACTATED RINGERS 1,000 ML IV PRN (07:30)
[2020-10-19 07:54] LABS: BASOPHILS # (AUTO) 0.1 10^3/uL (0.0-0.1); BASOPHILS % (AUTO) 1 % (0-10); EOSINOPHILS # (AUTO) 0.2 10^3/uL (0.0-0.3); EOSINOPHILS % (AUTO) 2 % (0-10); HEMATOCRIT 46 % (35-52); HEMOGLOBIN 15.1 g/dL (11.5-16.0); LYMPHOCYTES # (AUTO) 3.7 10^3/uL (1.0-4.0); LYMPHOCYTES % (AUTO) 27 % (12-44); MEAN CORPUSCULAR HEMOGLOBIN 30 pg (25-34); MEAN CORPUSCULAR HGB CONC 33 g/dL (32-36); MEAN CORPUSCULAR VOLUME 90 fL (80-99); MEAN PLATELET VOLUME 11.3 fL (9.0-12.2); MONOCYTES # (AUTO) 0.9 10^3/uL (0.0-1.0); MONOCYTES % (AUTO) 7 % (0-12); NEUTROPHILS # (AUTO) 8.6 10^3/uL (1.8-7.8); NEUTROPHILS % (AUTO) 64 % (42-75); PLATELET COUNT 233 10^3/uL (130-400); WHITE BLOOD COUNT 13.6 10^3/uL (4.3-11.0)
[2020-10-19 08:07] LABS: BUN/CREATININE RATIO 15; CALCIUM 9.5 MG/DL (8.5-10.1); CARBON DIOXIDE 24 MMOL/L (21-32); CHLORIDE 104 MMOL/L (98-107); CREATININE SERUM 0.74 MG/DL (0.60-1.30); GFR ESTIMATED > 60; GLUCOSE 97 MG/DL (70-105); SODIUM 138 MMOL/L (135-145)
--- NOTE | 2020-10-19 08:17 | Progress Note-Pre Operative ---
Pre-Operative Progress Note H&P Reviewed The H&P was reviewed, patient examined and no changes noted. Date Seen by Provider: Oct 19, 2020 Time Seen by Provider: 08:30 Date H&P Reviewed: Oct 19, 2020 Time H&P Reviewed: 08:30 Pre-Operative Diagnosis: Dispalced Nasal Fracture SUMANTH SILVA MD Oct 19, 2020 08:17
[2020-10-19] MEDS ORDERED: proPOfol 200 MG/20 ML (DIPRIVAN) VIAL IV ONE (09:08)
[2020-10-19] MEDS ORDERED: ONDANSETRON 4 MG/2 ML (SDV) Z0FRAN ONE (09:08)
[2020-10-19] MEDS ORDERED: LIDOCAINE PF 2% 5 ML (XYLOCAINE) VIAL ONE (09:08)
[2020-10-19] MEDS ORDERED: MIDAZOLAM 2 MG/2 ML (VERSED) VIAL ONE (09:12)
[2020-10-19] MEDS ORDERED: fentaNYL INJ 100 MCG/2 ML AMP ONE (09:12)
[2020-10-19] MEDS ORDERED: LIDOCAINE/EPI 1%-1:100,000 (XYLOCAINE) 20ML ONE (09:15)
[2020-10-19] MEDS ORDERED: MUPIROCIN 2% OINT 22 GM (BACTROBAN) TUBE ONE (09:15)
[2020-10-19] MEDS ORDERED: COCAINE HCL 4% 2 ML SYR ONE (09:15)
[2020-10-19] MEDS ORDERED: PHENYLEPHRINE 0.5% NASAL SPR (NEO-SYNEPHRINE) REG ONE (09:15)
[2020-10-19] MEDS ORDERED: SEVOFLURANE (ULTANE) 15 ML INHAL SOLN ONE ×2 (09:16)
--- NOTE | 2020-10-19 10:11 | Progress Note-Post Operative ---
Post-Operative Progess Note Surgeon (s)/Assistant Inventory Manager (s) Surgeon SUMANTH SILVA MD Assistant Inventory Manager n/a Pre-Operative Diagnosis FRACTURED NASAL BONE Post-Operative Diagnosis same Post-Op Procedure Note Date of Procedure: Oct 19, 2020 Name of Procedure Performed: Closed Reduction of Nasal Fracture Description & Findings Description and Findings: n/a Anesthesia Type gen lma Estimated Blood Loss minimal Packing none. Specimen(s) collected/removed none SUMANTH SILVA MD Oct 19, 2020 10:11
[2020-10-19] MEDS ORDERED: ACETAMINOPHEN 325 MG TABLET PO PRN (10:15)
[2020-10-19] MEDS ORDERED: HYDROcodone/APAP 5 MG/325 MG (LORTAB) TAB PO PRN (10:15)
--- NOTE | 2020-10-19 10:35 | Anesthesia-General Post-Op ---
General Patient Condition Mental Status/LOC: Same as Preop Cardiovascular: Satisfactory Nausea/Vomiting: Absent Respiratory: Satisfactory Pain: Controlled Complications: Absent Post Op Complications Complications None Follow Up Care/Instructions Patient Instructions None needed. Anesthesia/Patient Condition Patient Condition Patient is doing well, no complaints, stable vital signs, no apparent adverse anesthesia problems. No complications reported per nursing. TAVARES LACEY CRNA Oct 19, 2020 10:35
[2020-10-19] MEDS ORDERED: fentaNYL INJ 100 MCG/2 ML AMP IVP ONE (10:45)
[2020-10-19] MEDS ORDERED: ONDANSETRON 4 MG/2 ML (SDV) Z0FRAN IVP PRN (10:45)
[2020-10-19] MEDS ORDERED: ACHD5005 PO ×2 (11:43)
== END 2020-10-19 13:00 | disposition home or self-care (01) ==
LOC: SDC 07:09
PROVIDERS: ATTEND Otolaryngology Otolaryngology/Facial Plastic Surgery
DX: S02.2XXA Fracture of nasal bones, initial encounter for closed fracture (principal); Z79.899 Other long term (current) drug therapy; Z86.79 Personal history of other diseases of the circulatory system; W54.1XXA Struck by dog, initial encounter
CPT/HCPCS: 36415; 80048; 84703; 85025; 87081

== ENCOUNTER 2020-11-18 20:58 | Emergency (ER) | payer MEDICARE ==
[~2020-11-18] VITALS: Ht 157.5 cm; Wt 72.6 kg
[2020-11-18] MEDS ORDERED: morphine INJ 10 MG/ML 1ML (SYR OR VIAL) IVP STA (21:08)
[2020-11-18] MEDS ORDERED: ONDANSETRON 4 MG/2 ML (SDV) Z0FRAN IVP ONE (21:15)
[2020-11-18] MEDS ORDERED: HOLD METFORMIN - RECEIVED CONTRAST 20 ML VIAL IV SCH (21:15)
[2020-11-18] MEDS ORDERED: IOHEXOL 350 MG/ML 100 ML (OMNIPAQUE 350) VIAL IV ONE (21:15)
[2020-11-18] MEDS ORDERED: NS 100 ML (IVPB) BAG IV ONE (21:15)
--- NOTE | 2020-11-18 21:15 | ED Fall/Injury ---
General Chief Complaint: Trauma-Non Activation Stated Complaint: FALL Nursing Triage Note: PT TO ROOM [facility] WITH C/O FALLING OFF THE TAILGATE OF A SMALL PICKUP TRUCK. PT REPORTS PAIN TO HER LEFT SIDE OF BODY. Source: patient History of Present Illness Date Seen by Provider: Nov 18, 2020 Time Seen by Provider: 21:05 Initial Comments Patient is a 39-year-old female who presents via local EMS complaining of left- sided neck chest and back pain after falling off the tailgate of a small pickup truck. Patient landed directly on her back. She is unsure if she hit her head. She denies headache loss of consciousness. She did not attempt to stand or bear weight secondary to pain. Pain is rated moderate to severe worse with palpation and movement. EMS gave 50 mcg of fentanyl during route. She denies midline neck or back pain. She is not on anticoagulation therapy. She denies extremity weakness or loss of sensation. No other acute symptoms or complaints. Occurred: just prior to arrival Severity: moderate, severe Injuries/Pain Location: other Context: other Loss of Consciousness: dazed Modifying Factors: Improves With Other Allergies and Home Medications Allergies Coded Allergies: No Known Drug Allergies (Unverified , 12/22/17) Home Medications Fluoxetine HCl 10 Mg Capsule, 10 MG PO DAILY, (Reported) TAKES 10MG + 20MG TO EQUAL 30MG DAILY Fluoxetine HCl 20 Mg Capsule, 20 MG PO DAILY, (Reported) TAKES 10MG + 20MG TO EQUAL 30MG DAILY Hydrocodone Bit/Acetaminophen 1 Tab Tab, 1-2 TAB PO Q4-6HR PRN for PAIN-MODERATE (5-7) Prescribed by: TONY JAVIER on 10/19/20 1143 Rosuvastatin Calcium 20 Mg Tablet, 20 MG PO HS, (Reported) Patient Home Medication List Home Medication List Reviewed: Yes Review of Systems Review of Systems Constitutional: see HPI Eyes: See HPI Ears, Nose, Mouth, Throat: see HPI Respiratory: cough Cardiovascular: see HPI Musculoskeletal: see HPI Skin: see HPI Psychiatric/Neurological: See HPI All Other Systems Reviewed Negative Unless Noted: Yes Past Azblaex-Xnzaxm-Niibxy Hx Patient Social History Tobacco Use?: Yes Immunizations Up To Date Tetanus Booster (TDap): Unknown Seasonal Allergies Seasonal Allergies: Yes Past Medical History Surgeries: Yes (loop recorder) Gallbladder Respiratory: No Currently Using CPAP: No Currently Using BIPAP: No Cardiac: Yes (heart cath) Syncope Neurological: Yes Concussion Reproductive Disorders: No Sexually Transmitted Disease: No Genitourinary: No Gastrointestinal: No Gall Bladder Disease Musculoskeletal: Yes Arthritis, Fractures Endocrine: No HEENT: No Cancer: No Psychosocial: Yes Anxiety, Depression Integumentary: No Blood Disorders: No Physical Exam Vital Signs Vital Signs - First Documented 11/18/20 21:02 Temp 36.8 Pulse 77 Resp 17 B/P (MAP) 129/78 (95) O2 Delivery Room Air Capillary Refill : Less Than 3 Seconds Height, Weight, BMI Height: 5'2.00" Weight: 160lbs. 8.0oz. 72.592920jv; 29.00 BMI Method:Stated General Appearance: WD/WN, moderate distress HEENT: PERRL/EOMI, normal ENT inspection, pharynx normal, other (Soft cervical collar in place) Neck: supple, other Cardiovascular: normal peripheral pulses, regular rate, rhythm Respiratory: chest non-tender, lungs clear, normal breath sounds Gastrointestinal: normal bowel sounds, non tender, soft Back: no vertebral tenderness, decreased range of motion, other (Diffuse left- sided upper thoracic midthoracic and low back pain/tenderness. 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 nml as tested, no motor/sensory deficits, alert, oriented x 3 Lymphatic: no adenopathy Progress/Results/Core Measures Results/Orders My Orders Orders - FABY TRUJILLO DO Morphine Injection (Morphine Injection (11/18/20 21:08) Ondansetron Injection (Zofran Injectio (11/18/20 21:15) Ct Chest/Abdomen/Pelvis W (11/18/20 21:08) Ct Head/Cervical Spine Wo (11/18/20 21:08) Iohexol Injection (Omnipaque 350 Mg/Ml 1 (11/18/20 21:15) Received Contrast (Hold Metformin- Contr (11/18/20 21:15) Ns (Ivpb) (Sodium Chloride 0.9% Ivpb Bag (11/18/20 21:15) Medications Given in ED Current Medications Medications Dose Ordered Sig/Falguni Route Start Time Stop Time Status Last Admin Dose Admin Iohexol 100 ml ONCE ONCE IV 11/18/20 21:15 11/18/20 21:16 DC 11/18/20 21:34 100 ML Ondansetron HCl 4 mg ONCE ONCE IVP 11/18/20 21:15 11/18/20 21:16 DC 11/18/20 21:21 4 MG Sodium Chloride 100 ml ONCE ONCE IV 11/18/20 21:15 11/18/20 21:16 DC 11/18/20 21:34 100 ML Vital Signs/I&O 11/18/20 11/18/20 21:02 21:21 Temp 36.8 36.8 Pulse 77 Resp 17 B/P (MAP) 129/78 (95) O2 Delivery Room Air Blood Pressure Mean: 95 Departure Communication (Admissions) CT head/cervical spine/chest/abdomen/pelvis: No acute injuries present. Pain addressed and improved with treatment. Recommendations are for supportive PCP follow-up as needed. Return precautions reviewed. Impression Primary Impression: Acute cervical sprain Additional Impressions: Thoracic back sprain Lumbar back sprain Disposition: HOME, SELF-CARE Condition: Stable Departure-Patient Inst. Decision time for Depature: 22:32 Referrals: MIRANDA VALE APRN (PCP/Family) Primary Care Physician Patient Instructions: Blunt Chest Trauma (DC), Neck Sprain (DC) Add. Discharge Instructions: Please go home and rest. Take ibuprofen for pain and Flexeril as needed for additional relief. Follow-up with your PCP in 2 to 3 days for reevaluation. Return to the ED if new or worsening symptoms. All discharge instructions reviewed with patient and/or family. Voiced understanding. Scripts Cyclobenzaprine HCl (Cyclobenzaprine HCl) 10 Mg Tablet 10 MG PO TID, #30 TAB Prov: FABY TRUJILLO DO 11/18/20 FABY TRUJILLO DO Nov 18, 2020 21:15
--- NOTE | 2020-11-18 22:13 | Diagnostic Imaging Report ---
CLINICAL INDICATION: Patient status post trauma. EXAM: Axial Head CT without IV contrast with sagittal and coronal reformations. Axial CT scan of the cervical spine with sagittal and coronal reformations. Auto Exposure Controls were utilized during the CT exam to meet ALARA standards for radiation dose reduction. COMPARISON: CT scan of the head without contrast dated 02/27/2020. CT scan of the maxillofacial structures without contrast dated 10/08/2020. FINDINGS: Head CT: There is no evidence of acute cerebral infarct, intracranial hemorrhage or gross mass effect. The brain parenchymal volume appears appropriate for patient's age. There is normal sanon-white matter distinction. There is no significant midline shift or herniation. There is no evidence of hydrocephalus. The basal cisterns are unremarkable. Stable bony deformity involving the nasal bone with bilateral nasal bone fractures. There is resolution of the swelling in the nasal bone region and soft tissue air. Skull, extracranial soft tissue and orbits are unremarkable. There is moderate mucosal thickening in the left maxillary sinus with mucus retention cyst seen. There is mild mucosal thickening involving the right maxillary sinus and ethmoid sinus. Temporal bones show no significant abnormality. CT cervical spine: There is no acute cervical spine fracture or dislocation. The vertebral body heights and intervertebral disk heights are maintained. There is no significant central spinal canal or neural foramen narrowing. There is no significant neck soft tissue abnormality. Visualized upper lung henson are clear. IMPRESSION: 1: There is no evidence of acute intracranial process. 2: There is no acute skull fracture. Again noted are bilateral nasal bone fractures which is seen on the prior maxillofacial CT scan. 3: There is no acute cervical spine fracture or dislocation. Dictated by: Dictated on workstation # [id number]
[2020-11-18] MEDS ORDERED: CYCL10TA9 PO (22:33)
--- NOTE | 2020-11-18 22:36 | Diagnostic Imaging Report ---
CLINICAL INDICATION: Patient fell out of the back of a truck and has left-sided pain. EXAM: CT angiogram of the chest, abdomen and pelvis performed with 100 mL of Omnipaque 350 IV contrast. Sagittal and coronal reformatted MIP images were created. Auto Exposure Controls were utilized during the CT exam to meet ALARA standards for radiation dose reduction. COMPARISON: CT angiogram of the chest with contrast dated 12/22/2017. FINDINGS: There is no pneumothorax. There is mild atelectasis involving the posterior aspects of both lungs. Otherwise, lungs are clear. There is no pleural effusion. There is a 4 mm low-density nodule involving the right thyroid lobe. There is no mediastinal fluid collection or lymphadenopathy. There is no axillary lymphadenopathy. Pulmonary arteries are patent, as visualized. Thoracic aorta is non-aneurysmal and there is no dissection seen, as visualized. The gallbladder is surgically resected. The liver, spleen and pancreas are unremarkable. There is stable nonspecific thickening of the left adrenal gland. Right adrenal gland is unremarkable. Both kidneys are unremarkable. No hydronephrosis or mass. The appendix is surgically absent. There is no intra-abdominal free air or free fluid. The uterus and adnexal regions show no significant abnormality. Likely cyst involving the right ovary measuring 2 cm. There is no intestinal obstruction. The abdominal aorta and common iliac arteries are patent with no dissection or aneurysm. The bladder is fluid-filled and grossly unremarkable. The extra-thoracic and extra-abdominal soft tissues are unremarkable. There is no thoracic or lumbar spine fracture or dislocation. There is no rib fracture. There is no sternal fracture. There is no pelvic or hip fracture. IMPRESSION: 1: There is no evidence of acute thoracic, abdominal or pelvic process or traumatic finding. There is no solid organ or viscus injury. There is no pneumothorax. There is no vascular injury. 2: There is no thoracic or lumbar spine fracture. There is no fracture of the pelvis or hips. There is no sternal or rib fracture. 3: There is a 4 mm low-density nodule involving the right thyroid lobe. Nonemergent thyroid ultrasound would better evaluate. Dictated by: Dictated on workstation # [id number]
[2020-11-18] MEDS ORDERED: CYCLOBENZAPRINE 10 MG (FLEXERIL) TAB PO SCH (22:45)
[2020-11-18 22:47] VITALS: BP 118/63
== END 2020-11-18 22:47 | disposition home or self-care (01) ==
LOC: EDUNIT# 20:58 → ER FS 21:03
DX: S13.4XXA Sprain of ligaments of cervical spine, initial encounter (principal); S23.3XXA Sprain of ligaments of thoracic spine, initial encounter; S33.5XXA Sprain of ligaments of lumbar spine, initial encounter; F41.9 Anxiety disorder, unspecified; F32.9 Major depressive disorder, single episode, unspecified; Z87.820 Personal history of traumatic brain injury; Z79.899 Other long term (current) drug therapy; V59.9XXA Occupant (driver) (passenger) of pick-up truck or van injured in unspecified traffic accident, initial encounter
CPT/HCPCS: 70450; 71260; 72125; 74177; 96374; 96375

== ENCOUNTER 2020-12-04 09:48 | Emergency (ER) | payer MEDICARE ==
[~2020-12-04] VITALS: Ht 157 cm; Wt 75.0 kg
[~2020-12-04 09:48] MED LIST changes: +CYCL10TA9 PO
--- NOTE | 2020-12-04 09:54 | ED General ---
General Stated Complaint: CHEST PAIN History of Present Illness Date Seen by Provider: Dec 04, 2020 Time Seen by Provider: 09:53 Initial Comments Patient presenting to the emergency department for evaluation of a syncopal episode and now having chest pain. Patient reportedly was mowing her lawn for approximately 2 hours that she says she was outside since 630 this morning primarily weed eating. Reportedly an neighbor saw her as she was weeding and said that she passed out. She was passed out for a short period of time, there may have been a small amount of shaking activity but there was no tongue biting bowel or bladder incontinence and no postictal state. She says she felt very hot and sweaty before the passing out episode. She said she woke up and felt tightness and pressure on the left side of her chest with no radiation. She says that she feels nauseated and was diaphoretic while she was mowing but no vomiting. She says she feels slightly short of breath. She says she has depression and also a nonspecific cardiac disease where her heart rate goes fast but she is unsure what it is and what medication she takes for it. She denies any coronary artery disease. She admits that she does smoke cigarettes. She is in no acute distress with normal vital signs. Allergies and Home Medications Allergies Coded Allergies: No Known Drug Allergies (Unverified , 12/22/17) Home Medications Cyclobenzaprine HCl 10 Mg Tablet, 10 MG PO TID Prescribed by: FABY TRUJILLO on 11/18/203 Fluoxetine HCl 10 Mg Capsule, 10 MG PO DAILY, (Reported) TAKES 10MG + 20MG TO EQUAL 30MG DAILY Fluoxetine HCl 20 Mg Capsule, 20 MG PO DAILY, (Reported) TAKES 10MG + 20MG TO EQUAL 30MG DAILY Hydrocodone Bit/Acetaminophen 1 Tab Tab, 1-2 TAB PO Q4-6HR PRN for PAIN-MODERATE (5-7) Prescribed by: TONY JAVIER on 10/19/20 1143 Rosuvastatin Calcium 20 Mg Tablet, 20 MG PO HS, (Reported) Patient Home Medication List Home Medication List Reviewed: Yes Review of Systems Review of Systems Constitutional: diaphoresis EENTM: no symptoms reported Respiratory: short of breath Cardiovascular: chest pain Gastrointestinal: nausea Genitourinary: no symptoms reported Musculoskeletal: no symptoms reported Skin: no symptoms reported Psychiatric/Neurological: Other (syncope) Past Vlbdotk-Tkomft-Eggcjj Hx Immunizations Up To Date Tetanus Booster (TDap): Unknown Seasonal Allergies Seasonal Allergies: Yes Past Medical History Surgeries: Yes (loop recorder) Gallbladder Respiratory: No Currently Using CPAP: No Currently Using BIPAP: No Cardiac: Yes (heart cath) Syncope Neurological: Yes Concussion Reproductive Disorders: No Sexually Transmitted Disease: No Genitourinary: No Gastrointestinal: No Gall Bladder Disease Musculoskeletal: Yes Arthritis, Fractures Endocrine: No HEENT: No Cancer: No Psychosocial: Yes Anxiety, Depression Integumentary: No Blood Disorders: No Physical Exam Vital Signs Vital Signs - First Documented 12/04/20 09:50 Temp 36.4 Pulse 98 Resp 20 B/P (MAP) 110/75 (87) Pulse Ox 97 O2 Delivery Room Air Capillary Refill : Height, Weight, BMI Height: 5'2.00" Weight: 160lbs. 8.0oz. [id number]; 29.00 BMI Method:Stated General Appearance: No Apparent Distress, WD/WN HEENT: PERRL/EOMI Neck: Supple Respiratory: Lungs Clear, No Respiratory Distress Cardiovascular: Regular Rate, Rhythm, No Edema, No Murmur Gastrointestinal: Non Tender, Soft Back: Normal Inspection Extremity: Normal Capillary Refill Neurologic/Psychiatric: Alert, Oriented x3 Skin: Warm/Dry Progress/Results/Core Measures Suspected Sepsis SIRS Temperature: Pulse: Respiratory Rate: Laboratory Tests 12/04/20 10:00: White Blood Count 9.5 Blood Pressure / Mean: Laboratory Tests 12/04/20 10:00: Creatinine 0.68, Platelet Count 240, Total Bilirubin 0.6 Results/Orders Lab Results Laboratory Tests Test 12/04/20 10:00 12/04/20 11:25 12/04/20 11:59 Range/Units White Blood Count 9.5 4.3-11.0 10^3/uL Red Blood Count 4.96 4.35-5.85 10^6/uL Hemoglobin 14.8 11.5-16.0 G/DL Hematocrit 43 35-52 % Mean Corpuscular Volume 87 80-99 FL Mean Corpuscular Hemoglobin 30 25-34 PG Mean Corpuscular Hemoglobin Concent 34 32-36 G/DL Red Cell Distribution Width 14.5 10.0-14.5 % Platelet Count 240 130-400 10^3/uL Mean Platelet Volume 10.7 H 7.4-10.4 FL Immature Granulocyte % (Auto) 1 % Neutrophils (%) (Auto) 57 42-75 % Lymphocytes (%) (Auto) 34 12-44 % Monocytes (%) (Auto) 7 0-12 % Eosinophils (%) (Auto) 1 0-10 % Basophils (%) (Auto) 1 0-10 % Neutrophils # (Auto) 5.5 1.8-7.8 X 10^3 Lymphocytes # (Auto) 3.2 1.0-4.0 X 10^3 Monocytes # (Auto) 0.6 0.0-1.0 X 10^3 Eosinophils # (Auto) 0.1 0.0-0.3 10^3/uL Basophils # (Auto) 0.1 0.0-0.1 10^3/uL Immature Granulocyte # (Auto) 0.1 0.0-0.1 10^3/uL Sodium Level 136 135-145 MMOL/L Potassium Level 4.0 3.6-5.0 MMOL/L Chloride Level 103 98-107 MMOL/L Carbon Dioxide Level 19 L 21-32 MMOL/L Anion Gap 14 5-14 MMOL/L Blood Urea Nitrogen 10 7-18 MG/DL Creatinine 0.68 0.60-1.30 MG/DL Estimat Glomerular Filtration Rate 95 BUN/Creatinine Ratio 15 Glucose Level 102 70-105 MG/DL Calcium Level 9.6 8.5-10.1 MG/DL Corrected Calcium 9.5 8.5-10.1 MG/DL Total Bilirubin 0.6 0.1-1.0 MG/DL Aspartate Amino Transf (AST/SGOT) 13 5-34 U/L Alanine Aminotransferase (ALT/SGPT) 6 0-55 U/L Alkaline Phosphatase 90 40-136 U/L Troponin I < 0.30 < 0.30 <0.30 NG/ML Pro-B-Type Natriuretic Peptide 27.4 <75.0 PG/ML Total Protein 7.1 6.4-8.2 GM/DL Albumin 4.1 3.2-4.5 GM/DL Lipase 16 8-78 U/L Serum Alcohol < 10 <10 MG/DL Urine Color DARK YELLOW Urine Clarity CLOUDY H Urine pH 6.0 5-9 Urine Specific [place] 1.025 H 1.016-1.022 Urine Protein NEGATIVE NEGATIVE Urine Glucose (UA) NEGATIVE NEGATIVE Urine Ketones NEGATIVE NEGATIVE Urine Nitrite NEGATIVE NEGATIVE Urine Bilirubin NEGATIVE NEGATIVE Urine Urobilinogen 2.0 < = 1.0 MG/DL Urine Leukocyte Esterase NEGATIVE NEGATIVE Urine RBC (Auto) TRACE H NEGATIVE Urine RBC 2-5 H /HPF Urine WBC 0-2 /HPF Urine Squamous Epithelial Cells 10-25 H /HPF Urine Crystals NONE /LPF Urine Bacteria MODERATE H /HPF Urine Casts NONE /LPF Urine Mucus LARGE H /LPF Urine Culture Indicated NO Urine Opiates Screen NEGATIVE NEGATIVE Urine Oxycodone Screen NEGATIVE NEGATIVE Urine Methadone Screen NEGATIVE NEGATIVE Urine Propoxyphene Screen NEGATIVE NEGATIVE Urine Barbiturates Screen NEGATIVE NEGATIVE Ur Tricyclic Antidepressants Screen NEGATIVE NEGATIVE Urine Phencyclidine Screen NEGATIVE NEGATIVE Urine Amphetamines Screen NEGATIVE NEGATIVE Urine Methamphetamines Screen NEGATIVE NEGATIVE Urine Benzodiazepines Screen NEGATIVE NEGATIVE Urine Cocaine Screen NEGATIVE NEGATIVE Urine Cannabinoids Screen NEGATIVE NEGATIVE My Orders Orders - KAMILA WARD DO Iv/Invasive Line Insertion .IV start (12/04/20 10:00) Ct Head Wo (12/04/20 10:00) Cbc With Automated Diff (12/04/20 10:00) Comprehensive Metabolic Panel (12/04/20 10:00) Drug Screen Stat (Urine) (12/04/20 10:00) Alcohol (12/04/20 10:00) Ekg Tracing (12/04/20 10:00) Chest 1 View Ap/Pa Only (12/04/20 10:00) Ua Culture If Indicated (12/04/20 10:00) Troponin I Fs (12/04/20 10:00) Probnp Fs (12/04/20 10:00) Lipase (12/04/20 10:00) Aspirin Chewable Tablet (Baby Aspirin Ch (12/04/20 10:00) Ns Iv 1000 Ml (Sodium Chloride 0.9%) (12/04/20 10:00) Ondansetron Injection (Zofran Injectio (12/04/20 10:00) Fentanyl Inj (Sublimaze Injection) (12/04/20 10:00) Ns Iv 1000 Ml (Sodium Chloride 0.9%) (12/04/20 11:15) Troponin I Fs (12/04/20 11:59) Medications Given in ED Current Medications Medications Dose Ordered Sig/Falguni Route Start Time Stop Time Status Last Admin Dose Admin Aspirin 324 mg ONCE ONCE PO 12/04/20 10:00 12/04/20 10:02 DC 12/04/20 10:12 324 MG Fentanyl Citrate 50 mcg ONCE ONCE IVP 12/04/20 10:00 12/04/20 10:02 DC 12/04/20 10:11 50 MCG Ondansetron HCl 4 mg ONCE ONCE IVP 12/04/20 10:00 12/04/20 10:02 DC 12/04/20 10:11 4 MG Vital Signs/I&O 12/04/20 12/04/20 12/04/20 09:50 09:50 12:59 Temp 36.4 36.4 Pulse 98 76 Resp 20 16 B/P (MAP) 110/75 (87) 112/70 Pulse Ox 97 99 O2 Delivery Room Air Room Air Room Air Capillary Refill : Progress Note : Progress Note Patient with a syncopal episode and chest pain. Her EKG is normal here and she has a benign exam. I will check labs imaging treat with IV fluids Zofran fentanyl aspirin and reassess. Patient's work-up came back negative except for mildly decreased blood CO2. not witnessed the episode but reportedly her friend thinks that she may have been having some shaking activity and that there is a family history of seizures. I told them that certainly seizure is a possibility but having first onset seizure is less likely in your 40s than in your teens and 20s. I told him I cannot confirm or deny a seizure based off the capabilities in this emergency department and that she would require further testing at an outside facility as there is no neurologist at [place] and that she would have to be transferred to [facility] for further testing or she could follow-up with her primary care provider and get further referral for outpatient MRI and EEG at that time. reports no postictal state when he saw her and there was no incontinence or tongue biting. There is no signs of arrhythmia on prolonged observation here and her chest pain went away completely. Patient has a heart score equal to 3 based off exertional chest pain and risk factors. Her repeat troponin is negative her heart score puts her at low risk for adverse coronary event. Using shared decision making decision was made for her to go home and to take an aspirin daily not exert herself and follow-up with her primary care provider later this week or early next week and she could come back to emergency department anytime with new or worsening pain neurologic changes or other general concerns. Patient and aware and agreeable with plan and verbalized understanding of the above instructions. Departure Impression Primary Impression: Chest pain on exertion Additional Impressions: Syncope Blood CO2 decreased Disposition: 01 HOME, SELF-CARE Condition: Stable Departure-Patient Inst. Referrals: MIRANDA VALE APRN (PCP/Family) Primary Care Physician Patient Instructions: Syncope (Fainting) (DC) Add. Discharge Instructions: Drink plenty of fluids, follow with PCP later this week or early next week. Thank you! KAMILA WARD DO Dec 04, 2020 09:53
[2020-12-04] MEDS ORDERED: fentaNYL INJ 100 MCG/2 ML AMP IVP ONE (10:00)
[2020-12-04] MEDS ORDERED: ONDANSETRON 4 MG/2 ML (SDV) Z0FRAN IVP ONE (10:00)
[2020-12-04] MEDS ORDERED: NS IV 1000 ML 1,000 ML IV SCH ×2 (10:00→11:15)
[2020-12-04] MEDS ORDERED: ASPIRIN 81 MG CHEW (CHILDREN'S ASA) PO ONE (10:00)
[2020-12-04 10:14] LABS: HEMOGLOBIN 14.8 G/DL (11.5-16.0); MEAN CORPUSCULAR HEMOGLOBIN 30 PG (25-34); WHITE BLOOD COUNT 9.5 10^3/uL (4.3-11.0)
[2020-12-04 10:15] LABS: BASOPHILS % (AUTO) 1 % (0-10); EOSINOPHILS % (AUTO) 1 % (0-10); HEMATOCRIT 43 % (35-52); LYMPHOCYTES % (AUTO) 34 % (12-44); MEAN CORPUSCULAR HGB CONC 34 G/DL (32-36); MEAN CORPUSCULAR VOLUME 87 FL (80-99); MEAN PLATELET VOLUME 10.7 FL (7.4-10.4); MONOCYTES % (AUTO) 7 % (0-12); PLATELET COUNT 240 10^3/uL (130-400)
[2020-12-04 10:16] LABS: BASOPHILS # (AUTO) 0.1 10^3/uL (0.0-0.1); EOSINOPHILS # (AUTO) 0.1 10^3/uL (0.0-0.3); LYMPHOCYTES # (AUTO) 3.2 X 10^3 (1.0-4.0); MONOCYTES # (AUTO) 0.6 X 10^3 (0.0-1.0); NEUTROPHILS # (AUTO) 5.5 X 10^3 (1.8-7.8); NEUTROPHILS % (AUTO) 57 % (42-75)
--- NOTE | 2020-12-04 10:42 | Diagnostic Imaging Report ---
EXAMINATION: Portable AP chest at 1003 AM INDICATION: Syncope The heart size is within normal limits and stable when compared to 02/27/2020. The lungs remain clear. There is still no sign of failure, pneumonia or pleural effusion. The mediastinum is not widened. The osseous structures are intact. In the interval since the prior exam, a loop recorder device has been inserted over the left thorax. The device overlies the left hilum. IMPRESSION: 1. There is no evidence for an acute cardiopulmonary abnormality. 2. There has been interval insertion of a loop recorder device on the left. Dictated by: Dictated on workstation # [id number]
--- NOTE | 2020-12-04 10:44 | Diagnostic Imaging Report ---
EXAMINATION: CT head without contrast. TECHNIQUE: Multiple contiguous axial images were obtained through the brain without the use of intravenous contrast. All CT scans use one or more of the following dose optimizing techniques: automated exposure control, MA and/or KvP adjustment based on patient size and exam type or iterative reconstruction. HISTORY: Syncopal episode while doing yard work. Hit head. COMPARISON: 02/27/2020. 11/18/2020. FINDINGS: No large acute territorial ischemia, mass, or hemorrhage. No midline shift or mass effect. The ventricles, cortical sulci, and basilar cisterns are patent and unremarkable. The orbits are normal. Paranasal sinuses are normal. Mastoid air cells are clear. No soft tissue abnormality is seen. No osseus lesions or fractures are seen. IMPRESSION: 1. No large acute territorial ischemia, mass, or hemorrhage. Dictated by: Dictated on workstation # [id number]
[2020-12-04 10:45] LABS: ALANINE AMINOTRANSFERASE 6 U/L (0-55); ALBUMIN 4.1 GM/DL (3.2-4.5); ALKALINE PHOSPHATASE 90 U/L (40-136); BILIRUBIN,TOTAL 0.6 MG/DL (0.1-1.0); BUN/CREATININE RATIO 15; CALCIUM 9.6 MG/DL (8.5-10.1); CARBON DIOXIDE 19 MMOL/L (21-32); CHLORIDE 103 MMOL/L (98-107); CREATININE SERUM 0.68 MG/DL (0.60-1.30); GFR ESTIMATED 95; GLUCOSE 102 MG/DL (70-105); LIPASE 16 U/L (8-78); SODIUM 136 MMOL/L (135-145); TOTAL PROTEIN 7.1 GM/DL (6.4-8.2)
[2020-12-04 11:44] LABS: AMPHETAMINE SCREEN, URINE NEGATIVE (NEGATIVE); BARBITURATE SCREEN URINE NEGATIVE (NEGATIVE); BENZODIAZEPINES SCREEN URINE NEGATIVE (NEGATIVE); BILIRUBIN,URINE NEGATIVE (NEGATIVE); CANNABINOID SCREEN, URINE NEGATIVE (NEGATIVE); CLARITY,URINE CLOUDY; COCAINE SCREEN URINE NEGATIVE (NEGATIVE); COLOR,URINE DARK YELLOW; GLUCOSE, URINE (UA) NEGATIVE (NEGATIVE); KETONES,URINE NEGATIVE (NEGATIVE); LEUKOCYTE ESTERASE ,URINE NEGATIVE (NEGATIVE); METHADONE STAT NEGATIVE (NEGATIVE); METHAMPHETAMINE SCREEN URINE S NEGATIVE (NEGATIVE); NITRITE,URINE NEGATIVE (NEGATIVE); OPIATE SCREEN URINE NEGATIVE (NEGATIVE); OXYCODONE STAT NEGATIVE (NEGATIVE); PROPOXYPHENE STAT NEGATIVE (NEGATIVE); PROTEIN,URINE NEGATIVE (NEGATIVE); TRICYCLIC ANTIDEPRESSANTS SCRE NEGATIVE (NEGATIVE)
[2020-12-04 11:45] LABS: BACTERIA,URINE MODERATE /HPF; WBC,URINE 0-2 /HPF
[2020-12-04 12:59] VITALS: BP 112/70
== END 2020-12-04 13:19 | disposition home or self-care (01) ==
LOC: EDUNIT# 09:48 → ER FS 09:50
DX: R07.89 Other chest pain (principal); R55 Syncope and collapse; R79.81 Abnormal blood-gas level; F41.9 Anxiety disorder, unspecified; F32.9 Major depressive disorder, single episode, unspecified; Z87.820 Personal history of traumatic brain injury; Z79.899 Other long term (current) drug therapy
CPT/HCPCS: 36415; 70450; 71045; 80053; 80306; 81000; 83690; 83880; 84484; 85025; 93005; 96374; 96375; 99284; G0480; 80320

== ENCOUNTER 2020-12-05 10:34 | Emergency (ER) | payer MEDICARE ==
[~2020-12-05] VITALS: Ht 157.4 cm; Wt 70.0 kg
[2020-12-05 10:53] LABS: BASOPHILS # (AUTO) 0.1 10^3/uL (0.0-0.1); BASOPHILS % (AUTO) 1 % (0-10); EOSINOPHILS # (AUTO) 0.1 10^3/uL (0.0-0.3); EOSINOPHILS % (AUTO) 2 % (0-10); HEMATOCRIT 46 % (35-52); LYMPHOCYTES # (AUTO) 2.7 10^3/uL (1.0-4.0); LYMPHOCYTES % (AUTO) 31 % (12-44); MEAN CORPUSCULAR HEMOGLOBIN 30 pg (25-34); MEAN CORPUSCULAR HGB CONC 33 g/dL (32-36); MEAN CORPUSCULAR VOLUME 91 fL (80-99); MEAN PLATELET VOLUME 10.9 fL (9.0-12.2); MONOCYTES # (AUTO) 0.6 10^3/uL (0.0-1.0); MONOCYTES % (AUTO) 6 % (0-12); NEUTROPHILS # (AUTO) 5.3 10^3/uL (1.8-7.8); NEUTROPHILS % (AUTO) 60 % (42-75); PLATELET COUNT 245 10^3/uL (130-400); WHITE BLOOD COUNT 8.8 10^3/uL (4.3-11.0)
[2020-12-05 11:03] LABS: PROTHROMBIN TIME PATIENT 13.1 SEC (12.2-14.7)
[2020-12-05 11:04] LABS: CALCIUM 9.4 MG/DL (8.5-10.1)
[2020-12-05 11:07] LABS: BILIRUBIN,TOTAL 0.4 MG/DL (0.1-1.0)
[2020-12-05 11:08] LABS: CREATININE SERUM 0.77 MG/DL (0.60-1.30)
[2020-12-05 11:11] LABS: MAGNESIUM 1.8 MG/DL (1.6-2.4)
--- NOTE | 2020-12-05 11:38 | Diagnostic Imaging Report ---
CLINICAL INDICATION: Patient with chest pain and pressure and right rib pain. EXAM: Portable chest x-ray upright view. COMPARISONS: Chest x-ray dated 12/04/2020. FINDINGS: Lungs/pleura: Lungs are clear. There is no pneumothorax. There is no pleural effusion. Mediastinum: Unremarkable. Pulmonary vasculature: Unremarkable. Heart: Heart size is within normal limits. Suspected loop recorder is again seen overlying left chest. Bones/extrathoracic soft tissue: Unremarkable. IMPRESSION: Stable chest x-ray exam with no radiographic evidence of acute cardiopulmonary process. Dictated by: Dictated on workstation # [id number]
--- NOTE | 2020-12-05 11:48 | ED Chest Pain ---
General Chief Complaint: Chest Wall Stated Complaint: FAINTING;NAUSEA;CHEST PAIN Nursing Triage Note: Pt ambulatory into ER with reproducable chest pressure/rib pain. Pt rates pain at a 8/10. pt states that she had a period of unresponsiveness yesterday and went to [facility] ER and they did nothing per patient. Source: patient, old records Exam Limitations: no limitations History of Present Illness Date Seen by Provider: Dec 05, 2020 Time Seen by Provider: 10:46 Initial Comments This 40-year-old woman presents to the emergency room with complaints of pleuritic type chest pain, myalgias, and nausea. She was seen in the emergency room in [place] yesterday after having a syncopal episode yesterday morning. She reports weed eating after mowing early in the morning. She recalls waking up on the ground. A neighbor bystander reported that she had collapsed and had some subtle tremors. Patient has lapse of memory of this event. Her fianc reports she has had about 4 such events over the past 6 to 7 months. The 2 that he has witnessed involved what appeared to be apneic episodes. He reports the patient "quit breathing" for 1 to 3 minutes until he breathed in her mouth to stimulate her respirations again. No cyanosis was reported. No tremors were reported by patient or significant other today. However, it was documented as being reported yesterday and review of the ER physicians note. Patient does report urinary incontinence during yesterday morning's episode. She denies any drug or alcohol use. She denies symptoms of infectious illness such as fever, cough, diarrhea, etc. Patient has had a fairly significant cardiac work-up in the past including a tilt table test in February of last year showing borderline hypotension but no syncope, cardiac cath in 2017 showing mild nonobstructive disease, and placement of a loop recorder this year. She denies any traumatic injury with these episodes. CT of the head yesterday was negative. Allergies and Home Medications Allergies Coded Allergies: No Known Drug Allergies (Unverified , 12/22/17) Home Medications Cyclobenzaprine HCl 10 Mg Tablet, 10 MG PO TID Prescribed by: FABY TRUJILLO on 11/18/20 3758 Fluoxetine HCl 10 Mg Capsule, 10 MG PO DAILY, (Reported) TAKES 10MG + 20MG TO EQUAL 30MG DAILY Fluoxetine HCl 20 Mg Capsule, 20 MG PO DAILY, (Reported) TAKES 10MG + 20MG TO EQUAL 30MG DAILY Hydrocodone Bit/Acetaminophen 1 Tab Tab, 1-2 TAB PO Q4-6HR PRN for PAIN-MODERATE (5-7) Prescribed by: CLAUDINE KEIM on 10/19/20 1143 Rosuvastatin Calcium 20 Mg Tablet, 20 MG PO HS, (Reported) Patient Home Medication List Home Medication List Reviewed: Yes Review of Systems Review of Systems Constitutional: see HPI EENTM: No Symptoms Reported Respiratory: No Symptoms Reported Cardiovascular: See HPI Gastrointestinal: No Symptoms Reported Genitourinary: See HPI Musculoskeletal: see HPI Skin: no symptoms reported Psychiatric/Neurological: See HPI Endocrine: No Symptoms Reported Hematologic/Lymphatic: No Symptoms Reported Past Imwjnuy-Udxupj-Hfdtme Hx Patient Social History Tobacco Use?: Yes Tobacco type used: Cigarettes Smoking Status: Current Everyday Smoker Use of E-Cig and/or Vaping dev: No Substance use?: No Alcohol Use?: No Pt feels they are or have been: No Immunizations Up To Date Tetanus Booster (TDap): Unknown Influenza Vaccine Up-to-Date: No; Not Current Second COVID19 Vaccination Pankaj: July COVID19 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: [employer] Seasonal Allergies Seasonal Allergies: Yes Past Medical History Surgeries: Yes (loop recorder) Gallbladder Respiratory: No Currently Using CPAP: No Currently Using BIPAP: No Cardiac: Yes (heart cath) Syncope Neurological: Yes Concussion Reproductive Disorders: No Sexually Transmitted Disease: No Genitourinary: No Gastrointestinal: No Gall Bladder Disease Musculoskeletal: Yes Arthritis, Fractures Endocrine: No HEENT: No Cancer: No Psychosocial: Yes Anxiety, Depression Integumentary: No Blood Disorders: No Physical Exam Vital Signs Vital Signs - First Documented 12/05/20 10:40 Temp 36.9 Pulse 89 Resp 19 B/P (MAP) 117/81 (93) Pulse Ox 96 O2 Delivery Room Air Capillary Refill : Less Than 3 Seconds Height, Weight, BMI Height: 5'2.00" Weight: 160lbs. 8.0oz. 72.334684kr; 28.00 BMI Method:Stated General Appearance: No Apparent Distress, WD/WN HEENT: PERRL/EOMI, Normal ENT Inspection, Pharynx Normal Neck: Normal Inspection Respiratory: Lungs Clear, Normal Breath Sounds, No Accessory Muscle Use Cardiovascular: Regular Rate, Rhythm, No Edema, No Murmur, Normal Peripheral Pulses Gastrointestinal: Normal Bowel Sounds, Non Tender Extremity: Normal Inspection, No Pedal Edema Neurologic/Psychiatric: Alert, Oriented x3, No Motor/Sensory Deficits, Normal Mood/Affect, chemists II-XII Norm as Tested Skin: Normal Color, Warm/Dry Progress/Results/Core Measures Results/Orders Lab Results Laboratory Tests Test 12/05/20 10:45 12/05/20 11:49 Range/Units White Blood Count 8.8 4.3-11.0 10^3/uL Red Blood Count 5.02 3.80-5.11 10^6/uL Hemoglobin 15.0 11.5-16.0 g/dL Hematocrit 46 35-52 % Mean Corpuscular Volume 91 80-99 fL Mean Corpuscular Hemoglobin 30 25-34 pg Mean Corpuscular Hemoglobin Concent 33 32-36 g/dL Red Cell Distribution Width 14.6 H 10.0-14.5 % Platelet Count 245 130-400 10^3/uL Mean Platelet Volume 10.9 9.0-12.2 fL Immature Granulocyte % (Auto) 0 % Neutrophils (%) (Auto) 60 42-75 % Lymphocytes (%) (Auto) 31 12-44 % Monocytes (%) (Auto) 6 0-12 % Eosinophils (%) (Auto) 2 0-10 % Basophils (%) (Auto) 1 0-10 % Neutrophils # (Auto) 5.3 1.8-7.8 10^3/uL Lymphocytes # (Auto) 2.7 1.0-4.0 10^3/uL Monocytes # (Auto) 0.6 0.0-1.0 10^3/uL Eosinophils # (Auto) 0.1 0.0-0.3 10^3/uL Basophils # (Auto) 0.1 0.0-0.1 10^3/uL Immature Granulocyte # (Auto) 0.0 0.0-0.1 10^3/uL Prothrombin Time 13.1 12.2-14.7 SEC INR Comment 1.0 0.8-1.4 Activated Partial Thromboplast Time 27 24-35 SEC D-Dimer 0.48 0.00-0.49 UG/ML Sodium Level 139 135-145 MMOL/L Potassium Level 4.0 3.6-5.0 MMOL/L Chloride Level 105 98-107 MMOL/L Carbon Dioxide Level 21 21-32 MMOL/L Anion Gap 13 5-14 MMOL/L Blood Urea Nitrogen 7 7-18 MG/DL Creatinine 0.77 0.60-1.30 MG/DL Estimat Glomerular Filtration Rate 82 BUN/Creatinine Ratio 9 Glucose Level 143 H 70-105 MG/DL Calcium Level 9.4 8.5-10.1 MG/DL Corrected Calcium 9.4 8.5-10.1 MG/DL Magnesium Level 1.8 1.6-2.4 MG/DL Total Bilirubin 0.4 0.1-1.0 MG/DL Aspartate Amino Transf (AST/SGOT) 13 5-34 U/L Alanine Aminotransferase (ALT/SGPT) 10 0-55 U/L Alkaline Phosphatase 79 40-136 U/L Total Creatine Kinase 55 29-168 U/L Myoglobin 35.3 10.0-92.0 NG/ML Troponin I < 0.028 <0.028 NG/ML Total Protein 7.0 6.4-8.2 GM/DL Albumin 4.0 3.2-4.5 GM/DL Serum Test, Qualitative NEGATIVE NEGATIVE Influenza Type A (RT-PCR) Not Detected Not Detecte Influenza Type B (RT-PCR) Not Detected Not Detecte SARS-CoV-2 RNA (RT-PCR) Not Detected Not Detecte My Orders Orders - REAL ARMENDARIZ MD Cbc With Automated Diff (12/05/20 10:46) Magnesium (12/05/20 10:46) Chest 1 View, Ap/Pa Only (12/05/20 10:46) Ekg Tracing (12/05/20 10:46) Comprehensive Metabolic Panel (12/05/20 10:46) Myoglobin Serum (12/05/20 10:46) Protime With Inr (12/05/20 10:46) Partial Thromboplastin Time (12/05/20 10:46) O2 (12/05/20 10:46) Monitor-Rhythm Ecg Trace Only (12/05/20 10:46) Ed Iv/Invasive Line Start (12/05/20 10:46) Troponin I (12/05/20 10:46) Creatine Kinase (12/05/20 11:45) Covid 19 Inhouse Test (12/05/20 11:45) Influenza A And B By Pcr (12/05/20 11:45) Fibrin Degradation Products (12/05/20 11:48) Hcg,Qualitative Serum (12/05/20 11:48) Vital Signs/I&O 12/05/20 12/05/20 10:40 14:56 Temp 36.9 Pulse 89 79 Resp 19 16 B/P (MAP) 117/81 (93) 99/73 Pulse Ox 96 97 O2 Delivery Room Air Room Air Blood Pressure Mean: 93 Progress Progress Note : Progress Note Work-up was unremarkable. Loop recorder showed no adverse events around the time of her incident. With the extensive cardiac work-ups she has received, cardiac etiology seems rather unlikely. Neurologic etiology due to seizure or partial seizure has not been ruled out. Patient was advised to keep her appointment at [facility] and seek referral to neurology and EEG services. I discussed the case with Dr. Suarez. Since her appointment is coming up on Thursday, we elected to not start any antiseizure medication at this time. See discharge instructions for further discussion. COVID-19 test was negative. Initial ECG Impression Date: Dec 05, 2020 Initial ECG Impression Time: 10:41 Initial ECG Rate: 91 Initial ECG Rhythm: Normal Sinus Initial ECG Intervals: Normal Initial ECG Impression: Normal Comment Normal sinus rhythm with no ST elevation or depression. No abnormal intervals or axis deviation. Diagnostic Imaging Diagonstic Imaging: Xray Plain Films/CT/US/NM/MRI: chest Comments NAME: PIERRE DUGAN [facility] REC#: [id number] PT STATUS: DEP ER : 1980 PHYSICIAN: REAL ARMENDARIZ MD ADMIT DATE: 12/05/20/ER Signed Date of Exam:12/05/20 CHEST 1 VIEW, AP/PA ONLY CLINICAL INDICATION: Patient with chest pain and pressure and right rib pain. EXAM: Portable chest x-ray upright view. COMPARISONS: Chest x-ray dated 12/04/2020. FINDINGS: Lungs/pleura: Lungs are clear. There is no pneumothorax. There is no pleural effusion. Mediastinum: Unremarkable. Pulmonary vasculature: Unremarkable. Heart: Heart size is within normal limits. Suspected loop recorder is again seen overlying left chest. Bones/extrathoracic soft tissue: Unremarkable. IMPRESSION: Stable chest x-ray exam with no radiographic evidence of acute cardiopulmonary process. Dictated by: Dictated on workstation # [id number] Dict: 12/05/20 1133 Trans: 12/05/20 1710 [id number] Interpreted by: ELEUTERIO RAYMOND MD Electronically signed by: ELEUTERIO RAYMOND MD 12/05/20 1710 Departure Impression Primary Impression: Syncope Qualified Codes: R55 - Syncope and collapse Additional Impression: Seizure-like activity Disposition: 01 HOME, SELF-CARE Condition: Improved Departure-Patient Inst. Decision time for Depature: 14:35 Referrals: MIRANDA VALE APRN (PCP) Primary Care Physician [facility] (Family) Primary Care Physician Patient Instructions: Seizures, Adult (DC) Add. Discharge Instructions: Based on your cardiac work-up in the ER and prior studies, it would appear that these episodes are not likely caused by a heart condition. It is possible these episodes are caused by a neurologic condition such as seizures. Please do not drive, operate any machinery, swim, use heights such as ladders, or do anything else that could present a danger to you or someone else if you have another syncopal episode or seizure-like activity. 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 You already have an appointment scheduled with [facility]. Please keep that appointment. Drink plenty of clear liquids to stay well-hydrated. Call with questions or concerns. Return to the ER if you have worsening symptoms or develop new symptoms. All discharge instructions reviewed with patient and/or family. Voiced understanding. Copy Copies To 1: ESTHELA COOK MD Copies To 2: JEOVANNY SUAREZ JOSHUA T MD Dec 05, 2020 11:48
[2020-12-05 14:56] VITALS: BP 99/73
== END 2020-12-05 14:56 | disposition home or self-care (01) ==
LOC: EDUNIT# 10:34 → ER 10:37
DX: R55 Syncope and collapse (principal); R25.8 Other abnormal involuntary movements; R07.9 Chest pain, unspecified; F41.9 Anxiety disorder, unspecified; F32.9 Major depressive disorder, single episode, unspecified; F17.210 Nicotine dependence, cigarettes, uncomplicated; Z79.899 Other long term (current) drug therapy; Z20.822 Contact with and (suspected) exposure to COVID-19
CPT/HCPCS: 36415; 71045; 80053; 82550; 83735; 83874; 84484; 84703; 85025; 85379; 85610; 85730; 87636; 93005; 93041

== ENCOUNTER 2020-12-22 16:07 | Emergency (ER) | payer MEDICARE ==
--- NOTE | 2020-12-22 16:31 | ED Neurological Problem ---
General Chief Complaint: Neurological Problems Stated Complaint: SEIZURE Source: patient, family, EMS Exam Limitations: no limitations History of Present Illness Date Seen by Provider: Dec 22, 2020 Time Seen by Provider: 16:10 Initial Comments 40-year-old female with multiple syncopal and presyncopal episodes that potentially have seizure-like activity for the past month or so has been seen in our emergency department multiple times recently coming in via EMS from home due to concerns for seizure-like activity. Reportedly twice today she had 2 episodes of tonic-clonic activity and loss of tone that lasted a couple minutes. The patient states she was able to hear people talk to her during these moments, but she was unable to talk. Afterwards she was able to talk and converse normally. EMS reports they arrived shortly after and she was not postictal at that time. They report her glucose was 106 and vitals were normal. She states she was laying down on the couch one time and the other time her fianc caught her. She states she did not hit her head, does not have any headache, neck pain, chest pain, shortness of breath, abdominal pain, nausea, vomiting, diarrhea, fever, chills, cough, weakness, numbness, vision changes, or any other concerns. She states she has been on a seizure medication that she takes at nighttime, and she has not missed any doses with the last dose being last night. She has an appointment in the beginning of January with a neurologist at , but so far has not seen a specialist. She feels normal at this time. Allergies and Home Medications Allergies Coded Allergies: No Known Drug Allergies (Unverified , 12/22/17) Home Medications Cyclobenzaprine HCl 10 Mg Tablet, 10 MG PO TID Prescribed by: FABY TRUJILLO on 11/18/20 2233 Fluoxetine HCl 10 Mg Capsule, 10 MG PO DAILY, (Reported) TAKES 10MG + 20MG TO EQUAL 30MG DAILY Fluoxetine HCl 20 Mg Capsule, 20 MG PO DAILY, (Reported) TAKES 10MG + 20MG TO EQUAL 30MG DAILY Hydrocodone Bit/Acetaminophen 1 Tab Tab, 1-2 TAB PO Q4-6HR PRN for PAIN-MODERATE (5-7) Prescribed by: TONY JAVIER on 10/19/20 1143 Rosuvastatin Calcium 20 Mg Tablet, 20 MG PO HS, (Reported) Patient Home Medication List Home Medication List Reviewed: Yes Review of Systems Review of Systems Constitutional: No fever Eyes: Denies Blurred Vision Ears, Nose, Mouth, Throat: denies ear pain Respiratory: No cough, No short of breath Cardiovascular: No chest pain Gastrointestinal: No abdominal pain, No diarrhea, No nausea, No vomiting Genitourinary: No dysuria : No LMP: Nov 30, 2020 Musculoskeletal: No back pain Skin: No rash Psychiatric/Neurological: Denies Anxiety, Denies Depressed Endocrine: No Symptoms Reported Hematologic/Lymphatic: No Symptoms Reported All Other Systems Reviewed Negative Unless Noted: Yes Past Tuvwgqo-Podnvr-Quhjpu Hx Patient Social History Tobacco Use?: Yes Substance use?: No Alcohol Use?: No Immunizations Up To Date Tetanus Booster (TDap): Unknown Seasonal Allergies Seasonal Allergies: Yes Past Medical History Surgeries: Yes (loop recorder) Gallbladder Respiratory: No Currently Using CPAP: No Currently Using BIPAP: No Cardiac: Yes (heart cath) Syncope Neurological: Yes Concussion Reproductive Disorders: No Sexually Transmitted Disease: No Genitourinary: No Gastrointestinal: No Gall Bladder Disease Musculoskeletal: Yes Arthritis, Fractures Endocrine: No HEENT: No Cancer: No Psychosocial: Yes Anxiety, Depression Integumentary: No Blood Disorders: No Physical Exam Vital Signs Vital Signs - First Documented 12/22/20 16:07 Temp 37.0 Pulse 80 Resp 16 B/P (MAP) 103/74 (84) Pulse Ox 97 O2 Delivery Room Air Capillary Refill : Height, Weight, BMI Height: 5'2.00" Weight: 160lbs. 8.0oz. 72.372550gk; 28.00 BMI Method:Stated General Appearance: WD/WN, no apparent distress HEENT: PERRL/EOMI, normal ENT inspection, TMs normal, pharynx normal Neck: non-tender, full range of motion, supple, normal inspection Respiratory: chest non-tender, lungs clear, normal breath sounds, no respiratory distress, no accessory muscle use Cardiovascular: regular rate, rhythm, no edema Gastrointestinal: normal bowel sounds, non tender, soft; No distended, No guarding, No rebound Back: normal inspection, no CVA tenderness, no vertebral tenderness Extremities: normal range of motion, non-tender, normal inspection, no pedal edema, no calf tenderness Neurologic/Psychiatric: fashion marketer II-XII nml as tested, no motor/sensory deficits, alert, normal mood/affect, oriented x 3 Crainal Nerves: normal hearing, normal speech, PERRL; No facial asymmetry Coordination/Gait: normal finger to nose, normal gait Motor/Sensory: no motor deficit, no sensory deficit, no pronator drift Skin: normal color, warm/dry Lymphatic: no adenopathy Progress/Results/Core Measures Results/Orders My Orders Orders - NADINE CURRAN MD Lorazepam Tablet (Ativan Tablet) (12/22/20 17:07) Vital Signs/I&O 12/22/20 16:07 Temp 37.0 Pulse 80 Resp 16 B/P (MAP) 103/74 (84) Pulse Ox 97 O2 Delivery Room Air Progress Progress Note : Progress Note 40-year-old female with above history coming in due to seizure-like activity that happened twice today. ABCs were intact and vitals were stable on presentation. Physical exam with no focal neurological deficits, she is alert and oriented x3, and otherwise well-appearing. EMS reports her glucose was 106. I have reviewed multiple of her recent emergency department visits and they typically work for syncope, chest pain, or seizure-like activity. She has had 2 - CT heads within the past month. Numerous EKGs without any obvious abnormalities. She has a loop recorder which has not shown any abnormalities during these events. Cardiac work-ups have been unremarkable. I clarified the story with her fianc. He states she was standing up in the kitchen when she started shaking in all extremities. He states he was helping to hold her up and it lasted 2 minutes. Afterwards she came to and was talking. He states there is no postictal episode. Letter episodes with daughter were similar. I have a suspicion that this is nonepileptic in nature, however it is impossible to tell without EEG. Daughter reinforces that the patient seems to be under a lot of stress right now. She is however stable, and at her neurological baseline. She will be given an oral Ativan 1 mg which if there are epileptic seizures, this should help with breakthrough in the meantime while she is engaging her PCP to discuss medication changes. I also discussed and reinforced that she does need a neurologist and they are agreeable to this. The patient is ambulatory, and I believe she is stable for discharge. She was sent home with strict return precautions. Departure Impression Primary Impression: Convulsions Qualified Codes: R56.9 - Unspecified convulsions Disposition: 01 HOME, SELF-CARE Condition: Stable Departure-Patient Inst. Decision time for Depature: 17:10 Referrals: MIRANDA VALE APRN (PCP) Primary Care Physician [facility] (Family) Primary Care Physician Patient Instructions: Seizures, Adult (DC) Add. Discharge Instructions: You were seen in the emergency department for seizure-like activity. Please continue to not drive, swim, go to high places, or do anything that would be dangerous if you were to have a seizure. Please follow-up with the neurologist as soon as possible. If you have any concerns then please come back to the emergency department. Please call your PCP on Thursday as well to see if they can change the medications given they currently are ineffective. All discharge instructions reviewed with patient and/or family. Voiced un derstanding. NADINE CURRAN MD Dec 22, 2020 16:31
[2020-12-22] MEDS ORDERED: LORazepam 0.5 MG (ATIVAN) TABLET PO STA (17:07)
[2020-12-22 17:19] VITALS: BP 95/67
== END 2020-12-22 17:16 | disposition home or self-care (01) ==
LOC: EDUNIT# 16:07 → ER FS 16:08
DX: R56.9 Unspecified convulsions (principal); F41.9 Anxiety disorder, unspecified; F32.9 Major depressive disorder, single episode, unspecified; Z87.820 Personal history of traumatic brain injury; Z79.899 Other long term (current) drug therapy
CPT/HCPCS: 99283

== ENCOUNTER 2020-12-24 15:03 | Emergency (ER) | payer MEDICARE ==
[~2020-12-24] VITALS: Ht 157.4 cm; Wt 70.0 kg
[2020-12-24 16:29] VITALS: BP_SYST 111; BP_SYST 115; BP_SYST 99; BP_DIAS 66; BP_DIAS 68
--- NOTE | 2020-12-24 16:47 | ED Neurological Problem ---
General Chief Complaint: Neurological Problems Stated Complaint: SEIZURES Nursing Triage Note: PATIENT PRESENTS TO THE ED WITH C/O SEIZURES. PATIENT AMBULATED TO ROOM INDEPENDENTLY AND IS ALERT AND ORIENTED X4. HER REPORTS THAT SHE HAD A SEIZURE ABOUT 1AM THAT LASTED A COUPLE OF MINUTES WHERE SHE WAS SHAKING AND JERKING. PATIENT REPORTS THAT SHE HAD ANOTHER EPISODE WITH SEIZURE ACTIVTY PRIOR TO COMING IN TO THE ED. WHEN ASKED HER HOW LONG IT LASTED SHE STATED, "I DON'T KNOW YOU WOULD HAVE TO ASK MY DAUGHTER". THE PATIENT DOES STATE THAT SHE CAN STILL HEAR DURING THESE EPISODES BUT IS UNABLE TO RESPOND. HER REPORTS SHE WAS SEEN 2 DAYS AGO IN THIS EMERGENCY DEPARTMENT AND WHEN SHE WAS DISMISSED HE TOOK HER TO THE EMERGENCY DEPARTMENT IN [place]. Source: patient, old records Exam Limitations: no limitations History of Present Illness Date Seen by Provider: Dec 24, 2020 Time Seen by Provider: 16:00 Initial Comments This 40-year-old woman presents to the emergency room accompanied by her with complaints of near syncopal episodes and/or seizure-like activity. She has had numerous episodes of this nature over the last several months and has undergone much work-up including an observation admission. She was noted to have a tilt table test in February with a systolic blood pressure of 90 but no syncope. Heart cath in January 2018 was negative. She has had numerous CT scans of the head. She was last seen in this ER 2 days ago. There was a thorough review of her record at that time as documented by Dr. Hines. After leaving the emergency department in [place], her took her to [facility] in [place]. They report a work-up was performed including blood work and CT of the head. Reportedly that work-up was negative and she was discharged. Patient reports having an episode this morning in which she collapsed to the floor and was unable to respond to her family. She was awake and able to hear during the episode. also reports an episode in bed last night around 0100 in which he woke to her having convulsing motions for a minute or 2. Patient states she does not recall this episode. She has an appointment pending with a neurologist in about a month. She is stable, alert and oriented, and ambulatory at this time. She does have an implanted loop recorder and reports that no arrhythmias have been identified on the loop recorder to date. Allergies and Home Medications Allergies Coded Allergies: No Known Drug Allergies (Unverified , 12/22/17) Home Medications Cyclobenzaprine HCl 10 Mg Tablet, 10 MG PO TID Prescribed by: FABY TRUJILLO on 11/18/20 2233 Fluoxetine HCl 10 Mg Capsule, 10 MG PO DAILY, (Reported) TAKES 10MG + 20MG TO EQUAL 30MG DAILY Fluoxetine HCl 20 Mg Capsule, 20 MG PO DAILY, (Reported) TAKES 10MG + 20MG TO EQUAL 30MG DAILY Hydrocodone Bit/Acetaminophen 1 Tab Tab, 1-2 TAB PO Q4-6HR PRN for PAIN-MODERATE (5-7) Prescribed by: CLAUDINE KEIM on 10/19/20 1143 Rosuvastatin Calcium 20 Mg Tablet, 20 MG PO HS, (Reported) Patient Home Medication List Home Medication List Reviewed: Yes Review of Systems Review of Systems Constitutional: no symptoms reported Eyes: No Symptoms Reported Ears, Nose, Mouth, Throat: no symptoms reported Respiratory: no symptoms reported Cardiovascular: see HPI Gastrointestinal: see HPI Skin: no symptoms reported Psychiatric/Neurological: See HPI Endocrine: No Symptoms Reported Hematologic/Lymphatic: No Symptoms Reported Past Aptbiik-Kwndwj-Wzagbh Hx Patient Social History Tobacco Use?: Yes Tobacco type used: Cigarettes Smoking Status: Current Everyday Smoker Use of E-Cig and/or Vaping dev: No Substance use?: No Alcohol Use?: No Pt feels they are or have been: No Immunizations Up To Date Tetanus Booster (TDap): Unknown First/Initial COVID19 Vaccinat: JUNE 2020 Second COVID19 Vaccination Pankaj: JULY 2020 COVID19 [address]ine [address] 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 Seasonal Allergies Seasonal Allergies: Yes Past Medical History Surgeries: Yes (loop recorder) Gallbladder Respiratory: No Currently Using CPAP: No Currently Using BIPAP: No Cardiac: Yes (heart cath) Syncope Neurological: Yes (Seizure-like activity) Concussion Reproductive Disorders: No Sexually Transmitted Disease: No Genitourinary: No Gastrointestinal: Yes Gall Bladder Disease Musculoskeletal: Yes Arthritis, Fractures Endocrine: No HEENT: No Cancer: No Psychosocial: Yes Anxiety, Depression Integumentary: No Blood Disorders: No Physical Exam Vital Signs Vital Signs - First Documented 12/24/20 15:11 Temp 36.8 Pulse 79 Resp 16 B/P (MAP) 104/78 (87) Pulse Ox 98 O2 Delivery Room Air Capillary Refill : Less Than 3 Seconds Height, Weight, BMI Height: 5'2.00" Weight: 160lbs. 8.0oz. 72.988111mo; 28.00 BMI Method:Stated General Appearance: WD/WN, no apparent distress HEENT: PERRL/EOMI, normal ENT inspection Neck: normal inspection Respiratory: lungs clear, normal breath sounds, no respiratory distress Cardiovascular: regular rate, rhythm, no edema, no murmur Gastrointestinal: normal bowel sounds, non tender, soft Extremities: non-tender, no pedal edema Neurologic/Psychiatric: host/hostess ground II-XII nml as tested, alert, normal mood/affect, oriented x 3, motor weakness (Inconsistent demonstration of weakness and strength of the left lower extremity. At times she exhibits significant force but then abruptly releases the force, especially with dorsiflexion. At other times she appears to seem weak. Exam is not consistent.); No sensory deficit Crainal Nerves: normal hearing, normal speech, PERRL Coordination/Gait: normal finger to nose, normal gait Motor/Sensory: no sensory deficit Skin: normal color, warm/dry Progress/Results/Core Measures Results/Orders Lab Results Laboratory Tests Test 12/24/20 16:47 Range/Units White Blood Count 10.9 4.3-11.0 10^3/uL Red Blood Count 4.95 4.35-5.85 10^6/uL Hemoglobin 14.8 11.5-16.0 G/DL Hematocrit 44 35-52 % Mean Corpuscular Volume 90 80-99 FL Mean Corpuscular Hemoglobin 30 25-34 PG Mean Corpuscular Hemoglobin Concent 33 32-36 G/DL Red Cell Distribution Width 15.0 H 10.0-14.5 % Platelet Count 238 130-400 10^3/uL Mean Platelet Volume 10.7 H 7.4-10.4 FL Immature Granulocyte % (Auto) 0 % Neutrophils (%) (Auto) 62 42-75 % Lymphocytes (%) (Auto) 32 12-44 % Monocytes (%) (Auto) 5 0-12 % Eosinophils (%) (Auto) 1 0-10 % Basophils (%) (Auto) 0 0-10 % Neutrophils # (Auto) 6.7 1.8-7.8 X 10^3 Lymphocytes # (Auto) 3.4 1.0-4.0 X 10^3 Monocytes # (Auto) 0.6 0.0-1.0 X 10^3 Eosinophils # (Auto) 0.1 0.0-0.3 10^3/uL Basophils # (Auto) 0.0 0.0-0.1 10^3/uL Immature Granulocyte # (Auto) 0.0 0.0-0.1 10^3/uL Sodium Level 139 135-145 MMOL/L Potassium Level 4.4 3.6-5.0 MMOL/L Chloride Level 108 H 98-107 MMOL/L Carbon Dioxide Level 21 21-32 MMOL/L Anion Gap 10 5-14 MMOL/L Blood Urea Nitrogen 11 7-18 MG/DL Creatinine 0.77 0.60-1.30 MG/DL Estimat Glomerular Filtration Rate 82 BUN/Creatinine Ratio 14 Glucose Level 90 70-105 MG/DL Calcium Level 9.3 8.5-10.1 MG/DL My Orders Orders - REAL ARMENDARIZ MD Orthostatic Vital Signs (Adult (12/24/20 16:21) Lactated Ringers (Lr 1000 Ml Iv Solution (12/24/20 16:49) Basic Metabolic Panel (12/24/20 16:54) Cbc With Automated Diff (12/24/20 16:54) Ed Iv/Invasive Line Start (12/24/20 16:54) Lactated Ringers (Lr 1000 Ml Iv Solution (12/24/20 17:00) Medications Given in ED Current Medications Medications Dose Ordered Sig/Falguni Route Start Time Stop Time Status Last Admin Dose Admin Lactated Ringer's 1,000 ml @ 0 mls/hr Q0M ONCE IV 12/24/20 17:00 12/24/20 17:01 DC 12/24/20 16:56 0 MLS/HR Vital Signs/I&O 12/24/20 12/24/20 12/24/20 15:11 16:29 18:24 Temp 36.8 36.8 Pulse 79 71 73 78 94 Resp 16 16 B/P (MAP) 104/78 (87) 115/66 (82) 114/78 (87) 111/66 (81) 99/68 (78) Pulse Ox 98 100 O2 Delivery Room Air Room Air Blood Pressure Mean: 87 Progress Progress Note : Progress Note A review of the prior work-ups revealed no major abnormalities. Orthostatic blood pressures revealed a modest drop in pressure and a modest increase in heart rate. A liter of IV fluid was infused with improvement in standing blood pressure. Patient has an appointment with her primary care provider tomorrow. I have suggested 3 things to discuss with the primary care provider including obtaining an outpatient MRI of the brain, obtaining carotid ultrasound studies, but he had considering increasing Topamax to twice daily dosing. These recommendations were discussed with Dr. Rojas who is in agreement with continued outpatient work-up. Results of the studies would be useful in her consultation with the neurologist. See discharge instructions for further discussion. Departure Impression Primary Impression: Seizure-like activity Disposition: 01 HOME, SELF-CARE Condition: Stable Departure-Patient Inst. Referrals: MIRANDA VALE APRN (PCP) Primary Care Physician [facility] (Family) Primary Care Physician Patient Instructions: Seizures, Adult ED, Syncope (Fainting) (DC) Add. Discharge Instructions: Continue to drink plenty of clear liquids to stay well-hydrated. Follow-up with your primary care provider tomorrow as previously directed. Discuss potential for other outpatient studies that may help you in your work-up and assist the neurologist in your evaluation. Such studies may include carotid ultrasound and MRI of the brain if your primary care provider deems these appropriate. Avoid any activity that could pose increased risk should you have another episode. Such activities might include swimming, riding vehicles such as bicycles or motorcycles, driving, use of heights such as stepstools or ladders, etc. Also discuss increasing your Topamax dosing at your appointment. Call with questions or concerns. Return to the emergency room if you have worsening symptoms. All discharge instructions reviewed with patient and/or family. Voiced understanding. Copy Copies To 1: MONICA ROJAS MD, JOSHUA T MD Dec 24, 2020 16:47
[2020-12-24] MEDS ORDERED: LACTATED RINGERS 1,000 ML IV ONE ×2 (16:49→17:00)
[2020-12-24 17:16] LABS: BASOPHILS % (AUTO) 0 % (0-10); EOSINOPHILS % (AUTO) 1 % (0-10); HEMATOCRIT 44 % (35-52); HEMOGLOBIN 14.8 G/DL (11.5-16.0); MEAN CORPUSCULAR HEMOGLOBIN 30 PG (25-34); MEAN CORPUSCULAR HGB CONC 33 G/DL (32-36); MEAN CORPUSCULAR VOLUME 90 FL (80-99); MEAN PLATELET VOLUME 10.7 FL (7.4-10.4); MONOCYTES % (AUTO) 5 % (0-12); NEUTROPHILS % (AUTO) 62 % (42-75); PLATELET COUNT 238 10^3/uL (130-400); WHITE BLOOD COUNT 10.9 10^3/uL (4.3-11.0)
[2020-12-24 17:17] LABS: EOSINOPHILS # (AUTO) 0.1 10^3/uL (0.0-0.3); LYMPHOCYTES # (AUTO) 3.4 X 10^3 (1.0-4.0); LYMPHOCYTES % (AUTO) 32 % (12-44); MONOCYTES # (AUTO) 0.6 X 10^3 (0.0-1.0); NEUTROPHILS # (AUTO) 6.7 X 10^3 (1.8-7.8)
[2020-12-24 17:21] LABS: POTASSIUM 4.4 MMOL/L (3.6-5.0)
[2020-12-24 17:22] LABS: CALCIUM 9.3 MG/DL (8.5-10.1); CREATININE SERUM 0.77 MG/DL (0.60-1.30)
[2020-12-24 18:24] VITALS: BP 114/78
== END 2020-12-24 18:18 | disposition home or self-care (01) ==
LOC: EDUNIT# 15:03 → ER FS 15:04
DX: R29.818 Other symptoms and signs involving the nervous system (principal); F41.9 Anxiety disorder, unspecified; F32.9 Major depressive disorder, single episode, unspecified; F17.210 Nicotine dependence, cigarettes, uncomplicated; Z87.820 Personal history of traumatic brain injury; Z79.899 Other long term (current) drug therapy
CPT/HCPCS: 36415; 80048; 85025

== ENCOUNTER 2021-01-06 15:14 | Emergency (ER) | payer MEDICARE ==
[~2021-01-06] VITALS: Ht 157 cm; Wt 72.0 kg
[2021-01-06] MEDS ORDERED: NS IV 1000 ML 1,000 ML IV STA (15:29)
[2021-01-06] MEDS ORDERED: KETOROLAC 30 MG/ML VIAL IVP STA (15:29)
--- NOTE | 2021-01-06 15:35 | ED General ---
General Chief Complaint: Neurological Problems Stated Complaint: SEIZURE Nursing Triage Note: PT ARRIVED BY EMS FOR 'SEIZURE ACTIVITY". PT REPORTEDLY HAD A SEIZURE BUT WAS ABLE TO HEAR EVERYTHING GOING ON DURING THE SEIZURE. SHE WOULD NOT WAKE UP FOR THE EMS CREW ON SCENE BUT WOKE UP IMMEDIATELY WITH A STERNAL RUB. Source of Information: Patient, EMS, Old Records History of Present Illness Date Seen by Provider: Jan 06, 2021 Time Seen by Provider: 15:16 Initial Comments 40 yo female presenting by EMS from home after having reported seizure activity. Patient reports she was getting out of the shower and then does not know what happened. She knows she fell to the ground and was hitting her head against the floor and was having a seizure. She states she could hear what was going on around her. She was not waking up for EMS initially but then did respond immediately after a sternal rub. She complains of headache and tingling in hands and feet. She states the tingling in her feet is chronic but her hands was new. She did not lose control of her bowels or bladder. She just came off of her menstrual cycle. She denies fever, chills, nausea, vomiting, diarrhea, increase in cough, shortness of breath, vision change, light sensitivity. She was seen for similar episodes on several recent occasions in the ED. She reports she is to see Neurology about her seizures on January 21. Location Injury Occurred: home Timing/Duration: Resolved Prior to Arrival Associated Systoms: No Chest Pain, No Cough, No Diaphoresis, No Fever/Chills; Headaches (since hitting on floor); No Loss of Appetite, No Malaise, No Nausea/Vomiting, No Rash; Seizure; No Shortness of Air, No Syncope, No Weakness Allergies and Home Medications Allergies Coded Allergies: No Known Drug Allergies (Unverified , 12/22/17) Home Medications Cyclobenzaprine HCl 10 Mg Tablet, 10 MG PO TID Prescribed by: FABY TRUJILLO on 11/18/20 5119 Fluoxetine HCl 10 Mg Capsule, 10 MG PO DAILY, (Reported) TAKES 10MG + 20MG TO EQUAL 30MG DAILY Fluoxetine HCl 20 Mg Capsule, 20 MG PO DAILY, (Reported) TAKES 10MG + 20MG TO EQUAL 30MG DAILY Hydrocodone Bit/Acetaminophen 1 Tab Tab, 1-2 TAB PO Q4-6HR PRN for PAIN-MODERATE (5-7) Prescribed by: TONY JAVIER on 10/19/20 1143 Rosuvastatin Calcium 20 Mg Tablet, 20 MG PO HS, (Reported) Patient Home Medication List Home Medication List Reviewed: Yes Review of Systems Review of Systems Constitutional: see HPI EENTM: see HPI Respiratory: see HPI Cardiovascular: no symptoms reported Gastrointestinal: see HPI Genitourinary: No dysuria, No frequency : No Musculoskeletal: neck pain (back of head and neck pain since hitting them on floor repeatedly) Skin: No change in color, No rash Psychiatric/Neurological: See HPI Past Shxryus-Xtvuso-Kkmkdo Hx Patient Social History Tobacco Use?: Yes Tobacco type used: Cigarettes Smoking Status: Current Everyday Smoker Use of E-Cig and/or Vaping dev: No Substance use?: No Alcohol Use?: No Pt feels they are or have been: No Immunizations Up To Date Tetanus Booster (TDap): Unknown Seasonal Allergies Seasonal Allergies: Yes Past Medical History Surgeries: Yes (loop recorder) Gallbladder Respiratory: No Currently Using CPAP: No Currently Using BIPAP: No Cardiac: Yes (heart cath) Syncope Neurological: Yes (Seizure-like activity) Concussion Reproductive Disorders: No Sexually Transmitted Disease: No Genitourinary: No Gastrointestinal: Yes Gall Bladder Disease Musculoskeletal: Yes Arthritis, Fractures Endocrine: No HEENT: No Cancer: No Psychosocial: Yes Anxiety, Depression Integumentary: No Blood Disorders: No Physical Exam Vital Signs Vital Signs - First Documented 01/06/21 15:15 Temp 36.7 Pulse 75 Resp 18 B/P (MAP) 104/68 (80) Pulse Ox 96 O2 Delivery Room Air Capillary Refill : Less Than 3 Seconds Height, Weight, BMI Height: 5'2.00" Weight: 160lbs. 8.0oz. [id number]; 29.00 BMI Method:Stated General Appearance: No Apparent Distress HEENT: PERRL/EOMI, TMs Normal, Normal ENT Inspection (widespread poor dentition), Pharynx Normal (no bite higuera on tongue and no laceration or bleeding) Neck: Full Range of Motion, Normal Inspection, Supple, Tender Lateral Respiratory: Chest Non Tender, Lungs Clear, Normal Breath Sounds Cardiovascular: Regular Rate, Rhythm, Normal Peripheral Pulses Gastrointestinal: Normal Bowel Sounds, No Pulsatile Mass, Non Tender, Soft Rectal: Deferred Back: Normal Inspection, No CVA Tenderness, No Vertebral Tenderness Extremity: Normal Capillary Refill, Normal Inspection, No Pedal Edema Neurologic/Psychiatric: Alert, 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, 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 Norm as Tested, De pressed Affect, Other (reports tingling in hands and feet but sensation intact to light touch bilaterally) Skin: Normal Color, Warm/Dry Progress/Results/Core Measures Suspected Sepsis SIRS Temperature: Pulse: 75 Respiratory Rate: 18 Laboratory Tests 01/06/21 15:30: White Blood Count 11.6H Blood Pressure 104 /68 Mean: 80 Laboratory Tests 01/06/21 15:30: Creatinine 0.73, Platelet Count 209, Total Bilirubin 0.4 Results/Orders Lab Results Laboratory Tests Test 01/06/21 15:30 01/06/21 15:33 Range/Units White Blood Count 11.6 H 4.3-11.0 10^3/uL Red Blood Count 4.25 3.80-5.11 10^6/uL Hemoglobin 12.7 11.5-16.0 g/dL Hematocrit 40 35-52 % Mean Corpuscular Volume 93 80-99 fL Mean Corpuscular Hemoglobin 30 25-34 pg Mean Corpuscular Hemoglobin Concent 32 32-36 g/dL Red Cell Distribution Width 14.6 H 10.0-14.5 % Platelet Count 209 130-400 10^3/uL Mean Platelet Volume 10.8 9.0-12.2 fL Immature Granulocyte % (Auto) 0 % Neutrophils (%) (Auto) 66 42-75 % Lymphocytes (%) (Auto) 27 12-44 % Monocytes (%) (Auto) 6 0-12 % Eosinophils (%) (Auto) 1 0-10 % Basophils (%) (Auto) 0 0-10 % Neutrophils # (Auto) 7.6 1.8-7.8 X 10^3 Lymphocytes # (Auto) 3.2 1.0-4.0 X 10^3 Monocytes # (Auto) 0.7 0.0-1.0 X 10^3 Eosinophils # (Auto) 0.1 0.0-0.3 10^3/uL Basophils # (Auto) 0.0 0.0-0.1 10^3/uL Immature Granulocyte # (Auto) 0.0 0.0-0.1 10^3/uL Sodium Level 140 135-145 MMOL/L Potassium Level 3.8 3.6-5.0 MMOL/L Chloride Level 109 H 98-107 MMOL/L Carbon Dioxide Level 24 21-32 MMOL/L Anion Gap 7 5-14 MMOL/L Blood Urea Nitrogen 10 7-18 MG/DL Creatinine 0.73 0.60-1.30 MG/DL Estimat Glomerular Filtration Rate 87 BUN/Creatinine Ratio 14 Glucose Level 83 70-105 MG/DL Calcium Level 8.5 8.5-10.1 MG/DL Corrected Calcium 8.9 8.5-10.1 MG/DL Total Bilirubin 0.4 0.1-1.0 MG/DL Aspartate Amino Transf (AST/SGOT) 12 5-34 U/L Alanine Aminotransferase (ALT/SGPT) 5 0-55 U/L Alkaline Phosphatase 83 40-136 U/L Total Protein 5.9 L 6.4-8.2 GM/DL Albumin 3.5 3.2-4.5 GM/DL Serum Alcohol < 10 <10 MG/DL Urine Color YELLOW Urine Clarity CLEAR Urine pH 6.0 5-9 Urine Specific Only <=1.005 1.016-1.022 Urine Protein NEGATIVE NEGATIVE Urine Glucose (UA) NEGATIVE NEGATIVE Urine Ketones NEGATIVE NEGATIVE Urine Nitrite NEGATIVE NEGATIVE Urine Bilirubin NEGATIVE NEGATIVE Urine Urobilinogen 0.2 < = 1.0 MG/DL Urine Leukocyte Esterase NEGATIVE NEGATIVE Urine RBC (Auto) TRACE-I NEGATIVE Urine RBC NONE /HPF Urine WBC NONE /HPF Urine Squamous Epithelial Cells 5-10 /HPF Urine Crystals PRESENT H /LPF Urine Calcium Oxalate Crystals FEW H /LPF Urine Bacteria TRACE /HPF Urine Casts NONE /LPF Urine Mucus NEGATIVE /LPF Urine Culture Indicated NO Urine Opiates Screen NEGATIVE NEGATIVE Urine Oxycodone Screen NEGATIVE NEGATIVE Urine Methadone Screen NEGATIVE NEGATIVE Urine Propoxyphene Screen NEGATIVE NEGATIVE Urine Barbiturates Screen NEGATIVE NEGATIVE Ur Tricyclic Antidepressants Screen NEGATIVE NEGATIVE Urine Phencyclidine Screen NEGATIVE NEGATIVE Urine Amphetamines Screen NEGATIVE NEGATIVE Urine Methamphetamines Screen NEGATIVE NEGATIVE Urine Benzodiazepines Screen NEGATIVE NEGATIVE Urine Cocaine Screen NEGATIVE NEGATIVE Urine Cannabinoids Screen NEGATIVE NEGATIVE My Orders Orders - ALISHA CORDOVA MD Comprehensive Metabolic Panel (01/06/21 15:27) Ua Culture If Indicated (01/06/21 15:27) Ed Iv/Invasive Line Start (01/06/21 15:27) Cbc With Automated Diff (01/06/21 15:27) Drug Screen Stat (Urine) (01/06/21 15:27) Alcohol (01/06/21 15:27) Ct Head/Cervical Spine Wo (01/06/21 15:27) Ketorolac Injection (Toradol Injection) (01/06/21 15:29) Ns Iv 1000 Ml (Sodium Chloride 0.9%) (01/06/21 15:29) Vital Signs/I&O 01/06/21 01/06/21 15:15 16:18 Temp 36.7 36.7 Pulse 75 72 Resp 18 16 B/P (MAP) 104/68 (80) 112/62 Pulse Ox 96 99 O2 Delivery Room Air Room Air Capillary Refill : Less Than 3 Seconds Blood Pressure Mean: 80 Progress Note #1: Progress Note Will recheck basic lab and elcetrolytes. CT head and cervical spine since she reports pain after hitting head on floor repeatedly. UA with drug screen. Differential diagnosis pseudoseizures, seizure, conversion disorder, vasovagal syncope Progress Note #2: Progress Note Labs are all stable without acute significant normality. Her alcohol and drug screen are negative. The drug screen is negative despite being prescribed glenn zodiazepines which are not showing up in her urine drug screen today. She has no signs of infection on urinalysis. Her CT head and cervical spine does not show any acute process. Counseled follow-up and return precautions. Continue to take medications as prescribed. Keep follow-up appointment on January 21 to see neurology. When reviewing results at discharge with pt and thanh she now states she does not remember anythiing from the afternoon until they rubbed on her chest and that it hurt her. Stressed to pt and thanh that the ED testing has continued to come back negative and helps to rule out serious life threatening events but Neurology testing and tests beyond what are available in the ED are necessary now to help determine what is best treatment for her. Keep Neurology appt and see what they want done. Check with [facility] clinic tomorrow and can see if they want to order EEG or testing before you see Neurology Diagnostic Imaging Diagonstic Imaging: CT Plain Films/CT/US/NM/MRI: c-spine, head Comments NAME: PIERRE DUGAN [facility] REC#: [id number] PT STATUS: REG ER : 1980 PHYSICIAN: ALISHA CORDOVA MD ADMIT DATE: 01/06/21/ER FS Draft Date of Exam:01/06/21 CT HEAD/CERVICAL SPINE WO PROCEDURE: CT head and CT cervical spine without contrast. TECHNIQUE: Multiple contiguous axial images were obtained through the brain and cervical spine without the use of intravenous contrast. Sagittal and coronal reformations through the cervical spine were then performed. Auto Exposure Controls were utilized during the CT exam to meet ALARA standards for radiation dose reduction. INDICATION: Head and neck pain, seizure-like activity. CT HEAD: There is no mass, shift of the midline or hemorrhage to suggest an acute intracranial abnormality. The ventricles are not abnormally dilated and stable in size when compared to prior exam of 12/04/2020. The cerebellar tonsils are low-lying but within normal limits. The bone windows show no sign of a fracture or of a destructive lesion. The orbits are symmetrical and within normal limits. The sinuses are generally clear. IMPRESSION: 1. There is no acute intracranial identified. 2. If clinical concern regarding an underlying abnormality persists, then MRI would be recommended for further study. CT CERVICAL SPINE: The reconstructed parasagittal images show slight straightening of the cervical spine. This appearance is similar to the prior exam of 11/18/2020. The intervertebral spaces are fairly well maintained. There is no high-grade central stenosis identified. There is no fracture or acute bony abnormality evident. There is no sign of retropharyngeal edema. The thyroid gland is generally unremarkable. The lung apices are clear. IMPRESSION: There is no evidence for an acute bony abnormality of the cervical spine. Dictated on workstation # [id number] Dict: 01/06/21 1557 Trans: 01/06/21 1608 [facility] [id number] Interpreted by: ABIMBOLA ORONA MD Electronically signed by: Reviewed: Reviewed by Me Departure Impression Primary Impression: Contusion of occipital region of scalp Qualified Codes: S00.03XA - Contusion of scalp, initial encounter Additional Impression: Seizure-like activity Disposition: 01 HOME, SELF-CARE Condition: Stable Departure-Patient Inst. Decision time for Depature: 16:16 Referrals: MIRANDA VALE APRN (PCP) Primary Care Physician [facility] (Family) Primary Care Physician Patient Instructions: Minor Head Injury, Adult ED, Minor Contusion ED, Seizures, Adult ED Add. Discharge Instructions: Continue on your regular medicines and take prescriptions as prescribed. Follow up with Neurology on Jan 21 as scheduled. All discharge instructions reviewed with patient and/or family. Voiced understanding. ALISHA CORDOVA MD Jan 06, 2021 15:35
[2021-01-06 15:36] LABS: BASOPHILS % (AUTO) 0 % (0-10); EOSINOPHILS # (AUTO) 0.1 10^3/uL (0.0-0.3); EOSINOPHILS % (AUTO) 1 % (0-10); HEMATOCRIT 40 % (35-52); HEMOGLOBIN 12.7 g/dL (11.5-16.0); LYMPHOCYTES # (AUTO) 3.2 X 10^3 (1.0-4.0); LYMPHOCYTES % (AUTO) 27 % (12-44); MEAN CORPUSCULAR HEMOGLOBIN 30 pg (25-34); MEAN CORPUSCULAR HGB CONC 32 g/dL (32-36); MEAN CORPUSCULAR VOLUME 93 fL (80-99); MEAN PLATELET VOLUME 10.8 fL (9.0-12.2); MONOCYTES # (AUTO) 0.7 X 10^3 (0.0-1.0); MONOCYTES % (AUTO) 6 % (0-12); NEUTROPHILS # (AUTO) 7.6 X 10^3 (1.8-7.8); NEUTROPHILS % (AUTO) 66 % (42-75); PLATELET COUNT 209 10^3/uL (130-400); WHITE BLOOD COUNT 11.6 10^3/uL (4.3-11.0)
[2021-01-06 15:44] LABS: BILIRUBIN,URINE NEGATIVE (NEGATIVE); CLARITY,URINE CLEAR; COLOR,URINE YELLOW; GLUCOSE, URINE (UA) NEGATIVE (NEGATIVE); KETONES,URINE NEGATIVE (NEGATIVE); LEUKOCYTE ESTERASE ,URINE NEGATIVE (NEGATIVE); NITRITE,URINE NEGATIVE (NEGATIVE); PROTEIN,URINE NEGATIVE (NEGATIVE)
[2021-01-06 15:45] LABS: BACTERIA,URINE TRACE /HPF; CALCIUM OXALATE CRYSTALS,UR FEW /LPF
[2021-01-06 15:51] LABS: AMPHETAMINE SCREEN, URINE NEGATIVE (NEGATIVE); BARBITURATE SCREEN URINE NEGATIVE (NEGATIVE); BENZODIAZEPINES SCREEN URINE NEGATIVE (NEGATIVE); CANNABINOID SCREEN, URINE NEGATIVE (NEGATIVE); COCAINE SCREEN URINE NEGATIVE (NEGATIVE); METHADONE STAT NEGATIVE (NEGATIVE); METHAMPHETAMINE SCREEN URINE S NEGATIVE (NEGATIVE); OPIATE SCREEN URINE NEGATIVE (NEGATIVE); OXYCODONE STAT NEGATIVE (NEGATIVE); PROPOXYPHENE STAT NEGATIVE (NEGATIVE); TRICYCLIC ANTIDEPRESSANTS SCRE NEGATIVE (NEGATIVE)
[2021-01-06 15:52] LABS: ALANINE AMINOTRANSFERASE 5 U/L (0-55); ALBUMIN 3.5 GM/DL (3.2-4.5); ALKALINE PHOSPHATASE 83 U/L (40-136); BILIRUBIN,TOTAL 0.4 MG/DL (0.1-1.0); BUN/CREATININE RATIO 14; CALCIUM 8.5 MG/DL (8.5-10.1); CARBON DIOXIDE 24 MMOL/L (21-32); CHLORIDE 109 MMOL/L (98-107); CREATININE SERUM 0.73 MG/DL (0.60-1.30); GFR ESTIMATED 87; GLUCOSE 83 MG/DL (70-105); POTASSIUM 3.8 MMOL/L (3.6-5.0); SODIUM 140 MMOL/L (135-145); TOTAL PROTEIN 5.9 GM/DL (6.4-8.2)
--- NOTE | 2021-01-06 16:10 | Diagnostic Imaging Report ---
PROCEDURE: CT head and CT cervical spine without contrast. TECHNIQUE: Multiple contiguous axial images were obtained through the brain and cervical spine without the use of intravenous contrast. Sagittal and coronal reformations through the cervical spine were then performed. Auto Exposure Controls were utilized during the CT exam to meet ALARA standards for radiation dose reduction. INDICATION: Head and neck pain, seizure-like activity. CT HEAD: There is no mass, shift of the midline or hemorrhage to suggest an acute intracranial abnormality. The ventricles are not abnormally dilated and stable in size when compared to prior exam of 12/04/2020. The cerebellar tonsils are low-lying but within normal limits. The bone windows show no sign of a fracture or of a destructive lesion. The orbits are symmetrical and within normal limits. The sinuses are generally clear. IMPRESSION: 1. There is no acute intracranial identified. 2. If clinical concern regarding an underlying abnormality persists, then MRI would be recommended for further study. CT CERVICAL SPINE: The reconstructed parasagittal images show slight straightening of the cervical spine. This appearance is similar to the prior exam of 11/18/2020. The intervertebral spaces are fairly well maintained. There is no high-grade central stenosis identified. There is no fracture or acute bony abnormality evident. There is no sign of retropharyngeal edema. The thyroid gland is generally unremarkable. The lung apices are clear. IMPRESSION: There is no evidence for an acute bony abnormality of the cervical spine. Dictated by: Dictated on workstation # [id number]
[2021-01-06 16:18] VITALS: BP 112/62
== END 2021-01-06 16:20 | disposition home or self-care (01) ==
LOC: EDUNIT# 15:14 → ER FS 15:15
DX: S00.03XA Contusion of scalp, initial encounter (principal); R29.818 Other symptoms and signs involving the nervous system; F41.9 Anxiety disorder, unspecified; F32.9 Major depressive disorder, single episode, unspecified; F17.210 Nicotine dependence, cigarettes, uncomplicated; Z87.820 Personal history of traumatic brain injury; Z79.899 Other long term (current) drug therapy; W22.8XXA Striking against or struck by other objects, initial encounter
CPT/HCPCS: 36415; 70450; 72125; 80053; 80306; 81000; 85025; 99284; G0480; 80320; 96374

== ENCOUNTER → 2021-01-10 | Outpatient (CLI) | payer MEDICARE ==
[~2021-01-10] MED LIST changes: +GADOBUTROL 7.5 MMOL/7.5 ML (GADAVIST) VIAL IV ONE
--- NOTE | 2021-01-10 16:57 | Diagnostic Imaging Report ---
CLINICAL INDICATION: Patient having seizures for past three weeks. EXAM: MRI of the brain performed without and with 7 cc of Gadavist IV contrast. Sequences include sagittal T1, axial DWI, ADC map, coronal 3D FSPGR with sagittal and axial reformations, axial T1, axial T2, axial FLAIR, axial gradient echo, coronal T2 thin, coronal FLAIR thin, coronal 3D FSPGR postcontrast with sagittal and axial reformations. COMPARISON: Head CT without contrast dated 01/06/2021. FINDINGS: BRAIN PARENCHYMA: There is no evidence of acute cerebral infarction, intracranial hemorrhage, or mass seen. There is no evidence of cortical dysplasia, vascular malformations, hippocampal sclerosis, or brain parenchyma migrational abnormalities. There is a nonspecific focal area of high T2 signal in the lateral left frontal lobe subcortical region. The remainder of the brain parenchyma is unremarkable. The brain parenchyma is unremarkable with normal gorman/ white matter distinction. The hippocampal structures are symmetric bilaterally. There is no significant architectural distortion, midline shift, or herniation. There is no abnormal IV contrast enhancement or diffusion restriction signal abnormality. VENTRICLES: There is no hydrocephalus. BASAL CISTERNS: Unremarkable. VISUALIZED INTRACRANIAL VESSELS: Unremarkable as visualized. SKULL/ ORBITS: Unremarkable. VISUALIZED SINUSES/ MASTOIDS: There is mild mucosal thickening involving the ethmoid sinus. There is a [id number]-[id number]-sized mucous retention cyst involving the left maxillary sinus and mild right maxillary sinus mucosal thickening. There is small amount of fluid in the right mastoid air cells. IMPRESSION: 1: There is no evidence of acute intracranial process. There is no evidence of cortical dysplasia, vascular malformations, hippocampal sclerosis, or brain parenchyma migrational abnormalities. 2: There is a nonspecific focal area of high T2 signal involving the lateral left frontal lobe subcortical region. 3: Paranasal sinus disease. Dictated by: Dictated on workstation # [id number]
== END ==
LOC: RAD 15:30
PROVIDERS: ATTEND Nurse Practitioner Family
DX: J32.9 Chronic sinusitis, unspecified (principal); R56.9 Unspecified convulsions
CPT/HCPCS: 70553

== ENCOUNTER 2021-01-13 12:53 | Emergency (ER) | payer MEDICARE ==
[~2021-01-13] VITALS: Ht 157 cm; Wt 72.0 kg
[~2021-01-13 12:53] MED LIST changes: -GADOBUTROL 7.5 MMOL/7.5 ML (GADAVIST) VIAL IV ONE
[2021-01-13] MEDS ORDERED: OLANZapine 5 MG ODT (ZyPREXA ZYDIS) PO ONE (13:15)
--- NOTE | 2021-01-13 13:36 | ED Neurological Problem ---
General Chief Complaint: Altered Mental Status Stated Complaint: SEIZURE Nursing Triage Note: Patient brought in by EMS for chief complaint of seizure like activity. EMS states family reported that patient had been moaning and less responsive than normal for 15 minutes. EMS reports patient opened her eyes when she was sternal rubbed. Patient able to follow commands and answer questions on arrival to the ED, continues moaning with her eyes closed when not stimulated. Source: patient, family, EMS Exam Limitations: no limitations History of Present Illness Date Seen by Provider: Jan 13, 2021 Time Seen by Provider: 12:55 Initial Comments 40-year-old female well-known to me coming in via EMS from home due to seizure- like activity. The patient was standing up looking at DVDs, looked at her mother and said she feels like one of her episodes is coming on, laid down on the ground prior to it so that she would be safe, and then proceeded to shake for roughly 15 minutes. Stopped when EMS arrived and then she started moaning but answering questions appropriately. The patient is humming intermittently but opens her eyes and follows commands and answers questions appropriately for me. Denies being in any pain or having any other issues. She states she has not missed her doses of Klonopin that she was recently started on within the past month. Denies any new trauma. Has an appointment with [facility] in about a week for her first neurology appointment. When asked if there is any significant stress the patient endorsed being very stressed, and that I should ask her significant other. He then said, "The only problem I have is all the lying." Allergies and Home Medications Allergies Coded Allergies: No Known Drug Allergies (Unverified , 12/22/17) Patient Home Medication List Home Medication List Reviewed: Yes Cyclobenzaprine HCl (Cyclobenzaprine HCl) 10 Mg Tablet, 10 MG PO TID Prescribed by: FABY TRUJILLO on 11/18/202232 Fluoxetine HCl (Prozac) 10 Mg Capsule, 10 MG PO DAILY, (Reported) Entered as Reported by: NICK REDDY on 02/28/20921 Fluoxetine HCl (Prozac) 20 Mg Capsule, 20 MG PO DAILY, (Reported) Entered as Reported by: NICK REDDY on 02/28/20921 Hydrocodone Bit/Acetaminophen (HYDROcodone/APAP 5 MG/325 MG TAB) 1 Tab Tab, 1-2 TAB PO Q4-6HR PRN for PAIN-MODERATE (5-7) Prescribed by: CLAUDINE KEIM on 10/19/20 1143 Rosuvastatin Calcium (Rosuvastatin Calcium) 20 Mg Tablet, 20 MG PO HS, (Reported) Entered as Reported by: NICK REDDY on 02/28/20 0922 Review of Systems Review of Systems Constitutional: No chills, No fever Eyes: Denies Blurred Vision Respiratory: No cough, No short of breath Cardiovascular: No chest pain Gastrointestinal: No abdominal pain, No diarrhea, No nausea, No vomiting Genitourinary: No dysuria Musculoskeletal: No back pain, No joint pain Skin: No rash Psychiatric/Neurological: Anxiety, Headache Endocrine: No Symptoms Reported Hematologic/Lymphatic: No Symptoms Reported All Other Systems Reviewed Negative Unless Noted: Yes Past Inivlny-Bywbsx-Qnlrpa Hx Patient Social History Tobacco Use?: Yes Tobacco type used: Cigarettes Smoking Status: Current Everyday Smoker Use of E-Cig and/or Vaping dev: No Substance use?: No Alcohol Use?: No Pt feels they are or have been: No Immunizations Up To Date Tetanus Booster (TDap): Unknown First/Initial COVID19 Vaccinat: JUNE 2020 Second COVID19 Vaccination Pankaj: JULY 2020 Seasonal Allergies Seasonal Allergies: Yes Past Medical History Surgeries: Yes (loop recorder) Gallbladder Respiratory: No Currently Using CPAP: No Currently Using BIPAP: No Cardiac: Yes (heart cath) Syncope Neurological: Yes (Seizure-like activity) Concussion Reproductive Disorders: No Sexually Transmitted Disease: No Genitourinary: No Gastrointestinal: Yes Gall Bladder Disease Musculoskeletal: Yes Arthritis, Fractures Endocrine: No HEENT: No Cancer: No Psychosocial: Yes Anxiety, Depression Integumentary: No Blood Disorders: No Physical Exam Vital Signs Vital Signs - First Documented 01/13/21 13:00 Temp 36.3 Pulse 87 Resp 29 B/P (MAP) 115/73 (87) Pulse Ox 96 O2 Delivery Room Air Capillary Refill : Less Than 3 Seconds Height, Weight, BMI Height: 5'2.00" Weight: 160lbs. 8.0oz. 72.665351na; 29.00 BMI Method:Stated General Appearance: WD/WN, no apparent distress HEENT: PERRL/EOMI, normal ENT inspection, TMs normal, pharynx normal Neck: non-tender, full range of motion, supple, normal inspection Respiratory: chest non-tender, lungs clear, normal breath sounds, no respiratory distress, no accessory muscle use Cardiovascular: regular rate, rhythm, no edema, no murmur Gastrointestinal: normal bowel sounds, non tender, soft; No distended, No guarding, No rebound Back: normal inspection, no CVA tenderness, no vertebral tenderness Extremities: normal range of motion, non-tender, normal inspection, no pedal edema, no calf tenderness, normal capillary refill Neurologic/Psychiatric: digital photographer II-XII nml as tested, no motor/sensory deficits, alert, normal mood/affect, oriented x 3 Crainal Nerves: normal hearing, normal speech Coordination/Gait: normal finger to nose, normal gait Motor/Sensory: no motor deficit, no sensory deficit, no pronator drift Skin: normal color, warm/dry Lymphatic: no adenopathy Progress/Results/Core Measures Results/Orders My Orders Orders - NADINE CURRAN MD Olanzapine Orally Dissolve Tab (Zyprexa (01/13/21 13:15) Medications Given in ED Current Medications Medications Dose Ordered Sig/Falguni Route Start Time Stop Time Status Last Admin Dose Admin Olanzapine 5 mg ONCE ONCE PO 01/13/21 13:15 01/13/21 13:16 DC 01/13/21 13:14 5 MG Vital Signs/I&O 01/13/21 01/13/21 13:00 13:43 Temp 36.3 36.3 Pulse 87 87 Resp 29 29 B/P (MAP) 115/73 (87) 115/73 Pulse Ox 96 96 O2 Delivery Room Air Room Air Blood Pressure Mean: 87 Progress Progress Note : Progress Note 40-year-old female with above history coming in due to seizure-like activity. ABCs were intact and vitals were stable on presentation. GCS is 15 shortly after arrival, neuro intact with no deficits. Glucose per EMS was 86. She slowly laid herself on the ground prior to the event and has no new trauma. She states she has not missed any of her Klonopin doses. The patient said she was having an episode while arriving into the emergency department. During the episode I was talking with her, she was answering questions appropriately, and it it did not appear epileptic in nature. The significant other showed me a video of the event as well and it also did not appear epileptic in nature. Of course it is not 100% possible to tell if she is having epileptic seizures without an EEG. Therefore I suggested she continue to take her recently prescribed Klonopin. And I also recommended she maintain that follow-up with [facility] within the next week. I am concerned given the multiple presentations and clinically what she looks like during the episodes that they are likely nonepileptic in nature however, and patient and significant other confirmed a significant amount of stress currently happening. Given that she is back to her neurological baseline, I believe she is stable for discharge with outpatient follow-up. She was sent home with strict return precautions Of note, after the patient was discharged, her significant other walked up to me and said that he is concerned that she has displayed signs of wanting to harm herself. He says that she has been sad because her parents within the past year. I then went outside of the emergency department and found the patient. I asked her if she is feeling suicidal and she denies that she is or was. She denies ever wanting to harm herself or wanting to harm herself in the future. I offered the patient to be readmitted to the emergency department and I would do psychiatric screening and allow her to talk with our psychiatric screeners. She says she does not want that at this time. She then confirmed that she does not want to harm herself. She then drove off with her significant other. I did discuss with significant other that he should have someone be with her at all times and if they are worried at all to call 911. Departure Impression Primary Impression: Seizure-like activity Disposition: 01 HOME, SELF-CARE Condition: Improved Departure-Patient Inst. Decision time for Depature: 13:37 Referrals: MIRANDA VALE APRN (PCP) Primary Care Physician [facility] (Family) Primary Care Physician Patient Instructions: Seizures, Adult ED Add. Discharge Instructions: You were seen in the emergency department for seizure-like activity. You have come back to your normal baseline. If you are having headache she can take Tylenol at home. Please continue to have that appointment with [facility] within the next week or so. Do not do anything that he should not be doing while having a seizure such as driving, swimming, jumping from planes, or any other things where it would be dangerous to have a seizure. All discharge instructions reviewed with patient and/or family. Voiced understanding. NADINE CURRAN MD Jan 13, 2021 13:36
[2021-01-13 13:43] VITALS: BP 115/73
== END 2021-01-13 13:41 | disposition home or self-care (01) ==
LOC: EDUNIT# 12:53 → ER FS 12:55
DX: R29.818 Other symptoms and signs involving the nervous system (principal); F41.9 Anxiety disorder, unspecified; F32.9 Major depressive disorder, single episode, unspecified; F17.210 Nicotine dependence, cigarettes, uncomplicated; Z87.820 Personal history of traumatic brain injury; Z79.899 Other long term (current) drug therapy
CPT/HCPCS: 99283

== ENCOUNTER 2021-02-27 09:32 | Emergency (ER) | payer MEDICARE ==
[~2021-02-27] VITALS: Ht 157 cm; Wt 68.0 kg
--- OUTSIDE RECORDS SUMMARY | 2021-02-27 09:40 | XMS REPORT | Encounter Summary ---
Author Author [facility] Organization [facility] Address Unknown Phone Unavailable Care Team Providers [employer] Consultant Name Role Phone JimmyGonzálezThaJosselin Isabel [employer] MANAGER PCP Reason for Referral * Consult, Test & Treat (Routine) Referred By Contact Referred To Contact Status Reason Specialty Diagnoses / Procedures Chuck Mcallister MD [address] [place] [address] Si2 Epilepsy/Sleep Cl [address] [facility] [address] [place] [address] Authorized Specialty Services Neurology Diagnoses Required Seizures (HCC) Answer Question No Will anesthesia be required? [facility] Location for EEG to be performed? EEG Extended Monitoring <=1hr Type of EEG to be performed? Electronically signed by Skyler Queen MD at Reason for Visit * Reason Onset Date Comments Pre-Visit Planning 01/16/2021 New patient office visit planned for 01/21/21 Chuck Mcallister MD Encounter Details Care Team Description Date Type Department Sharla Awan RN Pre-Visit Planning (New patient office v isit planned for 01/21/21 Chuck Mcallister MD) 01/16/2021 Telephone Epilepsy Center and Neurology Sleep Medicine: [facility] [address] [facility] [address] [place], [place] [id number] Social History Date Tobacco Use Types Packs/Day Years Used Never Assessed Sex Assigned at Date Recorded Not on file documented as of this encounter Miscellaneous Notes * Telephone Encounter - Nallely Awan RN - 01/16/2021 4:57 PM CDT EEG scheduled at 9:00 am if needed Initial Visit Date: New patient office visit planned for 01/21/21 Chuck Mcallister MD Reason for Visit: Seizure like activity Non epileptic ? Needs EEG Any recent injuries? n/a Previous Diagnosis of Epilepsy? n/a If Yes? Then by who and at what age? Physician Information PCP: Josselin Orozco Referring Physician: Josselin Orozco Previous Neurologist: n/a Other providers seen: Previous Imaging/Procedures: 12/23/20 CT head : No acute intracranial hemorrhage, mass effect or midline shif t. Recent ED/Hospitalizations: 12/22/20 ED [facility] [place] ; seizure psychogenic nonepileptic ? verbally responsive immediately after seizure event Current Meds: Not current;y taking any AED's Current Allergies: NKA Past Tried and Failed AED: n/a documented in this encounter Plan of Treatment Order Schedule Name Type Priority Associated Diag noses Ordered: 01/16/2021 AMB REFERRAL FOR EEG Outpatient Routine Seizures (HCC) Referral documented as of this encounter Visit Diagnoses Diagnosis Seizures (HCC) - Primary Other convulsions documented in this encounter Historical Medications * This list may reflect changes made after this encounter. Start Date End Date Medication Sig Dispensed Refills FLUoxetine (PROZAC) 20 mg Take 20 mg by 0 capsule mouth daily. mirtazapine 7.5 mg tablet Take 7.5 mg 0 by mouth at bedtime daily. raNITIdine (ZANTAC) 300 Take 300 mg 0 mg tablet by mouth at bedtime daily. atorvastatin (LIPITOR) 10 Take 10 mg by 0 mg tablet mouth at bedtime daily. diclofenac sodium DR Take 50 mg by 0 (VOLTAREN) 50 mg tablet mouth twice daily as needed. Take with food. added in this encounter
--- OUTSIDE RECORDS SUMMARY | 2021-02-27 09:40 | XMS REPORT | Encounter Summary ---
Author Author [facility] Organization [facility] Address Unknown Phone Unavailable Care Team Providers Care Automobile Bumper Straightener Name Role Phone Josselin Murguia DRYCLEANER PCP Reason for Visit * Reason Comments New Patient First seizure was a month a nd half ago Seizure pt has been having them saima ry * Consult, Test & Treat (Routine) Referred By Contact Referred To Contact Status Reason Specialty Diagnoses / Procedures Josselin Murguia, DRYCLEANER [address] [place] [address] Si2 Epilepsy/Sleep Cl [address] [address] Closed Neurology Diagnoses Seizure (HCC) Encounter Details Care Team Description Date Type Department Lay, Chuck Alegria MD [address] [place], [place] [id number] Spell of altered consciousness (Primary Dx) 01/21/2021 Office Visit Epilepsy Center and Neurology Sleep Medicine: [facility] [address] [address] Social History Date Tobacco Use Types Packs/Day Years Used Current Every Day Smoker 1.5 Smokeless Tobacco: Never Used Comments Alcohol Use Standard Drinks/Week Never 0 (1 standard drink = 0.6 o z pure alcohol) Alcohol Habits Answer Date Recorded How often do you have a drink containing alcohol? Never 01/21/2021 How many drinks containing alcohol do you have on No t asked a typical day when you are drinking? How often do you have six or more drinks on one Not asked occasion? Comment: Not asked Sex Assigned at Date Recorded Not on file Date Recorded COVID-19 Exposure Response 01/21/2021 7:52 AM CDT In the last month, have you been in contact with No / Unsure someone who was confirmed or suspected to have Coronavirus / COVID-19? documented as of this encounter Last Filed Vital Signs Reading Time Taken Comments Vital Sign 108/73 01/21/2021 8:08 AM CDT Blood Pressure 100 01/21/2021 8:08 AM CDT Pulse - - Temperature - - Respiratory Rate - - Oxygen Saturation - - Inhaled Oxygen Concentration 73 kg (161 lb) 01/21/2021 8:08 AM CDT Weight 157.5 cm (5' 2") 01/21/2021 8:08 AM CDT Height 29.45 01/21/2021 8:08 AM CDT Body Mass Index documented in this encounter Patient Instructions * Patient Instructions* Skyler Queen MD - 01/21/2021 8:00 AM CDT Information for further review: NONEPILEPTIC SPELLS (NANCY) 1. What are nonepileptic spells? Nonepileptic spells (NANCY), sometimes called psychogenic nonepileptic spells or n ervous spells, are behavioral spells that look like epileptic seizures to an obs erver, but are not actually epileptic seizures. 2. What is the difference between epileptic seizures and NANCY? Epileptic seizures can be described as an electrical storm in the brain. The el ectrical storm shows up as changes in EEG brain waves, while you are on EEG andressa toring. NANCY are not due to an electrical storm in the brain and EEG monitoring remains normal during NANCY. 3. How is the diagnosis of NANCY made? Combined EEG monitoring and video monitoring (like in an Epilepsy Monitoring Uni t) during a spell can distinguish NANCY from epileptic seizures because of the dif ferences listed above. 4. What causes NANCY? Depression, anxiety, stress, family conflict, or a history of abuse, are common causes of NANCY. However, sometimes the exact cause of NANCY is difficult to determ ine. 5. What if we cant find an underlying cause? Counseling from a certified counselor, psychologist or psychiatrist is helpful e pooja if a specific cause of NANCY cannot be found. These professionals can teach y ou techniques for dealing with the spells. Some techniques include relaxation tr aining, visualization, biofeedback, and active problem solving skills. 6. Am I faking it? No. NANCY are not faked. 7. Can my brain be damaged from NANCY? No. The brain has normal electrical activity during a NANCY. 8. Can NANCY affect my activities of daily living? Even though your nonepileptic spells are not epileptic seizures, the spells can affect your activities of daily living. When a spell occurs, you should stop wh at you are doing until the spell passes. You should resume your regular activiti es as soon as you can after a spell. 9. Can I also have NANCY if I already have epilepsy? Yes. It is possible for people with epilepsy to also have NANCY, although it is un common. EEG monitoring can determine which spells are epileptic seizures and wh ich are NANCY. Non-epileptic spells (NANCY) are complex and may be a potential form of conversion disorder. The theoretical origins of the disorder include subconscious risk fac tors including but not limited to history of trauma and/or abuse and PTSD. The b est therapy for the disorder is a specific type of therapy called cognitive beha vorial therapy (CBT). documented in this encounter Progress Notes * Skyler Queen MD - 01/21/2021 8:00 AM CDT Attestation: I personally performed the arteaga portions of the E/M visit, discussed case with estrella lewis and concur with the documentation of history, physical exam, assessment, an d treatment plan above unless otherwise noted. Patient is a 40F with no clear risk factors for epilepsy presenting with her fin ance for further evaluation. Per review of previous semiology and witnessed epis ode in clinic, her diagnosis is most consistent with non-epileptic spells. Her e xam is without focal deficits currently. She does also have subjective complaint s of bilateral diffuse tingling and headache, most often associated with her spe lls. Will attempt to obtain EEG this am as well as her outside MRI for review. R est per fellow note. Considerable time was spent on counseling the patient and fiance on the followin g, taking time to answer their quesions for which they verbalized understanding: - The diagnosis was discussed including its probable causes, an explanation of t he terminology, and the prognosis - The plan for evaluation and the treatment - Non-epileptic spells - Counseling on the complex nature of the diagnosis of non-epileptic spells (NANCY) as a form of conversion disorder was discussed. We sp mitzi about the use of the appropriate diagnostic tests. We talked about the theor etical origins of the disorder include subconscious risk factors including but n ot limited to history of trauma and/or abuse and PTSD. We also talked about the best therapy for the disorder which is a specific type of therapy called cogniti ve behavorial therapy (CBT) and the way to pursue this therapy. Skyler Queen M.D. [facility] * Chuck Mcallister MD - 01/21/2021 8:00 AM CDT Date of Service: 01/21/2021 Subjective: Evelin Rea is a 40 y.o. female sent as a referral for evaluation for new onset seizures. History of Present Illness Ms. Rea is accompanied by her fianceSlava who aids in providing some of the history. SEIZURE DESCRIPTION Seizure onset: November 2020 Seizure description: First event occurred while she was helping out a friend rem odeling a trailer. This occurred in the morning. She was up on a ladder painting . She had just gotten off of the ladder. She denies warning signs at this time. She reports waking up on the floor. She reports urinating during this event. She denies tongue biting. She was initially confused and then immediately recognized where she was at. She had difficult speaking at first for 5-10 minutes and this eventually returned. She went home and slept most of the day after this. The n ext event occurred 1.5 weeks later and then progressed to occur each day. She reports onset of hand/feet tingling and then she gets significant head pain described as someone driving a screwdriver into her forehead. Then she loses con sciousness. Her fiance then reports her body "jerks around like a fish in a pond ." These are now occurring 1-2x per day and can occur at anytime without any par ticular trigger. He reports that they are somewhat different in appearance each time stating that sometimes she can be rigid and other times she can seem more l oose. Eyes are typically closed. Urbano provides cell phone video of an event that occurred 2-[address] 4 minutes overall with video showing Ms. Rea lying on the ground with ey es closed with arrhythmic irregular clonic movements of her arms and legs with i ntermittent groaning. Seizure duration: 1-2 -> 15-20 minutes Seizure frequency: currently daily, 2-3x per day Precipitating factors: none Previous AEDs: None Other history: Depression/Anxiety HLD Tobacco Dependence Learning disability Smokes 1.5 ppd Denies alcohol or other drug use Not working currently, receives [employer] Epilepsy risk factors (including gestational/ history): The patient was the product of a normal spontaneous vaginal delivery of a full t erm . 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 Devel opment was normal and developmental milestones were up to par with age. Concussi on as a child, does not remember details. There are no other risk factors for ep ilepsy. PREVIOUS TESTS: 1. MRI Brain in [place], [place]: records and images not available at this time Review of Systems Constitutional: Negative. HENT: Negative. Eyes: Negative. Respiratory: Negative. Cardiovascular: Negative. Musculoskeletal: Negative. Skin: Negative. Psychiatric/Behavioral: Positive for depression. Review of Systems Constitutional: Negative. HENT: Negative. Eyes: Negative. Respiratory: Negative. Cardiovascular: Negative. Musculoskeletal: Negative. Skin: Negative. Psychiatric/Behavioral: Positive for depression. Objective: atorvastatin (LIPITOR) 10 mg tablet Take 10 mg by mouth at bedtime daily. clonazePAM (KLONOPIN) 0.5 mg tablet Take 0.5 mg by mouth three times daily. diclofenac sodium DR (VOLTAREN) 50 mg tablet Take 50 mg by mouth twice daily as needed. Take with food. FLUoxetine (PROZAC) 20 mg capsule Take 20 mg by mouth daily. mirtazapine 7.5 mg tablet Take 7.5 mg by mouth at bedtime daily. raNITIdine (ZANTAC) 300 mg tablet Take 300 mg by mouth at bedtime daily. Vitals: 01/21/21 0808 BP: 108/73 Pulse: 100 Weight: 73 kg (161 lb) Height: 157.5 cm (62") Body mass index is 29.45 kg/m. Physical Exam Neurological examination: Mental Status: Alert, oriented to time, place and person CN II thru XII: Pupils 3mm, reactive to light and accommodation, intact extraocu lar movements, intact facial sensation, intact hearing, symmetric palatal elev ation, able to shrug shoulders equally on both sides, tongue midline. Palpebral Fissure 10mm/10mm Orb Oculi 5/5 Orb Emmy 5/5 Tongue 5/5 Speech: No Dysarthria or aphasia Motor Exam: Right Left Right Left Shoulder abductors: 5 5 Hip flexion: 5 5 Elbow flexors: 5 5 Hip abduction: 5 5 Elbow extensors: 5 5 Hip Adduction: 5 5 Wrist extensors: 5 5 Knee extension: 5 5 Wrist flexors: 5 5 Knee flexion: 5 5 Finger flexors: 5 5 Ankle dorsiflexion: 5 5 Finger extensors: 5 5 Ankle plantar flexion: 5 5 Finger abductors: 5 5 Ankle eversion: Thumb abductors: Ankle inversion: Toe extension: Toe flexion: Tone R/L Nikunj scale: UE: 0/0 LE: 0/0 Sensory: light touch and pinprick intact Coordination: Normal finger to nose, and heel to feuntes Reflexes: Reflex Right Left Brachioradialis 2 2 Biceps 2 2 Triceps 2 2 Knee 2 2 Ankle 2 2 Planter response: Flexor/Flexor Siddiqi's: Absent/Absent Gait and Station: slightly hesitant walk with overall steady appearance Abnormal Event 0830: During interview, patient developed significant frontal head pains and repeatedl y closed her eyes while still responsive. She then closed her eyes and laid down on her back slowing followed by asymmetric stiffening of her upper extremities (left arm flexed, right arm extended) as well as bilateral low extremity tensing . Her eyes are closed during this time. She was able to follow simple commands s uch as squeezing her left hand and giving a thumbs up on her right hand while he r arms and legs where tensed. On forced eye opening, eyes initially looked to th e left but will slow turn to the right to meet examiner's gaze. She was not verb ally responsive otherwise. The event slowly subsided and patient was verbally re sponsive and alert within 1-2 minutes or cessation of event. Total event duratio n was about 3-4 minutes. Assessment and Plan: CLINICAL SUMMARY Ms. Rea is a 40 yo woman presenting to Epilepsy clinic with onset of now da david events characterized by onset of frontal head pains -> bilateral tingling of the hands and feet -> loss of awareness -> irregular tonic/clonic movements with eyes closed lasting 2-20 minutes with variable semiology and intermittent responsiveness. She had a typical spell in her clinic visit today. Her history and spell seen in clinic today are highly suggestive of non-epileptic spells. We discussed most likely diagnoses both epileptic and non-epileptic, causes of both and treatment for both. She was provided take home information on non-epileptic spells. She has had outside MRI that we will obtain the images from for review. Given her daily frequency of events, will obtain a prolonged EEG today in hopes of capturing a typical spell. Treatment plan dependent upon results of MRI and EEG. Both her and her fiance appeared open to the idea of non-epileptic spells as a possibility. MANAGEMENT AND PLAN During the visit I discussed my impression, recommended diagnostic studies, prog nosis, risks and benefits of management, instructions for management, and import ance of compliance. After a discussion, the patient agrees with the plan. Total time for this office visit was 45 minutes. RECOMMENDATIONS 1. Prolonged EEG completed today was normal 2. Obtain outside MRI images 3. Treatment to depend on results of above FOLLOWUP PLAN I plan to see the patient back for follow-up in approximately 3 months. The papo ent is instructed to contact me if there are any concerns with the agreed plan. Chuck Mcallister MD Epilepsy Fellow documented in this encounter Miscellaneous Notes * Addendum Note - Skyler Queen MD - 01/21/2021 8:00 AM CDT Addended by: SKYLER QUEEN on: 01/22/2021 10:44 AM Modules accepted: Level of Service documented in this encounter Plan of Treatment Not on filedocumented as of this encounter Visit Diagnoses Diagnosis Spell of altered consciousness - Primar y Other alteration of consciousness documented in this encounter Historical Medications * This list may reflect changes made after this encounter. Start Date End Date Medication Sig Dispensed Refills clonazePAM (KLONOPIN) 0.5 Take 0.5 mg 0 mg tablet by mouth three times daily. added in this encounter Additional Health Concerns Assessment Noted Time PHQ-9 Depression Total Score: 20 01/21/2021 8:15 AM CDT A fall risk assessment has been completed for the pat ient 01/21/2021 8:15 AM CDT PHQ-2 Depression Total Score: 6 01/21/2021 8:15 AM CDT documented as of this encounter
--- OUTSIDE RECORDS SUMMARY | 2021-02-27 09:40 | XMS REPORT | Clinical Summary ---
Author Author [facility] Organization [facility] Address Unknown Phone Unavailable Care Team Providers Care Bdc Manager Name Role Phone OJosselin Chou PATIENT AMBASSADOR PCP Source Comments Some departments are not documenting in the electronic medical record. If you d o not see the information that you expected, contact Release of Information in [facility] [employer] Private Information Management department at [phone] for further assistan ce in locating additional records.[facility] Allergies No Known Active Allergies Medications End Date Status Medication Sig Dispensed Refills Start Date Active diclofenac sodium DR Take 50 mg by 0 (VOLTAREN) 50 mg tablet mouth twice daily as needed. Take with food. Active atorvastatin (LIPITOR) 10 Take 10 mg by 0 mg tablet mouth at bedtime daily. Active raNITIdine (ZANTAC) 300 Take 300 mg 0 mg tablet by mouth at bedtime daily. Active mirtazapine 7.5 mg tablet Take 7.5 mg 0 by mouth at bedtime daily. Active FLUoxetine (PROZAC) 20 mg Take 20 mg by 0 capsule mouth daily. Active clonazePAM (KLONOPIN) 0.5 Take 0.5 mg 0 mg tablet by mouth three times daily. Active Problems No known active problems Encounters Care Team Description Date Type Specialty Skyler Queen MD 01/21/2021 Hospital Encounter Chuck Mcallister MD Spell of altered consciousness (Primary Dx) 01/21/2021 Office Visit Neurology 01/21/2021 Travel Sharla Awan, EFFIE Pre-Visit Planning (New patient office v isit planned for 01/21/21 Chuck Mcallister MD) 01/16/2021 Telephone Neurology from Last 3 Months Immunizations Name Administration Dates Next Due Family History Medical History Relation Name Comments Cancer Sister Seizures Sister Relation Name Status Comments Father Mother Sister Sister Alive Sister Alive Social History Date Tobacco Use Types Packs/Day [...] Assigned at Date Recorded Not on file Last Filed Vital Signs Reading Time Taken [...] 01/21/2021 8:08 AM CDT Body Mass Index Plan of Treatment Health Maintenance Due Date Last Done Comments MEDICARE ANNUAL WELLNESS 1978 VISIT HIV SCREENING 1993 DTAP/TDAP VACCINES ( - 1996 Tdap) HEPATITIS C SCREENING 1996 PHYSICAL (COMPREHENSIVE) 1996 EXAM CERVICAL CANCER SCREENING 11/24/1999 BREAST CANCER SCREENING 2018 INFLUENZA VACCINE 12/09/2020 03/05/1999 COVID-19 VACCINE Completed 10/23/2020, 09/20/2020 Procedures Comments Procedure Name Priority Date/Time Associated Diag nosis EEG DEPARTMENT ORDER Routine 01/21/2021 Seizure ( HCC) 11:23 AM CDT from Last 3 Months Results Not on filefrom Last 3 Months Insurance Type Payer Benefit Subscriber ID Effective Phone Address Plan / Dates Group Medicare MEDICARE MEDICARE [id number] PART A AND resent B [phone] Evelin Rea Third Self [phone] ([address]) [address] [place] [address] Advance Directives 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
--- OUTSIDE RECORDS SUMMARY | 2021-02-27 09:40 | XMS REPORT | Encounter Summary ---
Author Author [facility] Organization [facility] Address Unknown Phone Unavailable Care Team Providers Care Processing Clerk Name Role Phone Josselin Murguia NETWORK MGR PCP Reason for Visit * Consult, Test & Treat (Routine) Referred By Contact Referred To Contact Status Reason Specialty Diagnoses / Procedures Chuck Mcallister MD [address] [place] [address] Si2 Epilepsy/Sleep Cl [address] [facility] [address] [place] [address] Authorized Specialty Services Neurology Diagnoses Required Seizures (HCC) Encounter Details Care Team Description Date Type Department Skyler Queen MD [address] [place] [address] [phone] 01/21/2021 Hospital Neurodiagnostics: [facility] [place], [facility] [address] [facility] [address], [address] [place] [address] Social History Date Tobacco Use Types Packs/Day [...] / COVID-19? documented as of this encounter Medications at Time of Discharge Start Date End Date Medication Sig Dispensed Refills atorvastatin (LIPITOR) 10 Take 10 mg by 0 mg tablet mouth at bedtime daily. clonazePAM (KLONOPIN) 0.5 Take 0.5 mg 0 mg tablet by mouth three times daily. diclofenac sodium DR Take 50 mg by 0 (VOLTAREN) 50 mg tablet mouth twice daily as needed. Take with food. FLUoxetine (PROZAC) 20 mg Take 20 mg by 0 capsule mouth daily. mirtazapine 7.5 mg tablet Take 7.5 mg 0 by mouth at bedtime daily. raNITIdine (ZANTAC) 300 Take 300 mg 0 mg tablet by mouth at bedtime daily. documented as of this encounter Discharge Disposition Code Departure Means Destination Disposition Home Home or Self Care documented in this encounter Progress Notes * Shanae Quinn - 01/21/2021 9:00 AM CDT Extended monitoring 65 minute outpatient EEG completed without complications. Re cording began at . Paperwork including the patient history and EEG information sheet was provided t o the patient. The test was explained to the patient in detail and all questions were answered regarding the performing of the EEG. All electrodes were below 5,000kOhm and recording properly. Photic Stimulation w as performed. Hyperventilation was not performed due to current ACNS guidelines. After the test the scalp was inspected for any skin breakdown and was cleaned wi th warm water and a washcloth. Education was given to the patient about proper hair care after the EEG. The patient was educated to check in MyChart or contact the physician's office i n approximately 2 weeks regarding the results of their EEG. documented in this encounter Procedure Notes * Salvador Malagon MD - 01/21/2021 9:00 AM CDT Images from the original note were not included. OUTPATIENT >1 HOUR EEG REPORT Evelin Rea [id number] Date of service: 01/21/21 History: This is a 40 y.o. female presenting with spells. Pertinent medications: clonazepam Introduction: This study was performed using digital electroencephalographic recording [employer]me [employer] International 10-20 electrode placement was used along with FT9 and FT10 gail ctrodes. The record was obtained with the patient in the awake and asleep states . Photic stimulation is performed. Hyperventilation is not performed. The jean paul dy is performed from 1019 to 1126 on 01/21/21. Description: The posterior dominant rhythm is 11 Hz. There is excessive beta activity. Drowsiness results in attenuation of the background and increased theta activity . Stage II of sleep is seen, as evidenced by presence of sleep spindles. Clinical correlation: This is an essentially normal awake and asleep >1 hour EEG. There is evidence of excessive beta activity due to benzodiazepines. No epileptiform findings or lateralizing signs are seen. documented in this encounter Plan of Treatment Not on filedocumented as of this encounter Procedures Comments Procedure Name Priority Date/Time Associated Diag nosis EEG DEPARTMENT ORDER Routine 01/21/2021 Seizure ( HCC) 11:23 AM CDT documented in this encounter Visit Diagnoses Diagnosis Seizure (HCC) - Primary Other convulsions documented in this encounter Orders First Ordered Date Neurology Count Last Ordered Date EEG DEPARTMENT ORDER 1 01/21/2021 documented in this encounter Additional Health Concerns Assessment Noted Time PHQ-9 Depression Total Score: 20 01/21/2021 8:15 AM CDT A fall risk assessment has been completed for the pat ient 01/21/2021 8:15 AM CDT PHQ-2 Depression Total Score: 6 01/21/2021 8:15 AM CDT documented as of this encounter
--- OUTSIDE RECORDS SUMMARY | 2021-02-27 09:40 | XMS REPORT | Encounter Summary ---
Author Author [facility] Organization [facility] Address Unknown Phone Unavailable Care Team Providers Care Vp Clinical Name Role Phone JimmyGonzálezScarbroJosselin jason Isabel TESTER OPERATOR PCP Encounter Details Care Team Description Date Type Department 01/21/2021 Travel Social History Date Tobacco Use Types Packs/Day [...] / COVID-19? documented as of this encounter Plan of Treatment Not on filedocumented as of this encounter Visit Diagnoses Not on filedocumented in this encounter Additional Health Concerns Assessment Noted Time PHQ-9 Depression Total Score: 20 01/21/2021 8:15 AM CDT A fall risk assessment has been completed for the pat ient 01/21/2021 8:15 AM CDT PHQ-2 Depression Total Score: 6 01/21/2021 8:15 AM CDT documented as of this encounter
--- NOTE | 2021-02-27 09:46 | ED Lower Extremity ---
General Chief Complaint: Bite-Animal/Human/Insect Stated Complaint: RT LEG DOG BITE Source: patient Exam Limitations: no limitations History of Present Illness Date Seen by Provider: Feb 27, 2021 Time Seen by Provider: 09:46 Initial Comments Patient is a 40-year-old female presents with unprovoked to be dog bite to her right lateral calf muscle just prior to ED arrival. Dog is unknown and [place] No medications or therapies taken prior to ED arrival. Onset: just prior to arrival Severity: moderate Pain/Injury Location: right leg Method of Injury: other Modifying Factors: Improves With Other Allergies and Home Medications Allergies Coded Allergies: No Known Drug Allergies (Unverified , 12/22/17) Patient Home Medication List Home Medication List Reviewed: Yes Cyclobenzaprine HCl (Cyclobenzaprine HCl) 10 Mg Tablet, 10 MG PO TID Prescribed by: FABY TRUJILLO on 11/18/203 Fluoxetine HCl (Prozac) 10 Mg Capsule, 10 MG PO DAILY, (Reported) Entered as Reported by: NICK REDDY on 02/28/20921 Fluoxetine HCl (Prozac) 20 Mg Capsule, 20 MG PO DAILY, (Reported) Entered as Reported by: NICK REDDY on 02/28/20921 Hydrocodone Bit/Acetaminophen (HYDROcodone/APAP 5 MG/325 MG TAB) 1 Tab Tab, 1-2 TAB PO Q4-6HR PRN for PAIN-MODERATE (5-7) Prescribed by: TONY JAVIER on 10/19/20 1143 Rosuvastatin Calcium (Rosuvastatin Calcium) 20 Mg Tablet, 20 MG PO HS, (Reported) Entered as Reported by: NICK REDDY on 02/28/20921 Review of Systems Constitutional: see HPI EENTM: see HPI Past Lpdkgmn-Xtvdck-Rgvpho Hx Patient Social History Tobacco Use?: Yes Tobacco type used: Cigarettes Smoking Status: Current Everyday Smoker Use of E-Cig and/or Vaping dev: No Substance use?: No Alcohol Use?: No Pt feels they are or have been: Yes Immunizations Up To Date Tetanus Booster (TDap): Unknown First/Initial COVID19 Vaccinat: NOVEMBER 2020 Second COVID19 Vaccination Pankaj: NOVEMBER 2020 COVID19 Vaccine 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: MODERNA Seasonal Allergies Seasonal Allergies: Yes Past Medical History Surgeries: Yes (loop recorder) Gallbladder Respiratory: No Currently Using CPAP: No Currently Using BIPAP: No Cardiac: Yes (heart cath) Syncope Neurological: Yes (Seizure-like activity) Concussion Reproductive Disorders: No Sexually Transmitted Disease: No Genitourinary: No Gastrointestinal: Yes Gall Bladder Disease Musculoskeletal: Yes Arthritis, Fractures Endocrine: No HEENT: No Cancer: No Psychosocial: Yes Anxiety, Depression Integumentary: No Blood Disorders: No Physical Exam Vital Signs Capillary Refill : Height, Weight, BMI Height: 5'2.00" Weight: 160lbs. 8.0oz. [id number]; 29.00 BMI Method:Stated General Appearance: no apparent distress Legs: right leg pain, right leg soft tissue tenderness, right leg other (Right leg laceration, 2 cm, clean, dry closed, no oozing.) Progress/Results/Core Measures Results/Orders My Orders Orders - FABY TRUIJLLO DO Hydrocodone/Apap 5/325 Tablet (Lortab 5 (02/27/21 10:00) Departure Communication (Admissions) Wound clean. Pain medication given. Antibiotic and pain medication provided. Animal control notified. Return precautions reviewed. Patient verbalizes understanding agreement discharge instructions prior to departure. Impression Primary Impression: Dog bite of right lower leg Disposition: HOME, SELF-CARE Condition: Stable Departure-Patient Inst. Decision time for Depature: 09:50 Referrals: MIRANDA VALE APRN (PCP) Primary Care Physician [facility] (Family) Primary Care Physician Patient Instructions: Animal Bites (DC) Add. Discharge Instructions: Please keep wound clean covered and dry. Fill medications upon leaving emergency department and complete full course of antibiotics. Take ibuprofen for pain and hydrocodone as needed for additional relief. All discharge instructions reviewed with patient and/or family. Voiced understanding. Scripts Amoxicillin/Potassium Clav (Augmentin 875-125 Tablet) 1 Each Tablet 1 EACH PO BID, #14 TAB 0 Refills Prov: FABY TRUJILLO DO 02/27/21 Hydrocodone/Acetaminophen (Hydrocodone-Acetamin 5-325 mg) 1 Each Tablet 1 TAB PO Q4H PRN for PAIN-MODERATE (5-7), #10 TAB Prov: FABY TRUJILLO DO 02/27/21 FABY TRUJILLO DO Feb 27, 2021 09:46
[2021-02-27] MEDS ORDERED: AMOX-358 PO (09:52)
[2021-02-27] MEDS ORDERED: ACHD5005 PO (09:52)
[2021-02-27 09:56] VITALS: BP 123/107
[2021-02-27] MEDS ORDERED: HYDROcodone/APAP 5 MG/325 MG (LORTAB) TAB PO ONE (10:00)
== END 2021-02-27 09:56 | disposition home or self-care (01) ==
LOC: EDUNIT# 09:32 → ER FS 09:34
DX: S81.851A Open bite, right lower leg, initial encounter (principal); F41.9 Anxiety disorder, unspecified; F32.9 Major depressive disorder, single episode, unspecified; F17.210 Nicotine dependence, cigarettes, uncomplicated; Z87.820 Personal history of traumatic brain injury; Z79.899 Other long term (current) drug therapy; W54.0XXA Bitten by dog, initial encounter
CPT/HCPCS: 99283

== ENCOUNTER 2021-07-19 11:40 | Emergency (ER) | payer MEDICARE ==
[~2021-07-19] VITALS: Ht 157.4 cm; Wt 77.1 kg
[~2021-07-19 11:40] MED LIST changes: +AMOX-358 PO; +CYCL10TA25 PO; -CYCL10TA9 PO; -FLUO10CA31 PO; +FLUO10CA33 PO
[2021-07-19 12:23] LABS: CLARITY,URINE CLOUDY; GLUCOSE, URINE (UA) NEGATIVE (NEGATIVE); KETONES,URINE NEGATIVE (NEGATIVE); LEUKOCYTE ESTERASE ,URINE NEGATIVE (NEGATIVE); NITRITE,URINE NEGATIVE (NEGATIVE); PH,URINE 5.5 (5-9); PROTEIN,URINE 1+ (NEGATIVE)
[2021-07-19 12:27] LABS: BASOPHILS % (AUTO) 0 % (0-10); EOSINOPHILS # (AUTO) 0.2 10^3/uL (0.0-0.3); EOSINOPHILS % (AUTO) 2 % (0-10); HEMATOCRIT 40 % (35-52); HEMOGLOBIN 13.6 g/dL (11.5-16.0); LYMPHOCYTES # (AUTO) 3.4 10^3/uL (1.0-4.0); LYMPHOCYTES % (AUTO) 27 % (12-44); MEAN CORPUSCULAR HEMOGLOBIN 31 pg (25-34); MEAN CORPUSCULAR HGB CONC 34 g/dL (32-36); MEAN CORPUSCULAR VOLUME 92 fL (80-99); MEAN PLATELET VOLUME 10.7 fL (9.0-12.2); MONOCYTES % (AUTO) 8 % (0-12); NEUTROPHILS # (AUTO) 7.7 10^3/uL (1.8-7.8); NEUTROPHILS % (AUTO) 63 % (42-75); PLATELET COUNT 274 10^3/uL (130-400); WHITE BLOOD COUNT 12.3 10^3/uL (4.3-11.0)
--- NOTE | 2021-07-19 12:36 | Diagnostic Imaging Report ---
INDICATION: Palpitations. TIME OF EXAM: 12:24 p.m. COMPARISON: Comparison is made with prior chest from 11/27/2020. FINDINGS: Cardiac loop recorder overlies the left chest. The heart size is normal. Lungs appear clear. No infiltrates are seen. There is no effusion or pneumothorax. IMPRESSION: No acute cardiopulmonary process is detected. Dictated by: Dictated on workstation # [id number]
[2021-07-19 13:05] LABS: ALBUMIN 3.9 GM/DL (3.2-4.5); BILIRUBIN,TOTAL 0.3 MG/DL (0.1-1.0); CALCIUM 9.4 MG/DL (8.5-10.1); CREATININE SERUM 0.77 MG/DL (0.60-1.30); TOTAL PROTEIN 6.6 GM/DL (6.4-8.2)
[2021-07-19 13:07] LABS: AMPHETAMINE SCREEN, URINE NEGATIVE (NEGATIVE); BARBITURATE SCREEN URINE NEGATIVE (NEGATIVE); BENZODIAZEPINES SCREEN URINE NEGATIVE (NEGATIVE); CANNABINOID SCREEN, URINE NEGATIVE (NEGATIVE); COCAINE SCREEN URINE NEGATIVE (NEGATIVE); METHADONE STAT NEGATIVE (NEGATIVE); METHAMPHETAMINE SCREEN URINE S NEGATIVE (NEGATIVE); OPIATE SCREEN URINE NEGATIVE (NEGATIVE); OXYCODONE STAT NEGATIVE (NEGATIVE); PROPOXYPHENE STAT NEGATIVE (NEGATIVE); TRICYCLIC ANTIDEPRESSANTS SCRE NEGATIVE (NEGATIVE)
[2021-07-19 13:09] LABS: BACTERIA,URINE FEW /HPF; COLOR,URINE AMBER; RBC,URINE 50-100 /HPF; WBC,URINE RARE /HPF
[2021-07-19 13:10] LABS: BILIRUBIN,URINE 1+ (NEGATIVE)
[2021-07-19 13:11] LABS: URINE OTHER CLUE CELLS NOTED /HPF
--- NOTE | 2021-07-19 13:50 | ED General ---
General Chief Complaint: Cardiac/General Problems Stated Complaint: TACHYCARDIA Nursing Triage Note: Patient presents per POV, ambulatory into ER with c/o tachycardia. Pt reports she had a seizure yesterday and today then felt her heart was racing after each. Pt has a loop recorder. Pt reports no missed doses of seizure medicine. Pt denies use of illicit drugs or stimulants, drinks caffeine. 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 Pt becomes stressed and anxious and her pseudo seizures and racing heart coincides with that. Denies fever, chest pain, abdominal pain, diarrhea, headache, falls. Pt has a loop recorder. Allergies and Home Medications Allergies Coded Allergies: No Known Drug Allergies (Unverified , 12/22/17) Patient Home Medication List Home Medication List Reviewed: Yes Amoxicillin/Potassium Clav (Augmentin 875-125 Tablet) 1 Each Tablet, 1 EACH PO BID Prescribed by: FABY TRUJILLO on 02/27/21 0952 Cyclobenzaprine HCl (Cyclobenzaprine HCl) 10 Mg Tablet, 10 MG PO TID Prescribed by: FABY TRUJILLO on 11/18/20 2233 Fluoxetine HCl (Prozac) 10 Mg Capsule, 10 MG PO DAILY, (Reported) Entered as Reported by: NICK REDDY on 02/28/20921 Fluoxetine HCl (Prozac) 20 Mg Capsule, 20 MG PO DAILY, (Reported) Entered as Reported by: NICK REDDY on 02/28/20 09 Hydrocodone Bit/Acetaminophen (HYDROcodone/APAP 5 MG/325 MG TAB) 1 Tab Tab, 1-2 TAB PO Q4-6HR PRN for PAIN-MODERATE (5-7) Prescribed by: TONY JAVIER on 10/19/20 1143 Hydrocodone/Acetaminophen (Hydrocodone-Acetamin 5-325 mg) 1 Each Tablet, 1 TAB PO Q4H PRN for PAIN-MODERATE (5-7) Prescribed by: FABY TRUJILLO on 02/27/21 0953 Rosuvastatin Calcium (Rosuvastatin Calcium) 20 Mg Tablet, 20 MG PO HS, (Reported) Entered as Reported by: NICK REDDY on 02/28/20921 Review of Systems Review of Systems Constitutional: no symptoms reported EENTM: no symptoms reported Respiratory: no symptoms reported Cardiovascular: palpitations Gastrointestinal: no symptoms reported Genitourinary: no symptoms reported Musculoskeletal: no symptoms reported Skin: no symptoms reported Psychiatric/Neurological: Anxiety, Emotional Problems Hematologic/Lymphatic: No Symptoms Reported Immunological/Allergic: no symptoms reported Past Ieavuam-Itcrqx-Yrewmd Hx Patient Social History Tobacco Use?: Yes Tobacco type used: Cigarettes Smoking Status: Current Everyday Smoker Smokeless Tobacco Frequency: Never a User Use of E-Cig and/or Vaping [place]: Never a User Substance use?: No Alcohol Use?: No Pt feels they are or have been: Unable to obtain Immunizations Up To Date Tetanus Booster (TDap): Unknown First/Initial COVID19 Vaccinat: NOVEMBER 2020 Second COVID19 Vaccination Pankaj: NOVEMBER 2020 COVID19 Vaccine Lime Supervisor: Juan F Seasonal Allergies Seasonal Allergies: Yes Past Medical History Surgery/Hospitalization HX: Loop recorder placed, Hx seizure (a work up to classify not completed), Depresson-PTSD Surgeries: Yes (loop recorder) Gallbladder Respiratory: No Currently Using CPAP: No Currently Using BIPAP: No Cardiac: Yes (heart cath) Syncope Neurological: Yes (Seizure-like activity) Concussion Last Menstrual Period: Jul 18, 2021 Reproductive Disorders: No Sexually Transmitted Disease: No Genitourinary: No Gastrointestinal: Yes Gall Bladder Disease Musculoskeletal: Yes Arthritis, Fractures Endocrine: No HEENT: No Cancer: No Psychosocial: Yes Anxiety, Depression Integumentary: No Blood Disorders: No Physical Exam Vital Signs Vital Signs - First Documented 07/19/21 11:45 Temp 37.0 Pulse 88 Resp 34 B/P (MAP) 117/83 (94) Pulse Ox 97 O2 Delivery Room Air Capillary Refill : Less Than 3 Seconds Height, Weight, BMI Height: 5'2.00" Weight: 160lbs. 8.0oz. 72.361059eq; 31.00 BMI Method:Stated General Appearance: No Apparent Distress, Anxious HEENT: PERRL/EOMI, Normal ENT Inspection Neck: Full Range of Motion, Normal Inspection, Non Tender, Supple Respiratory: Lungs Clear, Normal Breath Sounds, No Respiratory Distress Cardiovascular: Regular Rate, Rhythm Gastrointestinal: Non Tender, Soft Back: Normal Inspection, No CVA Tenderness Extremity: Normal Range of Motion Neurologic/Psychiatric: Alert, Oriented x3, No Motor/Sensory Deficits Skin: Normal Color Progress/Results/Core Measures Suspected Sepsis SIRS Temperature: Pulse: 88 Respiratory Rate: 34 Laboratory Tests 07/19/21 11:50: White Blood Count 12.3H Blood Pressure 117 /83 Mean: 94 Laboratory Tests 07/19/21 11:50: Creatinine 0.77, Platelet Count 274, Total Bilirubin 0.3 Results/Orders Lab Results Laboratory Tests Test 07/19/21 11:50 Range/Units White Blood Count 12.3 H 4.3-11.0 10^3/uL Red Blood Count 4.36 3.80-5.11 10^6/uL Hemoglobin 13.6 11.5-16.0 g/dL Hematocrit 40 35-52 % Mean Corpuscular Volume 92 80-99 fL Mean Corpuscular Hemoglobin 31 25-34 pg Mean Corpuscular Hemoglobin Concent 34 32-36 g/dL Red Cell Distribution Width 14.0 10.0-14.5 % Platelet Count 274 130-400 10^3/uL Mean Platelet Volume 10.7 9.0-12.2 fL Immature Granulocyte % (Auto) 0 % Neutrophils (%) (Auto) 63 42-75 % Lymphocytes (%) (Auto) 27 12-44 % Monocytes (%) (Auto) 8 0-12 % Eosinophils (%) (Auto) 2 0-10 % Basophils (%) (Auto) 0 0-10 % Neutrophils # (Auto) 7.7 1.8-7.8 10^3/uL Lymphocytes # (Auto) 3.4 1.0-4.0 10^3/uL Monocytes # (Auto) 1.0 0.0-1.0 10^3/uL Eosinophils # (Auto) 0.2 0.0-0.3 10^3/uL Basophils # (Auto) 0.0 0.0-0.1 10^3/uL Immature Granulocyte # (Auto) 0.0 0.0-0.1 10^3/uL Urine Color ROMERO H Urine Clarity CLOUDY Urine pH 5.5 5-9 Urine Specific [place] 1.025 H 1.016-1.022 Urine Protein 1+ H NEGATIVE Urine Glucose (UA) NEGATIVE NEGATIVE Urine Ketones NEGATIVE NEGATIVE Urine Nitrite NEGATIVE NEGATIVE Urine Bilirubin 1+ H NEGATIVE Urine Urobilinogen 0.2 < = 1.0 MG/DL Urine Leukocyte Esterase NEGATIVE NEGATIVE Urine RBC (Auto) 3+ H NEGATIVE Urine RBC 50-100 H /HPF Urine WBC RARE /HPF Urine Squamous Epithelial Cells 2-5 /HPF Urine Crystals NONE /LPF Urine Bacteria FEW H /HPF Urine Casts NONE /LPF Urine Mucus LARGE H /LPF Urine Other CLUE CELLS NOTED /HPF Urine Culture Indicated NO Sodium Level 138 135-145 MMOL/L Potassium Level 4.0 3.6-5.0 MMOL/L Chloride Level 106 98-107 MMOL/L Carbon Dioxide Level 24 21-32 MMOL/L Anion Gap 8 5-14 MMOL/L Blood Urea Nitrogen 13 7-18 MG/DL Creatinine 0.77 0.60-1.30 MG/DL Estimat Glomerular Filtration Rate 99 BUN/Creatinine Ratio 17 Glucose Level 105 70-105 MG/DL Calcium Level 9.4 8.5-10.1 MG/DL Corrected Calcium 9.5 8.5-10.1 MG/DL Total Bilirubin 0.3 0.1-1.0 MG/DL Aspartate Amino Transf (AST/SGOT) 12 5-34 U/L Alanine Aminotransferase (ALT/SGPT) 7 0-55 U/L Alkaline Phosphatase 76 40-136 U/L Total Protein 6.6 6.4-8.2 GM/DL Albumin 3.9 3.2-4.5 GM/DL Urine Opiates Screen NEGATIVE NEGATIVE Urine Oxycodone Screen NEGATIVE NEGATIVE Urine Methadone Screen NEGATIVE NEGATIVE Urine Propoxyphene Screen NEGATIVE NEGATIVE Urine Barbiturates Screen NEGATIVE NEGATIVE Ur Tricyclic Antidepressants Screen NEGATIVE NEGATIVE Urine Phencyclidine Screen NEGATIVE NEGATIVE Urine Amphetamines Screen NEGATIVE NEGATIVE Urine Methamphetamines Screen NEGATIVE NEGATIVE Urine Benzodiazepines Screen NEGATIVE NEGATIVE Urine Cocaine Screen NEGATIVE NEGATIVE Urine Cannabinoids Screen NEGATIVE NEGATIVE My Orders Orders - VENKAT GARRISON MD Cbc With Automated Diff (07/19/21 12:12) Comprehensive Metabolic Panel (07/19/21 12:12) Ua Culture If Indicated (07/19/21 12:12) Drug Screen Stat (Urine) (07/19/21 12:12) Chest Pa/Lat (2 View) (07/19/21 12:12) Vital Signs/I&O 07/19/21 11:45 Temp 37.0 Pulse 88 Resp 34 B/P (MAP) 117/83 (94) Pulse Ox 97 O2 Delivery Room Air Capillary Refill : Less Than 3 Seconds Blood Pressure Mean: 94 Progress Note : Progress Note 1. ANXIETY, ACUTE: - Labs normal - EKG unremarkable - CXR normal - Advised to f/u with PCP. psychiatrist , and neurologist - Continue psych medications as PCP advises. -The patient was seen in the ED, and treated appropriately to presentation at a specific point in time. Patient is informed that there is a possibility that d isease and illness can evolve and change in acuity rapidly or slowly after patient is discharged from the ER. Precautionary advice given to the patient for immediate return to ER if symptoms worsen or do not resolve, and to seek emergency care sooner rather than later. Pt also advised on the importance of PCP follow up and compliance with management and follow up plan. Pt verbally expressed understanding. ECG Initial ECG Impression Date: Jul 19, 2021 Initial ECG Impression Time: 11:57 Initial ECG Rate: 86 Initial ECG Impression: Normal Initial ECG Comparisson: No Previous ECG Available Diagnostic Imaging Diagonstic Imaging: Xray Plain Films/CT/US/NM/MRI: chest Comments [facility], [place] NAME: PIERRE DUGAN [facility] REC#: [id number] PT STATUS: REG ER : 1980 PHYSICIAN: VENKAT GARRISON MD ADMIT DATE: 07/19/21/ER FS Draft Date of Exam:07/19/21 CHEST PA/LAT (2 VIEW) INDICATION: Palpitations. TIME OF EXAM: 12:24 p.m. COMPARISON: Comparison is made with prior chest from 11/27/2020. FINDINGS: Cardiac loop recorder overlies the left chest. The heart size is normal. Lungs appear clear. No infiltrates are seen. There is no effusion or pneumothorax. IMPRESSION: No acute cardiopulmonary process is detected. Dictated on workstation # [id number] Dict: 07/19/21 1232 Trans: 07/19/21 1235 [id number] Interpreted by: OSBALDO LYN MD Electronically signed by: Departure Impression Primary Impression: Acute anxiety Disposition: 01 HOME, SELF-CARE Condition: Stable Departure-Patient Inst. Referrals: MIRANDA VALE APRN (PCP) Primary Care Physician [facility] (Family) Primary Care Physician Patient Instructions: Anxiety, Adult ED Add. Discharge Instructions: F/u with Neurology, PCP, and Psychiatry - Also F/u with Dr Sparks to check loop recorder: Office for Dr Sparks: [phone] All discharge instructions reviewed with patient and/or family. Voiced understanding. VENKAT GARRISON MD Jul 19, 2021 13:50
[2021-07-19 14:00] VITALS: BP 112/74
[2021-07-19] MEDS ORDERED: DIVA500T15 PO (16:03)
== END 2021-07-19 14:00 | disposition home or self-care (01) ==
LOC: EDUNIT# 11:40 → ER FS 11:42
DX: F41.8 Other specified anxiety disorders (principal); G40.909 Epilepsy, unspecified, not intractable, without status epilepticus; F17.210 Nicotine dependence, cigarettes, uncomplicated; Z79.899 Other long term (current) drug therapy
CPT/HCPCS: 36415; 71046; 80053; 80306; 81000; 85025; 93005

== ENCOUNTER 2021-07-21 16:12 | Emergency (ER) | payer MEDICARE ==
[~2021-07-21 16:12] MED LIST changes: +DIVA500T15 PO
[2021-07-21] MEDS ORDERED: ACETAMINOPHEN 500 MG TAB (TYLENOL) PO STA (16:22)
[2021-07-21] MEDS ORDERED: KETOROLAC 30 MG/ML VIAL IVP STA (16:22)
[2021-07-21 16:27] LABS: BASOPHILS # (AUTO) 0.1 10^3/uL (0.0-0.1); BASOPHILS % (AUTO) 0 % (0-10); EOSINOPHILS # (AUTO) 0.2 10^3/uL (0.0-0.3); EOSINOPHILS % (AUTO) 2 % (0-10); HEMATOCRIT 44 % (35-52); HEMOGLOBIN 14.7 g/dL (11.5-16.0); LYMPHOCYTES # (AUTO) 1.6 10^3/uL (1.0-4.0); LYMPHOCYTES % (AUTO) 12 % (12-44); MEAN CORPUSCULAR HEMOGLOBIN 30 pg (25-34); MEAN CORPUSCULAR HGB CONC 34 g/dL (32-36); MEAN CORPUSCULAR VOLUME 91 fL (80-99); MEAN PLATELET VOLUME 10.3 fL (9.0-12.2); MONOCYTES # (AUTO) 0.8 10^3/uL (0.0-1.0); MONOCYTES % (AUTO) 6 % (0-12); NEUTROPHILS # (AUTO) 10.1 10^3/uL (1.8-7.8); NEUTROPHILS % (AUTO) 80 % (42-75); PLATELET COUNT 267 10^3/uL (130-400); WHITE BLOOD COUNT 12.7 10^3/uL (4.3-11.0)
[2021-07-21] MEDS ORDERED: NS IV 1000 ML 1,000 ML IV SCH (16:30)
--- NOTE | 2021-07-21 16:45 | ED General ---
General Chief Complaint: Neurological Problems Stated Complaint: SEIZURES Nursing Triage Note: PT WAS HAVING "SEIZURE-LIKE" ACTIVITY AT HOME. PER EMS SHE HAD 4 "SEIZURES' IMMEDIATELY AWAKE AND TALKING AND NO LOSS OF URINE OR BOWEL. Source of Information: Patient, EMS, Old Records History of Present Illness Date Seen by Provider: Jul 21, 2021 Time Seen by Provider: 16:14 Initial Comments 40-year-old female presenting with complaints of multiple seizures in this last week. She states that she was having multiple episodes today that prompted EMS to be activated. She was sitting talking to one of her neighbors in the apartment complex where she just moved. When she started having seizure activity they had called 911. She has a history of pseudoseizures and has been having increased pseudoseizures recently. The [facility] clinic had started her on Depakote. She does follow with a neurologist out of [facility] but she cannot remember the name of the provider. She had no loss of bowel or bladder control. She has no bite higuera to her tongue. She was able to come out of her seizures with talking to her. She was able to talk and answer questions during her seizure activity. Timing/Duration: 1 Week (Increased seizure activity over the last week. She was seen 2 days ago for increased stress which she reports is a trigger for her pseudoseizures) Severity: Moderate Modifying Factors: worse with Other (Stress) Associated Systoms: No Chest Pain, No Cough, No Diaphoresis, No Fever/Chills; Headaches (She gets a headache after her pseudoseizures); No Loss of Appetite, No Malaise, No Nausea/Vomiting, No Rash, No Shortness of Air, No Syncope, No Weakness Allergies and Home Medications Allergies Coded Allergies: No Known Drug Allergies (Unverified , 12/22/17) Patient Home Medication List Home Medication List Reviewed: Yes Divalproex Sodium (Divalproex Sodium ER) 500 Mg Tab.er.24h, 500 MG PO DAILY, (Reported) Entered as Reported by: SARA ALEJANDRE on 07/19/21 160 Fluoxetine HCl (Prozac) 10 Mg Capsule, 10 MG PO DAILY, (Reported) Entered as Reported by: NICK REDDY on 02/28/20 0922 Fluoxetine HCl (Prozac) 20 Mg Capsule, 20 MG PO DAILY, (Reported) Entered as Reported by: NICK REDDY on 02/28/20921 Sulfamethoxazole/Trimethoprim (Bactrim Ds Tablet) 1 Each Tablet, 1 EACH PO BID Prescribed by: ALISHA CORDOVA on 07/21/21 1812 Discontinued Medications Amoxicillin/Potassium Clav (Augmentin 875-125 Tablet) 1 Each Tablet, 1 EACH PO BID Discontinued Reason: Referral/FU Appt-Addtl Prescribed by: FABY TRUJILLO on 02/27/21 0952 Cyclobenzaprine HCl (Cyclobenzaprine HCl) 10 Mg Tablet, 10 MG PO TID Discontinued Reason: Referral/FU Appt-Addtl Prescribed by: FABY TRUJILLO on 11/18/20 2233 Hydrocodone Bit/Acetaminophen (HYDROcodone/APAP 5 MG/325 MG TAB) 1 Tab Tab, 1-2 TAB PO Q4-6HR PRN for PAIN-MODERATE (5-7) Discontinued Reason: Referral/FU Appt-Addtl Prescribed by: TONY JAVIER on 10/19/20 1143 Hydrocodone/Acetaminophen (Hydrocodone-Acetamin 5-325 mg) 1 Each Tablet, 1 TAB PO Q4H PRN for PAIN-MODERATE (5-7) Discontinued Reason: Referral/FU Appt-Addtl Prescribed by: FABY TRUJILLO on 02/27/21 0953 Rosuvastatin Calcium (Rosuvastatin Calcium) 20 Mg Tablet, 20 MG PO HS, (Reported) Discontinued Reason: Referral/FU Appt-Addtl Entered as Reported by: NICK REDDY on 02/28/20921 Review of Systems Review of Systems Constitutional: No chills, No fever EENTM: No ear discharge, No hearing loss, No ear pain, No blurred vision, No vision loss, No mouth pain, No mouth swelling, No epistaxis, No nose congestion Respiratory: No cough, No short of breath, No stridor, No wheezing Cardiovascular: No chest pain Gastrointestinal: No nausea, No vomiting Genitourinary: dysuria, frequency Musculoskeletal: muscle pain (Generalized muscle aches) Skin: No rash Psychiatric/Neurological: Anxiety (Increased anxiety and stress), Headache (Reports headache after having pseudoseizure) Hematologic/Lymphatic: Denies Blood Clots Past Lfovyvk-Baphks-Qibikb Hx Patient Social History Tobacco Use?: No Use of E-Cig and/or Vaping dev: No Substance use?: No Alcohol Use?: No Pt feels they are or have been: No Immunizations Up To Date Tetanus Booster (TDap): Unknown First/Initial COVID19 Vaccinat: NOVEMBER 2020 Second COVID19 Vaccination Pankaj: NOVEMBER 2020 Third COVID19 Vaccination Date: NOVEMBER 2020 Seasonal Allergies Seasonal Allergies: Yes Past Medical History Surgery/Hospitalization HX: Loop recorder placed, Hx seizure (a work up to classify not completed), Depresson-PTSD Surgeries: Yes (loop recorder) Gallbladder Respiratory: No Currently Using CPAP: No Currently Using BIPAP: No Cardiac: Yes (heart cath) Syncope Neurological: Yes (Seizure-like activity) Concussion Reproductive Disorders: No Sexually Transmitted Disease: No Genitourinary: No Gastrointestinal: Yes Gall Bladder Disease Musculoskeletal: Yes Arthritis, Fractures Endocrine: No HEENT: No Cancer: No Psychosocial: Yes Anxiety, Depression Integumentary: No Blood Disorders: No Physical Exam Vital Signs Vital Signs - First Documented 07/21/21 16:12 Temp 36.8 Pulse 98 Resp 18 B/P (MAP) 110/77 (88) Pulse Ox 97 O2 Delivery Room Air Capillary Refill : Less Than 3 Seconds Height, Weight, BMI Height: 5'2.00" Weight: 160lbs. 8.0oz. [id number]; 31.00 BMI Method:Stated General Appearance: No Apparent Distress, WD/WN HEENT: PERRL/EOMI, Normal ENT Inspection, Pharynx Normal, Moist Mucous Membranes, Other (No laceration or bite higuera on her tongue or mouth. She has widespread dental decay and multiple broken teeth) Neck: Full Range of Motion, Normal Inspection, Non Tender, Supple Respiratory: Chest Non Tender, Lungs Clear, Normal Breath Sounds, No Accessory Muscle Use, No Respiratory Distress Cardiovascular: Regular Rate, Rhythm, Normal Peripheral Pulses Gastrointestinal: Normal Bowel Sounds, No Pulsatile Mass, Non Tender, Soft Rectal: Deferred Extremity: Normal Capillary Refill, Normal Inspection, Normal Range of Motion, No Pedal Edema Neurologic/Psychiatric: Alert, Oriented x3, licensed physical therapist II-XII Norm as Tested Skin: Normal Color, Warm/Dry; No Rash Progress/Results/Core Measures Suspected Sepsis SIRS Temperature: Pulse: 98 Respiratory Rate: 18 Laboratory Tests 07/21/21 16:12: White Blood Count 12.7H Blood Pressure 110 /77 Mean: 88 Laboratory Tests 07/21/21 16:12: Creatinine 0.65, Platelet Count 267, Total Bilirubin 0.4 Results/Orders Lab Results Laboratory Tests Test 07/21/21 16:12 07/21/21 16:53 Range/Units White Blood Count 12.7 H 4.3-11.0 10^3/uL Red Blood Count 4.83 3.80-5.11 10^6/uL Hemoglobin 14.7 11.5-16.0 g/dL Hematocrit 44 35-52 % Mean Corpuscular Volume 91 80-99 fL Mean Corpuscular Hemoglobin 30 25-34 pg Mean Corpuscular Hemoglobin Concent 34 32-36 g/dL Red Cell Distribution Width 13.8 10.0-14.5 % Platelet Count 267 130-400 10^3/uL Mean Platelet Volume 10.3 9.0-12.2 fL Immature Granulocyte % (Auto) 0 % Neutrophils (%) (Auto) 80 H 42-75 % Lymphocytes (%) (Auto) 12 12-44 % Monocytes (%) (Auto) 6 0-12 % Eosinophils (%) (Auto) 2 0-10 % Basophils (%) (Auto) 0 0-10 % Neutrophils # (Auto) 10.1 H 1.8-7.8 10^3/uL Lymphocytes # (Auto) 1.6 1.0-4.0 10^3/uL Monocytes # (Auto) 0.8 0.0-1.0 10^3/uL Eosinophils # (Auto) 0.2 0.0-0.3 10^3/uL Basophils # (Auto) 0.1 0.0-0.1 10^3/uL Immature Granulocyte # (Auto) 0.0 0.0-0.1 10^3/uL Sodium Level 137 135-145 MMOL/L Potassium Level 4.6 3.6-5.0 MMOL/L Chloride Level 103 98-107 MMOL/L Carbon Dioxide Level 22 21-32 MMOL/L Anion Gap 12 5-14 MMOL/L Blood Urea Nitrogen 15 7-18 MG/DL Creatinine 0.65 0.60-1.30 MG/DL Estimat Glomerular Filtration Rate 113 BUN/Creatinine Ratio 23 Glucose Level 100 70-105 MG/DL Calcium Level 9.0 8.5-10.1 MG/DL Corrected Calcium 9.0 8.5-10.1 MG/DL Total Bilirubin 0.4 0.1-1.0 MG/DL Aspartate Amino Transf (AST/SGOT) 15 5-34 U/L Alanine Aminotransferase (ALT/SGPT) 8 0-55 U/L Alkaline Phosphatase 77 40-136 U/L Total Protein 6.9 6.4-8.2 GM/DL Albumin 4.0 3.2-4.5 GM/DL Salicylates Level < 0.3 L 5.0-20.0 MG/DL Acetaminophen Level < 10 L 10-30 UG/ML Serum Alcohol < 10 <10 MG/DL Urine Color RED H Urine Clarity CLOUDY Urine pH 6.0 5-9 Urine Specific [place] 1.025 H 1.016-1.022 Urine Protein 2+ H NEGATIVE Urine Glucose (UA) NEGATIVE NEGATIVE Urine Ketones NEGATIVE NEGATIVE Urine Nitrite NEGATIVE NEGATIVE Urine Bilirubin NEGATIVE NEGATIVE Urine Urobilinogen 0.2 < = 1.0 MG/DL Urine Leukocyte Esterase NEGATIVE NEGATIVE Urine RBC (Auto) 3+ H NEGATIVE Urine RBC >100 H /HPF Urine WBC NONE /HPF Urine Squamous Epithelial Cells 25-50 H /HPF Urine Crystals NONE /LPF Urine Bacteria LARGE H /HPF Urine Casts NONE /LPF Urine Mucus LARGE H /LPF Urine Yeast FEW H /HPF Urine Culture Indicated NO Urine Opiates Screen NEGATIVE NEGATIVE Urine Oxycodone Screen NEGATIVE NEGATIVE Urine Methadone Screen NEGATIVE NEGATIVE Urine Propoxyphene Screen NEGATIVE NEGATIVE Urine Barbiturates Screen NEGATIVE NEGATIVE Ur Tricyclic Antidepressants Screen NEGATIVE NEGATIVE Urine Phencyclidine Screen NEGATIVE NEGATIVE Urine Amphetamines Screen NEGATIVE NEGATIVE Urine Methamphetamines Screen NEGATIVE NEGATIVE Urine Benzodiazepines Screen NEGATIVE NEGATIVE Urine Cocaine Screen NEGATIVE NEGATIVE Urine Cannabinoids Screen NEGATIVE NEGATIVE My Orders Orders - ALISHA CORDOVA MD Ua Culture If Indicated (07/21/21 16:22) Cbc With Automated Diff (07/21/21 16:22) Comprehensive Metabolic Panel (07/21/21 16:22) Alcohol (07/21/21 16:22) Drug Screen Stat (Urine) (07/21/21 16:22) Acetaminophen (07/21/21 16:22) Salicylate (07/21/21 16:22) Ed Iv/Invasive Line Start (07/21/21 16:22) Monitor-Rhythm Ecg Trace Only (07/21/21 16:22) Ns Iv 1000 Ml (Sodium Chloride 0.9%) (07/21/21 16:30) Ketorolac Injection (Toradol Injection) (07/21/21 16:22) Acetaminophen Tablet (Tylenol Tablet) (07/21/21 16:22) Ceftriaxone 1 Gm Pre-Mix (Rocephin 1 Gm (07/21/21 17:39) Vital Signs/I&O 07/21/21 07/21/21 16:12 18:14 Temp 36.8 36.2 Pulse 98 84 Resp 18 16 B/P (MAP) 110/77 (88) 122/80 Pulse Ox 97 98 O2 Delivery Room Air Room Air Capillary Refill : Less Than 3 Seconds Blood Pressure Mean: 88 Progress Note #1: Progress Note Obtain basic labs including urinalysis. Give IV fluids 1 L normal saline for hydration. Since she was complaining of a headache she requested acetaminophen. Will order a gram of acetaminophen for her headache in addition to 30 mg of IV Toradol. Progress Note #2: Progress Note Labs show mild elevation of her white blood cell count to 12.7. This might be related to stress and dehydration. Her chemistry panel appeared stable without acute significant abnormality. Her urinalysis did show signs of infection. Ordered 1 g of Rocephin and will continue antibiotics to treat for UTI. She did have some epithelial cells in her urine so it could be more contaminant. However this could also be a trigger for her extra stress and pseudoseizures. Encouraged to continue her regular medicines and to follow-up with her neurologist in clinic about continued concerns Departure Impression Primary Impression: Cystitis with hematuria Additional Impression: Pseudoseizures Disposition: 01 HOME, SELF-CARE Condition: Stable Departure-Patient Inst. Decision time for Depature: 18:10 Referrals: MIRANDA VALE APRN (PCP) Primary Care Physician [facility] (Family) Primary Care Physician Patient Instructions: Urinary Tract Infection, Adult ED Add. Discharge Instructions: Stay well hydrated and drink more water. Take the full course of antibiotics to treat for urine infection. Check with clinic for continued concerns and with your neurology doctor in [place] about your increased pseudoseizures. All discharge instructions reviewed with patient and/or family. Voiced understanding. Scripts Sulfamethoxazole/Trimethoprim (Bactrim Ds Tablet) 1 Each Tablet 1 EACH PO BID for UTI for 5 Days, #10 TAB 0 Refills Prov: ALISHA CORDOVA MD 07/21/21 ALISHA CORDOVA MD Jul 21, 2021 16:45
[2021-07-21 16:50] LABS: ALKALINE PHOSPHATASE 77 U/L (40-136); BILIRUBIN,TOTAL 0.4 MG/DL (0.1-1.0); BUN/CREATININE RATIO 23; CARBON DIOXIDE 22 MMOL/L (21-32); CHLORIDE 103 MMOL/L (98-107); CREATININE SERUM 0.65 MG/DL (0.60-1.30); GFR ESTIMATED 113; GLUCOSE 100 MG/DL (70-105); POTASSIUM 4.6 MMOL/L (3.6-5.0); SODIUM 137 MMOL/L (135-145)
[2021-07-21 16:51] LABS: ACETAMINOPHEN < 10 UG/ML (10-30); ALANINE AMINOTRANSFERASE 8 U/L (0-55); SALICYLATE < 0.3 MG/DL (5.0-20.0); TOTAL PROTEIN 6.9 GM/DL (6.4-8.2)
[2021-07-21 16:56] LABS: BILIRUBIN,URINE NEGATIVE (NEGATIVE); GLUCOSE, URINE (UA) NEGATIVE (NEGATIVE); KETONES,URINE NEGATIVE (NEGATIVE); LEUKOCYTE ESTERASE ,URINE NEGATIVE (NEGATIVE); NITRITE,URINE NEGATIVE (NEGATIVE); PROTEIN,URINE 2+ (NEGATIVE)
[2021-07-21 17:00] LABS: BACTERIA,URINE LARGE /HPF; CLARITY,URINE CLOUDY; COLOR,URINE RED; RBC,URINE >100 /HPF; SQUAMOUS EPITHELIAL CELL,UR 25-50 /HPF
[2021-07-21 17:01] LABS: YEAST,URINE FEW /HPF
[2021-07-21 17:08] LABS: AMPHETAMINE SCREEN, URINE NEGATIVE (NEGATIVE); BARBITURATE SCREEN URINE NEGATIVE (NEGATIVE); BENZODIAZEPINES SCREEN URINE NEGATIVE (NEGATIVE); CANNABINOID SCREEN, URINE NEGATIVE (NEGATIVE); COCAINE SCREEN URINE NEGATIVE (NEGATIVE); METHADONE STAT NEGATIVE (NEGATIVE); METHAMPHETAMINE SCREEN URINE S NEGATIVE (NEGATIVE); OPIATE SCREEN URINE NEGATIVE (NEGATIVE); OXYCODONE STAT NEGATIVE (NEGATIVE); PROPOXYPHENE STAT NEGATIVE (NEGATIVE); TRICYCLIC ANTIDEPRESSANTS SCRE NEGATIVE (NEGATIVE)
[2021-07-21] MEDS ORDERED: cefTRIAXone 1 GM PRE-MIX 50 ML IV STA (17:39)
[2021-07-21] MEDS ORDERED: SULF1TAB38 PO (18:12)
[2021-07-21 18:14] VITALS: BP 122/80
== END 2021-07-21 18:15 | disposition home or self-care (01) ==
LOC: EDUNIT# 16:12 → ER FS 16:13
DX: N30.91 Cystitis, unspecified with hematuria (principal); R56.9 Unspecified convulsions
CPT/HCPCS: 36415; 80053; 80306; 81000; 85025; 99284; G0480 ×3; 80320; 80329

== ENCOUNTER 2021-09-14 18:21 | Emergency (ER) | payer MEDICARE ==
[~2021-09-14 18:21] MED LIST changes: +SULF1TAB38 PO
[2021-09-14] MEDS ORDERED: ACETAMINOPHEN 500 MG TAB (TYLENOL) PO ONE (18:30)
--- NOTE | 2021-09-14 18:35 | ED General ---
General Chief Complaint: General Problems/Pain Stated Complaint: SEIZURES,HIT HEAD Source of Information: Patient Exam Limitations: No Limitations History of Present Illness Date Seen by Provider: September 14, 2021 Time Seen by Provider: 18:20 Initial Comments Patient is a 40-year-old female with history of pseudoseizures who presents from home with witnessed pseudoseizures. Patient became unresponsive on the ground and shook for 5 times. On EMS arrival, the patient was lying facedown. Upon turning the patient over remained unresponsive until receiving a sternal rub which point patient immediately alerted and continued shaking her arms. The patient reports mild headache and posterior neck pain. She is not on ant icoagulation therapy. There is no other report of pain or injury. Patient is alert and oriented x3. Timing/Duration: 1-3 Hours Severity: Mild Modifying Factors: improves with Other Associated Systoms: Other Allergies and Home Medications Allergies Coded Allergies: No Known Drug Allergies (Unverified , 12/22/17) Patient Home Medication List Home Medication List Reviewed: Yes Divalproex Sodium (Divalproex Sodium ER) 500 Mg Tab.er.24h, 500 MG PO DAILY, (Reported) Entered as Reported by: SARA ALEJANDRE on 07/19/21 1603 Fluoxetine HCl (Prozac) 10 Mg Capsule, 10 MG PO DAILY, (Reported) Entered as Reported by: NICK REDDY on 02/28/20 09 Fluoxetine HCl (Prozac) 20 Mg Capsule, 20 MG PO DAILY, (Reported) Entered as Reported by: NICK REDDY on 02/28/20 0922 Sulfamethoxazole/Trimethoprim (Bactrim Ds Tablet) 1 Each Tablet, 1 EACH PO BID Prescribed by: ALISHA CORDOVA on 07/21/21 181 Review of Systems Review of Systems Constitutional: see HPI EENTM: see HPI Respiratory: see HPI Cardiovascular: see HPI Gastrointestinal: see HPI Genitourinary: see HPI Musculoskeletal: see HPI Skin: see HPI Psychiatric/Neurological: See HPI Hematologic/Lymphatic: See HPI Immunological/Allergic: see HPI All Other Systems Reviewed Negative Unless Noted: Yes Past Anvscnl-Oerwse-Ydjbja Hx Patient Social History Tobacco Use?: Yes Tobacco type used: Cigarettes Smoking Status: Current Everyday Smoker Use of E-Cig and/or Vaping dev: No Substance use?: No Alcohol Use?: No Pt feels they are or have been: No Immunizations Up To Date Tetanus Booster (TDap): Unknown First/Initial COVID19 Vaccinat: NOVEMBER 2020 Second COVID19 Vaccination Pankaj: NOVEMBER 2020 Third COVID19 Vaccination Date: NOVEMBER 2020 Seasonal Allergies Seasonal Allergies: Yes Past Medical History Surgery/Hospitalization HX: Loop recorder placed, Hx seizure (a work up to classify not completed), Depresson-PTSD Surgeries: Yes (loop recorder) Gallbladder Respiratory: No Currently Using CPAP: No Currently Using BIPAP: No Cardiac: Yes (heart cath) Syncope Neurological: Yes (Seizure-like activity) Concussion Reproductive Disorders: No Sexually Transmitted Disease: No Genitourinary: No Gastrointestinal: Yes Gall Bladder Disease Musculoskeletal: Yes Arthritis, Fractures Endocrine: No HEENT: No Cancer: No Psychosocial: Yes Anxiety, Depression Integumentary: No Blood Disorders: No Physical Exam Vital Signs Capillary Refill : Height, Weight, BMI Height: 5'2.00" Weight: 160lbs. 8.0oz. 72.105407yy; 31.00 BMI Method:Stated General Appearance: No Apparent Distress, WD/WN Eyes: Bilateral Eye PERRL, Bilateral Eye EOMI HEENT: PERRL/EOMI Neck: Tender Lateral Respiratory: Lungs Clear Focused Exam Sepsis Stage: Ruled Out Progress/Results/Core Measures Suspected Sepsis SIRS Temperature: Pulse: Respiratory Rate: Blood Pressure / Mean: Results/Orders My Orders Orders - FABY TRUJILLO DO Acetaminophen Tablet (Tylenol Tablet) (09/14/21 18:30) Vital Signs/I&O Capillary Refill : Departure Communication (Admissions) Patient is neurologically intact. No midline neck pain or tenderness. Tylenol g iven for pain. Patient reassured. Impression Primary Impression: General medical exam Disposition: 01 HOME, SELF-CARE Condition: Stable Departure-Patient Inst. Decision time for Depature: 18:35 Referrals: MIRANDA VALE APRN (PCP) Primary Care Physician [facility] (Family) Primary Care Physician Add. Discharge Instructions: Please go home and rest. Take Tylenol for pain and follow up with your PCP for re-evaluation. Return to the ED if new or worsening symptoms. All discharge instructions reviewed with patient and/or family. Voiced understanding. FABY TRUJILLO DO September 14, 2021 18:35
[2021-09-14 18:40] VITALS: BP 116/75
== END 2021-09-14 18:41 | disposition home or self-care (01) ==
LOC: EDUNIT# 18:21 → ER FS 18:22
DX: F44.5 Conversion disorder with seizures or convulsions (principal)

== ENCOUNTER 2021-11-07 13:43 | Emergency (ER) | payer MEDICARE ==
[~2021-11-07] VITALS: Ht 149 cm; Wt 50.0 kg
--- NOTE | 2021-11-07 13:47 | ED General ---
General Stated Complaint: SEIZURE History of Present Illness Date Seen by Provider: Nov 07, 2021 Time Seen by Provider: 13:47 Initial Comments 40-year-old female presents due to seizure. Patient daughter reports that she has had 3 seizures this morning. Patient has a seizure history that started approximately 1 year ago following her third dose of mRNA COVID-vaccine. Patient reports prior to that she had no seizure history. Patient has had CT and MRI. She is scheduled to see a neurologist in about a month. Patient is c urrently on Dilantin and reports that she is taking it appropriately. Patient's daughter describes seizure as tonic-clonic. There was no tongue biting, no loss of bowel or bladder. No reports of recent fever chills nausea vomiting or other type illness. Allergies and Home Medications Allergies Coded Allergies: No Known Drug Allergies (Unverified , 12/22/17) Patient Home Medication List Home Medication List Reviewed: Yes Divalproex Sodium (Divalproex Sodium ER) 500 Mg Tab.er.24h, 500 MG PO DAILY, (Reported) Entered as Reported by: SARA ALEJANDRE on 07/19/21 1603 Fluoxetine HCl (Prozac) 10 Mg Capsule, 10 MG PO DAILY, (Reported) Entered as Reported by: NICK REDDY on 02/28/20921 Fluoxetine HCl (Prozac) 20 Mg Capsule, 20 MG PO DAILY, (Reported) Entered as Reported by: NICK REDDY on 02/28/20921 Sulfamethoxazole/Trimethoprim (Bactrim Ds Tablet) 1 Each Tablet, 1 EACH PO BID Prescribed by: ALISHA CORDOVA on 07/21/211811 Review of Systems Review of Systems Constitutional: No chills; dizziness; No fever; malaise EENTM: no symptoms reported Respiratory: No cough, No short of breath Cardiovascular: No chest pain, No palpitations Gastrointestinal: No abdominal pain, No nausea, No vomiting Musculoskeletal: no symptoms reported Skin: no symptoms reported Psychiatric/Neurological: See HPI, Headache, Seizure Past Cqkpxgq-Gejoqg-Wrgttz Hx Immunizations Up To Date Tetanus Booster (TDap): Unknown First/Initial COVID19 Vaccinat: NOVEMBER 2020 Second COVID19 Vaccination Pankaj: NOVEMBER 2020 Third COVID19 Vaccination Date: NOVEMBER 2020 Seasonal Allergies Seasonal Allergies: Yes Past Medical History Surgery/Hospitalization HX: Loop recorder placed, Hx seizure (a work up to classify not completed), Depresson-PTSD Surgeries: Yes (loop recorder) Gallbladder Respiratory: No Currently Using CPAP: No Currently Using BIPAP: No Cardiac: Yes (heart cath) Syncope Neurological: Yes (Seizure-like activity) Concussion Reproductive Disorders: No Sexually Transmitted Disease: No Genitourinary: No Gastrointestinal: Yes Gall Bladder Disease Musculoskeletal: Yes Arthritis, Fractures Endocrine: No HEENT: No Cancer: No Psychosocial: Yes Anxiety, Depression Integumentary: No Blood Disorders: No Physical Exam Vital Signs Vital Signs - First Documented 11/07/21 13:45 Temp 36.4 Pulse 91 Resp 18 B/P (MAP) 134/78 (96) Pulse Ox 95 O2 Delivery Room Air Capillary Refill : Height, Weight, BMI Height: 5'2.00" Weight: 160lbs. 8.0oz. 72.242141rt; 31.00 BMI Method:Stated General Appearance: No Apparent Distress, WD/WN Eyes: Bilateral Eye Normal Inspection, Bilateral Eye PERRL, Bilateral Eye EOMI HEENT: Pharynx Normal, Moist Mucous Membranes Neck: Non Tender, Supple Respiratory: Lungs Clear, Normal Breath Sounds, No Accessory Muscle Use Cardiovascular: Regular Rate, Rhythm, No Edema Extremity: Normal Capillary Refill, Normal Range of Motion Neurologic/Psychiatric: Alert, Oriented x3, No Motor/Sensory Deficits, Normal Mood/Affect, informatics spec II-XII Norm as Tested Skin: Normal Color, Warm/Dry Progress/Results/Core Measures Suspected Sepsis SIRS Temperature: Pulse: Respiratory Rate: Laboratory Tests 11/07/21 14:06: White Blood Count 11.5H Blood Pressure / Mean: Laboratory Tests 11/07/21 14:06: Creatinine 0.74, Platelet Count 206, Total Bilirubin 0.4 Results/Orders Lab Results Laboratory Tests Test 11/07/21 14:06 11/07/21 14:20 Range/Units White Blood Count 11.5 H 4.3-11.0 10^3/uL Red Blood Count 4.64 3.80-5.11 10^6/uL Hemoglobin 14.1 11.5-16.0 g/dL Hematocrit 42 35-52 % Mean Corpuscular Volume 90 80-99 fL Mean Corpuscular Hemoglobin 30 25-34 pg Mean Corpuscular Hemoglobin Concent 34 32-36 g/dL Red Cell Distribution Width 14.5 10.0-14.5 % Platelet Count 206 130-400 10^3/uL Mean Platelet Volume 11.0 9.0-12.2 fL Immature Granulocyte % (Auto) 0 % Neutrophils (%) (Auto) 61 42-75 % Lymphocytes (%) (Auto) 30 12-44 % Monocytes (%) (Auto) 7 0-12 % Eosinophils (%) (Auto) 2 0-10 % Basophils (%) (Auto) 0 0-10 % Neutrophils # (Auto) 7.1 1.8-7.8 10^3/uL Lymphocytes # (Auto) 3.4 1.0-4.0 10^3/uL Monocytes # (Auto) 0.8 0.0-1.0 10^3/uL Eosinophils # (Auto) 0.2 0.0-0.3 10^3/uL Basophils # (Auto) 0.0 0.0-0.1 10^3/uL Immature Granulocyte # (Auto) 0.0 0.0-0.1 10^3/uL Sodium Level 138 135-145 MMOL/L Potassium Level 4.0 3.6-5.0 MMOL/L Chloride Level 104 98-107 MMOL/L Carbon Dioxide Level 23 21-32 MMOL/L Anion Gap 11 5-14 MMOL/L Blood Urea Nitrogen 10 7-18 MG/DL Creatinine 0.74 0.60-1.30 MG/DL Estimat Glomerular Filtration Rate 104 BUN/Creatinine Ratio 14 Glucose Level 116 H 70-105 MG/DL Calcium Level 9.2 8.5-10.1 MG/DL Corrected Calcium 9.4 8.5-10.1 MG/DL Total Bilirubin 0.4 0.1-1.0 MG/DL Aspartate Amino Transf (AST/SGOT) 11 5-34 U/L Alanine Aminotransferase (ALT/SGPT) 5 0-55 U/L Alkaline Phosphatase 77 40-136 U/L Total Protein 6.5 6.4-8.2 GM/DL Albumin 3.8 3.2-4.5 GM/DL Urine Color RED H Urine Clarity CLOUDY Urine pH 5.5 5-9 Urine Specific [place] 1.020 1.016-1.022 Urine Protein 2+ H NEGATIVE Urine Glucose (UA) NEGATIVE NEGATIVE Urine Ketones NEGATIVE NEGATIVE Urine Nitrite POSITIVE H NEGATIVE Urine Bilirubin 1+ H NEGATIVE Urine Urobilinogen 1.0 < = 1.0 MG/DL Urine Leukocyte Esterase TRACE H NEGATIVE Urine RBC (Auto) 3+ H NEGATIVE Urine RBC >100 H /HPF Urine WBC 10-25 H /HPF Urine Squamous Epithelial Cells 0-2 /HPF Urine Crystals NONE /LPF Urine Bacteria FEW H /HPF Urine Casts NONE /LPF Urine Mucus NEGATIVE /LPF Urine Culture Indicated YES My Orders Orders - CASANDRA RODRÍGUEZR L DO Cbc With Automated Diff (11/07/21 13:52) Comprehensive Metabolic Panel (11/07/21 13:52) Ua Culture If Indicated (11/07/21 13:52) Dilantin (Phenytoin) (11/07/21 13:52) Lactated Ringers (Lr 1000 Ml Iv Solution (11/07/21 13:52) Urine Culture (11/07/21 14:20) Vital Signs/I&O 11/07/21 13:45 Temp 36.4 Pulse 91 Resp 18 B/P (MAP) 134/78 (96) Pulse Ox 95 O2 Delivery Room Air Capillary Refill : Progress Note : Progress Note Patient with known seizure history. Patient's labs are consistent with a urinary tract infection which might be contributing. We will treat her with Cipro. Patient stable and discharged home Departure Impression Primary Impression: Witnessed seizure-like activity Additional Impression: Urinary tract infection with hematuria Qualified Codes: N30.01 - Acute cystitis with hematuria Disposition: HOME, SELF-CARE Condition: Stable Departure-Patient Inst. Referrals: MIRANDA VALE APRN (PCP) Primary Care Physician [facility] (Family) Primary Care Physician Patient Instructions: Seizures, Adult ED, Urinary Tract Infections in Adults Add. Discharge Instructions: Please keep your scheduled appointment with neurologist Drink plenty of fluids Follow-up with your primary care provider in 1 week to recheck your Scripts Ciprofloxacin HCl (Ciprofloxacin HCl) 500 Mg Tablet 500 MG PO BID, #14 TAB Prov: CASANDRA RODRÍGUEZR L DO 11/07/21 CASANDRA RODRÍGUEZR L DO Nov 07, 2021 13:47
[2021-11-07] MEDS ORDERED: LACTATED RINGERS 1,000 ML IV STA (13:52)
[2021-11-07 14:09] LABS: BASOPHILS % (AUTO) 0 % (0-10); EOSINOPHILS # (AUTO) 0.2 10^3/uL (0.0-0.3); EOSINOPHILS % (AUTO) 2 % (0-10); HEMATOCRIT 42 % (35-52); HEMOGLOBIN 14.1 g/dL (11.5-16.0); LYMPHOCYTES # (AUTO) 3.4 10^3/uL (1.0-4.0); LYMPHOCYTES % (AUTO) 30 % (12-44); MEAN CORPUSCULAR HEMOGLOBIN 30 pg (25-34); MEAN CORPUSCULAR HGB CONC 34 g/dL (32-36); MEAN CORPUSCULAR VOLUME 90 fL (80-99); MONOCYTES # (AUTO) 0.8 10^3/uL (0.0-1.0); MONOCYTES % (AUTO) 7 % (0-12); NEUTROPHILS # (AUTO) 7.1 10^3/uL (1.8-7.8); NEUTROPHILS % (AUTO) 61 % (42-75); PLATELET COUNT 206 10^3/uL (130-400); WHITE BLOOD COUNT 11.5 10^3/uL (4.3-11.0)
[2021-11-07 14:28] LABS: BILIRUBIN,URINE 1+ (NEGATIVE); CLARITY,URINE CLOUDY; COLOR,URINE RED; GLUCOSE, URINE (UA) NEGATIVE (NEGATIVE); KETONES,URINE NEGATIVE (NEGATIVE); LEUKOCYTE ESTERASE ,URINE TRACE (NEGATIVE); NITRITE,URINE POSITIVE (NEGATIVE); PH,URINE 5.5 (5-9); PROTEIN,URINE 2+ (NEGATIVE)
[2021-11-07 14:34] LABS: RBC,URINE >100 /HPF
[2021-11-07 14:35] LABS: BACTERIA,URINE FEW /HPF; SQUAMOUS EPITHELIAL CELL,UR 0-2 /HPF
[2021-11-07 14:49] LABS: BILIRUBIN,TOTAL 0.4 MG/DL (0.1-1.0); CALCIUM 9.2 MG/DL (8.5-10.1); CREATININE SERUM 0.74 MG/DL (0.60-1.30)
[2021-11-07 14:50] LABS: ALBUMIN 3.8 GM/DL (3.2-4.5); TOTAL PROTEIN 6.5 GM/DL (6.4-8.2)
[2021-11-07] MEDS ORDERED: CIPR500T5 PO (14:55)
[2021-11-07 15:00] VITALS: BP 128/62
== END 2021-11-07 15:00 | disposition home or self-care (01) ==
LOC: EDUNIT# 13:43 → ER FS 13:45
DX: R25.9 Unspecified abnormal involuntary movements (principal); N39.0 Urinary tract infection, site not specified
CPT/HCPCS: 36415; 80053; 80185; 81000; 85025; 87088

== ENCOUNTER 2021-11-11 00:03 | Emergency (ER) | payer MEDICARE ==
[~2021-11-11] VITALS: Ht 157.4 cm; Wt 72.5 kg
[~2021-11-11 00:03] MED LIST changes: +CIPR500T5 PO
[2021-11-11 00:04] VITALS: BP 127/82
[2021-11-11] MEDS ORDERED: KETOROLAC 30 MG/ML VIAL IVP STA (00:10)
--- NOTE | 2021-11-11 00:10 | ED General ---
General Stated Complaint: CHEST PAIN History of Present Illness Date Seen by Provider: Nov 11, 2021 Time Seen by Provider: 00:07 Initial Comments 41-year-old female presents with chest pain is located in her left side of her chest. It started about an hour ago. She reports it gets worse with deep breath or palpation of her chest. She denies any shortness of breath she reports is stabbing pain she denies any nausea vomiting diaphoresis or radiation of the pain. Allergies and Home Medications Allergies Coded Allergies: No Known Drug Allergies (Unverified , 12/22/17) Patient Home Medication List Home Medication List Reviewed: Yes Ciprofloxacin HCl (Ciprofloxacin HCl) 500 Mg Tablet, 500 MG PO BID Prescribed by: SAMINA RODRÍGUEZ on 11/07/21 1455 Divalproex Sodium (Divalproex Sodium ER) 500 Mg Tab.er.24h, 500 MG PO DAILY, (Reported) Entered as Reported by: SARA ALEJANDRE on 07/19/21 1603 Fluoxetine HCl (Prozac) 10 Mg Capsule, 10 MG PO DAILY, (Reported) Entered as Reported by: NICK REDDY on 02/28/20 09 Fluoxetine HCl (Prozac) 20 Mg Capsule, 20 MG PO DAILY, (Reported) Entered as Reported by: NICK REDDY on 02/28/20921 Sulfamethoxazole/Trimethoprim (Bactrim Ds Tablet) 1 Each Tablet, 1 EACH PO BID Prescribed by: ALISHA CORDOVA on 07/21/211811 Review of Systems Review of Systems Constitutional: No chills, No fever Respiratory: No cough, No short of breath Cardiovascular: chest pain; No palpitations Gastrointestinal: No abdominal pain, No nausea, No vomiting Musculoskeletal: no symptoms reported Skin: no symptoms reported Psychiatric/Neurological: No Symptoms Reported Physical Exam Vital Signs Vital Signs - First Documented 11/11/21 00:04 Temp 36.5 Pulse 68 Resp 18 B/P (MAP) 127/82 (97) Pulse Ox 98 O2 Delivery Room Air Capillary Refill : Height, Weight, BMI Height: '" Weight: lbs. oz. 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 Progress/Results/Core Measures Suspected Sepsis SIRS Temperature: Pulse: Respiratory Rate: Laboratory Tests 11/11/21 00:10: White Blood Count 12.3H Blood Pressure / Mean: Laboratory Tests 11/11/21 00:10: Creatinine 0.61, Platelet Count 235, Total Bilirubin 0.2 Results/Orders Lab Results Laboratory Tests Test 11/11/21 00:10 Range/Units White Blood Count 12.3 H 4.3-11.0 10^3/uL Red Blood Count 4.52 3.80-5.11 10^6/uL Hemoglobin 13.6 11.5-16.0 g/dL Hematocrit 40 35-52 % Mean Corpuscular Volume 88 80-99 fL Mean Corpuscular Hemoglobin 30 25-34 pg Mean Corpuscular Hemoglobin Concent 34 32-36 g/dL Red Cell Distribution Width 14.6 H 10.0-14.5 % Platelet Count 235 130-400 10^3/uL Mean Platelet Volume 10.8 9.0-12.2 fL Immature Granulocyte % (Auto) 0 % Neutrophils (%) (Auto) 55 42-75 % Lymphocytes (%) (Auto) 37 12-44 % Monocytes (%) (Auto) 6 0-12 % Eosinophils (%) (Auto) 2 0-10 % Basophils (%) (Auto) 1 0-10 % Neutrophils # (Auto) 6.8 1.8-7.8 10^3/uL Lymphocytes # (Auto) 4.5 H 1.0-4.0 10^3/uL Monocytes # (Auto) 0.8 0.0-1.0 10^3/uL Eosinophils # (Auto) 0.2 0.0-0.3 10^3/uL Basophils # (Auto) 0.1 0.0-0.1 10^3/uL Immature Granulocyte # (Auto) 0.0 0.0-0.1 10^3/uL Sodium Level 139 135-145 MMOL/L Potassium Level 3.9 3.6-5.0 MMOL/L Chloride Level 106 98-107 MMOL/L Carbon Dioxide Level 23 21-32 MMOL/L Anion Gap 10 5-14 MMOL/L Blood Urea Nitrogen 8 7-18 MG/DL Creatinine 0.61 0.60-1.30 MG/DL Estimat Glomerular Filtration Rate 114 BUN/Creatinine Ratio 13 Glucose Level 85 70-105 MG/DL Calcium Level 9.1 8.5-10.1 MG/DL Corrected Calcium 9.2 8.5-10.1 MG/DL Magnesium Level 1.8 1.6-2.4 MG/DL Total Bilirubin 0.2 0.1-1.0 MG/DL Aspartate Amino Transf (AST/SGOT) 13 5-34 U/L Alanine Aminotransferase (ALT/SGPT) 6 0-55 U/L Alkaline Phosphatase 74 40-136 U/L Troponin I < 0.30 <0.30 NG/ML Total Protein 6.5 6.4-8.2 GM/DL Albumin 3.9 3.2-4.5 GM/DL My Orders Orders - RODRÍGUEZ,SAMINA L DO Cbc With Automated Diff (11/11/21 00:10) Comprehensive Metabolic Panel (11/11/21 00:10) Magnesium (11/11/21 00:10) Troponin I Fs (11/11/21 00:10) Ekg Tracing (11/11/21 00:10) Monitor-Rhythm Ecg Trace Only (11/11/21 00:10) Chest 1 View Ap/Pa Only (11/11/21 00:10) Ketorolac Injection (Toradol Injection) (11/11/21 00:10) Vital Signs/I&O 11/11/21 11/11/21 00:04 00:15 Temp 36.5 Pulse 68 67 Resp 18 31 B/P (MAP) 127/82 (97) 109/71 Pulse Ox 98 96 O2 Delivery Room Air Room Air Capillary Refill : Progress Note : Progress Note Patient mild elevated white count otherwise no acute findings. Patient symptoms was totally reproducible and very consistent with a pleuritic type chest pain. Patient was offered repeat troponin in 2 hours but declined. Patient is ready be discharged home. Patient's chest x-ray shows no acute findings. Patient was stable and discharged home ECG Initial ECG Impression Date: Nov 11, 2021 Initial ECG Impression Time: 00:06 Initial ECG Rate: 67 Initial ECG Rhythm: Normal Sinus Initial ECG Intervals: Normal Initial ECG Impression: Normal Comment no st elevation or acute changes Diagnostic Imaging Diagonstic Imaging: Xray Plain Films/CT/US/NM/MRI: chest Comments No acute findings noted Reviewed: Reviewed by Me Departure Impression Primary Impression: Pleuritic chest pain Disposition: HOME, SELF-CARE Condition: Stable Departure-Patient Inst. Patient Instructions: Pleuritic Chest Pain ED, Costochondritis (DC) Add. Discharge Instructions: Ibuprofen 600 mg every 6-8 hours as needed for pain Follow-up with your primary care provider if symptoms become recurrent, if you develop worsening cough, fevers or chills for repeat evaluation SAMINA RODRÍGUEZ DO Nov 11, 2021 00:10
[2021-11-11 00:17] LABS: BASOPHILS # (AUTO) 0.1 10^3/uL (0.0-0.1); BASOPHILS % (AUTO) 1 % (0-10); EOSINOPHILS # (AUTO) 0.2 10^3/uL (0.0-0.3); EOSINOPHILS % (AUTO) 2 % (0-10); HEMATOCRIT 40 % (35-52); HEMOGLOBIN 13.6 g/dL (11.5-16.0); LYMPHOCYTES # (AUTO) 4.5 10^3/uL (1.0-4.0); LYMPHOCYTES % (AUTO) 37 % (12-44); MEAN CORPUSCULAR HEMOGLOBIN 30 pg (25-34); MEAN CORPUSCULAR HGB CONC 34 g/dL (32-36); MEAN CORPUSCULAR VOLUME 88 fL (80-99); MEAN PLATELET VOLUME 10.8 fL (9.0-12.2); MONOCYTES # (AUTO) 0.8 10^3/uL (0.0-1.0); MONOCYTES % (AUTO) 6 % (0-12); NEUTROPHILS # (AUTO) 6.8 10^3/uL (1.8-7.8); NEUTROPHILS % (AUTO) 55 % (42-75); PLATELET COUNT 235 10^3/uL (130-400); WHITE BLOOD COUNT 12.3 10^3/uL (4.3-11.0)
[2021-11-11 00:36] LABS: CHLORIDE 106 MMOL/L (98-107); POTASSIUM 3.9 MMOL/L (3.6-5.0); SODIUM 139 MMOL/L (135-145)
[2021-11-11 00:37] LABS: ALANINE AMINOTRANSFERASE 6 U/L (0-55); ALBUMIN 3.9 GM/DL (3.2-4.5); ALKALINE PHOSPHATASE 74 U/L (40-136); BILIRUBIN,TOTAL 0.2 MG/DL (0.1-1.0); BUN/CREATININE RATIO 13; CALCIUM 9.1 MG/DL (8.5-10.1); CARBON DIOXIDE 23 MMOL/L (21-32); CREATININE SERUM 0.61 MG/DL (0.60-1.30); GFR ESTIMATED 114; GLUCOSE 85 MG/DL (70-105); MAGNESIUM 1.8 MG/DL (1.6-2.4); TOTAL PROTEIN 6.5 GM/DL (6.4-8.2)
--- NOTE | 2021-11-11 06:45 | Diagnostic Imaging Report ---
INDICATION: Left-sided chest pain. EXAMINATION: Chest on 11/11/2021. COMPARISON: 11/27/2020. FINDINGS: A loop recorder device is noted on the left. The heart and pulmonary vasculature are normal. The lungs and pleural spaces clear. No pneumothorax or effusions. IMPRESSION: No acute cardiopulmonary process. Dictated by: Dictated on workstation # [id number]
[2021-11-12] MEDS ORDERED: CEPH500T PO (01:28)
[2021-11-12] MEDS ORDERED: DIVA250T PO (01:28)
== END 2021-11-11 00:51 | disposition home or self-care (01) ==
LOC: EDUNIT# 00:03 → ER FS 00:07
DX: R07.81 Pleurodynia (principal); D72.829 Elevated white blood cell count, unspecified
CPT/HCPCS: 36415; 71045; 80053; 83735; 84484; 85025; 93005; 93041

== ENCOUNTER 2021-11-11 16:29 | Emergency (ER) | payer MEDICARE ==
[~2021-11-11] VITALS: Ht 157.4 cm; Wt 72.5 kg
[2021-11-11] MEDS ORDERED: morphine INJ 10 MG/ML 1ML (SYR OR VIAL) IV STA (16:49)
--- NOTE | 2021-11-11 16:49 | ED Chest Pain ---
General Stated Complaint: CP, SEEN IN FS ON 11/11 Source: patient Exam Limitations: no limitations History of Present Illness Date Seen by Provider: Nov 11, 2021 Time Seen by Provider: 16:49 Initial Comments Patient is a 40-year-old female with a history of seizures who presents to the ED for chest pain. Chest pain started last night on the left side of her chest described as sharp worse with deep inspiration. Sudden onset around 9-10 o'clock. Pain has been constant. Woke up this morning with pain. Patient states last night she was getting off the couch and collapsed. She was concerned she may had a seizure. Patient was in the waiting room at front check-in desk with a potential seizure. Sternal rub patient immediately woke up . She is not postictal. Currently on Depakote. She states Depakote is not working for seizures. She has mild dizziness without headache, visual changes, nausea vomit, diarrhea, abdominal pain, fever, chills, shortness of breath, cough Allergies and Home Medications Allergies Coded Allergies: No Known Drug Allergies (Unverified , 12/22/17) Patient Home Medication List Home Medication List Reviewed: Yes Ciprofloxacin HCl (Ciprofloxacin HCl) 500 Mg Tablet, 500 MG PO BID Prescribed by: SAMINA RODRÍGUEZ on 11/07/21 1455 Divalproex Sodium (Divalproex Sodium ER) 500 Mg Tab.er.24h, 500 MG PO DAILY, (Reported) Entered as Reported by: SARA ALEJANDRE on 07/19/21 1603 Fluoxetine HCl (Prozac) 10 Mg Capsule, 10 MG PO DAILY, (Reported) Entered as Reported by: NICK REDDY on 02/28/20921 Fluoxetine HCl (Prozac) 20 Mg Capsule, 20 MG PO DAILY, (Reported) Entered as Reported by: NICK REDDY on 02/28/20921 Sulfamethoxazole/Trimethoprim (Bactrim Ds Tablet) 1 Each Tablet, 1 EACH PO BID Prescribed by: ALISHA CORDOVA on 07/21/211811 Review of Systems Review of Systems Constitutional: No chills, No diaphoresis, No malaise, No weakness EENTM: No Blurred Vision, No Double Vision, No Eye Pain Respiratory: Denies Cough, Denies Shortness of Air Cardiovascular: Chest Pain Gastrointestinal: Denies Constipated, Denies Diarrhea, Denies Nausea, Denies Vomiting Genitourinary: Denies Burning, Denies Discharge Musculoskeletal: No back pain Skin: No change in color, No change in hair/nails Psychiatric/Neurological: Denies Anxiety, Denies Depressed All Other Systems Reviewed Negative Unless Noted: Yes Past Pytycht-Oapzxn-Evedog Hx Immunizations Up To Date Tetanus Booster (TDap): Unknown First/Initial COVID19 Vaccinat: NOVEMBER 2020 Second COVID19 Vaccination Pankaj: NOVEMBER 2020 Third COVID19 Vaccination Date: NOVEMBER 2020 Seasonal Allergies Seasonal Allergies: Yes Past Medical History Surgery/Hospitalization HX: Loop recorder placed, Hx seizure (a work up to classify not completed), Depresson-PTSD Surgeries: Yes (loop recorder) Gallbladder Respiratory: No Currently Using CPAP: No Currently Using BIPAP: No Cardiac: Yes (heart cath) Syncope Neurological: Yes (Seizure-like activity) Concussion Reproductive Disorders: No Sexually Transmitted Disease: No Genitourinary: No Gastrointestinal: Yes Gall Bladder Disease Musculoskeletal: Yes Arthritis, Fractures Endocrine: No HEENT: No Cancer: No Psychosocial: Yes Anxiety, Depression Integumentary: No Blood Disorders: No Physical Exam Vital Signs Vital Signs - First Documented 11/11/21 16:36 Temp 36.0 Pulse 77 Resp 20 B/P (MAP) 144/80 (101) Pulse Ox 98 Capillary Refill : Height, Weight, BMI Height: 5'2.00" Weight: 160lbs. 8.0oz. 72.567266ks; 29.00 BMI Method:Stated General Appearance: No Apparent Distress, WD/WN HEENT: PERRL/EOMI, TMs Normal, Normal ENT Inspection, Pharynx Normal Neck: Full Range of Motion, Normal Inspection, Non Tender, Supple Respiratory: Chest Non Tender, Lungs Clear, Normal Breath Sounds, No Accessory Muscle Use, No Respiratory Distress Cardiovascular: Regular Rate, Rhythm, No Edema, No Gallop, No JVD, No Murmur Gastrointestinal: Normal Bowel Sounds, No Organomegaly, No Pulsatile Mass, Non Tender Rectal: Normal Exam, Normal Rectal Tone Extremity: Normal Capillary Refill, Normal Inspection, Normal Range of Motion, Non Tender Neurologic/Psychiatric: Alert, Oriented x3, No Motor/Sensory Deficits, Normal 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, 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 Norm as Tested Skin: Normal Color, Warm/Dry Focused Exam Lactate Level 11/11/21 17:01: Lactic Acid Level 1.33 Lactic Acid Level Laboratory Tests Test 11/11/21 17:01 Lactic Acid Level 1.33 MMOL/L (0.50-2.00) Progress/Results/Core Measures Results/Orders Lab Results Laboratory Tests Test 11/11/21 16:39 11/11/21 17:01 11/11/21 19:39 11/11/21 19:58 Range/Units White Blood Count 10.6 4.3-11.0 10^3/uL Red Blood Count 4.80 3.80-5.11 10^6/uL Hemoglobin 14.4 11.5-16.0 g/dL Hematocrit 44 35-52 % Mean Corpuscular Volume 92 80-99 fL Mean Corpuscular Hemoglobin 30 25-34 pg Mean Corpuscular Hemoglobin Concent 33 32-36 g/dL Red Cell Distribution Width 14.6 H 10.0-14.5 % Platelet Count 239 130-400 10^3/uL Mean Platelet Volume 10.9 9.0-12.2 fL Immature Granulocyte % (Auto) 1 % Neutrophils (%) (Auto) 57 42-75 % Lymphocytes (%) (Auto) 33 12-44 % Monocytes (%) (Auto) 7 0-12 % Eosinophils (%) (Auto) 2 0-10 % Basophils (%) (Auto) 1 0-10 % Neutrophils # (Auto) 6.1 1.8-7.8 10^3/uL Lymphocytes # (Auto) 3.5 1.0-4.0 10^3/uL Monocytes # (Auto) 0.7 0.0-1.0 10^3/uL Eosinophils # (Auto) 0.2 0.0-0.3 10^3/uL Basophils # (Auto) 0.1 0.0-0.1 10^3/uL Immature Granulocyte # (Auto) 0.1 0.0-0.1 10^3/uL Prothrombin Time 13.0 12.2-14.7 SEC INR Comment 0.9 0.8-1.4 Activated Partial Thromboplast Time 28 24-35 SEC D-Dimer 0.27 0.00-0.49 UG/ML Sodium Level 140 135-145 MMOL/L Potassium Level 3.9 3.6-5.0 MMOL/L Chloride Level 106 98-107 MMOL/L Carbon Dioxide Level 20 L 21-32 MMOL/L Anion Gap 14 5-14 MMOL/L Blood Urea Nitrogen 9 7-18 MG/DL Creatinine 0.82 0.60-1.30 MG/DL Estimat Glomerular Filtration Rate 92 BUN/Creatinine Ratio 11 Glucose Level 82 70-105 MG/DL Calcium Level 9.2 8.5-10.1 MG/DL Corrected Calcium 9.4 8.5-10.1 MG/DL Magnesium Level 1.8 1.6-2.4 MG/DL Total Bilirubin 0.4 0.1-1.0 MG/DL Aspartate Amino Transf (AST/SGOT) 14 5-34 U/L Alanine Aminotransferase (ALT/SGPT) 8 0-55 U/L Alkaline Phosphatase 68 40-136 U/L Myoglobin 27.2 10.0-92.0 NG/ML Troponin I < 0.028 < 0.028 < 0.028 <0.028 NG/ML B-Type Natriuretic Peptide 85.6 <100.0 PG/ML Total Protein 6.6 6.4-8.2 GM/DL Albumin 3.8 3.2-4.5 GM/DL Valproic Acid (Depakene) Level 14.7 L 50.0-100.0 UG/ML Lactic Acid Level 1.33 0.50-2.00 MMOL/L My Orders Orders - NADINE GAFFNEY PA Cbc With Automated Diff (11/11/21 16:49) Magnesium (11/11/21 16:49) Chest 1 View, Ap/Pa Only (11/11/21 16:49) Ekg Tracing (11/11/21 16:49) Comprehensive Metabolic Panel (11/11/21 16:49) Myoglobin Serum (11/11/21 16:49) Protime With Inr (11/11/21 16:49) Partial Thromboplastin Time (11/11/21 16:49) O2 (11/11/21 16:49) Monitor-Rhythm Ecg Trace Only (11/11/21 16:49) Ed Iv/Invasive Line Start (11/11/21 16:49) Bnp [place] (11/11/21 16:49) Troponin I [place] (11/11/21 16:49) Aspirin Chewable Tablet (Baby Aspirin Ch (11/11/21 17:00) Morphine Injection (Morphine Injection (11/11/21 16:49) Lactic Acid Analyzer (11/11/21 16:52) Fibrin Degradation Products (11/11/21 16:53) Lorazepam Injection (Ativan Injection) (11/11/21 17:30) Valproic Acid (11/11/21 17:29) Ondansetron Injection (Zofran Injectio (11/11/21 17:45) Troponin I [place] (11/11/21 19:39) Troponin I [place] (11/11/21 19:58) Divalproex Er 24 Hr Tablet (Depakote Er (11/11/21 20:11) Medications Given in ED Current Medications Medications Dose Ordered Sig/Falguni Route Start Time Stop Time Status Last Admin Dose Admin Aspirin 324 mg ONCE ONCE PO 11/11/21 17:00 11/11/21 17:01 DC 11/11/21 17:02 324 MG Lorazepam 1 mg ONCE ONCE IVP 11/11/21 17:30 11/11/21 17:31 DC 11/11/21 17:44 1 MG Ondansetron HCl 4 mg ONCE ONCE IVP 11/11/21 17:45 11/11/21 17:46 DC 11/11/21 17:39 4 MG Vital Signs/I&O 11/11/21 11/11/21 16:36 20:56 Temp 36.0 Pulse 77 71 Resp 20 16 B/P (MAP) 144/80 (101) 110/75 Pulse Ox 98 95 Comment Sinus rhythm, possible left atrial enlargement, 66 bpm, QRS duration 88 MS, QTc 402 MS Departure Communication (PCP) Patient supposedly had a seizure out in the waiting room. Sternal rub patient immediately woke up. Possible seizure yesterday. Currently on Depakote 500 mg daily. She is scheduled follow-up with neurology next month. Has been on divalproex sodium extended release for several years according to the patient. She was not postictal. Normal lactic acid. Patient appeared to be convulsing. She had no seizure-like activity while she was in the room. EKG showed normal sinus rhythm without evidence of ST elevation or depression. She had a cardiac catheterization 2018 that showed mild coronary artery disease. Heart score of 3. Initial troponin was negative with a negative BNP. Chest x-ray unremarkable. Lab work was otherwise unremarkable. She agreed with a serial troponin which was negative. Discussed with patient with her reoccurring seizures may increase her medication to 750 mg daily. May have to increase further. This will need to be discussed with her neurologist. Recommend cardiology outpatient follow-up. This was provided in discharge instructions. Patient initially was given aspirin and morphine for the chest pain initially. She started becoming nauseous was given Zofran. He started feeling anxious with tachypnea. Was given Ativan with resolution of her chest pain. Patient is currently pain-free. Discussed baby aspirin daily. Patient vital signs stable. Return precaution were discussed with patient and family Patient was given a dose of her divalproex sodium here 250 mg as she took 500 mg this morning. No seizure-like activity here. If continue worsening seizures she will need to return back to ED Impression Primary Impression: Chest pain Additional Impression: Seizure-like activity Disposition: 01 HOME, SELF-CARE Condition: Stable Departure-Patient Inst. Decision time for Depature: 19:51 Referrals: [facility] [place] (PCP) Primary Care Physician MIRANDA VALE APRN (Family) Primary Care Physician ESTHELA SPARKS MD Patient Instructions: Chest Pain Add. Discharge Instructions: Increase your seizure medication to 750 mg daily. Recommend outpatient follow- up with Dr. Sparks. Continue with your neurology outpatient follow-up. If any worsening symptoms return back to ED NADINE GAFFNEY Nov 11, 2021 16:49
[2021-11-11 16:54] LABS: BASOPHILS # (AUTO) 0.1 10^3/uL (0.0-0.1); BASOPHILS % (AUTO) 1 % (0-10); EOSINOPHILS # (AUTO) 0.2 10^3/uL (0.0-0.3); EOSINOPHILS % (AUTO) 2 % (0-10); HEMATOCRIT 44 % (35-52); HEMOGLOBIN 14.4 g/dL (11.5-16.0); LYMPHOCYTES # (AUTO) 3.5 10^3/uL (1.0-4.0); LYMPHOCYTES % (AUTO) 33 % (12-44); MEAN CORPUSCULAR HEMOGLOBIN 30 pg (25-34); MEAN CORPUSCULAR HGB CONC 33 g/dL (32-36); MEAN CORPUSCULAR VOLUME 92 fL (80-99); MEAN PLATELET VOLUME 10.9 fL (9.0-12.2); MONOCYTES # (AUTO) 0.7 10^3/uL (0.0-1.0); MONOCYTES % (AUTO) 7 % (0-12); NEUTROPHILS # (AUTO) 6.1 10^3/uL (1.8-7.8); NEUTROPHILS % (AUTO) 57 % (42-75); PLATELET COUNT 239 10^3/uL (130-400); WHITE BLOOD COUNT 10.6 10^3/uL (4.3-11.0)
[2021-11-11] MEDS ORDERED: ASPIRIN 81 MG CHEW (CHILDREN'S ASA) PO ONE (17:00)
[2021-11-11 17:02] LABS: ALBUMIN 3.8 GM/DL (3.2-4.5)
[2021-11-11 17:03] LABS: POTASSIUM 3.9 MMOL/L (3.6-5.0)
[2021-11-11 17:04] LABS: CALCIUM 9.2 MG/DL (8.5-10.1); INR 0.9 (0.8-1.4)
[2021-11-11 17:05] LABS: TOTAL PROTEIN 6.6 GM/DL (6.4-8.2)
[2021-11-11 17:07] LABS: BILIRUBIN,TOTAL 0.4 MG/DL (0.1-1.0)
[2021-11-11 17:08] LABS: CREATININE SERUM 0.82 MG/DL (0.60-1.30)
[2021-11-11 17:12] LABS: MAGNESIUM 1.8 MG/DL (1.6-2.4)
[2021-11-11] MEDS ORDERED: LORazepam INJ 2 MG/ML (ATIVAN) VIAL IVP ONE (17:30)
[2021-11-11] MEDS ORDERED: ONDANSETRON 4 MG/2 ML (SDV) Z0FRAN IVP ONE (17:45)
--- NOTE | 2021-11-11 18:18 | Diagnostic Imaging Report ---
INDICATION: Chest pain. COMPARISON: Imaging from the same date as well as from 12/05/2020 TECHNIQUE: Single radiograph of the chest dated 11/11/2021 at 1802 FINDINGS: Loop recorder is again identified overlying the left chest. The cardiac silhouette is within normal limits. No significant pulmonary vascular congestion. The lungs are clear. No pleural effusion. No pneumothorax. No acute osseous abnormality. IMPRESSION: No acute cardiopulmonary abnormality with loop recorder in place. Dictated by: Dictated on workstation # [id number]
[2021-11-11] MEDS ORDERED: DIVALPROEX EXT RELEASE 250 MG (DEPAKOTE ER) TAB PO STA (20:11)
[2021-11-11 20:56] VITALS: BP 110/75
[2021-11-12] MEDS ORDERED: CEPH500T PO (01:28)
[2021-11-12] MEDS ORDERED: DIVA250T PO (01:28)
== END 2021-11-11 20:58 | disposition home or self-care (01) ==
LOC: EDUNIT# 16:29 → ER 16:31
DX: R07.89 Other chest pain (principal); G40.909 Epilepsy, unspecified, not intractable, without status epilepticus; Z79.899 Other long term (current) drug therapy
CPT/HCPCS: 36415; 71045; 80053; 80164; 83605; 83735; 83874; 83880; 84484; 85025; 85379; 85610; 85730; 93005; 93041

== ENCOUNTER 2021-11-11 23:46 | Emergency (ER) | payer MEDICARE ==
[~2021-11-11] VITALS: Ht 157.5 cm; Wt 72.0 kg
[2021-11-11 23:46] VITALS: BP 119/71
[2021-11-12] MEDS ORDERED: LACTATED RINGERS 1,000 ML IV ONE
[2021-11-12 00:07] LABS: BASOPHILS # (AUTO) 0.1 10^3/uL (0.0-0.1); BASOPHILS % (AUTO) 1 % (0-10); EOSINOPHILS # (AUTO) 0.2 10^3/uL (0.0-0.3); EOSINOPHILS % (AUTO) 2 % (0-10); HEMATOCRIT 40 % (35-52); HEMOGLOBIN 13.5 g/dL (11.5-16.0); LYMPHOCYTES # (AUTO) 4.3 10^3/uL (1.0-4.0); LYMPHOCYTES % (AUTO) 43 % (12-44); MEAN CORPUSCULAR HEMOGLOBIN 31 pg (25-34); MEAN CORPUSCULAR HGB CONC 34 g/dL (32-36); MEAN CORPUSCULAR VOLUME 90 fL (80-99); MEAN PLATELET VOLUME 10.7 fL (9.0-12.2); MONOCYTES # (AUTO) 0.7 10^3/uL (0.0-1.0); MONOCYTES % (AUTO) 7 % (0-12); NEUTROPHILS # (AUTO) 4.7 10^3/uL (1.8-7.8); NEUTROPHILS % (AUTO) 47 % (42-75); PLATELET COUNT 209 10^3/uL (130-400)
[2021-11-12 00:25] LABS: SMEAR SCAN COMMENT REAC.LYMPHS NOTED
[2021-11-12 00:26] LABS: BAND NEUTROPHILS 2 %; EOSINOPHILS % (MANUAL) 3 %; LYMPHOCYTES % (MANUAL) 44 %; MONOCYTES % (MANUAL) 4 %; NEUTROPHILS % (MANUAL) 38 %
[2021-11-12 00:27] LABS: ATYPICAL LYMPHOCYTES 2 %; PLATELET ESTIMATE NORMAL; RBC MORPH NORMAL; REACTIVE LYMPHOCYTES 7 %
[2021-11-12 00:35] LABS: ALBUMIN 3.7 GM/DL (3.2-4.5); BILIRUBIN,TOTAL 0.3 MG/DL (0.1-1.0); CALCIUM 8.8 MG/DL (8.5-10.1); CREATININE SERUM 0.8 MG/DL (0.60-1.30); MAGNESIUM 1.7 MG/DL (1.6-2.4); POTASSIUM 3.2 MMOL/L (3.6-5.0); TOTAL PROTEIN 6.2 GM/DL (6.4-8.2)
[2021-11-12] MEDS ORDERED: KCL 10 MEQ TAB (MICRO K) PO ONE (01:15)
[2021-11-12] MEDS ORDERED: CEPH500T PO (01:28)
[2021-11-12] MEDS ORDERED: DIVA250T PO (01:28)
[2021-11-12] MEDS ORDERED: CEPHALEXIN 250 MG (KEFLEX) CAP PO STA (01:31)
--- NOTE | 2021-11-12 01:31 | ED Neurological Problem ---
General Chief Complaint: Neurological Problems Stated Complaint: SEIZURES Nursing Triage Note: Pt states that she was seen in [place] ER today for chest pain and seizures. Reports that she has had 5 seizures today and fell during this last episode and struck her right head and right elbow on the wall. Source: patient, old records Exam Limitations: no limitations History of Present Illness Date Seen by Provider: Nov 11, 2021 Time Seen by Provider: 23:49 Initial Comments This 40-year-old woman with known seizure disorder over the last year presents to the emergency room with numerous seizure-like episodes in the last 24 hours. She has been now seen 4 times since November 07 in the emergency room setting for multiple issues including chest pain, seizures and urinary tract infection. She arrives via EMS tonight with primary complaint of recurrent seizures. Chart was reviewed from her prior visits and she has undergone thorough cardiac evaluation and those prior visits. She is not complaining of chest pain at this time. Patient states her last seizure occurred on hard ground outside her apartment. She has some superior tenderness over the cervical spine and headache. She has some minor pain in the right elbow as well. She does not appear postictal at this time. Boyfriend reports that she may have had 8 or more seizures in the last 24 hours some lasting up to 3 or 4 minutes. She is taking Depakote as prescribed but her Depakote level on her last ER visit was low. She was advised to increase her dose from 500 mg daily to 750 mg daily. A dose of 250 mg was given in the ER earlier today. Patient was seen on November 07 as well and treated for urinary tract infection. Culture grew out multiple preet so no specific pathogen was identified and no sensitivity was performed. Patient has been taking Cipro. Recent seizure-like activity has not been observed by medical staff. Patient does report she has lost urine continence during some episodes. Patient states she has been ambulatory since this most recent seizure-like event. And Estrellita is her primary care provider. Her neurologist is in [place]. Allergies and Home Medications Allergies Coded Allergies: No Known Drug Allergies (Unverified , 12/22/17) Patient Home Medication List Home Medication List Reviewed: Yes Cephalexin (Cephalexin) 500 Mg Tablet, 500 MG PO TID Prescribed by: REAL LANDA on 11/12/21 0128 Ciprofloxacin HCl (Ciprofloxacin HCl) 500 Mg Tablet, 500 MG PO BID Prescribed by: SAMINA RODRÍGUEZ on 11/07/21 1455 Divalproex Sodium (Divalproex Sodium ER) 500 Mg Tab.er.24h, 500 MG PO DAILY, (Reported) Entered as Reported by: SARA ALEJANDRE on 07/19/21 1603 Divalproex Sodium (Depakote ER) 250 Mg Tab.er.24h, 250 MG PO DAILY Prescribed by: REAL LANDA on 11/12/21 0128 Fluoxetine HCl (Prozac) 10 Mg Capsule, 10 MG PO DAILY, (Reported) Entered as Reported by: NICK REDDY on 02/28/20 09 Fluoxetine HCl (Prozac) 20 Mg Capsule, 20 MG PO DAILY, (Reported) Entered as Reported by: NICK REDDY on 02/28/20921 Sulfamethoxazole/Trimethoprim (Bactrim Ds Tablet) 1 Each Tablet, 1 EACH PO BID Prescribed by: ALISHA CORDOVA on 07/21/211811 Review of Systems Review of Systems Constitutional: no symptoms reported Eyes: No Symptoms Reported Ears, Nose, Mouth, Throat: no symptoms reported Respiratory: no symptoms reported Cardiovascular: see HPI Gastrointestinal: no symptoms reported : No Musculoskeletal: see HPI Skin: no symptoms reported Psychiatric/Neurological: See HPI Endocrine: No Symptoms Reported Hematologic/Lymphatic: No Symptoms Reported Past Ijdeajb-Uiyrfu-Gdnein Hx Patient Social History Tobacco Use?: No Use of E-Cig and/or Vaping dev: No Substance use?: No Alcohol Use?: No Pt feels they are or have been: No Immunizations Up To Date Tetanus Booster (TDap): Unknown First/Initial COVID19 Vaccinat: NOVEMBER 2020 Second COVID19 Vaccination Pankaj: NOVEMBER 2020 Third COVID19 Vaccination Date: NOVEMBER 2020 Seasonal Allergies Seasonal Allergies: Yes Past Medical History Surgery/Hospitalization HX: Loop recorder placed, Hx seizure (a work up to classify not completed), Depresson-PTSD Surgeries: Yes (loop recorder) Gallbladder Respiratory: No Currently Using CPAP: No Currently Using BIPAP: No Cardiac: Yes (heart cath) Syncope Neurological: Yes (Seizure-like activity) Concussion, Seizure Disorder (Reported seizures since receiving COVID vaccination with no EEG confirmation) Last Menstrual Period: Nov 05, 2021 Reproductive Disorders: No Sexually Transmitted Disease: No Genitourinary: No Gastrointestinal: Yes Gall Bladder Disease Musculoskeletal: Yes Arthritis, Fractures Endocrine: No HEENT: No Cancer: No Psychosocial: Yes Anxiety, Depression Integumentary: No Blood Disorders: No Physical Exam Vital Signs Vital Signs - First Documented 11/11/21 23:46 Temp 36.9 Pulse 77 Resp 16 B/P (MAP) 119/71 (87) Pulse Ox 96 O2 Delivery Room Air Capillary Refill : Less Than 3 Seconds Height, Weight, BMI Height: 5'2.00" Weight: 160lbs. 8.0oz. [id number]; 29.00 BMI Method:Stated General Appearance: WD/WN, no apparent distress HEENT: PERRL/EOMI, normal ENT inspection, pharynx normal Neck: normal inspection, tender midline (Superior posterior cervical spine) Respiratory: lungs clear, normal breath sounds, no respiratory distress Cardiovascular: regular rate, rhythm, no edema, no murmur Gastrointestinal: normal bowel sounds, non tender, soft Extremities: normal inspection, other (Minor erythema and tenderness at the right elbow. Range of motion intact) Neurologic/Psychiatric: security attendant II-XII nml as tested, no motor/sensory deficits, alert, normal mood/affect, oriented x 3 Crainal Nerves: normal hearing, normal speech, PERRL Motor/Sensory: no motor deficit, no sensory deficit Skin: normal color, warm/dry Progress/Results/Core Measures Results/Orders Lab Results Laboratory Tests Test 11/11/21 23:58 11/12/21 01:30 Range/Units White Blood Count 10.0 4.3-11.0 10^3/uL Red Blood Count 4.42 3.80-5.11 10^6/uL Hemoglobin 13.5 11.5-16.0 g/dL Hematocrit 40 35-52 % Mean Corpuscular Volume 90 80-99 fL Mean Corpuscular Hemoglobin 31 25-34 pg Mean Corpuscular Hemoglobin Concent 34 32-36 g/dL Red Cell Distribution Width 14.6 H 10.0-14.5 % Platelet Count 209 130-400 10^3/uL Mean Platelet Volume 10.7 9.0-12.2 fL Immature Granulocyte % (Auto) 0 % Neutrophils (%) (Auto) 47 42-75 % Lymphocytes (%) (Auto) 43 12-44 % Monocytes (%) (Auto) 7 0-12 % Eosinophils (%) (Auto) 2 0-10 % Basophils (%) (Auto) 1 0-10 % Neutrophils # (Auto) 4.7 1.8-7.8 10^3/uL Lymphocytes # (Auto) 4.3 H 1.0-4.0 10^3/uL Monocytes # (Auto) 0.7 0.0-1.0 10^3/uL Eosinophils # (Auto) 0.2 0.0-0.3 10^3/uL Basophils # (Auto) 0.1 0.0-0.1 10^3/uL Immature Granulocyte # (Auto) 0.0 0.0-0.1 10^3/uL Neutrophils % (Manual) 38 % Lymphocytes % (Manual) 44 % Monocytes % (Manual) 4 % Eosinophils % (Manual) 3 % Band Neutrophils 2 % Atypical Lymphocytes 2 % Reactive Lymphocytes 7 % Platelet Estimate NORMAL Blood Morphology Comment NORMAL Sodium Level 137 135-145 MMOL/L Potassium Level 3.2 L 3.6-5.0 MMOL/L Chloride Level 104 98-107 MMOL/L Carbon Dioxide Level 24 21-32 MMOL/L Anion Gap 9 5-14 MMOL/L Blood Urea Nitrogen 9 7-18 MG/DL Creatinine 0.80 0.60-1.30 MG/DL Estimat Glomerular Filtration Rate 94 BUN/Creatinine Ratio 11 Glucose Level 144 H 70-105 MG/DL Calcium Level 8.8 8.5-10.1 MG/DL Corrected Calcium 9.0 8.5-10.1 MG/DL Magnesium Level 1.7 1.6-2.4 MG/DL Total Bilirubin 0.3 0.1-1.0 MG/DL Aspartate Amino Transf (AST/SGOT) 12 5-34 U/L Alanine Aminotransferase (ALT/SGPT) 7 0-55 U/L Alkaline Phosphatase 72 40-136 U/L Total Creatine Kinase 58 29-168 U/L Total Protein 6.2 L 6.4-8.2 GM/DL Albumin 3.7 3.2-4.5 GM/DL Serum Test, Qualitative NEGATIVE NEGATIVE Valproic Acid (Depakene) Level 26.5 L 50.0-100.0 UG/ML Smear Scan REAC.LYMPHS NOTED Urine Color YELLOW Urine Clarity TURBID Urine pH 6.0 5-9 Urine Specific Tucker <=1.005 1.016-1.022 Urine Protein NEGATIVE NEGATIVE Urine Glucose (UA) NEGATIVE NEGATIVE Urine Ketones NEGATIVE NEGATIVE Urine Nitrite NEGATIVE NEGATIVE Urine Bilirubin NEGATIVE NEGATIVE Urine Urobilinogen 0.2 < = 1.0 MG/DL Urine Leukocyte Esterase NEGATIVE NEGATIVE Urine RBC (Auto) 3+ H NEGATIVE Urine RBC NONE /HPF Urine WBC RARE /HPF Urine Squamous Epithelial Cells 10-25 H /HPF Urine Crystals NONE /LPF Urine Bacteria MODERATE H /HPF Urine Casts NONE /LPF Urine Mucus NEGATIVE /LPF Urine Culture Indicated YES Micro Results Microbiology 11/12/21 Urine Culture - Preliminary, Resulted My Orders Orders - REAL ARMENDARIZ MD Cbc With Automated Diff (11/11/21 23:48) Comprehensive Metabolic Panel (11/11/21 23:48) Magnesium (11/11/21 23:48) Ed Iv/Invasive Line Start (11/11/21 23:48) Valproic Acid (11/11/21 23:53) Creatine Kinase (11/11/21 23:53) Lactated Ringers (Lr 1000 Ml Iv Solution (11/12/21 00:00) Ct Head/Cervical Spine Wo (11/12/21 00:03) Elbow 3 View Right (11/12/21 00:04) Hcg,Qualitative Serum (11/12/21 00:17) Ua Culture If Indicated (11/12/21 00:17) Manual Differential (11/11/21 23:58) Potassium Chloride (Tablet) (Klor Con Ta (11/12/21 01:15) Levetiracetam Injection (Keppra Injectio (11/12/21 01:11) Cephalexin Capsule (Keflex Capsule) (11/12/21 01:31) Urine Culture (11/12/21 01:55) Urine Culture (11/12/21 01:30) Medications Given in ED Current Medications Medications Dose Ordered Sig/Falguni Route Start Time Stop Time Status Last Admin Dose Admin Lactated Ringer's 1,000 ml @ 0 mls/hr Q0M ONCE IV 11/12/21 00:00 11/12/21 00:01 DC 11/12/21 00:19 999 MLS/HR Potassium Chloride 30 meq ONCE ONCE PO 11/12/21 01:15 11/12/21 01:16 DC 11/12/21 01:16 30 MEQ Vital Signs/I&O 11/11/21 11/11/21 23:46 23:46 Temp 36.9 36.9 Pulse 77 77 Resp 16 B/P (MAP) 119/71 (87) 119/71 Pulse Ox 96 98 O2 Delivery Room Air Blood Pressure Mean: 87 Progress Progress Note : Progress Note Patient was found to have hypokalemia. This was replaced orally. In reviewing her medications, it is noted that Cipro has potential for causing seizures or lowering seizure threshold. I advised her to stop the Cipro. We obtained a new urine specimen. It appeared contaminated but we will culture and treat empirically until this can be confirmed with culture results. I suspect, if patient is truly having seizures, that Cipro may have exacerbated the situation along with her subtherapeutic levels of Depakote. Patient does not have 250 mg doses of Depakote, so I am prescribing a limited quantity for her until she can follow-up with her primary care provider or neurologist. Advised her to take her a Depakote immediately upon returning home since we do not have Depakote at this facility. As a bridge until she can take additional Depakote, she is receiving Keppra 500 mg by IV route to hopefully prevent any further seizures while she is trying to get her Depakote levels up. Keflex was given for alternative treatment of urinary tract infection. C-collar had been applied for C-spine protection until imaging results were obtained. CT of the head and cervical spine were negative for acute injuries. Elbow x-ray showed no acute bony injuries. Diagnostic Imaging Diagonstic Imaging: CT Plain Films/CT/US/NM/MRI: c-spine, head Comments CT head and cervical spine viewed by me and report reviewed. See report below: NAME: PIERRE DUGAN [facility] REC#: [id number] PT STATUS: DEP ER : 1980 PHYSICIAN: REAL ARMENDARIZ MD ADMIT DATE: 11/11/21/ER FS Draft Date of Exam:11/12/21 CT HEAD/CERVICAL SPINE WO Clinical indications: Patient had 5 seizures today. Exam: Head CT without IV contrast with sagittal and coronal reformations. Axial CT scan of the cervical spine with sagittal and coronal reformations. Auto Exposure Controls were utilized during the CT exam to meet ALARA standards for radiation dose reduction. Comparison: CT scan of the head and cervical spine without contrast dated 01/06/2021. Findings: Head CT: There is no evidence of acute cerebral infarct, intracranial hemorrhage, or gross mass effect. The brain parenchymal volume appears appropriate for patient's age. There is normal sanon-white matter distinction. There is no significant midline shift or herniation. There is no evidence of hydrocephalus. The basal cisterns are unremarkable. The skull, extracranial soft tissue, and orbits are unremarkable. There is a mucus retention cyst within the left maxillary sinus. Temporal bones show no significant abnormality. Cervical spine: There is no acute cervical spine fracture or dislocation. Vertebral body heights and intervertebral disk heights are maintained. There is no significant bony central canal or neural foramen narrowing. There is straightening of the cervical spine posture. There is no significant neck soft tissue abnormality. Limited visualization upper lung henson are clear. Impression: 1: There is no evidence of acute intracranial process. There is no intracranial hemorrhage. There is no skull fracture. 2: There is no acute cervical spine fracture or dislocation. There is straightening of the cervical spine posture which may be seen with muscle spasms or patient positioning. Dictated on workstation # [id number] Dict: 11/12/21 0815 Trans: 11/12/21 0827 [facility] [id number] Interpreted by: ELEUTERIO RAYMOND MD Diagonstic Imaging: Xray Plain Films/CT/US/NM/MRI: elbow Comments Right elbow x-ray viewed by me. Report not yet available. No acute abn ormalities were appreciated by your provider interpretation. Departure Impression Primary Impression: Seizures Additional Impressions: Hypokalemia Urinary tract infection Qualified Codes: N39.0 - Urinary tract infection, site not specified Disposition: 01 HOME, SELF-CARE Condition: Improved Departure-Patient Inst. Decision time for Depature: 01:27 Referrals: [facility] (PCP) Primary Care Physician MIRANDA VALE APRN (Family) Primary Care Physician Add. Discharge Instructions: STOP cipro (ciprofloxacin). Replace Cipro with Keflex (cephalexin) as prescribed. When you return home and take your Depakote 500 mg dose. Then tomorrow filled t he 250 mg dose and start taking it in the afternoon. Follow-up with your neurologist and/or primary care provider soon as possible. You should have your Depakote level checked again early next week and have your dose confirmed or adjusted accordingly. Also follow-up on urine culture results with your primary care provider. Culture result should be available by Thursday. Call with questions or concerns. Return to the ER if you have worsening symptoms or recurrent seizures despite treatment. All discharge instructions reviewed with patient and/or family. Voiced understanding. Scripts Cephalexin (Cephalexin) 500 Mg Tablet 500 MG PO TID, #20 TAB Prov: REAL ARMENDARIZ MD 11/12/21 Divalproex Sodium (Depakote ER) 250 Mg Tab.er.24h 250 MG PO DAILY, #10 TAB Take the 500 mg dose in the morning and add the 250 mg dose in the afternoon or eveneing. Prov: REAL ARMENDARIZ MD 11/12/21 Copy Copies To 1: [facility] REAL ARMENDARIZ MD Nov 12, 2021 01:31
[2021-11-12 01:42] LABS: BILIRUBIN,URINE NEGATIVE (NEGATIVE); CLARITY,URINE TURBID; COLOR,URINE YELLOW; GLUCOSE, URINE (UA) NEGATIVE (NEGATIVE); KETONES,URINE NEGATIVE (NEGATIVE); LEUKOCYTE ESTERASE ,URINE NEGATIVE (NEGATIVE); NITRITE,URINE NEGATIVE (NEGATIVE); PROTEIN,URINE NEGATIVE (NEGATIVE)
[2021-11-12 01:48] LABS: BACTERIA,URINE MODERATE /HPF; WBC,URINE RARE /HPF
[2021-11-12 06:00] LABS: VALPROIC ACID 26.5 UG/ML (50.0-100.0)
--- NOTE | 2021-11-12 07:38 | Diagnostic Imaging Report ---
EXAMINATION: Right elbow radiographs, 3 views. COMPARISON: None. HISTORY: 40-year-old female, right elbow pain. FINDINGS: There is no acute fracture. There is no elbow joint effusion. Elbow is not dislocated. There is no radiopaque foreign body. IMPRESSION: Unremarkable radiographs of the right elbow. Dictated by: Dictated on workstation # [id number]
--- NOTE | 2021-11-12 08:27 | Diagnostic Imaging Report ---
Clinical indications: Patient had 5 seizures today. Exam: Head CT without IV contrast with sagittal and coronal reformations. Axial CT scan of the cervical spine with sagittal and coronal reformations. Auto Exposure Controls were utilized during the CT exam to meet ALARA standards for radiation dose reduction. Comparison: CT scan of the head and cervical spine without contrast dated 01/06/2021. Findings: Head CT: There is no evidence of acute cerebral infarct, intracranial hemorrhage, or gross mass effect. The brain parenchymal volume appears appropriate for patient's age. There is normal sanon-white matter distinction. There is no significant midline shift or herniation. There is no evidence of hydrocephalus. The basal cisterns are unremarkable. The skull, extracranial soft tissue, and orbits are unremarkable. There is a mucus retention cyst within the left maxillary sinus. Temporal bones show no significant abnormality. Cervical spine: There is no acute cervical spine fracture or dislocation. Vertebral body heights and intervertebral disk heights are maintained. There is no significant bony central canal or neural foramen narrowing. There is straightening of the cervical spine posture. There is no significant neck soft tissue abnormality. Limited visualization upper lung henson are clear. Impression: 1: There is no evidence of acute intracranial process. There is no intracranial hemorrhage. There is no skull fracture. 2: There is no acute cervical spine fracture or dislocation. There is straightening of the cervical spine posture which may be seen with muscle spasms or patient positioning. Dictated by: Dictated on workstation # [id number]
== END 2021-11-12 02:07 | disposition home or self-care (01) ==
LOC: EDUNIT# 23:46 → ER FS 23:49
DX: G40.909 Epilepsy, unspecified, not intractable, without status epilepticus (principal); E87.6 Hypokalemia; N39.0 Urinary tract infection, site not specified; Z79.82 Long term (current) use of aspirin; Z79.899 Other long term (current) drug therapy; Z32.02 Encounter for pregnancy test, result negative
CPT/HCPCS: 36415; 70450; 72125; 73080; 80053; 80164; 81000; 82550; 83735; 84703; 85007; 85027; 87088

== ENCOUNTER 2021-11-12 22:44 | Emergency (ER) | payer MEDICARE ==
[~2021-11-12] VITALS: Ht 157.5 cm; Wt 72.6 kg
[~2021-11-12 22:44] MED LIST changes: +CEPH500T PO; +DIVA250T PO
[2021-11-12 22:58] VITALS: BP 104/72
--- NOTE | 2021-11-12 23:31 | ED General ---
General Chief Complaint: Neurological Problems Stated Complaint: SEIZURES Source of Information: Patient Allergies and Home Medications Allergies Coded Allergies: No Known Drug Allergies (Unverified , 12/22/17) Patient Home Medication List Cephalexin (Cephalexin) 500 Mg Tablet, 500 MG PO TID Prescribed by: REAL LANDA on 11/12/21 0128 Ciprofloxacin HCl (Ciprofloxacin HCl) 500 Mg Tablet, 500 MG PO BID Prescribed by: SAMINA RODRÍGUEZ on 11/07/21 1455 Divalproex Sodium (Divalproex Sodium ER) 500 Mg Tab.er.24h, 500 MG PO DAILY, (Reported) Entered as Reported by: SARA ALEJANDRE on 07/19/21 1603 Divalproex Sodium (Depakote ER) 250 Mg Tab.er.24h, 250 MG PO DAILY Prescribed by: REAL LANDA on 11/12/21127 Fluoxetine HCl (Prozac) 10 Mg Capsule, 10 MG PO DAILY, (Reported) Entered as Reported by: NICK REDDY on 02/28/20921 Fluoxetine HCl (Prozac) 20 Mg Capsule, 20 MG PO DAILY, (Reported) Entered as Reported by: NICK REDDY on 02/28/20921 Sulfamethoxazole/Trimethoprim (Bactrim Ds Tablet) 1 Each Tablet, 1 EACH PO BID Prescribed by: ALISHA CORDOVA on 07/21/211811 Past Umlangu-Ofuuht-Ktrpwf Hx Immunizations Up To Date Tetanus Booster (TDap): Unknown First/Initial COVID19 Vaccinat: NOVEMBER 2020 Second COVID19 Vaccination Pankaj: NOVEMBER 2020 Third COVID19 Vaccination Date: NOVEMBER 2020 Seasonal Allergies Seasonal Allergies: Yes Past Medical History Surgery/Hospitalization HX: Loop recorder placed, Hx seizure (a work up to classify not completed), Depresson-PTSD Surgeries: Yes (loop recorder) Gallbladder Respiratory: No Currently Using CPAP: No Currently Using BIPAP: No Cardiac: Yes (heart cath) Syncope Neurological: Yes (Seizure-like activity) Concussion, Seizure Disorder Reproductive Disorders: No Sexually Transmitted Disease: No Genitourinary: No Gastrointestinal: Yes Gall Bladder Disease Musculoskeletal: Yes Arthritis, Fractures Endocrine: No HEENT: No Cancer: No Psychosocial: Yes Anxiety, Depression Integumentary: No Blood Disorders: No Physical Exam Vital Signs Capillary Refill : Height, Weight, BMI Height: 5'2.00" Weight: 160lbs. 8.0oz. 72.106893ot; 29.00 BMI Method:Stated Progress/Results/Core Measures Suspected Sepsis SIRS Temperature: Pulse: Respiratory Rate: Blood Pressure / Mean: Results/Orders Vital Signs/I&O Capillary Refill : Departure Impression Primary Impression: Witnessed seizure-like activity Disposition: HOME, SELF-CARE Condition: Stable Departure-Patient Inst. Decision time for Depature: 23:30 Referrals: [facility] (PCP) Primary Care Physician MIRANDA VALE APRN (Family) Primary Care Physician Patient Instructions: Seizures, Adult (DC) Add. Discharge Instructions: TAKE YOUR MEDICATIONS PRESCRIBED TYLENOL AND MOTRIN NEEDED FOR PAIN LOTS OF CLEAR LIQUIDS FOLLOW UP WITH [facility] THIS WEEK FOR FURTHER CARE, AND FOLLOW UP WITH NEUROLOGIST SOON POSSIBLE--CALL IN THE MORNING TO SCHEDULE APPOINTMENT All discharge instructions reviewed with patient and/or family. Voiced understanding. NALDO BELLO DO Nov 12, 2021 23:31
== END 2021-11-12 23:36 | disposition home or self-care (01) ==
LOC: EDUNIT# 22:44 → ER 22:47
DX: R25.9 Unspecified abnormal involuntary movements (principal)
CPT/HCPCS: 99281

== ENCOUNTER 2022-01-17 21:39 | Emergency (ER) | payer MEDICARE ==
--- NOTE | 2022-01-17 21:49 | ED General ---
General Chief Complaint: Neurological Problems Stated Complaint: SEIZURE Source of Information: Patient Exam Limitations: No Limitations History of Present Illness Date Seen by Provider: Jan 17, 2022 Time Seen by Provider: 21:38 Initial Comments 41-year-old female presents via EMS for reported seizure activity. She is having seizures for about a year or year and a half. She sees neurology next month. She is on Depakote and has had no recent changes in her medications. She states she has seizures a couple times a week. She believes the seizure was typical and similar to previous episodes. She denies any recent illnesses. She does endorse some right leg tingling and some left shoulder pain. Her boyfriend was reportedly standing beside her and helped lowered her to the ground and she had no trauma from the seizure itself. Some mild weakness as well. No loss of bowel or bladder control or tongue biting. Allergies and Home Medications Allergies Coded Allergies: No Known Drug Allergies (Unverified , 12/22/17) Patient Home Medication List Home Medication List Reviewed: Yes Cephalexin (Cephalexin) 500 Mg Tablet, 500 MG PO TID Prescribed by: REAL LANDA on 11/12/21 0128 Ciprofloxacin HCl (Ciprofloxacin HCl) 500 Mg Tablet, 500 MG PO BID Prescribed by: SAMINA RODRÍGUEZ on 11/07/21 1455 Divalproex Sodium (Divalproex Sodium ER) 500 Mg Tab.er.24h, 500 MG PO DAILY, (Reported) Entered as Reported by: SARA ALEJANDRE on 07/19/21 1603 Divalproex Sodium (Depakote ER) 250 Mg Tab.er.24h, 250 MG PO DAILY Prescribed by: REAL LANDA on 11/12/21 0128 Fluoxetine HCl (Prozac) 10 Mg Capsule, 10 MG PO DAILY, (Reported) Entered as Reported by: NICK REDDY on 02/28/20921 Fluoxetine HCl (Prozac) 20 Mg Capsule, 20 MG PO DAILY, (Reported) Entered as Reported by: NICK REDDY on 02/28/20921 Sulfamethoxazole/Trimethoprim (Bactrim Ds Tablet) 1 Each Tablet, 1 EACH PO BID Prescribed by: ALISHA CORDOVA on 07/21/21 181 Review of Systems Review of Systems Constitutional: no symptoms reported EENTM: see HPI Respiratory: no symptoms reported Cardiovascular: no symptoms reported Gastrointestinal: no symptoms reported Genitourinary: no symptoms reported Musculoskeletal: joint pain Skin: no symptoms reported Psychiatric/Neurological: Seizure, Weakness Hematologic/Lymphatic: No Symptoms Reported Immunological/Allergic: no symptoms reported Past Acghoiu-Uxegwp-Opeggr Hx Patient Social History Tobacco Use?: Yes Tobacco type used: Cigarettes Smoking Status: Current Everyday Smoker Use of E-Cig and/or Vaping dev: No Substance use?: No Alcohol Use?: No Pt feels they are or have been: No Immunizations Up To Date Tetanus Booster (TDap): Unknown First/Initial COVID19 Vaccinat: NOVEMBER 2020 Second COVID19 Vaccination Pankaj: NOVEMBER 2020 Third COVID19 Vaccination Date: NOVEMBER 2020 Seasonal Allergies Seasonal Allergies: Yes Past Medical History Surgery/Hospitalization HX: Loop recorder placed, Hx seizure (a work up to classify not completed), Depresson-PTSD Surgeries: Yes (loop recorder) Gallbladder Respiratory: No Currently Using CPAP: No Currently Using BIPAP: No Cardiac: Yes (heart cath) Syncope Neurological: Yes (Seizure-like activity) Concussion, Seizure Disorder Reproductive Disorders: No Sexually Transmitted Disease: No Genitourinary: No Gastrointestinal: Yes Gall Bladder Disease Musculoskeletal: Yes Arthritis, Fractures Endocrine: No HEENT: No Cancer: No Psychosocial: Yes Pseudo Seizures, Anxiety, Depression Integumentary: No Blood Disorders: No Family Medical History Reviewed Nursing Family Hx No Pertinent Family Hx Physical Exam Vital Signs Vital Signs - First Documented 01/17/22 21:40 Temp 36.8 Pulse 89 Resp 18 B/P (MAP) 112/64 (80) Pulse Ox 97 O2 Delivery Room Air Capillary Refill : Height, Weight, BMI Height: 5'2.00" Weight: 160lbs. 8.0oz. 72.272643pl; 29.00 BMI Method:Stated General Appearance: No Apparent Distress, WD/WN HEENT: PERRL/EOMI, TMs Normal, Normal ENT Inspection, Pharynx Normal Neck: Full Range of Motion, Normal Inspection, Non Tender, Supple Respiratory: Chest Non Tender, Lungs Clear, Normal Breath Sounds, No Accessory Muscle Use, No Respiratory Distress Cardiovascular: Regular Rate, Rhythm, No Edema, No Gallop, No JVD, No Murmur, Normal Peripheral Pulses Gastrointestinal: Normal Bowel Sounds, No Organomegaly, No Pulsatile Mass, Non Tender, Soft Extremity: Normal Capillary Refill, Normal Inspection, No Calf Tenderness, Other (Tenderness palpation left shoulder diffusely. No obvious deformity. Neurovascular and sensory intact with good axillary sensation) Neurologic/Psychiatric: Alert, Oriented x3, Normal Mood/Affect, wringer and setter II-XII Norm as Tested, Other (Patient has some intermittent weakness of her right leg, occasionally she can hold it up and occasionally she cannot. This seems inconsistent on exam. Otherwise neurovascular motor and sensory intact.) Reflexes: 4+ Knee (R), 4+ Knee (L), 4+ Ankle (R), 4+ Ankle (L) Skin: Normal Color, Warm/Dry Lymphatic: No Adenopathy Progress/Results/Core Measures Suspected Sepsis SIRS Temperature: Pulse: Respiratory Rate: Laboratory Tests 01/17/22 21:46: White Blood Count 12.6H Blood Pressure / Mean: Laboratory Tests 01/17/22 21:46: Creatinine 0.68, Platelet Count 201, Total Bilirubin 0.3 Results/Orders Lab Results Laboratory Tests Test 01/17/22 21:46 Range/Units White Blood Count 12.6 H 4.3-11.0 10^3/uL Red Blood Count 4.33 3.80-5.11 10^6/uL Hemoglobin 13.3 11.5-16.0 g/dL Hematocrit 39 35-52 % Mean Corpuscular Volume 90 80-99 fL Mean Corpuscular Hemoglobin 31 25-34 pg Mean Corpuscular Hemoglobin Concent 34 32-36 g/dL Red Cell Distribution Width 14.2 10.0-14.5 % Platelet Count 201 130-400 10^3/uL Mean Platelet Volume 10.8 9.0-12.2 fL Immature Granulocyte % (Auto) 0 % Neutrophils (%) (Auto) 52 42-75 % Lymphocytes (%) (Auto) 39 12-44 % Monocytes (%) (Auto) 6 0-12 % Eosinophils (%) (Auto) 3 0-10 % Basophils (%) (Auto) 1 0-10 % Neutrophils # (Auto) 6.5 1.8-7.8 10^3/uL Lymphocytes # (Auto) 4.9 H 1.0-4.0 10^3/uL Monocytes # (Auto) 0.8 0.0-1.0 10^3/uL Eosinophils # (Auto) 0.3 0.0-0.3 10^3/uL Basophils # (Auto) 0.1 0.0-0.1 10^3/uL Immature Granulocyte # (Auto) 0.0 0.0-0.1 10^3/uL Sodium Level 136 135-145 MMOL/L Potassium Level 4.3 3.6-5.0 MMOL/L Chloride Level 104 98-107 MMOL/L Carbon Dioxide Level 22 21-32 MMOL/L Anion Gap 10 5-14 MMOL/L Blood Urea Nitrogen 10 7-18 MG/DL Creatinine 0.68 0.60-1.30 MG/DL Estimat Glomerular Filtration Rate 111 BUN/Creatinine Ratio 15 Glucose Level 102 70-105 MG/DL Calcium Level 9.1 8.5-10.1 MG/DL Corrected Calcium 9.3 8.5-10.1 MG/DL Total Bilirubin 0.3 0.1-1.0 MG/DL Aspartate Amino Transf (AST/SGOT) 15 5-34 U/L Alanine Aminotransferase (ALT/SGPT) 10 0-55 U/L Alkaline Phosphatase 69 40-136 U/L Total Protein 6.3 L 6.4-8.2 GM/DL Albumin 3.7 3.2-4.5 GM/DL My Orders Orders - LUPILLO FRANKLIN DO Cbc With Automated Diff (01/17/22 21:46) Comprehensive Metabolic Panel (01/17/22 21:46) Acetaminophen Tablet (Tylenol Tablet) (01/17/22 22:00) Ct Head Wo (01/17/22 21:46) Shoulder 3 View Left (01/17/22 21:49) Medications Given in ED Current Medications Medications Dose Ordered Sig/Falguni Route Start Time Stop Time Status Last Admin Dose Admin Acetaminophen 1,000 mg ONCE ONCE PO 01/17/22 22:00 01/17/22 22:01 DC 01/17/22 22:01 1,000 MG Vital Signs/I&O 01/17/22 21:40 Temp 36.8 Pulse 89 Resp 18 B/P (MAP) 112/64 (80) Pulse Ox 97 O2 Delivery Room Air Capillary Refill : Diagnostic Imaging Diagonstic Imaging: CT Plain Films/CT/US/NM/MRI: head Comments No acute findings. Left shoulder x-ray: Negative for acute Departure Communication (Admissions) Patient is hemodynamically stable, neurologically intact except for some intermittent right leg weakness. This is quite sporadic and intermittent on exam, seemingly with full strength that sometimes will weakness and others. CT scan is negative. At this point it is not really consistent with any acute neurologic finding. It may be some form of Samm's paralysis. Regardless she has regained her strength completely. She is ambulatory prior to discharge. She has some follow-up with neurology next week for further evaluation and treatment. Unfortunately we do not have the capability to do a Depakote level here so I recommended she have this completed at her primary care doctor's office in the next couple of days. She is discharged in stable condition with close follow-up. Impression Primary Impression: Witnessed seizure-like activity Disposition: HOME, SELF-CARE Condition: Stable Departure-Patient Inst. Referrals: [facility] (PCP) Primary Care Physician MIRANDA VALE APRN (Family) Primary Care Physician Patient Instructions: Seizures, Adult (DC) Add. Discharge Instructions: Continue to take your medications as previously prescribed. I recommend you follow-up with your primary doctor to check your Depakote levels in the next few days. Keep your appointment with a neurologist on the . Return to the emergency department for any severe concerns. Follow-up with your primary physician for any nonemergent needs. All discharge instructions reviewed with patient and/or family. Voiced understanding. LUPILLO FRANKLIN DO Jan 17, 2022 21:49
[2022-01-17 21:51] LABS: BASOPHILS # (AUTO) 0.1 10^3/uL (0.0-0.1); BASOPHILS % (AUTO) 1 % (0-10); EOSINOPHILS # (AUTO) 0.3 10^3/uL (0.0-0.3); EOSINOPHILS % (AUTO) 3 % (0-10); HEMATOCRIT 39 % (35-52); HEMOGLOBIN 13.3 g/dL (11.5-16.0); LYMPHOCYTES # (AUTO) 4.9 10^3/uL (1.0-4.0); LYMPHOCYTES % (AUTO) 39 % (12-44); MEAN CORPUSCULAR HEMOGLOBIN 31 pg (25-34); MEAN CORPUSCULAR HGB CONC 34 g/dL (32-36); MEAN CORPUSCULAR VOLUME 90 fL (80-99); MEAN PLATELET VOLUME 10.8 fL (9.0-12.2); MONOCYTES # (AUTO) 0.8 10^3/uL (0.0-1.0); MONOCYTES % (AUTO) 6 % (0-12); NEUTROPHILS # (AUTO) 6.5 10^3/uL (1.8-7.8); NEUTROPHILS % (AUTO) 52 % (42-75); PLATELET COUNT 201 10^3/uL (130-400); WHITE BLOOD COUNT 12.6 10^3/uL (4.3-11.0)
[2022-01-17] MEDS ORDERED: ACETAMINOPHEN 500 MG TAB (TYLENOL) PO ONE (22:00)
[2022-01-17 22:09] LABS: BILIRUBIN,TOTAL 0.3 MG/DL (0.1-1.0); CALCIUM 9.1 MG/DL (8.5-10.1); CREATININE SERUM 0.68 MG/DL (0.60-1.30); POTASSIUM 4.3 MMOL/L (3.6-5.0)
[2022-01-17 22:10] LABS: ALBUMIN 3.7 GM/DL (3.2-4.5); TOTAL PROTEIN 6.3 GM/DL (6.4-8.2)
--- NOTE | 2022-01-17 22:10 | Diagnostic Imaging Report ---
INDICATION: Seizure with left shoulder pain. EXAMINATION: AP, oblique and transscapular views of left shoulder were obtained. FINDINGS: No acute fracture or dislocation is identified. No abnormal lytic or sclerotic focus is seen, and there is no radiopaque foreign body. IMPRESSION: No acute abnormality. Dictated by: Dictated on workstation # [id number]
--- NOTE | 2022-01-17 22:11 | Diagnostic Imaging Report ---
PROCEDURE: CT head without contrast. TECHNIQUE: Multiple contiguous axial images were obtained through the brain without the use of intravenous contrast. Auto Exposure Controls were utilized during the CT exam to meet ALARA standards for radiation dose reduction. INDICATION: Seizure and right leg weakness. COMPARISON: 11/12/2021. CT HEAD: CT images of the head were obtained. Ventricles and sulci are within normal limits for size. There is no intracranial hemorrhage identified. There is no abnormal mass effect or shift of midline structures. IMPRESSION: Unremarkable CT of the head. Dictated by: Dictated on workstation # [id number]
[2022-01-17 22:32] VITALS: BP 112/64
== END 2022-01-17 22:33 | disposition home or self-care (01) ==
LOC: EDUNIT# 21:39 → ER FS 21:44
DX: R25.9 Unspecified abnormal involuntary movements (principal); F17.210 Nicotine dependence, cigarettes, uncomplicated; Z86.69 Personal history of other diseases of the nervous system and sense organs
CPT/HCPCS: 36415; 70450; 73030; 80053; 85025

== ENCOUNTER → 2022-02-04 | Outpatient (CLI) | payer MEDICARE | LOC: CARDFS 10:33 | PROVIDERS: ATTEND Internal Medicine Cardiovascular Disease | DX: I10 Essential (primary) hypertension (principal); I25.10 Atherosclerotic heart disease of native coronary artery without angina pectoris | CPT/HCPCS: 93306 ==

== ENCOUNTER 2022-02-19 13:46 | Emergency (ER) | payer MEDICARE ==
[~2022-02-19] VITALS: Ht 160 cm; Wt 73.0 kg
[~2022-02-19 13:46] MED LIST changes: -CATHETER FLUSH 10 ML SYR IVP PRN; -LORazepam INJ 2 MG/ML (ATIVAN) VIAL IVP ONE; -LORazepam INJ 2 MG/ML (ATIVAN) VIAL ONE; -NAPR500T8 PO; -PANT40TA52 PO
--- NOTE | 2022-02-19 14:18 | ED Neurological Problem ---
General Chief Complaint: Neurological Problems Stated Complaint: SEIZURES Source: patient, other (Friend at bedside) History of Present Illness Date Seen by Provider: Feb 19, 2022 Time Seen by Provider: 14:00 Initial Comments 41-year-old female presents to the ER after she reportedly had seizure-like activity during a stress test. She has had these episodes off and on for the last 3 months. Her friend at bedside tells me they are now happening at least daily. No fevers chills or other medical problems. No history of seizure disorder prior to the current events. The patient is somnolent on arrival but s he apparently received some medications, unable to obtain history from the patient at this time Allergies and Home Medications Allergies Coded Allergies: No Known Drug Allergies (Unverified , 12/22/17) Patient Home Medication List Home Medication List Reviewed: Yes Divalproex Sodium (Depakote ER) 250 Mg Tab.er.24h, 250 MG PO DAILY Prescribed by: REAL LANDA on 11/12/21127 Fluoxetine HCl (Prozac) 10 Mg Capsule, 10 MG PO DAILY, (Reported) Entered as Reported by: NICK REDDY on 02/28/20921 Fluoxetine HCl (Prozac) 20 Mg Capsule, 20 MG PO DAILY, (Reported) Entered as Reported by: NICK REDDY on 02/28/20921 Naproxen (Naproxen) 500 Mg Tablet.dr, 500 MG PO PRN, (Reported) Entered as Reported by: PAYAM WILEY on 02/19/22 144 Pantoprazole Sodium (Pantoprazole Sodium) 40 Mg Tablet.dr, 40 MG PO DAILY, (Reported) Entered as Reported by: PAYAM WILEY on 02/19/22 144 Rosuvastatin Calcium (Rosuvastatin Calcium) 20 Mg Tablet, 20 MG PO DAILY, (Reported) Entered as Reported by: PAYAM WILEY on 02/19/22 144 Discontinued Medications Cephalexin (Cephalexin) 500 Mg Tablet, 500 MG PO TID Discontinued Reason: No Longer Taking Prescribed by: REAL LANDA on 11/12/21 012 Ciprofloxacin HCl (Ciprofloxacin HCl) 500 Mg Tablet, 500 MG PO BID Discontinued Reason: No Longer Taking Prescribed by: SAMINA RODRÍGUEZ on 11/07/21 1455 Divalproex Sodium (Divalproex Sodium ER) 500 Mg Tab.er.24h, 500 MG PO DAILY, (Reported) Discontinued Reason: No Longer Taking Entered as Reported by: SARA ALEJANDRE on 07/19/21 1603 Sulfamethoxazole/Trimethoprim (Bactrim Ds Tablet) 1 Each Tablet, 1 EACH PO BID Discontinued Reason: No Longer Taking Prescribed by: ALISHA CORDOVA on 07/21/21 1812 Review of Systems Review of Systems Constitutional: other (Unable to obtain review of systems due to patient's somnolence) Past Rrurwde-Aypywr-Dogibw Hx Immunizations Up To Date Tetanus Booster (TDap): Unknown First/Initial COVID19 Vaccinat: NOVEMBER 2020 Second COVID19 Vaccination Pankaj: NOVEMBER 2020 Third COVID19 Vaccination Date: NOVEMBER 2020 Seasonal Allergies Seasonal Allergies: Yes Past Medical History Surgery/Hospitalization HX: Loop recorder placed, Hx seizure (a work up to classify not completed), Depresson-PTSD Surgeries: Yes (loop recorder) Gallbladder Respiratory: No Currently Using CPAP: No Currently Using BIPAP: No Cardiac: Yes (heart cath) Syncope Neurological: Yes (Seizure-like activity) Concussion, Seizure Disorder Reproductive Disorders: No Sexually Transmitted Disease: No Genitourinary: No Gastrointestinal: Yes Gall Bladder Disease Musculoskeletal: Yes Arthritis, Fractures Endocrine: No HEENT: No Cancer: No Psychosocial: Yes Pseudo Seizures, Anxiety, Depression Integumentary: No Blood Disorders: No Family Medical History No Pertinent Family Hx History obtained from the records. Unable to obtain from patient due to somnolence Physical Exam Vital Signs Vital Signs - First Documented 02/19/22 13:50 Temp 37.0 Pulse 83 Resp 22 B/P (MAP) 100/67 (78) Pulse Ox 97 O2 Delivery Room Air Capillary Refill : Height, Weight, BMI Height: 5'2.00" Weight: 160lbs. 8.0oz. [id number]; 29.00 BMI Method:Stated General Appearance: WD/WN, no apparent distress, other (No current seizure-like activity) HEENT: PERRL/EOMI, normal ENT inspection, TMs normal Neck: non-tender, full range of motion, supple, normal inspection Respiratory: chest non-tender, lungs clear, normal breath sounds, no respiratory distress, no accessory muscle use Cardiovascular: regular rate, rhythm, no edema, no gallop, no JVD, no murmur Gastrointestinal: normal bowel sounds, non tender, soft, no organomegaly, no pulsatile mass Back: normal inspection, no CVA tenderness, no vertebral tenderness Extremities: normal range of motion, non-tender, normal inspection, no pedal edema, no calf tenderness Neurologic/Psychiatric: associate director of sales II-XII nml as tested, no motor/sensory deficits, other (Patient will complete herIs only very briefly. She does intermittently follow commands and spontaneously moves all extremities.) Skin: normal color, warm/dry Focused Exam Lactate Level 02/19/22 14:14: Lactic Acid Level 1.81 Lactic Acid Level Laboratory Tests Test 02/19/22 14:14 Lactic Acid Level 1.81 MMOL/L (0.50-2.00) Progress/Results/Core Measures Results/Orders Lab Results Laboratory Tests Test 02/19/22 14:14 Range/Units White Blood Count 8.9 4.3-11.0 10^3/uL Red Blood Count 4.58 3.80-5.11 10^6/uL Hemoglobin 14.2 11.5-16.0 g/dL Hematocrit 43 35-52 % Mean Corpuscular Volume 93 80-99 fL Mean Corpuscular Hemoglobin 31 25-34 pg Mean Corpuscular Hemoglobin Concent 33 32-36 g/dL Red Cell Distribution Width 13.8 10.0-14.5 % Platelet Count 181 130-400 10^3/uL Mean Platelet Volume 10.8 9.0-12.2 fL Immature Granulocyte % (Auto) 0 % Neutrophils (%) (Auto) 54 42-75 % Lymphocytes (%) (Auto) 37 12-44 % Monocytes (%) (Auto) 7 0-12 % Eosinophils (%) (Auto) 2 0-10 % Basophils (%) (Auto) 0 0-10 % Neutrophils # (Auto) 4.8 1.8-7.8 10^3/uL Lymphocytes # (Auto) 3.3 1.0-4.0 10^3/uL Monocytes # (Auto) 0.6 0.0-1.0 10^3/uL Eosinophils # (Auto) 0.2 0.0-0.3 10^3/uL Basophils # (Auto) 0.0 0.0-0.1 10^3/uL Immature Granulocyte # (Auto) 0.0 0.0-0.1 10^3/uL Sodium Level 136 135-145 MMOL/L Potassium Level 4.0 3.6-5.0 MMOL/L Chloride Level 104 98-107 MMOL/L Carbon Dioxide Level 24 21-32 MMOL/L Anion Gap 8 5-14 MMOL/L Blood Urea Nitrogen 17 7-18 MG/DL Creatinine 0.83 0.60-1.30 MG/DL Estimat Glomerular Filtration Rate 90 BUN/Creatinine Ratio 20 Glucose Level 123 H 70-105 MG/DL Lactic Acid Level 1.81 0.50-2.00 MMOL/L Calcium Level 9.2 8.5-10.1 MG/DL Corrected Calcium 9.3 8.5-10.1 MG/DL Total Bilirubin 0.4 0.1-1.0 MG/DL Aspartate Amino Transf (AST/SGOT) 12 5-34 U/L Alanine Aminotransferase (ALT/SGPT) < 6 0-55 U/L Alkaline Phosphatase 53 40-136 U/L Total Protein 6.7 6.4-8.2 GM/DL Albumin 3.9 3.2-4.5 GM/DL Valproic Acid (Depakene) Level 2.8 L 50.0-100.0 UG/ML My Orders Orders - LUPILLO FRANKLIN DO Cbc With Automated Diff (02/19/22 14:05) Comprehensive Metabolic Panel (02/19/22 14:05) Lactic Acid Analyzer (02/19/22 14:05) Ct Head Wo (02/19/22 14:05) Valproic Acid (02/19/22 14:18) Vital Signs/I&O 02/19/22 13:50 Temp 37.0 Pulse 83 Resp 22 B/P (MAP) 100/67 (78) Pulse Ox 97 O2 Delivery Room Air Departure Communication (Admissions) Patient is hemodynamically stable. She received 4 mg of Ativan in the stress echo area and was sleeping for most of her emergency department stay. She does eventually wake up and she is alert and oriented, does not really remember what happened other than that she had a seizure. She states she been having seizures every day. I advised her her Depakote level was low and she tells me that is likely because she was not able to take it this morning as she was advised not to for her stress test she is on a waiting list to see neurology. She has still been driving. I advised her not to do so until cleared otherwise. She states understanding. She is comfortable discharge Impression Primary Impression: Seizure-like activity Disposition: 01 HOME, SELF-CARE Condition: Stable Departure-Patient Inst. Referrals: MIRANDA VALE APRN (PCP) Primary Care Physician [facility] (Family) Primary Care Physician Add. Discharge Instructions: Please keep your follow-up appointment with neurology. Take your Depakote as previously prescribed. Your seizure today may have been related to not being able to take it today. Please do not drive until cleared to do so by the neurologist. Return to the emergency department for any severe concerns. All discharge instructions reviewed with patient and/or family. Voiced understanding. LUPILLO FRANKLIN DO Feb 19, 2022 14:18
[2022-02-19 14:29] LABS: BASOPHILS % (AUTO) 0 % (0-10); EOSINOPHILS # (AUTO) 0.2 10^3/uL (0.0-0.3); EOSINOPHILS % (AUTO) 2 % (0-10); HEMATOCRIT 43 % (35-52); HEMOGLOBIN 14.2 g/dL (11.5-16.0); LYMPHOCYTES # (AUTO) 3.3 10^3/uL (1.0-4.0); LYMPHOCYTES % (AUTO) 37 % (12-44); MEAN CORPUSCULAR HEMOGLOBIN 31 pg (25-34); MEAN CORPUSCULAR HGB CONC 33 g/dL (32-36); MEAN CORPUSCULAR VOLUME 93 fL (80-99); MEAN PLATELET VOLUME 10.8 fL (9.0-12.2); MONOCYTES # (AUTO) 0.6 10^3/uL (0.0-1.0); MONOCYTES % (AUTO) 7 % (0-12); NEUTROPHILS # (AUTO) 4.8 10^3/uL (1.8-7.8); NEUTROPHILS % (AUTO) 54 % (42-75); PLATELET COUNT 181 10^3/uL (130-400); WHITE BLOOD COUNT 8.9 10^3/uL (4.3-11.0)
[2022-02-19 14:40] LABS: ALBUMIN 3.9 GM/DL (3.2-4.5); CHLORIDE 104 MMOL/L (98-107); SODIUM 136 MMOL/L (135-145)
[2022-02-19] MEDS ORDERED: NAPR500T8 PO (14:40)
[2022-02-19] MEDS ORDERED: PANT40TA52 PO (14:40)
[2022-02-19] MEDS ORDERED: ROSU20TA32 PO (14:40)
[2022-02-19 14:41] LABS: CALCIUM 9.2 MG/DL (8.5-10.1)
[2022-02-19 14:43] LABS: GLUCOSE 123 MG/DL (70-105); TOTAL PROTEIN 6.7 GM/DL (6.4-8.2)
[2022-02-19 14:44] LABS: CARBON DIOXIDE 24 MMOL/L (21-32)
[2022-02-19 14:45] LABS: BILIRUBIN,TOTAL 0.4 MG/DL (0.1-1.0)
[2022-02-19 14:46] LABS: ALKALINE PHOSPHATASE 53 U/L (40-136)
[2022-02-19 14:47] LABS: CREATININE SERUM 0.83 MG/DL (0.60-1.30); GFR ESTIMATED 90
[2022-02-19 14:48] LABS: BUN/CREATININE RATIO 20
[2022-02-19 14:49] LABS: ALANINE AMINOTRANSFERASE < 6 U/L (0-55)
[2022-02-19 14:57] LABS: VALPROIC ACID 2.8 UG/ML (50.0-100.0)
--- NOTE | 2022-02-19 14:59 | Diagnostic Imaging Report ---
EXAMINATION: CT head without contrast. TECHNIQUE: Multiple contiguous axial images were obtained through the brain without the use of intravenous contrast. All CT scans use one or more of the following dose optimizing techniques: Automated exposure control, MA and/or KvP adjustment based on patient size and exam type or iterative reconstruction. HISTORY: Seizure. COMPARISON: 01/17/2022. FINDINGS: The ventricles and sulci are normal. No abnormal attenuation of brain parenchyma is present. No acute intracranial hemorrhage or abnormal extra-axial fluid collections are present. No hyperdense vessel. The calvarium is intact. The mastoid air cells are clear. There is fluid within the paranasal sinuses. The orbits are normal. IMPRESSION: 1. No acute intracranial abnormality. Dictated by: Dictated on workstation # [id number]
[2022-02-19 18:38] VITALS: BP 100/69
== END 2022-02-19 18:38 | disposition home or self-care (01) ==
LOC: EDUNIT# 13:46 → ER 13:48
DX: R25.9 Unspecified abnormal involuntary movements (principal)
CPT/HCPCS: 36415; 70450; 80053; 80164; 83605; 85025; 99281

== ENCOUNTER → 2022-02-19 | Outpatient (CLI) | payer MEDICARE ==
[~2022-02-19] VITALS: Ht 157.5 cm; Wt 72.6 kg
[~2022-02-19] MED LIST changes: +HURRICAINE EXT TUBE (BENZOCAINE) XX PRN; +LACTATED RINGERS 1,000 ML IV STA; +NAPR500T8 PO; +PANT40TA52 PO
== END | disposition home or self-care (01) ==
LOC: PREOP 06:46
PROVIDERS: ATTEND Surgery
DX: Z01.818 Encounter for other preprocedural examination (principal)

== ENCOUNTER → 2022-02-19 | Outpatient (CLI) | payer MEDICARE ==
[~2022-02-19] MED LIST changes: +CATHETER FLUSH 10 ML SYR IVP PRN; -HURRICAINE EXT TUBE (BENZOCAINE) XX PRN; -LACTATED RINGERS 1,000 ML IV STA; +LORazepam INJ 2 MG/ML (ATIVAN) VIAL IVP ONE; +LORazepam INJ 2 MG/ML (ATIVAN) VIAL ONE
[2022-02-19 12:48] VITALS: BP 111/75
--- NOTE | 2022-02-19 15:23 | Cardiology Stress Test Report ---
Stress Test Report Date of Procedure/Referring: Date of Procedure: Feb 19, 2022 [facility] Admitting Physician Admitting Physician: Attending Physician: Esthela Sparks MD Indications: HTN Baseline Vital Signs Vital Signs Date Time Temp Pulse Resp B/P (MAP) Pulse Ox O2 Delivery O2 Flow Rate FiO2 02/19/22 12:48 72 111/75 (87) Summary: Patient received resting dose of technetium 99 Myoview and the images were acquired then patient started exercising. After 2 minutes and 50 seconds patient had a seizure. Test was terminated. No EKG changes were noted. Patient continued to have multiple recurrent seizures a total of 4 and she was given IV Ativan Patient was transferred to the emergency room 1. Patient has seizure activity during exercise, test was terminated at 2 minutes and 50 seconds. No EKG changes were noted 2. Resting images were reviewed showing no significant defect. No stress images were acquired. Copy Copies To 1: [facility]/ ESTHELA SPARKS MD Feb 19, 2022 15:23
== END ==
LOC: CARD 09:48
PROVIDERS: ATTEND Internal Medicine Cardiovascular Disease
DX: I10 Essential (primary) hypertension (principal); I25.10 Atherosclerotic heart disease of native coronary artery without angina pectoris
CPT/HCPCS: 78451; 93017; A9502

== ENCOUNTER 2022-02-27 13:24 | Emergency (ER) | payer MEDICARE ==
[~2022-02-27] VITALS: Ht 170.2 cm; Wt 68.0 kg
[~2022-02-27 13:24] MED LIST changes: +NAPR500T8 PO; +PANT40TA52 PO
[2022-02-27] MEDS ORDERED: LORazepam 0.5 MG (ATIVAN) TABLET PO STA (13:34)
[2022-02-27 13:43] LABS: BASOPHILS # (AUTO) 0.1 10^3/uL (0.0-0.1); BASOPHILS % (AUTO) 1 % (0-10); EOSINOPHILS # (AUTO) 0.5 10^3/uL (0.0-0.3); EOSINOPHILS % (AUTO) 4 % (0-10); HEMATOCRIT 43 % (35-52); HEMOGLOBIN 14.2 g/dL (11.5-16.0); LYMPHOCYTES # (AUTO) 3.5 10^3/uL (1.0-4.0); LYMPHOCYTES % (AUTO) 32 % (12-44); MEAN CORPUSCULAR HEMOGLOBIN 31 pg (25-34); MEAN CORPUSCULAR HGB CONC 33 g/dL (32-36); MEAN CORPUSCULAR VOLUME 93 fL (80-99); MEAN PLATELET VOLUME 10.7 fL (9.0-12.2); MONOCYTES # (AUTO) 0.7 10^3/uL (0.0-1.0); MONOCYTES % (AUTO) 7 % (0-12); NEUTROPHILS % (AUTO) 56 % (42-75); PLATELET COUNT 245 10^3/uL (130-400); WHITE BLOOD COUNT 10.8 10^3/uL (4.3-11.0)
[2022-02-27] MEDS ORDERED: NS IV 1000 ML 1,000 ML IV SCH (13:45)
[2022-02-27 13:47] LABS: BILIRUBIN,URINE NEGATIVE (NEGATIVE); CLARITY,URINE CLEAR; COLOR,URINE YELLOW; GLUCOSE, URINE (UA) NEGATIVE (NEGATIVE); KETONES,URINE NEGATIVE (NEGATIVE); LEUKOCYTE ESTERASE ,URINE NEGATIVE (NEGATIVE); NITRITE,URINE NEGATIVE (NEGATIVE); PROTEIN,URINE NEGATIVE (NEGATIVE)
[2022-02-27 13:57] LABS: BACTERIA,URINE NEGATIVE /HPF; RBC,URINE 0-2 /HPF; SQUAMOUS EPITHELIAL CELL,UR RARE /HPF; WBC,URINE RARE /HPF
--- NOTE | 2022-02-27 13:57 | ED General ---
General Chief Complaint: Neurological Problems Stated Complaint: SEIZURE Source of Information: Patient, Old Records (prior ED visits Jan and Feb 2022) Exam Limitations: No Limitations History of Present Illness Date Seen by Provider: Feb 27, 2022 Time Seen by Provider: 13:25 Initial Comments 41-year-old female presenting by wheelchair from [facility] clinic with complaints of recurrent seizure activity. She has been having seizure activity for over a year now and missed a recent appointment to see neurology so now it would be June before she can get in. She had gone to [facility] today to be seen about her seizure activity and had further seizure activity while in the clinic. She is awake and alert on my evaluation in the emergency department. She has no bite higuera on her tongue or bleeding from her mouth. She has had no loss of bowel or bladder control. Her seizure activity in the emergency department was where she would slam her head back on the bed but not in a rhythmic pattern. She also tightened her arms up but had no shaking of her arms or legs. Again she had no bites on her tongue or loss of bowel or bladder control and was immediately able to answer questions after this episode. Timing/Duration: 1/2 Hour Associated Systoms: No Chest Pain, No Cough, No Diaphoresis, No Fever/Chills; Headaches; No Loss of Appetite, No Malaise, No Nausea/Vomiting, No Rash, No Shortness of Air, No Syncope, No Weakness Allergies and Home Medications Allergies Coded Allergies: No Known Drug Allergies (Unverified , 12/22/17) Patient Home Medication List Home Medication List Reviewed: Yes Divalproex Sodium (Depakote ER) 250 Mg Tab.er.24h, 250 MG PO DAILY Prescribed by: REAL LANDA on 11/12/21 0128 Fluoxetine HCl (Prozac) 10 Mg Capsule, 10 MG PO DAILY, (Reported) Entered as Reported by: NICK REDDY on 02/28/20921 Fluoxetine HCl (Prozac) 20 Mg Capsule, 20 MG PO DAILY, (Reported) Entered as Reported by: NICK REDDY on 02/28/20921 Naproxen (Naproxen) 500 Mg Tablet., 500 MG PO PRN, (Reported) Entered as Reported by: PAYAM WILEY on 02/19/22 1440 Pantoprazole Sodium (Pantoprazole Sodium) 40 Mg Tablet.dr, 40 MG PO DAILY, (Reported) Entered as Reported by: PAYAM WILEY on 02/19/22 1440 Rosuvastatin Calcium (Rosuvastatin Calcium) 20 Mg Tablet, 20 MG PO DAILY, (Reported) Entered as Reported by: PAYAM WILEY on 02/19/220 Review of Systems Review of Systems Constitutional: No chills, No diaphoresis, No dizziness, No fever EENTM: No ear discharge, No ear pain, No blurred vision, No mouth pain, No epistaxis, No nose congestion, No throat pain Respiratory: No cough, No short of breath Cardiovascular: No chest pain Gastrointestinal: No nausea, No vomiting Genitourinary: No dysuria Musculoskeletal: no symptoms reported Skin: No rash Psychiatric/Neurological: Headache, Seizure (witnessed seizure like activity) Hematologic/Lymphatic: No Symptoms Reported Immunological/Allergic: no symptoms reported Past Sempoqs-Fbzxpi-Vxkkpe Hx Immunizations Up To Date Tetanus Booster (TDap): Unknown First/Initial COVID19 Vaccinat: NOVEMBER 2020 Second COVID19 Vaccination Pankaj: NOVEMBER 2020 Third COVID19 Vaccination Date: NOVEMBER 2020 Seasonal Allergies Seasonal Allergies: Yes Past Medical History Surgery/Hospitalization HX: Loop recorder placed, Hx seizure (a work up to classify not completed), Depresson-PTSD Surgeries: Yes (loop recorder) Gallbladder Respiratory: No Currently Using CPAP: No Currently Using BIPAP: No Cardiac: Yes (heart cath) Syncope Neurological: Yes (Seizure-like activity) Concussion, Seizure Disorder Reproductive Disorders: No Sexually Transmitted Disease: No Genitourinary: No Gastrointestinal: Yes Gall Bladder Disease Musculoskeletal: Yes Arthritis, Fractures Endocrine: No HEENT: No Cancer: No Psychosocial: Yes Pseudo Seizures, Anxiety, Depression Integumentary: No Blood Disorders: No Family Medical History No Pertinent Family Hx History obtained from the records. Unable to obtain from patient due to somnolence Physical Exam Vital Signs Vital Signs - First Documented 02/27/22 13:25 Temp 36.8 Pulse 86 Resp 15 B/P (MAP) 105/73 (84) O2 Delivery Room Air Capillary Refill : Height, Weight, BMI Height: 5'2.00" Weight: 160lbs. 8.0oz. [id number]; 28.00 BMI Method:Stated General Appearance: No Apparent Distress HEENT: PERRL/EOMI, Normal ENT Inspection, Pharynx Normal, Moist Mucous Membranes, Other (no bite higuera to tongue or oral mucosa) Neck: Full Range of Motion, Normal Inspection, Non Tender, Supple Respiratory: Chest Non Tender, Lungs Clear, Normal Breath Sounds, No Accessory Muscle Use, No Respiratory Distress Cardiovascular: Regular Rate, Rhythm, Normal Peripheral Pulses Gastrointestinal: Normal Bowel Sounds, No Pulsatile Mass, Non Tender, Soft Rectal: Deferred Extremity: Normal Capillary Refill, Normal Inspection, No Pedal Edema Neurologic/Psychiatric: Alert, Oriented x3, wine 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-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 Norm as Tested Skin: Normal Color, Warm/Dry Progress/Results/Core Measures Suspected Sepsis SIRS Temperature: Pulse: Respiratory Rate: Laboratory Tests 02/27/22 13:30: White Blood Count 10.8 Blood Pressure / Mean: Laboratory Tests 02/27/22 13:30: Creatinine 0.76, Platelet Count 245, Total Bilirubin 0.3 Results/Orders Lab Results Laboratory Tests Test 02/27/22 13:30 Range/Units White Blood Count 10.8 4.3-11.0 10^3/uL Red Blood Count 4.65 3.80-5.11 10^6/uL Hemoglobin 14.2 11.5-16.0 g/dL Hematocrit 43 35-52 % Mean Corpuscular Volume 93 80-99 fL Mean Corpuscular Hemoglobin 31 25-34 pg Mean Corpuscular Hemoglobin Concent 33 32-36 g/dL Red Cell Distribution Width 13.9 10.0-14.5 % Platelet Count 245 130-400 10^3/uL Mean Platelet Volume 10.7 9.0-12.2 fL Immature Granulocyte % (Auto) 0 % Neutrophils (%) (Auto) 56 42-75 % Lymphocytes (%) (Auto) 32 12-44 % Monocytes (%) (Auto) 7 0-12 % Eosinophils (%) (Auto) 4 0-10 % Basophils (%) (Auto) 1 0-10 % Neutrophils # (Auto) 6.0 1.8-7.8 10^3/uL Lymphocytes # (Auto) 3.5 1.0-4.0 10^3/uL Monocytes # (Auto) 0.7 0.0-1.0 10^3/uL Eosinophils # (Auto) 0.5 H 0.0-0.3 10^3/uL Basophils # (Auto) 0.1 0.0-0.1 10^3/uL Immature Granulocyte # (Auto) 0.0 0.0-0.1 10^3/uL Urine Color YELLOW Urine Clarity CLEAR Urine pH 6.0 5-9 Urine Specific [place] 1.015 L 1.016-1.022 Urine Protein NEGATIVE NEGATIVE Urine Glucose (UA) NEGATIVE NEGATIVE Urine Ketones NEGATIVE NEGATIVE Urine Nitrite NEGATIVE NEGATIVE Urine Bilirubin NEGATIVE NEGATIVE Urine Urobilinogen 1.0 < = 1.0 MG/DL Urine Leukocyte Esterase NEGATIVE NEGATIVE Urine RBC (Auto) 1+ H NEGATIVE Urine RBC 0-2 /HPF Urine WBC RARE /HPF Urine Squamous Epithelial Cells RARE /HPF Urine Crystals NONE /LPF Urine Bacteria NEGATIVE /HPF Urine Casts NONE /LPF Urine Mucus NEGATIVE /LPF Urine Culture Indicated NO Sodium Level 139 135-145 MMOL/L Potassium Level 4.3 3.6-5.0 MMOL/L Chloride Level 103 98-107 MMOL/L Carbon Dioxide Level 21 21-32 MMOL/L Anion Gap 15 H 5-14 MMOL/L Blood Urea Nitrogen 11 7-18 MG/DL Creatinine 0.76 0.60-1.30 MG/DL Estimat Glomerular Filtration Rate 100 BUN/Creatinine Ratio 14 Glucose Level 82 70-105 MG/DL Calcium Level 9.6 8.5-10.1 MG/DL Corrected Calcium 9.7 8.5-10.1 MG/DL Total Bilirubin 0.3 0.1-1.0 MG/DL Aspartate Amino Transf (AST/SGOT) 13 5-34 U/L Alanine Aminotransferase (ALT/SGPT) 6 0-55 U/L Alkaline Phosphatase 87 40-136 U/L Total Protein 6.9 6.4-8.2 GM/DL Albumin 3.9 3.2-4.5 GM/DL Salicylates Level < 0.3 L 5.0-20.0 MG/DL Urine Opiates Screen NEGATIVE NEGATIVE Urine Oxycodone Screen NEGATIVE NEGATIVE Urine Methadone Screen NEGATIVE NEGATIVE Urine Propoxyphene Screen NEGATIVE NEGATIVE Acetaminophen Level < 10 L 10-30 UG/ML Urine Barbiturates Screen NEGATIVE NEGATIVE Ur Tricyclic Antidepressants Screen NEGATIVE NEGATIVE Urine Phencyclidine Screen NEGATIVE NEGATIVE Urine Amphetamines Screen NEGATIVE NEGATIVE Urine Methamphetamines Screen NEGATIVE NEGATIVE Urine Benzodiazepines Screen NEGATIVE NEGATIVE Urine Cocaine Screen NEGATIVE NEGATIVE Urine Cannabinoids Screen NEGATIVE NEGATIVE Serum Alcohol < 10 <10 MG/DL My Orders Orders - ALISHA CORDOVA MD Ua Culture If Indicated (02/27/22 13:34) Cbc With Automated Diff (02/27/22:34) Comprehensive Metabolic Panel (02/27/22:34) Alcohol (02/27/22 13:34) Drug Screen Stat (Urine) (02/27/22 13:34) Acetaminophen (02/27/22 13:34) Salicylate (02/27/22 13:34) Ekg Tracing (02/27/22 13:34) Ed Iv/Invasive Line Start (02/27/22 13:34) Monitor-Rhythm Ecg Trace Only (02/27/22 13:34) Ns Iv 1000 Ml (Sodium Chloride 0.9%) (02/27/22 13:45) Straight Cath For Spec.-Adult (02/27/22 13:34) Ct Head Wo (02/27/22 13:34) Lorazepam Tablet (Ativan Tablet) (02/27/22 13:34) Vital Signs/I&O 02/27/22 13:25 Temp 36.8 Pulse 86 Resp 15 B/P (MAP) 105/73 (84) O2 Delivery Room Air Capillary Refill : Progress Note #1: Progress Note Patient had witnessed seizure-like activity here in the emergency department. She did not lose control of her bowel or bladder. She did not bite her tongue or oral mucosa. She had been able to immediately answer questions after her witnessed seizure-like activity. Will repeat labs including alcohol and drug screen testing. CT scan of her head to see if there has been any change or anything acute since her previous scan within the last month. Compare her test from today to the ones done within the last month or [facility]. Follow seizure precautions. Progress Note #2: Progress Note CBC does not show any acute process or significant abnormality. Her chemistry panel also does not have any acute significant normality. Her electrolytes all appear stable and normal without evidence of hyponatremia or hypercalcemia to contribute to seizure activity. Her urine drug screen was negative. Alcohol, salicylate, acetaminophen levels were all negative. Her urinalysis did not demonstrate signs of infection or protein or glucose in her urine. She had no blood in her urine. CT scan of the head did not show any acute process. On my independent review and interpretation of the CT I did not see any intracranial hemorrhage, mass, tumor, midline shift. A single dose of Ativan 0.5 mg orally was ordered for the patient. On my independent review and interpretation her electrocardiogram shows sinus rhythm without ST elevation or ectopy. We will add on a dose of Toradol to help with her complaint of headache. Encourage fluids and hydration and continue on her current medications. Continue to work with the [facility] clinic in terms of her seizure work-up and referral to neurology. Advised not to drive or operate heavy equipment or machinery until cleared by neurology. ECG Initial ECG Impression Date: Feb 27, 2022 Initial ECG Impression Time: 13:30 Initial ECG Rate: 85 Initial ECG Rhythm: Normal Sinus Initial ECG Comparisson: Unchanged (compared to November) Comment On my independent review and interpretation her electrocardiogram shows sinus rhythm with a heart rate of 85 bpm. WV interval [address] elevation. QT interval 357 ms with a QTc interval 399 ms. She has no acute significant change from prior tracing November 12, 2021. Diagnostic Imaging Diagonstic Imaging: CT Plain Films/CT/US/NM/MRI: head Comments [facility], [place] NAME: PIERRE DUGAN [facility] REC#: [id number] PT STATUS: REG ER : 1980 PHYSICIAN: ALISHA CORDOVA MD ADMIT DATE: 02/27/22/ER FS Signed Date of Exam:02/27/22 CT HEAD WO EXAMINATION: CT head without contrast. TECHNIQUE: Multiple contiguous axial images were obtained through the brain without the use of intravenous contrast. All CT scans use one or more of the following dose optimizing techniques: Automated exposure control, MA and/or KvP adjustment based on patient size and exam type or iterative reconstruction. HISTORY: Seizure. COMPARISON: 02/19/2022. FINDINGS: The ventricles and sulci are normal. No abnormal attenuation of brain parenchyma is present. No acute intracranial hemorrhage or abnormal extra-axial fluid collections are present. Calcification of the intracranial ICAs. No hyperdense vessel. The calvarium is intact. The mastoid air cells are clear. There is mucosal thickening of the paranasal sinuses. The orbits are normal. IMPRESSION: 1. No acute intracranial abnormality. Dictated by: Dictated on workstation # [id number] Dict: 02/27/22 1400 Trans: 02/27/22 1414 [id number] Interpreted by: JULIO MENDOZA DO Electronically signed by: JULIO MENDOZA DO 02/27/22 1414 Reviewed: Reviewed by Me Departure Impression Primary Impression: Witnessed seizure-like activity Disposition: HOME, SELF-CARE Condition: Stable Departure-Patient Inst. Decision time for Depature: 14:35 Referrals: MIRANDA VALE APRN (PCP) Primary Care Physician [facility] (Family) Primary Care Physician Patient Instructions: Seizures, Adult ED Add. Discharge Instructions: Do not drive or operate machinery until cleared by Neurology. Continue taking your regular medicines and working with clinic for further treatment/evaluation. Your tests today all looked ok All discharge instructions reviewed with patient and/or family. Voiced understanding. ALISHA CORDOVA MD Feb 27, 2022 13:57
[2022-02-27 14:02] LABS: BUN/CREATININE RATIO 14; CALCIUM 9.6 MG/DL (8.5-10.1); CARBON DIOXIDE 21 MMOL/L (21-32); CHLORIDE 103 MMOL/L (98-107); CREATININE SERUM 0.76 MG/DL (0.60-1.30); GFR ESTIMATED 100; GLUCOSE 82 MG/DL (70-105); POTASSIUM 4.3 MMOL/L (3.6-5.0); SODIUM 139 MMOL/L (135-145)
[2022-02-27 14:03] LABS: ACETAMINOPHEN < 10 UG/ML (10-30); ALANINE AMINOTRANSFERASE 6 U/L (0-55); ALBUMIN 3.9 GM/DL (3.2-4.5); ALKALINE PHOSPHATASE 87 U/L (40-136); BILIRUBIN,TOTAL 0.3 MG/DL (0.1-1.0); SALICYLATE < 0.3 MG/DL (5.0-20.0); TOTAL PROTEIN 6.9 GM/DL (6.4-8.2)
--- NOTE | 2022-02-27 14:03 | Diagnostic Imaging Report ---
EXAMINATION: CT head without contrast. TECHNIQUE: Multiple contiguous axial images were obtained through the brain without the use of intravenous contrast. All CT scans use one or more of the following dose optimizing techniques: Automated exposure control, MA and/or KvP adjustment based on patient size and exam type or iterative reconstruction. HISTORY: Seizure. COMPARISON: 02/19/2022. FINDINGS: The ventricles and sulci are normal. No abnormal attenuation of brain parenchyma is present. No acute intracranial hemorrhage or abnormal extra-axial fluid collections are present. Calcification of the intracranial ICAs. No hyperdense vessel. The calvarium is intact. The mastoid air cells are clear. There is mucosal thickening of the paranasal sinuses. The orbits are normal. IMPRESSION: 1. No acute intracranial abnormality. Dictated by: Dictated on workstation # [id number]
[2022-02-27 14:09] LABS: AMPHETAMINE SCREEN, URINE NEGATIVE (NEGATIVE); BARBITURATE SCREEN URINE NEGATIVE (NEGATIVE); BENZODIAZEPINES SCREEN URINE NEGATIVE (NEGATIVE); CANNABINOID SCREEN, URINE NEGATIVE (NEGATIVE); COCAINE SCREEN URINE NEGATIVE (NEGATIVE); METHADONE STAT NEGATIVE (NEGATIVE); OPIATE SCREEN URINE NEGATIVE (NEGATIVE); OXYCODONE STAT NEGATIVE (NEGATIVE); PROPOXYPHENE STAT NEGATIVE (NEGATIVE); TRICYCLIC ANTIDEPRESSANTS SCRE NEGATIVE (NEGATIVE)
[2022-02-27 14:55] VITALS: BP 151/76
[2022-03-04] MEDS ORDERED: PANT40TA2 PO (14:52)
== END 2022-02-27 14:45 | disposition home or self-care (01) ==
LOC: EDUNIT# 13:24 → ER FS 13:25
DX: G40.909 Epilepsy, unspecified, not intractable, without status epilepticus (principal); Z28.310 Unvaccinated for COVID-19
CPT/HCPCS: 36415; 51701; 70450; 80053; 80306; 81000; 85025; 93005; 93041; 99284; G0480 ×3; 80320; 80329

== ENCOUNTER 2022-03-04 12:24 | Day surgery (SDC) | payer MEDICARE ==
[~2022-03-04] VITALS: Ht 157 cm; Wt 68.0 kg
[2022-03-04] MEDS ORDERED: LACTATED RINGERS 1,000 ML IV STA (12:29)
[2022-03-04] MEDS ORDERED: HURRICAINE EXT TUBE (BENZOCAINE) XX PRN (12:30)
[2022-03-04 12:45] VITALS: BP 123/74
--- NOTE | 2022-03-04 13:25 | Progress Note-Pre Operative ---
Pre-Operative Progress Note Date of Available H&P: Jan 18, 2022 Date H&P Reviewed: Mar 04, 2022 Time H&P Reviewed: 13:24 History & Physical: H&P Reviewed, Patient Examed, No changes noted Pre-Operative Diagnosis: epigastric pain MARIJA SPAULDING DO Mar 04, 2022 13:25
[2022-03-04] MEDS ORDERED: MIDAZOLAM 2 MG/2 ML (VERSED) VIAL ONE (14:18)
[2022-03-04] MEDS ORDERED: PROPOFOL INJECTION 50 ML IV ONE (14:18)
--- NOTE | 2022-03-04 14:51 | Progress Note-Post Operative ---
Post-Operative Progess Note Surgeon (s)/Farm Machinery Engine Mechanic (s) Surgeon MARIJA SPAULDING DO Farm Machinery Engine Mechanic: NA Pre-Operative Diagnosis epigastric pain Post-Operative Diagnosis Gastritis, mucosal changes of esophagus Procedure & Operative Findings Date of Procedure 03/04/22 Procedure Performed/Findings EGD with biopsies Anesthesia Type per administrative services officer Estimated Blood Loss Estimated blood loss (mL): None Specimens/Packing Specimens Removed Antrum bx x1 GE bx x1 proximal esophagus bx x1 MARIJA SPAULDING DO Mar 04, 2022 14:51
[2022-03-04] MEDS ORDERED: PANT40TA2 PO (14:52)
--- NOTE | 2022-03-04 14:52 | Discharge Inst-Simple/Standard ---
Discharge Inst-Standard Reconcile Patient Problems Problems Reviewed?: Yes Patient Instructions/Follow Up Plan of Care/Instructions/FU: f/u in [address] mckenna Activity as Tolerated: Yes Discharge Diet: Regular Diet MARIJA MCKENNA DO Mar 04, 2022 14:52
[2022-03-04 14:54] VITALS: BP 111/68
--- NOTE | 2022-03-04 14:54 | Anesthesia-General Post-Op ---
MAC Patient Condition Mental Status/LOC: Same as Preop Cardiovascular: Satisfactory Nausea/Vomiting: Absent Respiratory: Satisfactory Pain: Controlled Complications: Absent Post Op Complications Complications None Follow Up Care/Instructions Patient Instructions None needed. Anesthesiology Discharge Order Discharge Order Patient is doing well, no complaints, stable vital signs, no apparent adverse anesthesia problems. No complications reported per nursing. FREDDY IRELAND CRNA Mar 04, 2022 14:54
[2022-03-04 14:59] VITALS: BP 119/72
[2022-03-04 15:04] VITALS: BP 133/78
[2022-03-04 15:10] VITALS: BP 133/78
[2022-03-04 15:27] VITALS: BP 133/78
--- NOTE | 2022-03-04 23:50 | OPERATIVE REPORT ---
DATE OF SERVICE: 03/04/2022 PREOPERATIVE DIAGNOSIS: Epigastric abdominal pain. POSTOPERATIVE DIAGNOSES: Gastritis, mucosal change of the proximal esophagus. PROCEDURE: EGD with biopsy. SURGEON: Marija Jenkins DO ANESTHESIA: Per COMMUNITY LIVING INSTRUCTOR. ESTIMATED BLOOD LOSS: None. COMPLICATIONS: None. INDICATIONS: The patient is a 41-year-old female with epigastric abdominal pain. She understands risks and benefits of procedures and wished to proceed. Consent was signed in the chart. DESCRIPTION OF PROCEDURE: The patient was taken to the endoscopy suite, placed in left lateral recumbent position. Timeout was performed. Scope was inserted in mouth, down the esophagus, stomach and into the duodenum without difficulty. There were no polyps, masses or ulcerations within the duodenum. Scope was slowly retracted back into the stomach where slight gastritis appearance. Biopsy of the antrum was obtained. No polyps, masses or ulcerations. Scope was retroflexed, noting no other pathology. Scope was returned to its normal position, slowly withdrawn to the distal esophagus. Biopsy of GE junction was obtained. No polyps, masses or ulcerations. Proximal to the area demonstrated some slight mucosal change of the proximal esophagus. Biopsy was obtained. Scope was slowly retracted back until completely removed. The patient tolerated the procedure well without any complications. She was taken to recovery room in stable condition. RECOMMENDATIONS: The patient will be started on Protonix 40 mg daily. Follow up on pathology in 2 weeks and see how her symptoms are doing at that time. Job ID: [id number] DocumentID: [id number] Dictated Date: 03/04/2022 15:31:49 Wireless Communications Engineer Date: 03/04/2022 23:49:33 Dictated By: MARIJA JENKINS DO
== END 2022-03-04 15:27 | disposition home or self-care (01) ==
LOC: ENDO 12:24
PROVIDERS: ATTEND Surgery
DX: K29.50 Unspecified chronic gastritis without bleeding (principal); K21.00 Gastro-esophageal reflux disease with esophagitis, without bleeding; F17.210 Nicotine dependence, cigarettes, uncomplicated; Z79.02 Long term (current) use of antithrombotics/antiplatelets; Z79.899 Other long term (current) drug therapy
CPT/HCPCS: 84703

== ENCOUNTER 2022-03-06 14:41 | Emergency (ER) | payer MEDICARE ==
[~2022-03-06 14:41] MED LIST changes: +PANT40TA2 PO
--- NOTE | 2022-03-06 14:56 | ED General ---
General Chief Complaint: Neurological Problems Stated Complaint: NON-VERBAL; MUSCLE SPASMS Source of Information: Patient, Family Exam Limitations: No Limitations History of Present Illness Date Seen by Provider: Mar 06, 2022 Time Seen by Provider: 14:44 Initial Comments 41-year-old female well-known to this emergency department with past medical history of nonepileptic spells coming in due to concerns for spasms. They started this morning when she woke up. She is been taking her medications as prescribed including her seizure medicines. Has an appointment with her neurologist in June. Her body feels like it is just tensing up at times in different areas of her body. She was not wanting to talk for her family, but she is answering questions for us during the spell and is completely alert and oriented. She denies pain anywhere at this time, fever, chest pain, shortness of breath, abdominal pain, nausea, vomiting, diarrhea, fever, chills, weakness, numbness, or any other concerns. Allergies and Home Medications Allergies Coded Allergies: No Known Drug Allergies (Unverified , 12/22/17) Patient Home Medication List Home Medication List Reviewed: Yes Divalproex Sodium (Depakote ER) 250 Mg Tab.er.24h, 250 MG PO DAILY Prescribed by: REAL LANDA on 11/12/21 0128 Fluoxetine HCl (Prozac) 10 Mg Capsule, 10 MG PO DAILY, (Reported) Entered as Reported by: NICK REDDY on 02/28/20 09 Fluoxetine HCl (Prozac) 20 Mg Capsule, 20 MG PO DAILY, (Reported) Entered as Reported by: NICK REDDY on 02/28/20921 Naproxen (Naproxen) 500 Mg Tablet.dr, 500 MG PO PRN, (Reported) Entered as Reported by: PAYAM WILEY on 02/19/22 1440 Pantoprazole Sodium (Pantoprazole Sodium) 40 Mg Tablet.dr, 40 MG PO DAILY, (Reported) Entered as Reported by: PAYAM WILYE on 02/19/22 1440 Pantoprazole Sodium (Protonix) 40 Mg Tablet.dr, 40 MG PO DAILY Prescribed by: MARIJA SPAULDING on 03/04/22 1452 Rosuvastatin Calcium (Rosuvastatin Calcium) 20 Mg Tablet, 20 MG PO DAILY, (Reported) Entered as Reported by: PAYAM WILEY on 02/19/22 1440 Review of Systems Review of Systems Constitutional: No fever EENTM: no symptoms reported Respiratory: no symptoms reported Cardiovascular: no symptoms reported Gastrointestinal: no symptoms reported Genitourinary: no symptoms reported Musculoskeletal: no symptoms reported Skin: no symptoms reported Psychiatric/Neurological: See HPI Hematologic/Lymphatic: No Symptoms Reported Immunological/Allergic: no symptoms reported All Other Systems Reviewed Negative Unless Noted: Yes Past Gxzujfs-Wjohqb-Czbvbi Hx Patient Social History Substance use?: No Immunizations Up To Date Tetanus Booster (TDap): Unknown First/Initial COVID19 Vaccinat: NOVEMBER 2020 Second COVID19 Vaccination Pankaj: NOVEMBER 2020 Third COVID19 Vaccination Date: NOVEMBER 2020 Seasonal Allergies Seasonal Allergies: Yes Past Medical History Surgery/Hospitalization HX: Loop recorder placed, Hx seizure (a work up to classify not completed), Depresson-PTSD Surgeries: Yes (loop recorder) Gallbladder Respiratory: No Currently Using CPAP: No Currently Using BIPAP: No Cardiac: Yes (heart cath) Syncope Neurological: Yes (Seizure-like activity) Concussion, Seizure Disorder Reproductive Disorders: No Sexually Transmitted Disease: No Genitourinary: No Gastrointestinal: No Gall Bladder Disease Musculoskeletal: Yes Arthritis, Fractures Endocrine: No HEENT: No Cancer: No Psychosocial: Yes Pseudo Seizures, Anxiety, Depression Integumentary: No Blood Disorders: No Family Medical History No Pertinent Family Hx History obtained from the records. Unable to obtain from patient due to somnolence Physical Exam Vital Signs Vital Signs - First Documented 03/06/22 14:52 Temp 37.0 Pulse 100 Resp 16 B/P (MAP) 136/91 (106) Pulse Ox 96 O2 Delivery Room Air Capillary Refill : Height, Weight, BMI Height: 5'2.00" Weight: 160lbs. 8.0oz. 72.647284al; 27.58 BMI Method:Stated General Appearance: WD/WN, Other (Tense, relaxes at times and then tenses up again) Eyes: Bilateral Eye Normal Inspection, Bilateral Eye PERRL, Bilateral Eye EOMI HEENT: PERRL/EOMI, Normal ENT Inspection, Pharynx Normal Neck: Full Range of Motion, Normal Inspection, Non Tender, Supple Respiratory: Chest Non Tender, Lungs Clear, Normal Breath Sounds, No Accessory Muscle Use, No Respiratory Distress Cardiovascular: Regular Rate, Rhythm, No Edema, Normal Peripheral Pulses Gastrointestinal: Normal Bowel Sounds, Non Tender, Soft; No Distended, No Guarding Back: Normal Inspection, No CVA Tenderness Extremity: Normal Capillary Refill, Normal Inspection, Normal Range of Motion, Non Tender, No Calf Tenderness, No Pedal Edema Neurologic/Psychiatric: Alert, Oriented x3, No Motor/Sensory Deficits, Normal Mood/Affect, stable hand II-XII Norm as Tested, Other (No rigidity, patient able to completely relax the limb if asked, no clonus) Skin: Normal Color, Warm/Dry Lymphatic: No Adenopathy Progress/Results/Core Measures Suspected Sepsis SIRS Temperature: Pulse: Respiratory Rate: Blood Pressure / Mean: Results/Orders My Orders Orders - NADINE CURRAN MD Diphenhydramine Injection (Benadryl Inje (03/06/22 15:00) Olanzapine Orally Dissolve Tab (Zyprexa (03/06/22 15:00) Medications Given in ED Current Medications Medications Dose Ordered Sig/Falguni Route Start Time Stop Time Status Last Admin Dose Admin Diphenhydramine HCl 25 mg ONCE ONCE IM 03/06/22 15:00 03/06/22 15:01 DC 03/06/22 15:05 25 MG Olanzapine 5 mg ONCE ONCE PO 03/06/22 15:00 03/06/22 15:01 DC 03/06/22 15:04 5 MG Vital Signs/I&O 03/06/22 14:52 Temp 37.0 Pulse 100 Resp 16 B/P (MAP) 136/91 (106) Pulse Ox 96 O2 Delivery Room Air Capillary Refill : Progress Note : Progress Note 41-year-old female presenting for whole body spasms. ABCs were intact and vitals were stable on presentation. She is alert and oriented with a normal laci ro exam. The patient looks like she is actively tensing up her whole body. She is able to relax any body part at will if I ask her to and I am able to examine that body part. When she does this, she does not have any rigidity in that body part or clonus. This does not seem organic in nature. She is not having any type of organized seizure activity. We will give her IM Benadryl as well as some Zyprexa p.o. to help relax her. She is not on any type of antipsychotic that would cause rigidity. Patient immediately calm and no longer having any type of spasms after the medication was given, even before I had a chance to take effect. She is at her baseline and I believe stable for discharge with outpatient follow-up. She was sent home with strict return precautions. Departure Impression Primary Impression: Muscle spasm Disposition: HOME, SELF-CARE Condition: Stable Departure-Patient Inst. Decision time for Depature: 15:30 Referrals: MIRANDA VALE APRN (PCP) Primary Care Physician [facility] (Family) Primary Care Physician Patient Instructions: Muscle Spasm ED Add. Discharge Instructions: This does not appear like seizure. It does appear to be likely stress related which can make your body go into spasms like this. Follow-up with your regular doctor including your neurologist. You can try taking Benadryl at home if you are spasming like this in the future. Work/School Note: Work Release Form Date Seen in the Emergency Department: Mar 06, 2022 Return to Work: Mar 07, 2022 Restrictions: No Restrictions NADINE CURRAN MD Mar 06, 2022 14:56
[2022-03-06] MEDS ORDERED: OLANZapine 5 MG ODT (ZyPREXA ZYDIS) PO ONE (15:00)
[2022-03-06] MEDS ORDERED: diphenhydrAMINE 50 MG/ML INJ (BENADRYL) IM ONE (15:00)
[2022-03-06 15:41] VITALS: BP 136/91
== END 2022-03-06 15:40 | disposition home or self-care (01) ==
LOC: EDUNIT# 14:41 → ER FS 14:43
DX: M62.838 Other muscle spasm (principal)
CPT/HCPCS: 99281

== ENCOUNTER 2022-04-19 18:41 | Emergency (ER) | payer MEDICARE ==
[~2022-04-19] VITALS: Ht 157.4 cm; Wt 72.9 kg
[2022-04-19] MEDS ORDERED: KETOROLAC 30 MG/ML VIAL IVP STA (18:56)
[2022-04-19] MEDS ORDERED: diphenhydrAMINE 50 MG/ML INJ (BENADRYL) IVP STA (18:56)
--- NOTE | 2022-04-19 19:07 | ED General ---
General Stated Complaint: SEIZURE Source of Information: Patient, EMS, Old Records History of Present Illness Date Seen by Provider: Apr 19, 2022 Time Seen by Provider: 18:41 Initial Comments 41-year-old female [place] by[place]ers had noted that she was having seizure-like activity. She is currently taking Depakote and medication for seizures and mood stabilization. She is waiting to get in with neurology and it has been moved back to June at this point. She has a headache and states that she always gets a bad headache after her seizures. EMS witnessed seizure like activity that stopped on its own and patient was immediately alert and answering questions. She had no postictal phase. She has no bites on her tongue and no loss of bowel or bladder control. She denies missing any medications and denies any known stressors to cause breakthrough seizure today. She states that she has seizures at least every other day if not every day. Associated Systoms: No Chest Pain, No Cough, No Diaphoresis, No Fever/Chills; Headaches; No Loss of Appetite, No Malaise, No Nausea/Vomiting, No Rash, No Seizure, No Shortness of Air, No Syncope, No Weakness Allergies and Home Medications Allergies Coded Allergies: No Known Drug Allergies (Unverified , 12/22/17) Patient Home Medication List Home Medication List Reviewed: Yes Divalproex Sodium (Depakote ER) 250 Mg Tab.er.24h, 250 MG PO DAILY Prescribed by: REAL LANDA on 11/12/21 0128 Fluoxetine HCl (Prozac) 10 Mg Capsule, 10 MG PO DAILY, (Reported) Entered as Reported by: NICK REDDY on 02/28/20 09 Fluoxetine HCl (Prozac) 20 Mg Capsule, 20 MG PO DAILY, (Reported) Entered as Reported by: NICK REDDY on 02/28/20921 Naproxen (Naproxen) 500 Mg Tablet., 500 MG PO PRN, (Reported) Entered as Reported by: PAYAM WILEY on 02/19/22 1440 Pantoprazole Sodium (Pantoprazole Sodium) 40 Mg Tablet., 40 MG PO DAILY, (Reported) Entered as Reported by: PAYAM WILEY on 02/19/22 1440 Pantoprazole Sodium (Protonix) 40 Mg Tablet., 40 MG PO DAILY Prescribed by: MARIJA SPAULDING on 03/04/22 1452 Rosuvastatin Calcium (Rosuvastatin Calcium) 20 Mg Tablet, 20 MG PO DAILY, (Reported) Entered as Reported by: PAYAM WILEY on 02/19/22 1440 Review of Systems Review of Systems Constitutional: No chills, No fever EENTM: no symptoms reported Respiratory: no symptoms reported Cardiovascular: no symptoms reported Gastrointestinal: no symptoms reported Genitourinary: no symptoms reported Musculoskeletal: no symptoms reported Skin: no symptoms reported Psychiatric/Neurological: Headache Past Dykbvqt-Yautfu-Uoaewn Hx Immunizations Up To Date Tetanus Booster (TDap): Unknown First/Initial COVID19 Vaccinat: NOVEMBER 2020 Second COVID19 Vaccination Pankaj: NOVEMBER 2020 Third COVID19 Vaccination Date: NOVEMBER 2020 Seasonal Allergies Seasonal Allergies: Yes Past Medical History Surgery/Hospitalization HX: Loop recorder placed, Hx seizure (a work up to classify not completed), Depresson-PTSD Surgeries: Yes (loop recorder) Gallbladder Respiratory: No Currently Using CPAP: No Currently Using BIPAP: No Cardiac: Yes (heart cath) Syncope Neurological: Yes (Seizure-like activity) Concussion, Seizure Disorder Reproductive Disorders: No Sexually Transmitted Disease: No Genitourinary: No Gastrointestinal: No Gall Bladder Disease Musculoskeletal: Yes Arthritis, Fractures Endocrine: No HEENT: No Cancer: No Psychosocial: Yes Pseudo Seizures, Anxiety, Depression Integumentary: No Blood Disorders: No Family Medical History No Pertinent Family Hx History obtained from the records. Unable to obtain from patient due to somnolence Physical Exam Vital Signs Vital Signs - First Documented 04/19/22 18:42 Temp 37.1 Pulse 104 Resp 18 B/P (MAP) 105/65 (78) Pulse Ox 96 O2 Delivery Room Air Capillary Refill : Height, Weight, BMI Height: 5'2.00" Weight: 160lbs. 8.0oz. 72.572930gs; 27.58 BMI Method:Stated General Appearance: No Apparent Distress, WD/WN HEENT: PERRL/EOMI, Normal ENT Inspection, Pharynx Normal, Moist Mucous Membranes (no oral lacerations) Neck: Full Range of Motion, Normal Inspection, Non Tender, Supple Respiratory: Chest Non Tender, Lungs Clear, Normal Breath Sounds, No Accessory Muscle Use, No Respiratory Distress Cardiovascular: Regular Rate, Rhythm, Normal Peripheral Pulses Gastrointestinal: Normal Bowel Sounds, No Pulsatile Mass, Non Tender, Soft Rectal: Deferred Extremity: Normal Capillary Refill, Normal Inspection, No Pedal Edema Neurologic/Psychiatric: 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, 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, 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 Skin: Normal Color, Warm/Dry Progress/Results/Core Measures Suspected Sepsis SIRS Temperature: Pulse: Respiratory Rate: Blood Pressure / Mean: Laboratory Tests 04/19/22 19:00: Creatinine 0.78, Total Bilirubin 0.3 Results/Orders Lab Results Laboratory Tests Test 04/19/22 19:00 Range/Units Sodium Level 132 L 135-145 MMOL/L Potassium Level 4.3 3.6-5.0 MMOL/L Chloride Level 101 98-107 MMOL/L Carbon Dioxide Level 21 21-32 MMOL/L Anion Gap 10 5-14 MMOL/L Blood Urea Nitrogen 17 7-18 MG/DL Creatinine 0.78 0.60-1.30 MG/DL Estimat Glomerular Filtration Rate 97 BUN/Creatinine Ratio 22 Glucose Level 138 H 70-105 MG/DL Calcium Level 8.9 8.5-10.1 MG/DL Corrected Calcium 9.3 8.5-10.1 MG/DL Total Bilirubin 0.3 0.1-1.0 MG/DL Aspartate Amino Transf (AST/SGOT) 20 5-34 U/L Alanine Aminotransferase (ALT/SGPT) 9 0-55 U/L Alkaline Phosphatase 69 40-136 U/L Total Protein 6.3 L 6.4-8.2 GM/DL Albumin 3.5 3.2-4.5 GM/DL My Orders Orders - ALISHA CORDOVA MD Comprehensive Metabolic Panel (04/19/22 18:55) Ketorolac Injection (Toradol Injection) (04/19/22 18:56) Diphenhydramine Injection (Benadryl Inje (04/19/22 18:56) Vital Signs/I&O 04/19/22 18:42 Temp 37.1 Pulse 104 Resp 18 B/P (MAP) 105/65 (78) Pulse Ox 96 O2 Delivery Room Air Capillary Refill : Progress Note #1: Progress Note since she has had repeated evaluations in the ED for recurrent seizure like activity and there is nothing new or different about her symptoms and episodes will check electrolytes to ensure she does not have acute electrolyte imbalance and give toradol and benadryl for her headache. If CMP is stable for her will discharge to home to continue her regular medicines. Progress Note #2: Progress Note Chemistry panel does not show any acute significant abnormality. Will discharged home to continue taking her regular medications and follow-up through clinic and neurologist Departure Impression Primary Impression: Seizure-like activity Additional Impression: Headache Qualified Codes: R51.9 - Headache, unspecified Disposition: HOME, SELF-CARE Condition: Stable Departure-Patient Inst. Decision time for Depature: 19:27 Referrals: MIRANDA VALE APRN (PCP) Primary Care Physician [facility] (Family) Primary Care Physician Patient Instructions: Seizures, Adult ED, Headache, Adult ED Add. Discharge Instructions: Keep taking your regular medicines as prescribed. Follow up with clinic for continued concerns. ALISHA CORDOVA MD Apr 19, 2022 19:07
[2022-04-19 19:25] LABS: ALBUMIN 3.5 GM/DL (3.2-4.5); BILIRUBIN,TOTAL 0.3 MG/DL (0.1-1.0); CALCIUM 8.9 MG/DL (8.5-10.1); CREATININE SERUM 0.78 MG/DL (0.60-1.30); POTASSIUM 4.3 MMOL/L (3.6-5.0); TOTAL PROTEIN 6.3 GM/DL (6.4-8.2)
[2022-04-19 20:00] VITALS: BP 94/69
[2022-04-19] MEDS ORDERED: LAMO25TA8 (21:04)
[2022-04-19] MEDS ORDERED: PRAZ2CAP2 (21:04)
== END 2022-04-19 20:00 | disposition home or self-care (01) ==
LOC: EDUNIT# 18:41 → ER FS 18:42
DX: G40.909 Epilepsy, unspecified, not intractable, without status epilepticus (principal)
CPT/HCPCS: 36415; 80053; 99283

== ENCOUNTER 2022-05-24 17:36 | Emergency (ER) | payer MEDICARE ==
[~2022-05-24] VITALS: Ht 157 cm; Wt 72.0 kg
[~2022-05-24 17:36] MED LIST changes: +LAMO25TA8; +PRAZ2CAP2
[2022-05-24 17:44] VITALS: BP 109/71
[2022-05-24] MEDS ORDERED: ONDANSETRON 4 MG (ZOFRAN) ORAL DISSOLVE TAB PO STA (17:44)
[2022-05-24] MEDS ORDERED: KETOROLAC 30 MG/ML VIAL IM STA (17:44)
--- NOTE | 2022-05-24 17:54 | ED General ---
General Chief Complaint: Neurological Problems Stated Complaint: SEIZURE, POSS HEAD INJURY Nursing Triage Note: Patient has presented to ER with cc of pain in the back of her head - she reports hitting the back of her head while in the bathroom when she had a seizure. She reports nausea since hitting her head. Source of Information: Patient, EMS, Old Records Exam Limitations: No Limitations History of Present Illness Date Seen by Provider: May 24, 2022 Time Seen by Provider: 17:36 Initial Comments 41-year-old female presenting by EMS from home after she had a seizure and reports hitting the back of her while she was in the bathroom. She states that she did content to use restroom and apparently had a seizure and somehow hit the back of her head on the door handle. She had 1 episode of vomiting and still has some mild nausea after hitting her head. She is not taking any blood thinne rs. She has chronic recurrent seizure activity. EMS reports that when she was having her reported seizure activity she was able to answer questions and stop the seizure activity long enough to respond to them and then go back into her seizure-like activity. Patient denies having fever, chills, change in vision, chest pain, cough, abdominal pain, pain with urination, diarrhea. She denies any acute trigger for her seizure activity. She has been seen multiple times in the emergency department for similar presentations. 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 She is trying to get set up with a neurologist for further testing per her report. Severity: Moderate (occipital pain when she hit her head) Modifying Factors: worse with Movement Associated Systoms: No Chest Pain, No Cough, No Diaphoresis, No Fever/Chills; Headaches (since hitting her head); No Loss of Appetite, No Malaise; Naus ea/Vomiting (x 1 since hitting her head); No Rash, No Shortness of Air, No Syncope, No Weakness Allergies and Home Medications Allergies Coded Allergies: No Known Drug Allergies (Unverified , 12/22/17) Patient Home Medication List Home Medication List Reviewed: Yes Divalproex Sodium (Depakote ER) 250 Mg Tab.er.24h, 250 MG PO DAILY Prescribed by: REAL LANDA on 11/12/21 0128 Fluoxetine HCl (Prozac) 10 Mg Capsule, 10 MG PO DAILY, (Reported) Entered as Reported by: NICK REDDY on 02/28/20921 Fluoxetine HCl (Prozac) 20 Mg Capsule, 20 MG PO DAILY, (Reported) Entered as Reported by: NICK REDDY on 02/28/20921 Lamotrigine (Lamotrigine) 25 Mg Tablet, (Reported) Entered as Reported by: SARA ALEJANDRE on 04/19/222103 Naproxen (Naproxen) 500 Mg Tablet.dr, 500 MG PO PRN, (Reported) Entered as Reported by: PAYAM WILEY on 02/19/22 144 Pantoprazole Sodium (Pantoprazole Sodium) 40 Mg Tablet.dr, 40 MG PO DAILY, (Reported) Entered as Reported by: PAYAM WILEY on 02/19/221439 Pantoprazole Sodium (Protonix) 40 Mg Tablet.dr, 40 MG PO DAILY Prescribed by: MARIJA SPAULDING on 03/04/22 145 Prazosin HCl (Prazosin HCl) 2 Mg Capsule, (Reported) Entered as Reported by: SARA ALEJANDRE on 04/19/222103 Rosuvastatin Calcium (Rosuvastatin Calcium) 20 Mg Tablet, 20 MG PO DAILY, (Reported) Entered as Reported by: PAYAM WILEY on 02/19/221439 Review of Systems Review of Systems Constitutional: No chills, No diaphoresis, No dizziness, No fever EENTM: No hearing loss, No ear pain, No blurred vision, No epistaxis, No nose congestion Respiratory: No cough, No short of breath Cardiovascular: No chest pain Gastrointestinal: see HPI Genitourinary: No dysuria Musculoskeletal: no symptoms reported Skin: No change in color, No rash Psychiatric/Neurological: See HPI Past Dsccuey-Iluyxc-Xtcclk Hx Patient Social History Tobacco Use?: No Use of E-Cig and/or Vaping dev: No Substance use?: No Alcohol Use?: No Pt feels they are or have been: No Immunizations Up To Date Tetanus Booster (TDap): Unknown First/Initial COVID19 Vaccinat: NOVEMBER 2020 Second COVID19 Vaccination Pankaj: NOVEMBER 2020 Third COVID19 Vaccination Date: NOVEMBER 2020 Seasonal Allergies Seasonal Allergies: Yes Past Medical History Surgery/Hospitalization HX: Loop recorder placed, Hx seizure (a work up to classify not completed), Depresson-PTSD Surgeries: Yes (loop recorder) Gallbladder Respiratory: No Currently Using CPAP: No Currently Using BIPAP: No Cardiac: Yes (heart cath) Syncope Neurological: Yes (Seizure-like activity) Concussion, Seizure Disorder Reproductive Disorders: No Sexually Transmitted Disease: No Genitourinary: No Gastrointestinal: No Gall Bladder Disease Musculoskeletal: Yes Arthritis, Fractures Endocrine: No HEENT: No Cancer: No Psychosocial: Yes Pseudo Seizures, Anxiety, Depression Integumentary: No Blood Disorders: No Family Medical History No Pertinent Family Hx History obtained from the records. Unable to obtain from patient due to somnolence Physical Exam Vital Signs Vital Signs - First Documented 05/24/22 17:44 Temp 36.0 Pulse 80 Resp 16 B/P (MAP) 109/71 (84) Pulse Ox 97 O2 Delivery Room Air Capillary Refill : Height, Weight, BMI Height: 5'2.00" Weight: 160lbs. 8.0oz. [id number]; 29.00 BMI Method:Stated General Appearance: No Apparent Distress, WD/WN, Other (keeps her eyes mostly closed during exam and history) Eyes: Bilateral Eye PERRL, Bilateral Eye EOMI HEENT: Pharynx Normal (no bite higuera to mucosa or intraoral lacerations), Moist Mucous Membranes, Other (Negative steiner sign, negative raccoon sign, negative CSF otorrhea, negative CSF rhinorrhea, no step-off or deformity palpated to the occipital or she has pain from reportedly hitting her head) Neck: Full Range of Motion, Normal Inspection, Non Tender, Supple Respiratory: Chest Non Tender, Lungs Clear, Normal Breath Sounds, No Accessory Muscle Use, No Respiratory Distress Cardiovascular: Regular Rate, Rhythm, Normal Peripheral Pulses Gastrointestinal: Normal Bowel Sounds, No Pulsatile Mass, Non Tender, Soft Extremity: Normal Capillary Refill, Normal Inspection, No Pedal Edema Neurologic/Psychiatric: Alert, Oriented x3, No Motor/Sensory Deficits, fence rider II- XII Norm as Tested, Other (Flat affect) Skin: Normal Color, Warm/Dry Progress/Results/Core Measures Suspected Sepsis SIRS Temperature: Pulse: 80 Respiratory Rate: 16 Blood Pressure 109 /71 Mean: 84 Results/Orders My Orders Orders - ALISAH CORDOVA MD Ondansetron Oral Dissolve Tab (Zofran (05/24/22 17:44) Ketorolac Injection (Toradol Injection) (05/24/22 17:44) Ct Head Wo (05/24/22 17:45) Ice: Apply To Affected Area (05/24/22 17:45) Vital Signs/I&O 05/24/22 17:44 Temp 36.0 Pulse 80 Resp 16 B/P (MAP) 109/71 (84) Pulse Ox 97 O2 Delivery Room Air Capillary Refill : Blood Pressure Mean: 84 Progress Note #1: Progress Note Patient with a potential life-threatening conditions of skull fracture, intracra nial hemorrhage, brain mass, subdural hematoma, stroke. We will obtain a CT scan of the head to look for any trauma or bleeding. Since she had reported nausea and vomiting will give Zofran 4 mg ODT for her nausea. For her complaint of pain to the back of her head we will order an ice pack as well as Toradol 30 mg IM x1. From review of her previous ED visits this sounds like a similar presentation and likely will be able to discharge patient to home provided her CT scan continues to be negative as all of her previous testing has been. Progress Note #2: Time: 18:11 Progress Note On my personal review and interpretation of her CT scan of the head without contrast I did not see any acute fracture or intracranial hemorrhage. Awaiting radiology reading Progress Note #3: Time: 18:33 Progress Note I reviewed the radiologist report on the CT head without contrast, and they reported no acute process. Patient was feeling a little better after treatment in the ED. Encouraged to use pugf-fvl-eqbgytt acetaminophen and Tylenol or ibuprofen if needed for pain. Try and stay well-hydrated. Rest in a cool dark room. Use ice pack to help with pain. Follow-up with clinic for continued concerns. Diagnostic Imaging Diagonstic Imaging: CT Plain Films/CT/US/NM/MRI: head Comments [facility], [place] NAME: K[facility]EPIERRE [facility] REC#: [id number] PT STATUS: REG ER : 1980 PHYSICIAN: ALISHA CORDOVA MD ADMIT DATE: 05/24/22/ER FS Draft Date of Exam:05/24/22 CT HEAD WO INDICATION: Seizure-like activity, injury to head, headache. TECHNIQUE: Multiple contiguous axial images were obtained through the brain without the use of intravenous contrast. Auto Exposure Controls were utilized during the CT exam to meet ALARA standards for radiation dose reduction. COMPARISON: 02/27/2022. FINDINGS: There is no extra-axial fluid collection. No intracranial hemorrhage. No intracranial mass or mass effect. No midline shift. Ventricles are normal in size and position. There is no focal parenchymal abnormality in the brain. Calvarial windows are unremarkable. IMPRESSION: Negative noncontrast brain CT. Dictated on workstation # [id number] Dict: 05/24/22 1809 Trans: 05/24/22 1829 [facility] [id number] Interpreted by: AMRIT RICKETTS MD Electronically signed by: Reviewed: Reviewed by Me Departure Impression Primary Impression: Minor closed head injury Additional Impression: Seizure-like activity Disposition: HOME, SELF-CARE Condition: Stable Departure-Patient Inst. Decision time for Depature: 18:36 Referrals: MIRANDA VALE APRN (PCP) Primary Care Physician [facility] (Family) Primary Care Physician Patient Instructions: Minor Head Injury, Adult ED, Seizures, Adult ED Add. Discharge Instructions: Stay well hydrated and drink plenty of water. Rest in a cool dark room. May apply ice 15-20 minutes to back of head to help w ith pain. Continue taking your prescribed medicines and follow up with primary care for continued concerns. May take Acetaminophen or Ibuprofen if needed for headache and pain. All discharge instructions reviewed with patient and/or family. Voiced understanding. Images Head/Face 1 - Mild, Contusion, Tenderness (mild tenderness to palpation where she reports hitting head. no step off or crepitus) ALISHA CORDOVA MD May 24, 2022 17:54
--- NOTE | 2022-05-24 18:30 | Diagnostic Imaging Report ---
INDICATION: Seizure-like activity, injury to head, headache. TECHNIQUE: Multiple contiguous axial images were obtained through the brain without the use of intravenous contrast. Auto Exposure Controls were utilized during the CT exam to meet ALARA standards for radiation dose reduction. COMPARISON: 02/27/2022. FINDINGS: There is no extra-axial fluid collection. No intracranial hemorrhage. No intracranial mass or mass effect. No midline shift. Ventricles are normal in size and position. There is no focal parenchymal abnormality in the brain. Calvarial windows are unremarkable. IMPRESSION: Negative noncontrast brain CT. Dictated by: Dictated on workstation # [id number]
== END 2022-05-24 18:37 | disposition home or self-care (01) ==
LOC: EDUNIT# 17:36 → ER FS 17:37
DX: S09.90XA Unspecified injury of head, initial encounter (principal); G40.909 Epilepsy, unspecified, not intractable, without status epilepticus; W22.8XXA Striking against or struck by other objects, initial encounter; Y92.002 Bathroom of unspecified non-institutional (private) residence as the place of occurrence of the external cause
CPT/HCPCS: 70450

== ENCOUNTER 2022-08-22 22:35 | Emergency (ER) | payer MEDICARE ==
[~2022-08-22] VITALS: Ht 157.5 cm; Wt 77.1 kg
--- NOTE | 2022-08-22 22:39 | ED Chest Pain ---
General Stated Complaint: CP History of Present Illness Date Seen by Provider: Aug 22, 2022 Time Seen by Provider: 22:37 Initial Comments 41-year-old female with PMH of pseudoseizures/loop recorder placed last year, active smoker (1 pack a day for the past 25 years), is brought in by EMS with complaints of chest pain which began an hour before she called EMS. Chest pain is on the left side and radiates towards her back. She was feeling associated palpitations. Patient states that her chest pain is a 5/10 right now. EMS gave the patient 325 mg of aspirin and 1 nitro which reduced the pain by a little bit. Denies cough, dizziness, fever and chills, abdominal pain, nausea and vomiting, diaphoresis. Allergies and Home Medications Allergies Coded Allergies: No Known Drug Allergies (Unverified , 12/22/17) Patient Home Medication List Home Medication List Reviewed: Yes Divalproex Sodium (Depakote ER) 250 Mg Tab.er.24h, 250 MG PO DAILY Prescribed by: REAL LANDA on 11/12/21 0128 Fluoxetine HCl (Prozac) 10 Mg Capsule, 10 MG PO DAILY, (Reported) Entered as Reported by: NICK REDDY on 02/28/20921 Fluoxetine HCl (Prozac) 20 Mg Capsule, 20 MG PO DAILY, (Reported) Entered as Reported by: NICK REDDY on 02/28/20921 Lamotrigine (Lamotrigine) 25 Mg Tablet, (Reported) Entered as Reported by: SARA ALEJANDRE on 04/19/222103 Naproxen (Naproxen) 500 Mg Tablet.dr, 500 MG PO PRN, (Reported) Entered as Reported by: PAYAM WILEY on 02/19/22 1440 Pantoprazole Sodium (Pantoprazole Sodium) 40 Mg Tablet.dr, 40 MG PO DAILY, (Reported) Entered as Reported by: PAYAM WILEY on 02/19/22 144 Pantoprazole Sodium (Protonix) 40 Mg Tablet.dr, 40 MG PO DAILY Prescribed by: MARIJA SPAULDING on 03/04/22 145 Prazosin HCl (Prazosin HCl) 2 Mg Capsule, (Reported) Entered as Reported by: SARA ALEJANDRE on 04/19/222103 Rosuvastatin Calcium (Rosuvastatin Calcium) 20 Mg Tablet, 20 MG PO DAILY, (Reported) Entered as Reported by: PAYAM Diego [facility] on 02/19/22 2380 Review of Systems Review of Systems Constitutional: no symptoms reported EENTM: No Symptoms Reported Respiratory: No Symptoms Reported Cardiovascular: Chest Pain Gastrointestinal: No Symptoms Reported Genitourinary: No Symptoms Reported Musculoskeletal: no symptoms reported Skin: no symptoms reported Psychiatric/Neurological: No Symptoms Reported Endocrine: No Symptoms Reported Hematologic/Lymphatic: No Symptoms Reported Past Cctvklg-Drgawo-Kwtvcx Hx Immunizations Up To Date Tetanus Booster (TDap): Unknown First/Initial COVID19 Vaccinat: NOVEMBER 2020 Second COVID19 Vaccination Pankaj: NOVEMBER 2020 Third COVID19 Vaccination Date: NOVEMBER 2020 Seasonal Allergies Seasonal Allergies: Yes Past Medical History Surgery/Hospitalization HX: Loop recorder placed, Hx seizure (a work up to classify not completed), Depresson-PTSD Surgeries: Yes (loop recorder) Gallbladder Respiratory: No Currently Using CPAP: No Currently Using BIPAP: No Cardiac: Yes (heart cath) Syncope Neurological: Yes (Seizure-like activity) Concussion, Seizure Disorder Reproductive Disorders: No Sexually Transmitted Disease: No Genitourinary: No Gastrointestinal: No Gall Bladder Disease Musculoskeletal: Yes Arthritis, Fractures Endocrine: No HEENT: No Cancer: No Psychosocial: Yes Pseudo Seizures, Anxiety, Depression Integumentary: No Blood Disorders: No Family Medical History No Pertinent Family Hx History obtained from the records. Unable to obtain from patient due to somnolence Physical Exam Vital Signs Vital Signs - First Documented 08/22/22 22:35 Temp 36.5 Pulse 88 Resp 22 B/P (MAP) 93/54 (67) Pulse Ox 95 O2 Delivery Room Air Capillary Refill : Height, Weight, BMI Height: 5'2.00" Weight: 160lbs. 8.0oz. 72.675259qu; 29.00 BMI Method:Stated General Appearance: Anxious, Mild Distress HEENT: PERRL/EOMI Neck: Full Range of Motion, Normal Inspection, Non Tender Respiratory: Lungs Clear, Normal Breath Sounds, Other (Mild reproducible tenderness over the third costochondral junction.) Cardiovascular: Regular Rate, Rhythm, No Edema Gastrointestinal: Normal Bowel Sounds, Non Tender, Soft Extremity: Normal Range of Motion Neurologic/Psychiatric: Alert, Oriented x3, No Motor/Sensory Deficits, Normal Mood/Affect, stove refinisher II-XII Norm as Tested Skin: Normal Color Progress/Results/Core Measures Results/Orders Lab Results Laboratory Tests Test 08/22/22 22:30 08/22/22 23:52 Range/Units White Blood Count 10.8 4.3-11.0 10^3/uL Red Blood Count 4.53 3.80-5.11 10^6/uL Hemoglobin 13.8 11.5-16.0 g/dL Hematocrit 41 35-52 % Mean Corpuscular Volume 90 80-99 fL Mean Corpuscular Hemoglobin 31 25-34 pg Mean Corpuscular Hemoglobin Concent 34 32-36 g/dL Red Cell Distribution Width 13.9 10.0-14.5 % Platelet Count 244 130-400 10^3/uL Mean Platelet Volume 10.7 9.0-12.2 fL Immature Granulocyte % (Auto) 0 % Neutrophils (%) (Auto) 50 42-75 % Lymphocytes (%) (Auto) 41 12-44 % Monocytes (%) (Auto) 7 0-12 % Eosinophils (%) (Auto) 2 0-10 % Basophils (%) (Auto) 1 0-10 % Neutrophils # (Auto) 5.4 1.8-7.8 10^3/uL Lymphocytes # (Auto) 4.4 H 1.0-4.0 10^3/uL Monocytes # (Auto) 0.8 0.0-1.0 10^3/uL Eosinophils # (Auto) 0.2 0.0-0.3 10^3/uL Basophils # (Auto) 0.1 0.0-0.1 10^3/uL Immature Granulocyte # (Auto) 0.0 0.0-0.1 10^3/uL Sodium Level 138 135-145 MMOL/L Potassium Level 3.4 L 3.6-5.0 MMOL/L Chloride Level 102 98-107 MMOL/L Carbon Dioxide Level 25 21-32 MMOL/L Anion Gap 11 5-14 MMOL/L Blood Urea Nitrogen 8 7-18 MG/DL Creatinine 0.73 0.60-1.30 MG/DL Estimat Glomerular Filtration Rate 105 BUN/Creatinine Ratio 11 Glucose Level 127 H 70-105 MG/DL Calcium Level 9.5 8.5-10.1 MG/DL Corrected Calcium 9.9 8.5-10.1 MG/DL Magnesium Level 1.9 1.6-2.4 MG/DL Total Bilirubin 0.4 0.1-1.0 MG/DL Aspartate Amino Transf (AST/SGOT) 13 5-34 U/L Alanine Aminotransferase (ALT/SGPT) 8 0-55 U/L Alkaline Phosphatase 86 40-136 U/L Troponin I < 0.30 <0.30 NG/ML Total Protein 6.5 6.4-8.2 GM/DL Albumin 3.5 3.2-4.5 GM/DL Serum Alcohol < 10 <10 MG/DL Urine Opiates Screen POSITIVE H NEGATIVE Urine Oxycodone Screen NEGATIVE NEGATIVE Urine Methadone Screen NEGATIVE NEGATIVE Urine Propoxyphene Screen NEGATIVE NEGATIVE Urine Barbiturates Screen NEGATIVE NEGATIVE Ur Tricyclic Antidepressants Screen NEGATIVE NEGATIVE Urine Phencyclidine Screen NEGATIVE NEGATIVE Urine Amphetamines Screen NEGATIVE NEGATIVE Urine Methamphetamines Screen NEGATIVE NEGATIVE Urine Benzodiazepines Screen NEGATIVE NEGATIVE Urine Cocaine Screen NEGATIVE NEGATIVE Urine Cannabinoids Screen NEGATIVE NEGATIVE My Orders Orders - VENKAT GARRISON MD Continuous Ekg Monitoring (08/22/22 22:36) Ekg Tracing (08/22/22 22:36) Chest 1 View Ap/Pa Only (08/22/22 22:36) Alcohol (08/22/22 22:37) Cbc With Automated Diff (08/22/22 22:37) Comprehensive Metabolic Panel (08/22/22 22:37) Magnesium (08/22/22 22:37) Drug Screen Stat (Urine) (08/22/22 22:38) Morphine Injection (Morphine Injection (08/22/22 22:51) Ed Iv/Invasive Line Start (08/22/22 22:51) Ns Iv 1000 Ml (Sodium Chloride 0.9%) (08/22/22 23:00) Troponin I Fs (08/22/22 23:28) Famotidine Injection (Pepcid Injection) (08/23/22 00:02) Pantoprazole Injection (Protonix Injecti (08/23/22 00:15) Antacid Suspension (Mylanta Suspension (08/23/22 00:15) Lidocaine 2% Viscous 15 Ml (Xylocaine Vi (08/23/22 00:15) Medications Given in ED Current Medications Medications Dose Ordered Sig/Falguni Route Start Time Stop Time Status Last Admin Dose Admin Al Hydrox/Mg Hydrox/Simethicone 30 ml ONCE ONCE PO 08/23/22 00:15 08/23/22 00:16 DC 08/23/22 00:09 30 ML Lidocaine HCl 5 ml ONCE ONCE PO 08/23/22 00:15 08/23/22 00:16 DC 08/23/22 00:09 5 ML Pantoprazole 40 mg ONCE ONCE IV 08/23/22 00:15 08/23/22 00:16 DC 08/23/22 00:09 40 MG Vital Signs/I&O 08/22/22 22:35 Temp 36.5 Pulse 88 Resp 22 B/P (MAP) 93/54 (67) Pulse Ox 95 O2 Delivery Room Air Progress Progress Note : Progress Note 1. ACS RULE OUT: ACUTE GERD: - CXR: no acute findings - Troponin: undetected - EKG: non-ischemic - CBC/ CMP: unremarkable - UDS: unremarkable - ASA 324mg and one siblingual nitro given by EMS with minimal improvement of pain - NS IVF / Morphine 1mg iv STAT - Pepcid 20mg iv/ Protonix iv/ Maalox/ Viscous lidocaine STAT. Pt's symptoms resolved with these medications. -Work-up has been negative with complete resolution of symptoms after taking all the GI meds. - Advised to follow-up with cardiology and PCP within the next 3 to 7 days. Call to schedule appointment. -Advised to take liquid Maalox as needed in addition to the current GERD medications that she is on. -Patient is already taking famotidine and PPI at home. Continue to take these medications. -The patient was seen in the ED, and treated appropriately to presentation at a specific point in time. Patient is informed that there is a possibility that disease and illness can evolve and change in acuity rapidly or slowly after patient is discharged from the ER. Precautionary advice given to the patient for immediate return to ER if symptoms worsen or do not resolve, and to seek emergency care sooner rather than later. Pt also advised on the importance of PCP follow up and compliance with management and follow up plan with PCP and/or specialist, as this is part of the management plan. Pt verbally expressed understanding. Departure Impression Primary Impression: GERD (gastroesophageal reflux disease) Qualified Codes: K21.9 - Gastro-esophageal reflux disease without esophagitis Disposition: HOME, SELF-CARE Condition: Improved Departure-Patient Inst. Referrals: MIRANDA VALE APRN (PCP) Primary Care Physician [facility] (Family) Primary Care Physician ESTHELA COOK MD Patient Instructions: Acid Reflux and Gastroesophageal Reflux Disease in Adults, SMOKING CESSATION Add. Discharge Instructions: - Advised to follow-up with cardiology and PCP within the next 3 to 7 days. Call to schedule appointment. -Advised to take liquid Maalox as needed in addition to the current GERD medications that she is on. -Smoking cessation advised VENKAT GARRISON MD Aug 22, 2022 22:39
[2022-08-22] MEDS ORDERED: morphine INJ 10 MG/ML 1ML (SYR OR VIAL) IVP STA (22:51)
[2022-08-22 22:56] LABS: BASOPHILS # (AUTO) 0.1 10^3/uL (0.0-0.1); BASOPHILS % (AUTO) 1 % (0-10); EOSINOPHILS # (AUTO) 0.2 10^3/uL (0.0-0.3); EOSINOPHILS % (AUTO) 2 % (0-10); HEMATOCRIT 41 % (35-52); HEMOGLOBIN 13.8 g/dL (11.5-16.0); LYMPHOCYTES # (AUTO) 4.4 10^3/uL (1.0-4.0); LYMPHOCYTES % (AUTO) 41 % (12-44); MEAN CORPUSCULAR HEMOGLOBIN 31 pg (25-34); MEAN CORPUSCULAR HGB CONC 34 g/dL (32-36); MEAN CORPUSCULAR VOLUME 90 fL (80-99); MEAN PLATELET VOLUME 10.7 fL (9.0-12.2); MONOCYTES # (AUTO) 0.8 10^3/uL (0.0-1.0); MONOCYTES % (AUTO) 7 % (0-12); NEUTROPHILS # (AUTO) 5.4 10^3/uL (1.8-7.8); NEUTROPHILS % (AUTO) 50 % (42-75); PLATELET COUNT 244 10^3/uL (130-400); WHITE BLOOD COUNT 10.8 10^3/uL (4.3-11.0)
[2022-08-22] MEDS ORDERED: NS IV 1000 ML 1,000 ML IV SCH (23:00)
[2022-08-22 23:14] LABS: BUN/CREATININE RATIO 11; CALCIUM 9.5 MG/DL (8.5-10.1); CARBON DIOXIDE 25 MMOL/L (21-32); CHLORIDE 102 MMOL/L (98-107); CREATININE SERUM 0.73 MG/DL (0.60-1.30); GFR ESTIMATED 105; GLUCOSE 127 MG/DL (70-105); POTASSIUM 3.4 MMOL/L (3.6-5.0); SODIUM 138 MMOL/L (135-145)
[2022-08-22 23:15] LABS: ALANINE AMINOTRANSFERASE 8 U/L (0-55); ALBUMIN 3.5 GM/DL (3.2-4.5); ALKALINE PHOSPHATASE 86 U/L (40-136); BILIRUBIN,TOTAL 0.4 MG/DL (0.1-1.0); MAGNESIUM 1.9 MG/DL (1.6-2.4); TOTAL PROTEIN 6.5 GM/DL (6.4-8.2)
[2022-08-23] MEDS ORDERED: FAMOTIDINE 20MG/2ML IV (PEPCID) IV STA (00:02)
[2022-08-23] MEDS ORDERED: ANTACID SUSP 30 ML UDC (MYLANTA) PO ONE (00:15)
[2022-08-23] MEDS ORDERED: LIDOCAINE 2% VISCOUS 15 ML UDC PO ONE (00:15)
[2022-08-23] MEDS ORDERED: PANTOPRAZOLE 40 MG (PROTONIX) VIAL IV ONE (00:15)
[2022-08-23 00:25] LABS: AMPHETAMINE SCREEN, URINE NEGATIVE (NEGATIVE); BARBITURATE SCREEN URINE NEGATIVE (NEGATIVE); BENZODIAZEPINES SCREEN URINE NEGATIVE (NEGATIVE); CANNABINOID SCREEN, URINE NEGATIVE (NEGATIVE); COCAINE SCREEN URINE NEGATIVE (NEGATIVE); METHADONE STAT NEGATIVE (NEGATIVE); OPIATE SCREEN URINE POSITIVE (NEGATIVE); OXYCODONE STAT NEGATIVE (NEGATIVE); PROPOXYPHENE STAT NEGATIVE (NEGATIVE); TRICYCLIC ANTIDEPRESSANTS SCRE NEGATIVE (NEGATIVE)
[2022-08-23 00:40] VITALS: BP 103/63
--- NOTE | 2022-08-23 07:37 | Diagnostic Imaging Report ---
CLINICAL INDICATION: Patient with chest pain. EXAM: Portable chest x-ray upright view. COMPARISON: Chest x-ray dated 11/11/2021. FINDINGS: Lungs/pleura: There is interval development of very minimal atelectasis involving the left lung base. Otherwise, lungs are clear. There is no pneumothorax. There is no pleural effusion. Mediastinum: Unremarkable. Pulmonary vasculature: Unremarkable. Heart: Unremarkable. Loop recorder is seen overlying the left side of the chest. Bones/extrathoracic soft tissue: Unremarkable. IMPRESSION: There is interval development of minimal atelectasis involving the left lung base. Subtle infiltrate cannot be completely excluded. Clinical correlation would better evaluate. Dictated by: Dictated on workstation # [id number]
== END 2022-08-23 00:40 | disposition home or self-care (01) ==
LOC: EDUNIT# 22:35 → ER FS 22:36
DX: K21.9 Gastro-esophageal reflux disease without esophagitis (principal); F17.210 Nicotine dependence, cigarettes, uncomplicated
CPT/HCPCS: 36415; 71045; 80053; 80306; 83735; 84484; 85025; 99284; G0480; 80320

== ENCOUNTER 2022-10-03 13:52 | Emergency (ER) | payer MEDICARE ==
[~2022-10-03] VITALS: Ht 157.4 cm; Wt 83.8 kg
--- NOTE | 2022-10-03 14:08 | ED General ---
General Chief Complaint: General Problems/Pain Stated Complaint: LT ARM/SHOULDER & HEAD INJ Source of Information: Patient Exam Limitations: No Limitations History of Present Illness Date Seen by Provider: October 03, 2022 Time Seen by Provider: 13:54 Initial Comments 41-year-old female with past medical history of seizures on Depakote coming in after she had a seizure last night, fell down roughly 6 steps, hit her head. Had worsening pain in her left shoulder and a mild headache today. Does not take any blood thinners. LMP was last month. Has been ambulatory without any weakness or numbness. Allergies and Home Medications Allergies Coded Allergies: No Known Drug Allergies (Unverified , 12/22/17) Patient Home Medication List Home Medication List Reviewed: Yes Divalproex Sodium (Depakote ER) 250 Mg Tab.er.24h, 250 MG PO DAILY Prescribed by: REAL LANDA on 11/12/21 0128 Fluoxetine HCl (Prozac) 10 Mg Capsule, 10 MG PO DAILY, (Reported) Entered as Reported by: NICK REDDY on 02/28/20921 Fluoxetine HCl (Prozac) 20 Mg Capsule, 20 MG PO DAILY, (Reported) Entered as Reported by: NICK REDDY on 02/28/20921 Lamotrigine (Lamotrigine) 25 Mg Tablet, (Reported) Entered as Reported by: SARA ALEJANDRE on 04/19/222103 Naproxen (Naproxen) 500 Mg Tablet.dr, 500 MG PO PRN, (Reported) Entered as Reported by: PAYAM WILEY on 02/19/22 144 Pantoprazole Sodium (Pantoprazole Sodium) 40 Mg Tablet.dr, 40 MG PO DAILY, (Reported) Entered as Reported by: PAYAM WILEY on 02/19/22 144 Pantoprazole Sodium (Protonix) 40 Mg Tablet.dr, 40 MG PO DAILY Prescribed by: MARIJA SPAULDING on 03/04/22 145 Prazosin HCl (Prazosin HCl) 2 Mg Capsule, (Reported) Entered as Reported by: SARA ALEJANDRE on 04/19/222103 Rosuvastatin Calcium (Rosuvastatin Calcium) 20 Mg Tablet, 20 MG PO DAILY, (Reported) Entered as Reported by: PAYAM WILEY on 02/19/22 144 Review of Systems Review of Systems Constitutional: No fever EENTM: no symptoms reported Respiratory: no symptoms reported Cardiovascular: no symptoms reported Gastrointestinal: no symptoms reported Genitourinary: no symptoms reported Musculoskeletal: see HPI Skin: no symptoms reported Psychiatric/Neurological: See HPI Past Xbrhjbd-Ttqalk-Ohzfsx Hx Patient Social History Tobacco Use?: Yes Tobacco type used: Cigarettes Smoking Status: Current Everyday Smoker Use of E-Cig and/or Vaping dev: No Substance use?: No Alcohol Use?: No Pt feels they are or have been: No Immunizations Up To Date Tetanus Booster (TDap): Unknown First/Initial COVID19 Vaccinat: NOVEMBER 2020 Second COVID19 Vaccination Pankaj: NOVEMBER 2020 Third COVID19 Vaccination Date: NONE Seasonal Allergies Seasonal Allergies: Yes Past Medical History Surgery/Hospitalization HX: Loop recorder placed, Hx seizure, Depresson-PTSD Surgeries: Yes (loop recorder) Gallbladder Respiratory: No Currently Using CPAP: No Currently Using BIPAP: No Cardiac: Yes (heart cath) Syncope Neurological: Yes (Seizure-like activity) Concussion, Seizure Disorder Reproductive Disorders: No Sexually Transmitted Disease: No Genitourinary: No Gastrointestinal: No Gall Bladder Disease Musculoskeletal: Yes Arthritis, Fractures Endocrine: No HEENT: No Cancer: No Psychosocial: Yes Pseudo Seizures, Anxiety, Depression Integumentary: No Blood Disorders: No Family Medical History No Pertinent Family Hx History obtained from the records. Unable to obtain from patient due to somnolence Physical Exam Vital Signs Vital Signs - First Documented 10/03/22 14:00 Temp 36.8 Pulse 97 Resp 16 B/P (MAP) 155/100 (118) Pulse Ox 100 O2 Delivery Room Air Capillary Refill : Height, Weight, BMI Height: 5'2.00" Weight: 160lbs. 8.0oz. 72.998513il; 31.00 BMI Method:Stated General Appearance: No Apparent Distress, WD/WN Eyes: Bilateral Eye Normal Inspection HEENT: PERRL/EOMI, Normal ENT Inspection, Pharynx Normal Neck: Full Range of Motion, Normal Inspection, Non Tender, Supple Respiratory: Chest Non Tender, Lungs Clear, Normal Breath Sounds, No Accessory Muscle Use, No Respiratory Distress Cardiovascular: Regular Rate, Rhythm, No Edema, Normal Peripheral Pulses Gastrointestinal: Normal Bowel Sounds, Non Tender, Soft; No Distended, No Guarding Back: Normal Inspection, No CVA Tenderness, No Vertebral Tenderness Extremity: Normal Capillary Refill, Normal Inspection, No Calf Tenderness, No Pedal Edema, Other (Left shoulder with pain to palpation and pain with range of motion, neurovascularly intact distal to extremity) Neurologic/Psychiatric: Alert, Oriented x3, No Motor/Sensory Deficits, Normal Mood/Affect Skin: Normal Color, Warm/Dry Progress/Results/Core Measures Suspected Sepsis SIRS Temperature: Pulse: Respiratory Rate: Blood Pressure / Mean: Results/Orders My Orders Orders - NADINE CURRAN MD Ct Head/Cervical Spine Wo (10/03/22 14:05) Humerus 2 View Left (10/03/22 14:05) Shoulder 3 View Left (10/03/22 14:05) Urine Bedside (10/03/22 14:05) Acetaminophen Tablet (Tylenol Tablet) (10/03/22 14:15) Vital Signs/I&O 10/03/22 14:00 Temp 36.8 Pulse 97 Resp 16 B/P (MAP) 155/100 (118) Pulse Ox 100 O2 Delivery Room Air Capillary Refill : Progress Note : Progress Note 41-year-old female with above history coming in after she had a seizure and fell down some stairs last night. ABCs were intact and vitals were stable on presentation with a GCS of 15. Physical exam with left shoulder tenderness and decreased range of motion due to pain. She was given Tylenol for pain here. CT head and cervical spine ordered and interpreted by me showing no obvious fracture, no obvious dislocation, no obvious brain bleed. X-ray of the left shoulder and left humerus ordered and interpreted by me showing no fracture or dislocation. I believe the patient is stable for discharge with outpatient follow-up. She was sent home with strict return precautions Diagnostic Imaging Diagonstic Imaging: Xray (left shoulder and humerus), CT (head and c spine) Comments NAME: PIERRE DUGAN [facility] REC#: [id number] PT STATUS: REG ER : 1980 PHYSICIAN: NADINE CURRAN MD ADMIT DATE: 10/03/22/ER FS Signed Date of Exam:10/03/22 SHOULDER 3 VIEW LEFT Indication: Fall with left shoulder injury AP, oblique and transscapular views of left shoulder are obtained. FINDINGS: No acute fracture or dislocation is identified. No abnormal lytic or sclerotic focus is seen, and there is no unexpected radiopaque foreign body. IMPRESSION: No acute abnormality. Dictated by: Dictated on workstation # [id number] Dict: 10/03/22 1423 Trans: 10/03/22 1424 TF Interpreted by: STEFANY SOLANO MD Electronically signed by: STEFANY SOLANO MD 10/03/22 1424 NAME: PIERRE DUGAN [facility] REC#: [id number] PT STATUS: REG ER : 1980 PHYSICIAN: NADINE CURRAN MD ADMIT DATE: 10/03/22/ER FS Draft Date of Exam:10/03/22 HUMERUS 2 VIEW LEFT INDICATION: Seizure with fall resulting in left humeral pain. AP and lateral views of left humerus are obtained. FINDINGS: No acute fracture or dislocation is identified. No abnormal lytic or sclerotic focus is seen, and there is no radiopaque foreign body. IMPRESSION: No acute abnormality. Dictated on workstation # [id number] Dict: 10/03/22 1424 Trans: 10/03/221424 CVB [id number] Interpreted by: STEFANY SOLANO MD Electronically signed by: NAME: PIERRE DUGAN [facility] REC#: [id number] PT STATUS: REG ER : 1980 PHYSICIAN: NADINE CURRAN MD ADMIT DATE: 10/03/22/ER FS Draft Date of Exam:10/03/22 CT HEAD/CERVICAL SPINE WO PROCEDURE: CT head and CT cervical spine without contrast. TECHNIQUE: Multiple contiguous axial images were obtained through the brain and cervical spine without the use of intravenous contrast. Sagittal and coronal reformations through the cervical spine were then performed. Auto Exposure Controls were utilized during the CT exam to meet ALARA standards for radiation dose reduction. INDICATION: Seizure with fall resulting in head and neck injuries. CT HEAD: CT images of the head were obtained. FINDINGS: Ventricles and sulci are within normal limits for size. There is no intracranial hemorrhage identified. There is no abnormal mass effect or shift of midline structures. IMPRESSION: Unremarkable CT of the head. CT CERVICAL SPINE: Multiple contiguous axial CT images of the cervical spine were obtained with sagittal and coronal reformatted images produced. FINDINGS: There is loss of normal cervical lordosis. Vertebral body heights and disc spaces are maintained. Prevertebral soft tissues are unremarkable, and there is no evidence of paraspinous hematoma. IMPRESSION: Loss of normal cervical lordosis which may be due to positioning or muscle spasm. There is, otherwise, no CT evidence of acute cervical spinal abnormality. Dictated on workstation # [id number] Dict: 10/03/22 1420 Trans: 10/03/22 1427 [facility] [id number] Interpreted by: STEFANY SOLANO MD Electronically signed by: Departure Impression Primary Impression: Fall Qualified Codes: W19.XXXA - Unspecified fall, initial encounter Additional Impressions: Seizure Shoulder contusion Qualified Codes: S40.012A - Contusion of left shoulder, initial encounter Disposition: 01 HOME, SELF-CARE Condition: Stable Departure-Patient Inst. Decision time for Depature: 14:40 Referrals: [facility] [place] Primary Care Physician Patient Instructions: Seizures, Adult ED, Contusion (DC) Add. Discharge Instructions: Fortunately nothing is broken or dislocated, and there is no significant head injury. You may have a mild concussion which she would have a headache. The left shoulder is bruised, and will take a few weeks to get back to normal. Take ibuprofen and/or Tylenol as needed for pain. You can also ice the area, or use heat, whichever feels better. Follow-up with your regular doctor if you are not seeing improvement in the next couple of weeks. Work/School Note: Work Release Form Date Seen in the Emergency Department: October 03, 2022 Return to Work: October 04, 2022 Restrictions: No Restrictions NADINE CURRAN MD October 03, 2022 14:08
[2022-10-03] MEDS ORDERED: ACETAMINOPHEN 500 MG TAB (TYLENOL) PO ONE (14:15)
--- NOTE | 2022-10-03 14:25 | Diagnostic Imaging Report ---
Indication: Fall with left shoulder injury AP, oblique and transscapular views of left shoulder are obtained. FINDINGS: No acute fracture or dislocation is identified. No abnormal lytic or sclerotic focus is seen, and there is no unexpected radiopaque foreign body. IMPRESSION: No acute abnormality. Dictated by: Dictated on workstation # [id number]
--- NOTE | 2022-10-03 14:26 | Diagnostic Imaging Report ---
INDICATION: Seizure with fall resulting in left humeral pain. AP and lateral views of left humerus are obtained. FINDINGS: No acute fracture or dislocation is identified. No abnormal lytic or sclerotic focus is seen, and there is no radiopaque foreign body. IMPRESSION: No acute abnormality. Dictated by: Dictated on workstation # [id number]
--- NOTE | 2022-10-03 14:28 | Diagnostic Imaging Report ---
PROCEDURE: CT head and CT cervical spine without contrast. TECHNIQUE: Multiple contiguous axial images were obtained through the brain and cervical spine without the use of intravenous contrast. Sagittal and coronal reformations through the cervical spine were then performed. Auto Exposure Controls were utilized during the CT exam to meet ALARA standards for radiation dose reduction. INDICATION: Seizure with fall resulting in head and neck injuries. CT HEAD: CT images of the head were obtained. FINDINGS: Ventricles and sulci are within normal limits for size. There is no intracranial hemorrhage identified. There is no abnormal mass effect or shift of midline structures. IMPRESSION: Unremarkable CT of the head. CT CERVICAL SPINE: Multiple contiguous axial CT images of the cervical spine were obtained with sagittal and coronal reformatted images produced. FINDINGS: There is loss of normal cervical lordosis. Vertebral body heights and disc spaces are maintained. Prevertebral soft tissues are unremarkable, and there is no evidence of paraspinous hematoma. IMPRESSION: Loss of normal cervical lordosis which may be due to positioning or muscle spasm. There is, otherwise, no CT evidence of acute cervical spinal abnormality. Dictated by: Dictated on workstation # [id number]
[2022-10-03 14:36] VITALS: BP 155/100
== END 2022-10-03 14:36 | disposition home or self-care (01) ==
LOC: EDUNIT# 13:52 → ER FS 13:53
DX: S40.012A Contusion of left shoulder, initial encounter (principal); G40.909 Epilepsy, unspecified, not intractable, without status epilepticus; F17.210 Nicotine dependence, cigarettes, uncomplicated; W10.9XXA Fall (on) (from) unspecified stairs and steps, initial encounter
CPT/HCPCS: 70450; 72125; 73030; 73060; 84703

== ENCOUNTER 2022-10-10 19:26 | Emergency (ER) | payer MEDICARE ==
[~2022-10-10] VITALS: Ht 157.4 cm; Wt 77.1 kg
[2022-10-10] MEDS ORDERED: NS IV 1000 ML 1,000 ML IV SCH (19:45)
[2022-10-10 19:59] LABS: BASOPHILS % (AUTO) 0 % (0-10); EOSINOPHILS # (AUTO) 0.2 10^3/uL (0.0-0.3); EOSINOPHILS % (AUTO) 2 % (0-10); HEMATOCRIT 40 % (35-52); HEMOGLOBIN 13.4 g/dL (11.5-16.0); LYMPHOCYTES # (AUTO) 4.1 10^3/uL (1.0-4.0); LYMPHOCYTES % (AUTO) 35 % (12-44); MEAN CORPUSCULAR HEMOGLOBIN 30 pg (25-34); MEAN CORPUSCULAR HGB CONC 34 g/dL (32-36); MEAN CORPUSCULAR VOLUME 89 fL (80-99); MONOCYTES # (AUTO) 0.7 10^3/uL (0.0-1.0); MONOCYTES % (AUTO) 6 % (0-12); NEUTROPHILS # (AUTO) 6.5 10^3/uL (1.8-7.8); NEUTROPHILS % (AUTO) 56 % (42-75); PLATELET COUNT 217 10^3/uL (130-400); WHITE BLOOD COUNT 11.5 10^3/uL (4.3-11.0)
[2022-10-10 20:02] LABS: BILIRUBIN,TOTAL 0.3 MG/DL (0.1-1.0); CALCIUM 9.4 MG/DL (8.5-10.1); CREATININE SERUM 0.8 MG/DL (0.60-1.30); POTASSIUM 3.7 MMOL/L (3.6-5.0); TOTAL PROTEIN 6.2 GM/DL (6.4-8.2)
[2022-10-10 20:03] LABS: ALBUMIN 3.4 GM/DL (3.2-4.5)
[2022-10-10 20:11] LABS: BILIRUBIN,URINE NEGATIVE (NEGATIVE); GLUCOSE, URINE (UA) NEGATIVE (NEGATIVE); HCG,QUALITATIVE URINE NEGATIVE (NEGATIVE); KETONES,URINE NEGATIVE (NEGATIVE); LEUKOCYTE ESTERASE ,URINE TRACE (NEGATIVE); NITRITE,URINE NEGATIVE (NEGATIVE); PROTEIN,URINE 2+ (NEGATIVE)
--- NOTE | 2022-10-10 20:11 | ED Neurological Problem ---
General Chief Complaint: Neurological Problems Stated Complaint: SEIZURES Nursing Triage Note: Patient was brought in via EMS for seizures. EMS reports that the patient was alert and oriented upon their arrival. Patient states that she has had multiple seizures over the last few days. Patient is unable to tell this RN how many. EMS reports that she has had approximately 6 seizures today. Patient reports taking Depakote BID for the seizures and she hasn't followed up with a physician since her increase in seizures. Patient states that she has an appointment with a new neurologist on November 12. Patient states that her seizures began approximately 2 years ago after getting her second covid vaccine immunization. Source: patient, EMS, RN notes reviewed, EMS notes reviewed Exam Limitations: no limitations History of Present Illness Date Seen by Provider: Oct 10, 2022 Time Seen by Provider: 19:36 Initial Comments 41-year-old female patient with history of anxiety and depression, hyperlipidemia, seizure/pseudoseizure brought in by EMS because of frequent episodes of seizure. EMS reported that she had 6 episodes of seizure today. Patient is alert and oriented and stated she does not know how many seizure episode she had today. Patient denies loss of urine and bladder, head injury, missing seizure medication, using alcohol or lack of sleep, using drugs and alcohol. Patient states she had seizure 5 days ago and get episodes of seizure frequently. Patient complaining of headache. patient stated she does not have a primary care physician but has neurology appointment in November. According to EMR patient was seen in the emergency room with diagnosis of seizure-like activity/pseudoseizure frequently. Allergies and Home Medications Allergies Coded Allergies: No Known Drug Allergies (Unverified , 12/22/17) Patient Home Medication List Home Medication List Reviewed: Yes Divalproex Sodium (Depakote ER) 250 Mg Tab.er.24h, 250 MG PO DAILY Prescribed by: REAL LANDA on 11/12/21 0128 Fluoxetine HCl (Prozac) 10 Mg Capsule, 10 MG PO DAILY, (Reported) Entered as Reported by: NICK REDDY on 02/28/20921 Fluoxetine HCl (Prozac) 20 Mg Capsule, 20 MG PO DAILY, (Reported) Entered as Reported by: NICK REDDY on 02/28/20921 Lamotrigine (Lamotrigine) 25 Mg Tablet, (Reported) Entered as Reported by: SARA ALEJANDRE on 04/19/222103 Naproxen (Naproxen) 500 Mg Tablet.dr, 500 MG PO PRN, (Reported) Entered as Reported by: PAYAM WILEY on 02/19/22 144 Pantoprazole Sodium (Pantoprazole Sodium) 40 Mg Tablet.dr, 40 MG PO DAILY, (Reported) Entered as Reported by: PAYAM WILEY on 02/19/22 144 Pantoprazole Sodium (Protonix) 40 Mg Tablet.dr, 40 MG PO DAILY Prescribed by: MARIJA SPAULDING on 03/04/22 145 Prazosin HCl (Prazosin HCl) 2 Mg Capsule, (Reported) Entered as Reported by: SARA ALEJANDRE on 04/19/222103 Rosuvastatin Calcium (Rosuvastatin Calcium) 20 Mg Tablet, 20 MG PO DAILY, (Reported) Entered as Reported by: PAYAM WILEY on 02/19/22 144 Review of Systems Review of Systems Constitutional: see HPI Eyes: See HPI; Denies Blurred Vision, Denies Decreased Acuity, Denies Previous Injury, Denies Other Ears, Nose, Mouth, Throat: no symptoms reported, see HPI; denies nose pain, denies nose discharge, denies loose teeth Respiratory: no symptoms reported; No orthopnea, No phlegm, No stridor Cardiovascular: see HPI; No palpitations, No syncope Gastrointestinal: no symptoms reported; No nausea, No vomiting Genitourinary: see HPI; No dysuria, No hematuria : No Musculoskeletal: see HPI Skin: see HPI; No rash Psychiatric/Neurological: See HPI, Headache; Denies Weakness, Denies Other Endocrine: Denies Increased Thrist, Denies Increased Urine, Denies Unexplained Weight Gain, Denies Unexplaned Weight Loss Hematologic/Lymphatic: Denies See HPI, Denies Anemia, Denies Blood Clots All Other Systems Reviewed Negative Unless Noted: Yes Past Zwwtutu-Stujnm-Afdncn Hx Patient Social History Tobacco Use?: Yes Tobacco type used: Cigarettes Smoking Status: Current Everyday Smoker Substance use?: No Alcohol Use?: No Pt feels they are or have been: No Immunizations Up To Date Tetanus Booster (TDap): Unknown First/Initial COVID19 Vaccinat: NOVEMBER 2020 Second COVID19 Vaccination Pankaj: NOVEMBER 2020 Third COVID19 Vaccination Date: NONE Seasonal Allergies Seasonal Allergies: Yes Past Medical History Surgery/Hospitalization HX: Loop recorder placed, Hx seizure, Depresson-PTSD Surgeries: Yes (loop recorder) Gallbladder Respiratory: No Currently Using CPAP: No Currently Using BIPAP: No Cardiac: Yes (heart cath) Syncope Neurological: Yes (Seizure-like activity) Concussion, Seizure Disorder Reproductive Disorders: No Sexually Transmitted Disease: No Genitourinary: No Gastrointestinal: No Gall Bladder Disease Musculoskeletal: Yes Arthritis, Fractures Endocrine: No HEENT: No Cancer: No Psychosocial: Yes Pseudo Seizures, Anxiety, Depression Integumentary: No Blood Disorders: No Family Medical History No Pertinent Family Hx History obtained from the records. Unable to obtain from patient due to somnolence Physical Exam Vital Signs Vital Signs - First Documented 10/10/22 19:29 Temp 37.1 Pulse 97 Resp 16 B/P (MAP) 114/78 (90) Pulse Ox 94 O2 Delivery Room Air Capillary Refill : Less Than 3 Seconds Height, Weight, BMI Height: 5'2.00" Weight: 160lbs. 8.0oz. 72.086015zm; 31.00 BMI Method:Stated General Appearance: WD/WN, no apparent distress HEENT: PERRL/EOMI, normal ENT inspection, TMs normal, pharynx normal Neck: non-tender, full range of motion, supple, normal inspection Respiratory: chest non-tender, lungs clear, normal breath sounds, no respiratory distress, no accessory muscle use, respiratory distress Cardiovascular: normal peripheral pulses, regular rate, rhythm, no edema, no gallop, no JVD, no murmur Peripheral Pulses: 0 Carotid (R); 2+ Carotid (R); 0 Carotid (L); 2+ Carotid (L); 0 Femoral (R); 2+ Femoral (R); 0 Femoral (L); 2+ Femoral (L); 0 Dorsalis Pedis (R); 2+ Dorsalis Pedis (R); 0 Left Dors-Pedis (L); 2+ Left Dors-Pedis (L), 2+ Radial Pulses (R), 2+ Radial Pulses (L) Gastrointestinal: normal bowel sounds, non tender, soft, no organomegaly, no pulsatile mass Genital/Rectal: normal genital exam, normal rectal exam, heme negative stool, normal rectal tone, normal vaginal exam, blood at urethral meatus, decreased rectal tone Back: normal inspection, no CVA tenderness, no vertebral tenderness, CVA tenderness (R), CVA tenderness (L) Extremities: normal range of motion, non-tender, normal inspection, no pedal edema, no calf tenderness, normal capillary refill, pelvis stable Neurologic/Psychiatric: onsite case manager II-XII nml as tested, no motor/sensory deficits, alert, normal mood/affect, oriented x 3, abnormal cerebellar tests Crainal Nerves: normal hearing, normal speech, PERRL, abnormal eye position Coordination/Gait: normal finger to nose, normal gait, negative Romberg's sign Motor/Sensory: no motor deficit, no sensory deficit, no pronator drift, negative Babinski's sign, positive Babinski's sign Reflexes: 0 Bicep (R); 3+ Bicep (R); 0 Bicep (L); 3+ Bicep (L); 0 Tricep (R); 3+ Tricep (R); 0 Tricep (L); 3+ Tricep (L); 0 Knee (R); 3+ Knee (R), 3+ Knee (L), 3+ Ankle (R), 3+ Ankle (L) Skin: normal color, warm/dry Lymphatic: no adenopathy Progress/Results/Core Measures Results/Orders Lab Results Laboratory Tests Test 10/10/22 19:37 10/10/22 20:02 Range/Units White Blood Count 11.5 H 4.3-11.0 10^3/uL Red Blood Count 4.48 3.80-5.11 10^6/uL Hemoglobin 13.4 11.5-16.0 g/dL Hematocrit 40 35-52 % Mean Corpuscular Volume 89 80-99 fL Mean Corpuscular Hemoglobin 30 25-34 pg Mean Corpuscular Hemoglobin Concent 34 32-36 g/dL Red Cell Distribution Width 14.0 10.0-14.5 % Platelet Count 217 130-400 10^3/uL Mean Platelet Volume 11.0 9.0-12.2 fL Immature Granulocyte % (Auto) 0 % Neutrophils (%) (Auto) 56 42-75 % Lymphocytes (%) (Auto) 35 12-44 % Monocytes (%) (Auto) 6 0-12 % Eosinophils (%) (Auto) 2 0-10 % Basophils (%) (Auto) 0 0-10 % Neutrophils # (Auto) 6.5 1.8-7.8 10^3/uL Lymphocytes # (Auto) 4.1 H 1.0-4.0 10^3/uL Monocytes # (Auto) 0.7 0.0-1.0 10^3/uL Eosinophils # (Auto) 0.2 0.0-0.3 10^3/uL Basophils # (Auto) 0.0 0.0-0.1 10^3/uL Immature Granulocyte # (Auto) 0.0 0.0-0.1 10^3/uL Sodium Level 138 135-145 MMOL/L Potassium Level 3.7 3.6-5.0 MMOL/L Chloride Level 105 98-107 MMOL/L Carbon Dioxide Level 20 L 21-32 MMOL/L Anion Gap 13 5-14 MMOL/L Blood Urea Nitrogen 10 7-18 MG/DL Creatinine 0.80 0.60-1.30 MG/DL Estimat Glomerular Filtration Rate 94 BUN/Creatinine Ratio 13 Glucose Level 103 70-105 MG/DL Calcium Level 9.4 8.5-10.1 MG/DL Corrected Calcium 9.9 8.5-10.1 MG/DL Total Bilirubin 0.3 0.1-1.0 MG/DL Aspartate Amino Transf (AST/SGOT) 14 5-34 U/L Alanine Aminotransferase (ALT/SGPT) 9 0-55 U/L Alkaline Phosphatase 87 40-136 U/L Total Protein 6.2 L 6.4-8.2 GM/DL Albumin 3.4 3.2-4.5 GM/DL Urine Color RED H Urine Clarity CLOUDY Urine pH 6.0 5-9 Urine Specific [place] 1.015 L 1.016-1.022 Urine Protein 2+ H NEGATIVE Urine Glucose (UA) NEGATIVE NEGATIVE Urine Ketones NEGATIVE NEGATIVE Urine Nitrite NEGATIVE NEGATIVE Urine Bilirubin NEGATIVE NEGATIVE Urine Urobilinogen 0.2 < = 1.0 MG/DL Urine Leukocyte Esterase TRACE H NEGATIVE Urine RBC (Auto) 3+ H NEGATIVE Urine RBC 10-25 H /HPF Urine WBC 50-100 H /HPF Urine Squamous Epithelial Cells >50 H /HPF Urine Crystals NONE /LPF Urine Bacteria LARGE H /HPF Urine Casts NONE /LPF Urine Mucus LARGE H /LPF Urine Culture Indicated NO Urine Test NEGATIVE NEGATIVE Urine Opiates Screen NEGATIVE NEGATIVE Urine Oxycodone Screen NEGATIVE NEGATIVE Urine Methadone Screen NEGATIVE NEGATIVE Urine Propoxyphene Screen NEGATIVE NEGATIVE Urine Barbiturates Screen NEGATIVE NEGATIVE Ur Tricyclic Antidepressants Screen NEGATIVE NEGATIVE Urine Phencyclidine Screen NEGATIVE NEGATIVE Urine Amphetamines Screen NEGATIVE NEGATIVE Urine Methamphetamines Screen NEGATIVE NEGATIVE Urine Benzodiazepines Screen NEGATIVE NEGATIVE Urine Cocaine Screen NEGATIVE NEGATIVE Urine Cannabinoids Screen NEGATIVE NEGATIVE My Orders Orders - JULIENNE FRAZIER MD Comprehensive Metabolic Panel (10/10/22 19:45) Ua Culture If Indicated (10/10/22 19:45) Ed Iv/Invasive Line Start (10/10/22 19:45) Cbc With Automated Diff (10/10/22 19:45) Drug Screen Stat (Urine) (10/10/22 19:45) Ns Iv 1000 Ml (Sodium Chloride 0.9%) (10/10/22 19:45) Hcg,Qualitative Urine (10/10/22 19:45) Lorazepam Injection (Ativan Injection) (10/10/22 20:30) Acetaminophen Tablet (Tylenol Tablet) (10/10/22 20:30) Medications Given in ED Current Medications Medications Dose Ordered Sig/Falguni Route Start Time Stop Time Status Last Admin Dose Admin Acetaminophen 1,000 mg ONCE ONCE PO 10/10/22 20:30 10/10/22 20:31 DC 10/10/22 20:33 1,000 MG Lorazepam 1 mg ONCE ONCE IVP 10/10/22 20:30 10/10/22 20:31 DC 10/10/22 20:33 1 MG Vital Signs/I&O 10/10/22 10/10/22 19:29 20:37 Temp 37.1 Pulse 97 82 Resp 16 16 B/P (MAP) 114/78 (90) 110/82 Pulse Ox 94 97 O2 Delivery Room Air Room Air Blood Pressure Mean: 90 Progress Progress Note : Progress Note Patient with history of seizure-like activity and pseudoseizure and currently on Depakote with history of anxiety and depression brought in by EMS with complaining of several episodes of seizure today. Patient had unremarkable physical exam, CBC, CMP, UDS. Patient currently on her menstruation and UA showed blood. Patient complaining of headache and treated with Tylenol with improvement of her pain. Patient had 1 L of normal saline and 1 mg of Ativan. Patient was alert and oriented and advised to follow-up with her neurology appointment and continue home medication. Departure Impression Primary Impression: Seizure-like activity Additional Impression: Headache Qualified Codes: R51.9 - Headache, unspecified Disposition: HOME, SELF-CARE Condition: Improved Departure-Patient Inst. Decision time for Depature: 20:35 Referrals: [facility] (PCP/Family) Primary Care Physician Patient Instructions: Seizures, Adult (DC), Headache, Adult ED Add. Discharge Instructions: Continue home seizure medication Follow-up with your primary care physician in 2 or 3 days Follow-up with your neurology appointment Return to ER as needed May take [id number] Tylenol and ibuprofen as needed for headache All discharge instructions reviewed with patient and/or family. Voiced understanding. JULIENNE FRAZIER MD Oct 10, 2022 20:11
[2022-10-10 20:14] LABS: CLARITY,URINE CLOUDY; COLOR,URINE RED
[2022-10-10 20:16] LABS: BACTERIA,URINE LARGE /HPF; SQUAMOUS EPITHELIAL CELL,UR >50 /HPF; WBC,URINE 50-100 /HPF
[2022-10-10 20:20] LABS: AMPHETAMINE SCREEN, URINE NEGATIVE (NEGATIVE); BARBITURATE SCREEN URINE NEGATIVE (NEGATIVE); BENZODIAZEPINES SCREEN URINE NEGATIVE (NEGATIVE); CANNABINOID SCREEN, URINE NEGATIVE (NEGATIVE); COCAINE SCREEN URINE NEGATIVE (NEGATIVE); METHADONE STAT NEGATIVE (NEGATIVE); OPIATE SCREEN URINE NEGATIVE (NEGATIVE); OXYCODONE STAT NEGATIVE (NEGATIVE); PROPOXYPHENE STAT NEGATIVE (NEGATIVE); TRICYCLIC ANTIDEPRESSANTS SCRE NEGATIVE (NEGATIVE)
[2022-10-10] MEDS ORDERED: ACETAMINOPHEN 500 MG TAB (TYLENOL) PO ONE (20:30)
[2022-10-10] MEDS ORDERED: LORazepam INJ 2 MG/ML (ATIVAN) VIAL IVP ONE (20:30)
[2022-10-10 20:37] VITALS: BP 110/82
== END 2022-10-10 20:39 | disposition home or self-care (01) ==
LOC: EDUNIT# 19:26 → ER FS 19:27
DX: G40.909 Epilepsy, unspecified, not intractable, without status epilepticus (principal); F17.210 Nicotine dependence, cigarettes, uncomplicated
CPT/HCPCS: 36415; 80053; 80306; 81000; 84703; 85025

== ENCOUNTER 2022-12-23 16:16 | Emergency (ER) | payer MEDICARE ==
[~2022-12-23 16:16] MED LIST changes: -ROSU20TA32 PO; +ROSU20TA73 PO
--- NOTE | 2022-12-23 16:31 | ED General ---
General Chief Complaint: Chest Pain Stated Complaint: LOOP RECORDER ISSUES/PAIN History of Present Illness Date Seen by Provider: Dec 23, 2022 Time Seen by Provider: 16:31 Initial Comments 42-year-old female with PMH of HTN and loop recorder, is here with complaints of chest wall pain exactly in the area of the loop recorder left side of the chest. This began today morning. Patient has never had this before and she has had a loop recorder for 3 years. The patient missed her last 6-month appointment and her next one is May 2023. Denies palpitations, fever and chills, injury or trauma to the chest, shortness of breath. Allergies and Home Medications Allergies Coded Allergies: No Known Drug Allergies (Unverified , 12/22/17) Patient Home Medication List Home Medication List Reviewed: Yes Divalproex Sodium (Depakote ER) 250 Mg Tab.er.24h, 250 MG PO DAILY Prescribed by: REAL LANDA on 11/12/21 0128 Fluoxetine HCl (Prozac) 10 Mg Capsule, 10 MG PO DAILY, (Reported) Entered as Reported by: NICK REDDY on 02/28/20921 Fluoxetine HCl (Prozac) 20 Mg Capsule, 20 MG PO DAILY, (Reported) Entered as Reported by: NICK REDDY on 02/28/20921 Lamotrigine (Lamotrigine) 25 Mg Tablet, (Reported) Entered as Reported by: SARA ALEJANDRE on 04/19/222103 Naproxen (Naproxen) 500 Mg Tablet.dr, 500 MG PO PRN, (Reported) Entered as Reported by: PAYAM WILEY on 02/19/22 1440 Pantoprazole Sodium (Pantoprazole Sodium) 40 Mg Tablet.dr, 40 MG PO DAILY, (Reported) Entered as Reported by: PAYAM WILEY on 02/19/22 144 Pantoprazole Sodium (Protonix) 40 Mg Tablet.dr, 40 MG PO DAILY Prescribed by: MARIJA SPAULDING on 03/04/22 1452 Prazosin HCl (Prazosin HCl) 2 Mg Capsule, (Reported) Entered as Reported by: SARA ALEJANDRE on 04/19/222103 Rosuvastatin Calcium (Rosuvastatin Calcium) 20 Mg Tablet, 20 MG PO DAILY, (Reported) Entered as Reported by: PAYAM WILEY on 02/19/22 1440 Review of Systems Review of Systems Constitutional: no symptoms reported EENTM: no symptoms reported Respiratory: no symptoms reported Cardiovascular: see HPI Gastrointestinal: no symptoms reported Genitourinary: no symptoms reported Musculoskeletal: no symptoms reported Skin: no symptoms reported Psychiatric/Neurological: No Symptoms Reported Hematologic/Lymphatic: No Symptoms Reported Immunological/Allergic: no symptoms reported Past Uecvufp-Uhnczj-Csteni Hx Immunizations Up To Date Tetanus Booster (TDap): Unknown First/Initial COVID19 Vaccinat: NOVEMBER 2020 Second COVID19 Vaccination Pankaj: NOVEMBER 2020 Third COVID19 Vaccination Date: NONE Seasonal Allergies Seasonal Allergies: Yes Past Medical History Surgery/Hospitalization HX: Loop recorder placed, Hx seizure, Depresson-PTSD Surgeries: Yes (loop recorder) Gallbladder Respiratory: No Currently Using CPAP: No Currently Using BIPAP: No Cardiac: Yes (heart cath) Syncope Neurological: Yes (Seizure-like activity) Concussion, Seizure Disorder Reproductive Disorders: No Sexually Transmitted Disease: No Genitourinary: No Gastrointestinal: No Gall Bladder Disease Musculoskeletal: Yes Arthritis, Fractures Endocrine: No HEENT: No Cancer: No Psychosocial: Yes Pseudo Seizures, Anxiety, Depression Integumentary: No Blood Disorders: No Family Medical History No Pertinent Family Hx History obtained from the records. Unable to obtain from patient due to somnolence Physical Exam Vital Signs Vital Signs - First Documented 12/23/22 16:18 Temp 37.0 Pulse 87 Resp 16 B/P (MAP) 134/77 (96) Pulse Ox 97 O2 Delivery Room Air Capillary Refill : Height, Weight, BMI Height: 5'2.00" Weight: 160lbs. 8.0oz. 72.954077cl; 31.00 BMI Method:Stated General Appearance: No Apparent Distress, WD/WN HEENT: PERRL/EOMI Neck: Full Range of Motion, Normal Inspection Respiratory: Lungs Clear, Normal Breath Sounds, No Accessory Muscle Use Cardiovascular: Regular Rate, Rhythm, No Edema, Other (Localized point tenderness directly over the area of the loop recorder in the left side of the chest. No tenderness anywhere else in the chest. Overlying skin is intact and appears normal. No erythema or warmth to touch.) Gastrointestinal: Non Tender, Soft Extremity: Normal Range of Motion Neurologic/Psychiatric: Alert, Oriented x3, No Motor/Sensory Deficits Skin: Normal Color Progress/Results/Core Measures Suspected Sepsis SIRS Temperature: Pulse: Respiratory Rate: Blood Pressure / Mean: Results/Orders My Orders Orders - VENKAT GARRISON MD Chest 1 View Ap/Pa Only (12/23/22 16:35) Vital Signs/I&O 12/23/22 16:18 Temp 37.0 Pulse 87 Resp 16 B/P (MAP) 134/77 (96) Pulse Ox 97 O2 Delivery Room Air Capillary Refill : Progress Note : Progress Note 1. CHEST WALL PAIN: - CXR: no acute changes. - Their is no infection in the site of the loop recorder, with normal vital signs, and no migration of theloop recorder. - Make appointment with Cardiology office tomorrow. -The patient was seen in the ED, and treated appropriately to presentation at a specific point in time. Patient is informed that there is a possibility that disease and illness can evolve and change in acuity rapidly or slowly after patient is discharged from the ER. Precautionary advice given to the patient for immediate return to ER if symptoms worsen or do not resolve, and to seek emergency care sooner rather than later. Pt also advised on the importance of PCP follow up and compliance with management and follow up plan with PCP and/or specialist, as this is part of the management plan. Pt verbally expressed understanding. Diagnostic Imaging Diagonstic Imaging: Xray Plain Films/CT/US/NM/MRI: chest Comments NAME: PIERRE DUGAN [facility] REC#: [id number] PT STATUS: REG ER : 1980 PHYSICIAN: VENKAT GARRISON MD ADMIT DATE: 12/23/22/ER FS Signed Date of Exam:12/23/22 CHEST 1 VIEW AP/PA ONLY CHEST 1 VIEW AP/PA ONLY Indication: Chest wall pain Comparison: 08/22/2022 Findings: No focal airspace disease in the visualized lungs. No pleural effusion or pneumothorax. Normal cardiomediastinal silhouette. Stable position of the loop recorder device project over the left heart. Impression: 1. No acute cardiopulmonary process by portable radiography. Dictated by: Dictated on workstation # [id number] Dict: 12/23/221652 Trans: 12/23/221652 [facility] [id number] Interpreted by: AUDREY FLOYD MD Electronically signed by: AUDREY FLOYD MD 12/23/22 3590 Departure Impression Primary Impression: Implantable loop recorder present Additional Impression: Chest wall pain Disposition: HOME, SELF-CARE Condition: Stable Departure-Patient Inst. Referrals: [facility] (PCP/Family) Primary Care Physician ESTHELA COOK MD Patient Instructions: LOOP RECORDER Add. Discharge Instructions: - Make appointment with Cardiology office tomorrow. All discharge instructions reviewed with patient and/or family. Voiced understanding. VENKAT GARRISON MD Dec 23, 2022 16:31
--- NOTE | 2022-12-23 16:54 | Diagnostic Imaging Report ---
CHEST 1 VIEW AP/PA ONLY Indication: Chest wall pain Comparison: 08/22/2022 Findings: No focal airspace disease in the visualized lungs. No pleural effusion or pneumothorax. Normal cardiomediastinal silhouette. Stable position of the loop recorder device project over the left heart. Impression: 1. No acute cardiopulmonary process by portable radiography. Dictated by: Dictated on workstation # [id number]
[2022-12-23 17:08] VITALS: BP 121/78
== END 2022-12-23 17:08 | disposition home or self-care (01) ==
LOC: EDUNIT# 16:16 → ER FS 16:19
DX: R07.89 Other chest pain (principal); Z95.818 Presence of other cardiac implants and grafts
CPT/HCPCS: 71045

== ENCOUNTER 2023-03-02 11:43 | Emergency (ER) | payer MEDICARE ==
[~2023-03-02] VITALS: Ht 157 cm; Wt 77.1 kg
[2023-03-02 11:55] VITALS: BP 465/89
--- NOTE | 2023-03-02 12:11 | ED Fall/Injury ---
General Chief Complaint: Neurological Problems Stated Complaint: FALL; RT HIP/ARM/RIB PAIN Nursing Triage Note: HAD A SEIZURE AND FELL TO THE GROUND LANDING ON HER RIGHT SIDE. S/O PAIN IN HER RIGHT SHOULDER, ELBOW, RIBS, AND HIP. BOYFRIEND DENIES PT HIT HER HEAD. Source: patient Exam Limitations: no limitations History of Present Illness Date Seen by Provider: Mar 02, 2023 Time Seen by Provider: 11:47 Initial Comments 42-year-old female with a past medical history of psychogenic nonepileptic seizures coming in after she had an episode which was seizure-like, landed on the right side of her body. Having right shoulder, elbow, rib, and hip pain. She did not hit her head, did not pass out, remembers all events. She states she has had a thorough evaluation by neurologist including an EEG where she was having episodes, and her neurologist told her "she does not have seizures". She is not on any antiseizure medications. She had Tylenol prior to arrival. Allergies and Home Medications Allergies Coded Allergies: No Known Drug Allergies (Unverified , 12/22/17) Patient Home Medication List Home Medication List Reviewed: Yes Divalproex Sodium (Depakote ER) 250 Mg Tab.er.24h, 250 MG PO DAILY Prescribed by: REAL LANDA on 11/12/21 0128 Fluoxetine HCl (Prozac) 10 Mg Capsule, 10 MG PO DAILY, (Reported) Entered as Reported by: NICK REDDY on 02/28/20921 Fluoxetine HCl (Prozac) 20 Mg Capsule, 20 MG PO DAILY, (Reported) Entered as Reported by: NICK REDDY on 02/28/20921 Lamotrigine (Lamotrigine) 25 Mg Tablet, (Reported) Entered as Reported by: SARA ALEJANDRE on 04/19/22 210 Naproxen (Naproxen) 500 Mg Tablet.dr, 500 MG PO PRN, (Reported) Entered as Reported by: PAYAM WILEY on 02/19/22 1440 Pantoprazole Sodium (Pantoprazole Sodium) 40 Mg Tablet.dr, 40 MG PO DAILY, (Reported) Entered as Reported by: PAYAM WILEY on 02/19/22 1440 Pantoprazole Sodium (Protonix) 40 Mg Tablet.dr, 40 MG PO DAILY Prescribed by: MARIJA SPAULDING on 03/04/22 1452 Prazosin HCl (Prazosin HCl) 2 Mg Capsule, (Reported) Entered as Reported by: SARA ALEJANDRE on 04/19/222103 Rosuvastatin Calcium (Rosuvastatin Calcium) 20 Mg Tablet, 20 MG PO DAILY, (Reported) Entered as Reported by: PAYAM WILYE on 02/19/22 1440 Review of Systems Review of Systems Constitutional: No fever Eyes: No Symptoms Reported Respiratory: no symptoms reported Cardiovascular: no symptoms reported Gastrointestinal: no symptoms reported Genitourinary: no symptoms reported Musculoskeletal: see HPI Skin: no symptoms reported Psychiatric/Neurological: No Symptoms Reported Past Egubhdn-Tovdnb-Btkvkr Hx Patient Social History Tobacco Use?: Yes Tobacco type used: Cigarettes Smoking Status: Current Everyday Smoker Use of E-Cig and/or Vaping dev: No Substance use?: No Alcohol Use?: No Pt feels they are or have been: No Immunizations Up To Date Tetanus Booster (TDap): Unknown Influenza Vaccine Up-to-Date: Yes; Up-to-Date First/Initial COVID19 Vaccinat: 2 SHOTS Second COVID19 Vaccination Pankaj: NOVEMBER 2020 Third COVID19 Vaccination Date: NONE Seasonal Allergies Seasonal Allergies: Yes Past Medical History Surgery/Hospitalization HX: Loop recorder placed, Hx pseudoseizure, Depresson-PTSD Surgeries: Yes (loop recorder) Gallbladder Respiratory: No Currently Using CPAP: No Currently Using BIPAP: No Cardiac: Yes (heart cath) Syncope Neurological: Yes (Seizure-like activity) Concussion, Seizure Disorder Reproductive Disorders: No Sexually Transmitted Disease: No Genitourinary: No Gastrointestinal: No Gall Bladder Disease Musculoskeletal: Yes Arthritis, Fractures Endocrine: No HEENT: No Cancer: No Psychosocial: Yes Pseudo Seizures, Anxiety, Depression Integumentary: No Blood Disorders: No Family Medical History No Pertinent Family Hx History obtained from the records. Unable to obtain from patient due to somnolence Physical Exam Vital Signs Vital Signs - First Documented 03/02/23 11:55 Temp 36.8 Pulse 92 Resp 18 B/P (MAP) 465/89 (213) Pulse Ox 97 O2 Delivery Room Air Capillary Refill : Less Than 3 Seconds Height, Weight, BMI Height: 5'2.00" Weight: 160lbs. 8.0oz. [id number]; 31.00 BMI Method:Stated General Appearance: WD/WN, no apparent distress HEENT: PERRL/EOMI, normal ENT inspection, pharynx normal Neck: non-tender, full range of motion, supple, normal inspection Cardiovascular: regular rate, rhythm, no edema, no murmur Respiratory: chest non-tender, lungs clear, normal breath sounds, no respiratory distress, no accessory muscle use Gastrointestinal: normal bowel sounds, non tender, soft; No distended, No guarding, No rebound Back: normal inspection, no CVA tenderness, no vertebral tenderness Extremities: normal inspection, no pedal edema, no calf tenderness, normal capillary refill, other (Right shoulder tenderness, right elbow tenderness, right lateral rib tenderness, right lateral hip tenderness, normal passive range of motion, abnormal active range of motion due to pain in these extremities, neurovascularly intact otherwise) Neurologic/Psychiatric: no motor/sensory deficits, alert, normal mood/affect, oriented x 3 Skin: normal color, warm/dry [place] Coma Score Best Eye Response: (4) Open Spontaneously Best Verbal Response: (5) Oriented Best Motor Response: (6) Obeys Commands Progress/Results/Core Measures Results/Orders My Orders Orders - NADINE CURRAN MD Chest 1 View Ap/Pa Only (03/02/23 12:08) Elbow 3 View Right (03/02/23 12:08) Pelvis With Right Hip 2-3 View (03/02/23 12:08) Shoulder 3 View Right (03/02/23 12:08) Oxycodone Immediate Rel Tablet (Oxycodon (03/02/23 12:15) Medications Given in ED Current Medications Medications Dose Ordered Sig/Falguni Route Start Time Stop Time Status Last Admin Dose Admin Oxycodone HCl 5 mg ONCE ONCE PO 03/02/23 12:15 03/02/23 12:16 DC 03/02/23 12:15 5 MG Vital Signs/I&O 03/02/23 11:55 Temp 36.8 Pulse 92 Resp 18 B/P (MAP) 465/89 (213) Pulse Ox 97 O2 Delivery Room Air Blood Pressure Mean: 213 Progress Progress Note : Progress Note 42-year-old female with above history coming in due to right-sided pain after nonepileptic event. ABCs were intact and vitals were stable on presentation with a GCS of 15. In regards to this seizure-like episode, the patient was conscious the entire time, not postictal, and additionally has had a extensive work-up including EEG and her neurologist says that this is a nonepileptic pseudoseizure. We witnessed 1 while in the ER, she shook for a few seconds, we told her it would be okay to stop, the patient stopped the shaking, and was not postictal. This was not consistent with true epileptic seizure. She did not hit her head, remembers all events, no headache. She has no cervical spine tenderness and has full range of motion of her neck. CT head and cervical spine not required at this time. She mostly does have tenderness along her right shoulder, right lateral ribs, and right lateral hip. X-ray of the right shoulder, chest, pelvis and right hip ordered and interpreted by me showing no fractures or dislocations. She was given an oxycodone on arrival here for pain. Now I would recommend just typical iysq-voz-xbenara pain medicines when she goes home. Diagnostic Imaging Diagonstic Imaging: Xray (right shoulder, pelvis, right hip, chest, right elbow) Departure Impression Primary Impression: Fall Qualified Codes: W19.XXXA - Unspecified fall, initial encounter Additional Impressions: Shoulder pain, right Qualified Codes: M25.511 - Pain in right shoulder Hip pain, right Contusion of rib on right side Qualified Codes: S20.211A - Contusion of right front wall of thorax, initial encounter Disposition: 01 HOME, SELF-CARE Condition: Stable Departure-Patient Inst. Decision time for Depature: 13:25 Referrals: ARTURO NESBITT APRN (PCP) Primary Care Physician [facility] (Family) Primary Care Physician Patient Instructions: Minor Contusion ED Add. Discharge Instructions: Fortunately nothing is broken or dislocated. You do have some good bruises that will take some time to heal. We recommend normal wacp-nxx-fdgxzrm medicines such as ibuprofen and Tylenol as needed for pain. Follow-up with your regular doctor if you are not seeing improvement in your pain in the next couple of weeks. Work/School Note: Family Work Note, Patient Received Medical Care In the Emergency Department On: Mar 02, 2023 Patient Will Be Able to Return to Work/School On: Mar 03, 2023 Work Release Form Date Seen in the Emergency Department: Mar 02, 2023 Return to Work: Mar 03, 2023 Restrictions: No Restrictions NADINE CURRAN MD Mar 02, 2023 12:11
[2023-03-02] MEDS ORDERED: oxyCODONE IMMEDIATE RELEASE 5 MG TABLET PO ONE (12:15)
--- NOTE | 2023-03-02 13:30 | Diagnostic Imaging Report ---
INDICATION: Chest injury and pain from a fall. Portable chest 12:39 PM There is a loop recorder projecting over the left mid chest. Heart size and pulmonary vascularity are normal. Lungs are clear. There are no effusions or pneumothoraces. There is no mediastinal widening. There is no displaced rib fracture seen. IMPRESSION: No acute abnormality seen in the chest. Dictated by: Dictated on workstation # [id number]
--- NOTE | 2023-03-02 13:32 | Diagnostic Imaging Report ---
INDICATION: Right shoulder pain 3 views of the right shoulder show no fracture, dislocation or other acute abnormalities. Joint spaces well maintained. Articular surfaces are smooth. IMPRESSION: Unremarkable right shoulder. Dictated by: Dictated on workstation # [id number]
--- NOTE | 2023-03-02 13:32 | Diagnostic Imaging Report ---
INDICATION: Pelvic injury from a fall with right hip pain. FINDINGS: AP view of pelvis and two views of the right hip are obtained. Pelvic and obturator rings appear to be intact. Hip joints appear to be intact. There is no fracture or dislocation. IMPRESSION: Unremarkable pelvis and right hip. Dictated by: Dictated on workstation # [id number]
--- NOTE | 2023-03-02 13:41 | Diagnostic Imaging Report ---
INDICATION: Right elbow injury 3 views of the right elbow show no fracture, dislocation or pathologic effusion. IMPRESSION: Negative right elbow. Dictated by: Dictated on workstation # [id number]
== END 2023-03-02 13:25 | disposition home or self-care (01) ==
LOC: EDUNIT# 11:43 → ER FS 11:45
DX: S20.211A Contusion of right front wall of thorax, initial encounter (principal); M25.551 Pain in right hip; M25.511 Pain in right shoulder; R56.9 Unspecified convulsions; F17.210 Nicotine dependence, cigarettes, uncomplicated; W18.30XA Fall on same level, unspecified, initial encounter
CPT/HCPCS: 71045; 73030; 73080; 73502